=== PATIENT | male | born 1935 | race Caucasian/White ===

== ENCOUNTER → 2016-08-13 | Outpatient (CLI) | payer MEDICARE, OTHER ==
[2016-08-16 10:41] LABS: PROTHROMBIN TIME 23.3 SEC (11.4-15.4)
[2016-08-16 11:00] LABS: ALANINE AMINOTRANSFERASE 41 U/L (21-72); ALBUMIN 3.6 g/dL (3.5-5.0); ALKALINE PHOSPHATASE 163 U/L (38-126); ANION GAP 11 (5-19); ASPARTATE AMINO TRANSFERASE 34 U/L (17-59); BILIRUBIN,DIRECT 0.3 mg/dL (0.0-0.4); BILIRUBIN,TOTAL 0.7 mg/dL (0.2-1.3); BLOOD UREA NITROGEN 15 mg/dL (7-20); CARBON DIOXIDE 29 mmol/L (22-30); CHLORIDE 100 mmol/L (98-107); CHOLESTEROL 98.55 mg/dL (0-200); CREATININE RESULT 1.06 mg/dL (0.52-1.25); Direct HDL 28 mg/dL (>40); GLUCOSE 94 mg/dL (75-110); MAGNESIUM 2.1 mg/dL (1.6-2.3); POTASSIUM 4.1 mmol/L (3.6-5.0); SODIUM 140.4 mmol/L (137-145); TOTAL PROTEIN 6.6 g/dL (6.3-8.2); TRIGLYCERIDES 99 mg/dL (<150)
[2016-08-16 11:11] LABS: DIRECT LDL 41 mg/dL (<100)
== END ==
LOC: OD 13:36
PROVIDERS: ATTEND Internal Medicine Cardiovascular Disease
DX: R06.02 Shortness of breath (principal); Z79.899 Other long term (current) drug therapy; E78.2 Mixed hyperlipidemia; Z79.01 Long term (current) use of anticoagulants
CPT/HCPCS: 36415; 80048; 80061; 80076; 83735; 83880; 84443; 85610

== ENCOUNTER 2016-10-02 12:35 | Emergency (ER) | payer MEDICARE, OTHER ==
--- NOTE | 2016-10-02 13:49 | ER Document Report ---
ED Medical Screen (RME) - General Chief Complaint: Productive Cough Stated Complaint: VOMITING Time Seen by Provider: 10/02/16 13:48 TRAVEL OUTSIDE OF THE [place] IN LAST 30 DAYS: No - HPI Notes: 10/02/16 13:48 Nausea vomiting did develop cough brown sputum to yellow sputum has seen PCP started on antihistamine steroids and azithromycin not feeling any better. - Related Data Allergies/Adverse Reactions: bacitracin [From Polysporin] Allergy (Verified 10/02/16 12:50) cephalexin [Cephalexin] Allergy (Verified 10/02/16 12:50) codeine [Codeine] Allergy (Verified 10/02/16 12:50) colchicine [Colchicine] Allergy (Verified 10/02/16 12:50) neomycin [Neomycin] Allergy (Verified 10/02/16 12:50) polymyxin B sulfate [From Polysporin] Allergy (Verified 10/02/16 12:50) Sulfa (Sulfonamide Antibiotics) Allergy (Verified 10/02/16 12:50) thimerosal [Thimerosal] Allergy (Verified 10/02/16 12:50) BANDAIDS Adverse Reaction (Uncoded 10/02/16 12:50) Past Medical History - Past Medical History Cardiac Medical History: Reports: Hx Atrial Fibrillation, Hx Congestive Heart Failure, Hx Hypertension Denies: Hx Heart Attack Pulmonary Medical History: Denies: Hx Asthma Neurological Medical History: Denies: Hx Cerebrovascular Accident, Hx Seizures Renal/ Medical History: Denies: Hx Peritoneal Dialysis GI Medical History: Denies: Hx Hepatitis, Hx Hiatal Hernia, Hx Ulcer Infectious Medical History: Denies: Hx Hepatitis Past Surgical History: Reports: Hx Cholecystectomy. Denies: Hx Open Heart Surgery, Hx Pacemaker - Immunizations Hx Diphtheria, Pertussis, Tetanus Vaccination: Yes - 2011 Review of Systems - Review of Systems Cardiovascular: Other - Cough Physical Exam - Vital signs Vitals: Temp Pulse Resp BP Pulse Ox 98.6 F 102 H 18 154/71 H 97 10/02/16 12:50 10/02/16 12:50 10/02/16 12:50 10/02/16 12:50 10/02/16 12:50 - Respiratory Respiratory status: No respiratory distress Chest status: Nontender Breath sounds: Rhonchi Course - Re-evaluation Re-evalutation: 10/02/16 13:49 - Vital Signs Vital signs: Temp Pulse Resp BP Pulse Ox 98.6 F 102 H 18 154/71 H 97 10/02/16 12:50 10/02/16 12:50 10/02/16 12:50 10/02/16 12:50 10/02/16 12:50
--- NOTE | 2016-10-02 14:37 | ER Document Report ---
ED Respiratory Problem - General Mode of Arrival: Ambulatory Information source: Patient TRAVEL OUTSIDE OF THE [place] IN LAST 30 DAYS: No - HPI Patient complains to provider of: Cough Duration: Worse/persistent Cough: Nonproductive, Productive Sputum amount: Moderate <MJ MENON - Last Filed: 10/02/16 15:42> <SHAISTA CERNA - Last Filed: 10/04/16 11:31> - General Chief Complaint: Productive Cough Stated Complaint: VOMITING Time Seen by Provider: 10/02/16 13:48 Notes: Patient is an 81-year-old male that presents to the emergency department today with complaints of one-week duration of a cough. Patient states he has felt somewhat short of breath intermittently. Patient was recently prescribed Zithromax and Prednisone which did not relieve his cough. (MJ MENON) - Related Data Allergies/Adverse Reactions: bacitracin [From Polysporin] Allergy (Verified 10/02/16 12:50) cephalexin [Cephalexin] Allergy (Verified 10/02/16 12:50) codeine [Codeine] Allergy (Verified 10/02/16 12:50) colchicine [Colchicine] Allergy (Verified 10/02/16 12:50) neomycin [Neomycin] Allergy (Verified 10/02/16 12:50) polymyxin B sulfate [From Polysporin] Allergy (Verified 10/02/16 12:50) Sulfa (Sulfonamide Antibiotics) Allergy (Verified 10/02/16 12:50) thimerosal [Thimerosal] Allergy (Verified 10/02/16 12:50) BANDAIDS Adverse Reaction (Uncoded 10/02/16 12:50) Past Medical History - Social History Smoking Status: Former Smoker Chew tobacco use (# tins/day): No Frequency of alcohol use: None Drug Abuse: None Family History: None Patient has suicidal ideation: No Patient has homicidal ideation: No - Past Medical History Cardiac Medical History: Reports: Hx Atrial Fibrillation, Hx Congestive Heart Failure, Hx Hypertension Denies: Hx Heart Attack Pulmonary Medical History: Denies: Hx Asthma Neurological Medical History: Denies: Hx Cerebrovascular Accident, Hx Seizures Renal/ Medical History: Denies: Hx Peritoneal Dialysis GI Medical History: Denies: Hx Hepatitis, Hx Hiatal Hernia, Hx Ulcer Infectious Medical History: Denies: Hx Hepatitis Past Surgical History: Reports: Hx Cholecystectomy. Denies: Hx Open Heart Surgery, Hx Pacemaker - Immunizations Hx Diphtheria, Pertussis, Tetanus Vaccination: Yes - 2011 Hx Pneumococcal Vaccination: 04/11/11 <MJ MENON - Last Filed: 10/02/16 15:42> Review of Systems - Review of Systems Constitutional: No symptoms reported EENT: No symptoms reported Cardiovascular: No symptoms reported Respiratory: Cough, Short of breath Gastrointestinal: No symptoms reported Genitourinary: No symptoms reported Male Genitourinary: No symptoms reported Musculoskeletal: No symptoms reported Skin: No symptoms reported Hematologic/Lymphatic: No symptoms reported Neurological/Psychological: No symptoms reported -: Yes All other systems reviewed and negative <MJ MENON - Last Filed: 10/02/16 15:42> Physical Exam - Vital signs Interpretation: Normal - General General appearance: Appears well, Alert - HEENT Head: Normocephalic, Atraumatic Eyes: Normal Pupils: PERRL - Respiratory Respiratory status: No respiratory distress Chest status: Nontender Breath sounds: Normal Chest palpation: Normal - Cardiovascular Rhythm: Regular Heart sounds: Normal auscultation Murmur: No - Abdominal Inspection: Normal Distension: No distension Bowel sounds: Normal Tenderness: Nontender Organomegaly: No organomegaly - Back Back: Normal, Nontender - Extremities General upper extremity: Normal inspection, Nontender, Normal color, Normal ROM , Normal temperature General lower extremity: Normal inspection, Nontender, Normal color, Normal ROM , Normal temperature - Neurological Neuro grossly intact: Yes Cognition: Normal Orientation: AAOx4 [place] Coma Scale Eye Opening: Spontaneous You Coma Scale Verbal: Oriented [place] Coma Scale Motor: Obeys Commands [place] Coma Scale Total: 15 Speech: Normal Motor strength normal: LUE, RUE, LLE, RLE Sensory: Normal - Psychological Associated symptoms: Normal affect, Normal mood - Skin Skin Temperature: Warm Skin Moisture: Dry Skin Color: Normal <MJ MENON - Last Filed: 10/02/16 15:42> Course - Laboratory Result Diagrams: 10/02/16 14:10 10/02/16 14:10 <MJ MENON - Last Filed: 10/02/16 15:42> - Laboratory Result Diagrams: 10/02/16 14:10 10/02/16 14:10 <SHAISTA CERNA - Last Filed: 10/04/16 11:31> - Re-evaluation Re-evalutation: 10/02/16 15:58 Presents emergency department with a cough for one weeks duration he see his primary care physician had a negative chest x-ray continues to cough up brownish yellow sputum. Says he has a history of COPD with stopped smoking 25 years ago and is on no medication now history of congestive heart failure on Lasix sees Dr. Thomas cardiology denies any chest pain pressure diaphoresis lower extremity edema history of recent travel, surgery immobilization DVT or pulmonary emboli. He is in no acute respiratory distress denies shortness of breath or cardiac complaints. He is not hypoxic chest x-ray is negative mildly elevated BNP in the dose of increased Lasix here he is allergic to albuterol and taken Hycodan to the emergency to that as well. He was given Zithromax I told him to stop taking that also was given Mucinex and another allergy medication he says they are not working and I told him he can stop taking that if it is helping him. He will follow primary care physician in 2-3 days and discussed reasons for ED return (SHAISTA CERNA) - Vital Signs Vital signs: Temp Pulse Resp BP Pulse Ox 98.6 F 70 14 123/73 96 10/02/16 12:50 10/02/16 16:15 10/02/16 16:15 10/02/16 16:15 10/02/16 16:15 - Laboratory Laboratory results interpreted by me: 10/02/16 10/02/16 10/02/16 14:10 14:10 14:10 WBC 12.2 H Seg Neuts % (Manual) 90 H Band Neutrophils % 1 L Lymphocytes % (Manual) 5 L Abs Neuts (Manual) 11.1 H BUN 23 H Glucose 247 H Alkaline Phosphatase 145 H NT-Pro-B Natriuret Pep 1710 H Discharge <MJ MENON - Last Filed: 10/02/16 15:42> <SHAISTA CERNA - Last Filed: 10/04/16 11:31> - Discharge Clinical Impression: chf exacerbation mild Acute bronchitis Qualifiers: Bronchitis organism: unspecified organism Qualified Code(s): J20.9 - Acute bronchitis, unspecified Condition: Stable Disposition: HOME, SELF-CARE Additional Instructions: Bronchitis You have acute bronchitis. This disease is an infection or inflammation of the air passageways in your lungs. Symptoms usually include cough, low grade fever, shortness of breath, and wheezing. The cough usually persists for a couple of weeks. Most cases of bronchitis get better without antibiotics. We prescribe antibiotics when we believe bacteria are damaging your airways, or if there's high risk the bronchitis will worsen into pneumonia. Increase your fluid intake. A cool mist humidifier may make your lungs more comfortable. An expectorant (cough medicine that loosens phlegm) can help. If you smoke, STOP!!! Recovery from bronchitis can be somewhat slow, but you should see improvement within a day or two. Repeated episodes of bronchitis may result in lung damage -- for example, chronic bronchitis, recurrent pneumonias, or emphysema. Call the doctor if you develop increasing fever, shortness of breath, chest pain, bloody sputum, or otherwise worsen. If you have not improved at all after several days, contact the physician. Congestive Heart Failure You have been diagnosed as having congestive heart failure (CHF). CHF occurs when the heart is unable to pump blood efficiently, leading to fluid buildup in the veins and lungs. Typical symptoms are swelling of the legs, shortness of breath on minor exertion, and fatigue. CHF is treated with salt restriction, medicine to eliminate excess water and salt from the body, and medication to help the heart contract more efficiently. Eliminate added salt and salty foods in your diet. Decrease your activity until excess fluid has been eliminated. It will also be helpful to raise the head of your bed so you can sleep more easily. Keep a daily record of your weight. This will help your physician monitor your progress. Once extra water has been eliminated, light aerobic exercise daily -- such as walking -- will be helpful (unless your physician has told you to restrict activity for other reasons). Be sure to follow up with the physician as instructed. Contact the doctor at once if you worsen in any way. Referrals: TANIA ESPARZA MD [Primary Care Provider] - Follow up as needed Scribe Attestation: 10/02/16 15:58 I personally performed the services described in the documentation reviewed the documentation recorded by my scribe in my presence and it accurately and completely records my words and actions (SHAISTA CERNA) Scribe Documentation - Scribe Written by Jose:: Jose Jimenez, 10/02/2016 [id number] acting as scribe for :: Skyler <MJ MENON - Last Filed: 10/02/16 15:42>
[2016-10-02 14:54] LABS: HEMATOCRIT 42.4 % (37.9-51.0); HEMOGLOBIN 13.9 g/dL (13.5-17.0); HGB HCT DIFFERENCE -0.7; MEAN CORPUSCULAR HEMOGLOBIN 29.9 pg (27.0-33.4); MEAN CORPUSCULAR HGB CONC 32.7 g/dL (32.0-36.0); MEAN CORPUSCULAR VOLUME 91 fl (80-97); RED BLOOD COUNT 4.65 10^6/uL (4.35-5.55); WHITE BLOOD COUNT 12.2 10^3/uL (4.0-10.5)
[2016-10-02 15:12] LABS: ALANINE AMINOTRANSFERASE 40 U/L (21-72); ALBUMIN 3.7 g/dL (3.5-5.0); ALKALINE PHOSPHATASE 145 U/L (38-126); ANION GAP 13 (5-19); ASPARTATE AMINO TRANSFERASE 34 U/L (17-59); BILIRUBIN,DIRECT 0.4 mg/dL (0.0-0.4); BILIRUBIN,TOTAL 0.7 mg/dL (0.2-1.3); BLOOD UREA NITROGEN 23 mg/dL (7-20); CALCIUM 8.8 mg/dL (8.4-10.2); CARBON DIOXIDE 23 mmol/L (22-30); CHLORIDE 103 mmol/L (98-107); CREATINE KINASE 55 U/L (55-170); CREATININE RESULT 1.04 mg/dL (0.52-1.25); GLUCOSE 247 mg/dL (75-110); LIPASE 136.5 U/L (23-300); MAGNESIUM 2.3 mg/dL (1.6-2.3); POTASSIUM 3.7 mmol/L (3.6-5.0); SODIUM 138.7 mmol/L (137-145); TOTAL PROTEIN 6.8 g/dL (6.3-8.2)
[2016-10-02 15:16] LABS: BAND NEUTROPHILS % (MANUAL) 1 % (3-5); BASOPHILS % (MANUAL) 0 % (0-2); EOSINOPHILS % (MANUAL) 0 % (0-6); LYMPHOCYTES % (MANUAL) 5 % (13-45); RBC MORPHOLOGY COMMENT NORMO-CYTIC/CHROMIC; TOTAL CELLS COUNTED 100
[2016-10-02 15:24] LABS: CREATINE KINASE MB 2.15 ng/mL (<4.55); TROPONIN I 0.016 ng/mL
--- NOTE | 2016-10-02 15:42 | RADIOLOGY REPORT (SQ) ---
EXAM DESCRIPTION: CHEST PA/LAT COMPLETED DATE/TIME: 10/02/2016 3:36 pm REASON FOR STUDY: sob COMPARISON: 11/21/2013 EXAM PARAMETERS: NUMBER OF VIEWS: two views TECHNIQUE: Digital Frontal and Lateral radiographic views of the chest acquired. RADIATION DOSE: NA LIMITATIONS: none FINDINGS: LUNGS AND PLEURA: No opacities, masses or pneumothorax. No pleural effusion. MEDIASTINUM AND HILAR STRUCTURES: No masses or contour abnormalities. HEART AND VASCULAR STRUCTURES: Heart normal size. No evidence for failure. BONES: No acute findings. HARDWARE: None in the chest. OTHER: No other significant finding. IMPRESSION: NO SIGNIFICANT RADIOGRAPHIC FINDING IN THE CHEST. TECHNICAL DOCUMENTATION: JOB ID: [id number]- All Rights Reserved
[2016-10-02] MEDS ORDERED: FUROSEMIDE 80 MG TABLET PO ONE (15:44)
[2016-10-02] MEDS ORDERED: FUROSEMIDE 40 MG TABLET PO ONE (16:15)
[2016-10-02 16:16] VITALS: BP 123/73
--- NOTE | 2016-10-02 17:34 | EKG REPORT ---
SEVERITY:- ABNORMAL ECG - ATRIAL FIBRILLATION LEFT AXIS DEVIATION : Confirmed by: Steve Milian 02-Oct-2016 17:32:44
== END 2016-10-02 16:15 | disposition home or self-care (01) ==
LOC: ER 12:35
DX: J20.9 Acute bronchitis, unspecified (principal); I50.9 Heart failure, unspecified; R05 Cough; R11.10 Vomiting, unspecified; Z87.891 Personal history of nicotine dependence
CPT/HCPCS: 93005; 99284; 36415; 82553; 82550; 83690; 83735; 85025; 80053; 84484; 83880; 71020; 93010; A9270

== ENCOUNTER → 2016-11-08 | Outpatient (CLI) | payer MEDICARE, OTHER ==
--- NOTE | 2016-11-08 14:05 | RADIOLOGY REPORT (SQ) ---
EXAM DESCRIPTION: VENOUS UNILATERAL LOWER COMPLETED DATE/TIME: 11/08/2016 1:54 pm REASON FOR STUDY: RLE PAIN M79.661 PAIN IN RIGHT LOWER LEG COMPARISON: None. TECHNIQUE: Dynamic and static alonso scale and color images acquired of the right leg venous system. S elected spectral images acquired with additional compression and augmentation maneuvers. The contrala teral common femoral vein and saphenofemoral junction were also imaged. Images stored on PACS. LIMITATIONS: None. FINDINGS: COMMON FEMORAL: Normal phasicity, compression and augmentation. No visualized echogenic ma terial on alonso scale. No defects on color images. FEMORAL: Normal compression and augmentation. No visualized echogenic material on alonso scale. No defe cts on color images. POPLITEAL: Normal compression, augmentation. No visualized echogenic material on alonso scale. No defec ts on color images. CALF VESSELS: Normal compression, augmentation. No visualized echogenic material on alonso scale. No de fects on color images. GSV and SSV: Normal compression, augmentation. No visualized echogenic material on alonso scale. No def ects on color images. ANY DEEP VENOUS INSUFFICIENCY: Not evaluated. ANY EVIDENCE OF POPLITEAL CYST: No. OTHER: No other significant finding. CONTRALATERAL COMMON FEMORAL VEIN AND SAPHENOFEMORAL JUNCTION: Normal phasicity, compression and augmentation. No visualized echogenic material on alonso scale. No de fects on color images. IMPRESSION: NO EVIDENCE DVT OR SVT IN THE RIGHT LEG. TECHNICAL DOCUMENTATION: JOB ID: [id number] [employer]- All Rights Reserved
== END ==
LOC: SP 13:00
PROVIDERS: ATTEND Family Medicine
DX: M79.661 Pain in right lower leg (principal)
CPT/HCPCS: 93971

== ENCOUNTER → 2017-03-11 | Outpatient (CLI) | payer MEDICARE, OTHER ==
[2017-03-11 12:27] LABS: HEMATOCRIT 43.4 % (37.9-51.0); HEMOGLOBIN 14.8 g/dL (13.5-17.0); MEAN CORPUSCULAR VOLUME 91 fl (80-97); RED BLOOD COUNT 4.75 10^6/uL (4.35-5.55); RED CELL DISTRIBUTION WIDTH 13.8 % (11.5-14.0); WHITE BLOOD COUNT 5.3 10^3/uL (4.0-10.5)
[2017-03-11 12:32] LABS: PROTHROMBIN TIME 27.5 SEC (11.4-15.4)
[2017-03-11 12:50] LABS: ANION GAP 11 (5-19); BLOOD UREA NITROGEN 16 mg/dL (7-20); CALCIUM 9.1 mg/dL (8.4-10.2); CARBON DIOXIDE 29 mmol/L (22-30); CHLORIDE 103 mmol/L (98-107); CREATININE RESULT 1.09 mg/dL (0.52-1.25); GLUCOSE 100 mg/dL (75-110); MAGNESIUM 2.1 mg/dL (1.6-2.3); POTASSIUM 5.2 mmol/L (3.6-5.0); SODIUM 143.2 mmol/L (137-145)
== END ==
LOC: OD 11:17
PROVIDERS: ATTEND Internal Medicine Nephrology
DX: I13.0 Hypertensive heart and chronic kidney disease with heart failure and stage 1 through stage 4 chronic kidney disease, or unspecified chronic kidney disease (principal); N18.3 Chronic kidney disease, stage 3 (moderate); I50.9 Heart failure, unspecified; I48.2 Chronic atrial fibrillation; Z79.01 Long term (current) use of anticoagulants
CPT/HCPCS: 36415; 80048; 83735; 85027; 85610

== ENCOUNTER → 2017-03-21 | Outpatient (CLI) | payer MEDICARE, OTHER ==
[2017-03-21 10:09] LABS: PROTHROMBIN TIME 32.5 SEC (11.4-15.4)
== END ==
LOC: OD 09:07
PROVIDERS: ATTEND Internal Medicine Cardiovascular Disease
DX: Z79.01 Long term (current) use of anticoagulants (principal); I48.2 Chronic atrial fibrillation
CPT/HCPCS: 36415; 85610

== ENCOUNTER → 2017-04-01 | Outpatient (CLI) | payer MEDICARE, OTHER ==
[2017-04-01 08:30] LABS: PROTHROMBIN TIME 32.7 SEC (11.4-15.4)
== END ==
LOC: OD 07:11
PROVIDERS: ATTEND Internal Medicine Cardiovascular Disease
DX: I48.2 Chronic atrial fibrillation (principal); Z79.01 Long term (current) use of anticoagulants
CPT/HCPCS: 36415; 85610

== ENCOUNTER → 2017-04-13 | Outpatient (CLI) | payer MEDICARE, OTHER ==
[2017-04-13 12:10] LABS: INTERNATIONAL RATION (INR) 2.32; PROTHROMBIN TIME 26.7 SEC (11.4-15.4)
== END ==
LOC: OD 11:16
PROVIDERS: ATTEND Internal Medicine Cardiovascular Disease
DX: I48.2 Chronic atrial fibrillation (principal); Z79.01 Long term (current) use of anticoagulants
CPT/HCPCS: 36415; 85610

== ENCOUNTER → 2017-04-26 | Outpatient (CLI) | payer MEDICARE, OTHER ==
[2017-04-26 16:20] LABS: INTERNATIONAL RATION (INR) 2.09; PROTHROMBIN TIME 24.6 SEC (11.4-15.4)
== END ==
LOC: OD 14:39
PROVIDERS: ATTEND Internal Medicine Cardiovascular Disease
DX: I48.2 Chronic atrial fibrillation (principal); Z79.01 Long term (current) use of anticoagulants
CPT/HCPCS: 36415; 85610

== ENCOUNTER → 2017-05-09 | Outpatient (CLI) | payer MEDICARE, OTHER ==
[2017-05-09 12:06] LABS: INTERNATIONAL RATION (INR) 2.71; PROTHROMBIN TIME 30.1 SEC (11.4-15.4)
== END ==
LOC: OD 10:21
PROVIDERS: ATTEND Internal Medicine Cardiovascular Disease
DX: I48.2 Chronic atrial fibrillation (principal); Z79.01 Long term (current) use of anticoagulants
CPT/HCPCS: 36415; 85610

== ENCOUNTER → 2017-05-23 | Outpatient (CLI) | payer MEDICARE, OTHER ==
[2017-05-23 12:37] LABS: INTERNATIONAL RATION (INR) 2.25; PROTHROMBIN TIME 26.1 SEC (11.4-15.4)
== END ==
LOC: OD 11:23
PROVIDERS: ATTEND Internal Medicine Cardiovascular Disease
DX: I48.2 Chronic atrial fibrillation (principal); Z79.01 Long term (current) use of anticoagulants
CPT/HCPCS: 36415; 85610

== ENCOUNTER → 2017-06-06 | Outpatient (CLI) | payer MEDICARE, OTHER ==
[2017-06-06 10:53] LABS: INTERNATIONAL RATION (INR) 1.93; PROTHROMBIN TIME 23.2 SEC (11.4-15.4)
[2017-06-06 10:55] LABS: ANION GAP 14 (5-19); BLOOD UREA NITROGEN 16 mg/dL (7-20); CALCIUM 8.9 mg/dL (8.4-10.2); CARBON DIOXIDE 29 mmol/L (22-30); CHLORIDE 98 mmol/L (98-107); CHOLESTEROL 98.92 mg/dL (0-200); GLUCOSE 95 mg/dL (75-110); POTASSIUM 4.8 mmol/L (3.6-5.0); SODIUM 141.1 mmol/L (137-145); TRIGLYCERIDES 91 mg/dL (<150)
[2017-06-06 11:07] LABS: DIRECT LDL 48 mg/dL (<100)
[2017-06-06 14:36] LABS: ALANINE AMINOTRANSFERASE 39 U/L (21-72); ALBUMIN 3.9 g/dL (3.5-5.0); ALKALINE PHOSPHATASE 117 U/L (38-126); ASPARTATE AMINO TRANSFERASE 41 U/L (17-59); BILIRUBIN,DIRECT 0.4 mg/dL (0.0-0.4); BILIRUBIN,TOTAL 1.1 mg/dL (0.2-1.3); TOTAL PROTEIN 6.5 g/dL (6.3-8.2)
== END ==
LOC: OD 09:34
PROVIDERS: ATTEND Internal Medicine Cardiovascular Disease
DX: I48.2 Chronic atrial fibrillation (principal); E78.2 Mixed hyperlipidemia; R94.5 Abnormal results of liver function studies; Z79.01 Long term (current) use of anticoagulants
CPT/HCPCS: 36415; 80048; 80061; 80076; 83735; 85610

== ENCOUNTER → 2017-06-20 | Outpatient (CLI) | payer MEDICARE, OTHER ==
[2017-06-20 12:26] LABS: INTERNATIONAL RATION (INR) 2.65; PROTHROMBIN TIME 29.6 SEC (11.4-15.4)
== END ==
LOC: OD 10:40
PROVIDERS: ATTEND Internal Medicine Cardiovascular Disease
DX: I48.2 Chronic atrial fibrillation (principal); Z79.01 Long term (current) use of anticoagulants
CPT/HCPCS: 36415; 85610

== ENCOUNTER → 2017-07-05 | Outpatient (CLI) | payer MEDICARE, OTHER ==
[2017-07-05 11:17] LABS: INTERNATIONAL RATION (INR) 2.63; PROTHROMBIN TIME 29.4 SEC (11.4-15.4)
== END ==
LOC: OD 09:46
PROVIDERS: ATTEND Internal Medicine Cardiovascular Disease
DX: I48.2 Chronic atrial fibrillation (principal)
CPT/HCPCS: 36415; 85610

== ENCOUNTER → 2017-07-19 | Outpatient (CLI) | payer MEDICARE, OTHER ==
[2017-07-19 11:34] LABS: INTERNATIONAL RATION (INR) 2.78; PROTHROMBIN TIME 30.6 SEC (11.4-15.4)
== END ==
LOC: OD 10:54
PROVIDERS: ATTEND Internal Medicine Cardiovascular Disease
DX: I48.2 Chronic atrial fibrillation (principal)
CPT/HCPCS: 36415; 85610

== ENCOUNTER → 2017-08-02 | Outpatient (CLI) | payer MEDICARE, OTHER ==
[2017-08-02 10:38] LABS: INTERNATIONAL RATION (INR) 2.71; PROTHROMBIN TIME 30.1 SEC (11.4-15.4)
== END ==
LOC: OD 09:52
PROVIDERS: ATTEND Internal Medicine Cardiovascular Disease
DX: I48.2 Chronic atrial fibrillation (principal)
CPT/HCPCS: 36415; 85610

== ENCOUNTER → 2017-08-15 | Outpatient (CLI) | payer MEDICARE, OTHER ==
[2017-08-15 11:52] LABS: INTERNATIONAL RATION (INR) 2.25; PROTHROMBIN TIME 25.9 SEC (11.4-15.4)
== END ==
LOC: OD 11:09
PROVIDERS: ATTEND Internal Medicine Cardiovascular Disease
DX: I48.2 Chronic atrial fibrillation (principal)
CPT/HCPCS: 36415; 85610

== ENCOUNTER → 2017-08-29 | Outpatient (CLI) | payer MEDICARE, OTHER ==
[2017-08-29 10:02] LABS: INTERNATIONAL RATION (INR) 2.03; PROTHROMBIN TIME 23.9 SEC (11.4-15.4)
== END ==
LOC: OD 09:01
PROVIDERS: ATTEND Internal Medicine Cardiovascular Disease
DX: I48.2 Chronic atrial fibrillation (principal)
CPT/HCPCS: 36415; 85610

== ENCOUNTER → 2017-09-09 | Outpatient (CLI) | payer MEDICARE, OTHER ==
[2017-09-09 14:27] LABS: HEMATOCRIT 43.7 % (37.9-51.0); HEMOGLOBIN 14.5 g/dL (13.5-17.0); MEAN CORPUSCULAR HEMOGLOBIN 30.2 pg (27.0-33.4); MEAN CORPUSCULAR HGB CONC 33.2 g/dL (32.0-36.0); MEAN CORPUSCULAR VOLUME 91 fl (80-97); PLATELET COUNT 167 10^3/uL (150-450); RED CELL DISTRIBUTION WIDTH 14.4 % (11.5-14.0); WHITE BLOOD COUNT 4.4 10^3/uL (4.0-10.5)
[2017-09-09 14:46] LABS: ANION GAP 14 (5-19); BLOOD UREA NITROGEN 21 mg/dL (7-20); CALCIUM 9.1 mg/dL (8.4-10.2); CARBON DIOXIDE 28 mmol/L (22-30); CHLORIDE 101 mmol/L (98-107); GLUCOSE 174 mg/dL (75-110); SODIUM 143.1 mmol/L (137-145)
== END ==
LOC: OD 13:24
PROVIDERS: ATTEND Internal Medicine Nephrology
DX: I12.9 Hypertensive chronic kidney disease with stage 1 through stage 4 chronic kidney disease, or unspecified chronic kidney disease (principal); N18.3 Chronic kidney disease, stage 3 (moderate); E87.5 Hyperkalemia
CPT/HCPCS: 36415; 80048; 85027

== ENCOUNTER → 2017-09-12 | Outpatient (CLI) | payer MEDICARE, OTHER ==
[2017-09-12 14:45] LABS: INTERNATIONAL RATION (INR) 2.18; PROTHROMBIN TIME 25.3 SEC (11.4-15.4)
== END ==
LOC: OD 13:33
PROVIDERS: ATTEND Internal Medicine Cardiovascular Disease
DX: I48.2 Chronic atrial fibrillation (principal)
CPT/HCPCS: 36415; 85610

== ENCOUNTER → 2017-09-27 | Outpatient (CLI) | payer MEDICARE, OTHER ==
[2017-09-27 12:04] LABS: INTERNATIONAL RATION (INR) 2.45; PROTHROMBIN TIME 27.8 SEC (11.4-15.4)
== END ==
LOC: OD 11:04
PROVIDERS: ATTEND Internal Medicine Cardiovascular Disease
DX: I48.2 Chronic atrial fibrillation (principal)
CPT/HCPCS: 36415; 85610

== ENCOUNTER → 2017-10-11 | Outpatient (CLI) | payer MEDICARE, OTHER ==
[2017-10-11 11:35] LABS: INTERNATIONAL RATION (INR) 3.91; PROTHROMBIN TIME 40.1 SEC (11.4-15.4)
== END ==
LOC: OD 10:27
PROVIDERS: ATTEND Internal Medicine Cardiovascular Disease
DX: I48.2 Chronic atrial fibrillation (principal)
CPT/HCPCS: 36415; 85610

== ENCOUNTER → 2017-10-13 | Outpatient (CLI) | payer MEDICARE, OTHER ==
[2017-10-13 11:11] LABS: INTERNATIONAL RATION (INR) 2.11; PROTHROMBIN TIME 24.6 SEC (11.4-15.4)
== END ==
LOC: OD 10:17
PROVIDERS: ATTEND Internal Medicine Cardiovascular Disease
DX: I48.2 Chronic atrial fibrillation (principal)
CPT/HCPCS: 36415; 85610

== ENCOUNTER → 2017-10-26 | Outpatient (CLI) | payer MEDICARE, OTHER ==
[2017-10-26 11:24] LABS: INTERNATIONAL RATION (INR) 2.47; PROTHROMBIN TIME 27.9 SEC (11.4-15.4)
== END ==
LOC: OD 10:20
PROVIDERS: ATTEND Internal Medicine Cardiovascular Disease
DX: I48.2 Chronic atrial fibrillation (principal)
CPT/HCPCS: 36415; 85610

== ENCOUNTER → 2017-11-09 | Outpatient (CLI) | payer MEDICARE, OTHER ==
[2017-11-09 10:59] LABS: INTERNATIONAL RATION (INR) 3.12; PROTHROMBIN TIME 33.6 SEC (11.4-15.4)
== END ==
LOC: OD 09:54
PROVIDERS: ATTEND Internal Medicine Cardiovascular Disease
DX: I48.2 Chronic atrial fibrillation (principal)
CPT/HCPCS: 36415; 85610

== ENCOUNTER → 2017-11-21 | Outpatient (CLI) | payer MEDICARE, OTHER ==
[2017-11-21 12:07] LABS: INTERNATIONAL RATION (INR) 3.16; PROTHROMBIN TIME 33.9 SEC (11.4-15.4)
== END ==
LOC: OD 10:54
PROVIDERS: ATTEND Internal Medicine Cardiovascular Disease
DX: I48.2 Chronic atrial fibrillation (principal)
CPT/HCPCS: 36415; 85610

== ENCOUNTER → 2017-11-22 | Outpatient (CLI) | payer MEDICARE, OTHER ==
[2017-11-22 10:06] LABS: ANION GAP 10 (5-19); BLOOD UREA NITROGEN 17 mg/dL (7-20); CALCIUM 8.8 mg/dL (8.4-10.2); CARBON DIOXIDE 31 mmol/L (22-30); CHLORIDE 102 mmol/L (98-107); GLUCOSE 102 mg/dL (75-110); POTASSIUM 4.2 mmol/L (3.6-5.0)
== END ==
LOC: OD 09:03
PROVIDERS: ATTEND Internal Medicine Cardiovascular Disease
DX: I48.2 Chronic atrial fibrillation (principal)
CPT/HCPCS: 36415; 80048

== ENCOUNTER → 2018-02-16 | Outpatient (CLI) | payer MEDICARE, OTHER ==
[2018-02-16 11:02] LABS: APPEARANCE,URINE CLEAR; BILIRUBIN,URINE NEGATIVE (NEGATIVE); COLOR,URINE YELLOW; GLUCOSE, URINE NEGATIVE (NEGATIVE); KETONES,URINE NEGATIVE (NEGATIVE); LEUKOCYTE ESTERASE,URINE NEGATIVE (NEGATIVE); NITRITE,URINE NEGATIVE (NEGATIVE); PROTEIN,URINE NEGATIVE (NEGATIVE); URINE SPECIFIC GRAVITY 1.015; UROBILINOGEN,URINE NEGATIVE mg/dL (<2.0)
[2018-02-16 11:08] LABS: HEMATOCRIT 42.8 % (37.9-51.0); HEMOGLOBIN 14.2 g/dL (13.5-17.0); MEAN CORPUSCULAR HEMOGLOBIN 30.1 pg (27.0-33.4); MEAN CORPUSCULAR HGB CONC 33.3 g/dL (32.0-36.0); MEAN CORPUSCULAR VOLUME 90 fl (80-97); PLATELET COUNT 251 10^3/uL (150-450); RED BLOOD COUNT 4.73 10^6/uL (4.35-5.55); RED CELL DISTRIBUTION WIDTH 14.6 % (11.5-14.0); WHITE BLOOD COUNT 5.7 10^3/uL (4.0-10.5)
[2018-02-16 11:29] LABS: ALANINE AMINOTRANSFERASE 30 U/L (21-72); ALKALINE PHOSPHATASE 165 U/L (38-126); ANION GAP 15 (5-19); ASPARTATE AMINO TRANSFERASE 39 U/L (17-59); BILIRUBIN,DIRECT 0.3 mg/dL (0.0-0.4); BILIRUBIN,TOTAL 1.2 mg/dL (0.2-1.3); BLOOD UREA NITROGEN 14 mg/dL (7-20); CALCIUM 9.1 mg/dL (8.4-10.2); CARBON DIOXIDE 28 mmol/L (22-30); CHLORIDE 99 mmol/L (98-107); GLUCOSE 98 mg/dL (75-110); POTASSIUM 4.2 mmol/L (3.6-5.0); SODIUM 141.7 mmol/L (137-145); TOTAL PROTEIN 7.2 g/dL (6.3-8.2)
== END ==
LOC: LAB 10:51
PROVIDERS: ATTEND Internal Medicine Cardiovascular Disease
DX: I48.2 Chronic atrial fibrillation (principal); Z79.01 Long term (current) use of anticoagulants; Z79.899 Other long term (current) drug therapy
CPT/HCPCS: 36415; 80048; 80076; 81001; 82272; 85027; 85730

== ENCOUNTER → 2018-03-09 | Outpatient (CLI) | payer MEDICARE, OTHER ==
[2018-03-09 10:41] LABS: HEMATOCRIT 41.8 % (37.9-51.0); HEMOGLOBIN 14.2 g/dL (13.5-17.0); MEAN CORPUSCULAR VOLUME 91 fl (80-97); PLATELET COUNT 189 10^3/uL (150-450); RED BLOOD COUNT 4.58 10^6/uL (4.35-5.55); RED CELL DISTRIBUTION WIDTH 15.1 % (11.5-14.0); WHITE BLOOD COUNT 5.7 10^3/uL (4.0-10.5)
[2018-03-09 11:09] LABS: ANION GAP 10 (5-19); BLOOD UREA NITROGEN 18 mg/dL (7-20); CARBON DIOXIDE 32 mmol/L (22-30); CHLORIDE 101 mmol/L (98-107); GLUCOSE 104 mg/dL (75-110); POTASSIUM 4.1 mmol/L (3.6-5.0)
== END ==
LOC: OD 09:42
PROVIDERS: ATTEND Internal Medicine Nephrology
DX: I12.9 Hypertensive chronic kidney disease with stage 1 through stage 4 chronic kidney disease, or unspecified chronic kidney disease (principal); N18.3 Chronic kidney disease, stage 3 (moderate); R60.9 Edema, unspecified
CPT/HCPCS: 36415; 80048; 85027

== ENCOUNTER 2018-03-21 12:38 | Emergency (ER) | payer MEDICARE, OTHER ==
[2018-03-21] MEDS ORDERED: ASPIRIN 81 MG TABLET, CHEWABLE PO ONE (12:57)
[2018-03-21 13:26] LABS: ABSOLUTE EOSINOPHILS # (AUTO) 0.2 10^3/uL (0.0-0.6); ABSOLUTE LYMPHOCYTES (AUTO) 0.8 10^3/uL (0.5-4.7); ABSOLUTE MONOCYTES (AUTO) 0.6 10^3/uL (0.1-1.4); ABSOLUTE NEUT (AUTO) 4.3 10^3/uL (1.7-8.2); BASOPHILS % (AUTO) 0.7 % (0-2); EOSINOPHILS % (AUTO) 2.9 % (0-6); HEMATOCRIT 45.1 % (37.9-51.0); HEMOGLOBIN 15.2 g/dL (13.5-17.0); LYMPHOCYTES % (AUTO) 13.9 % (13-45); MEAN CORPUSCULAR HEMOGLOBIN 30.8 pg (27.0-33.4); MEAN CORPUSCULAR HGB CONC 33.7 g/dL (32.0-36.0); MEAN CORPUSCULAR VOLUME 91 fl (80-97); MONOCYTES % (AUTO) 10.2 % (3-13); PLATELET COUNT 192 10^3/uL (150-450); RED BLOOD COUNT 4.94 10^6/uL (4.35-5.55); RED CELL DISTRIBUTION WIDTH 14.8 % (11.5-14.0); SEGMENTED NEUTROPHILS % (AUTO) 72.3 % (42-78); TOTAL CELLS COUNTED % (AUTO) 100 %; WHITE BLOOD COUNT 5.9 10^3/uL (4.0-10.5)
--- NOTE | 2018-03-21 13:57 | RADIOLOGY REPORT (SQ) ---
EXAM DESCRIPTION: CHEST SINGLE VIEW COMPLETED DATE/TIME: 03/21/2018 1:37 pm REASON FOR STUDY: chest pain COMPARISON: 10/02/2016 EXAM PARAMETERS: NUMBER OF VIEWS: One view. TECHNIQUE: Single frontal radiographic view of the chest acquired. RADIATION DOSE: NA LIMITATIONS: None. FINDINGS: LUNGS AND PLEURA: Mild left basilar opacity with obscuration of the cardiac apex. No nima tional opacities, masses or pneumothorax. No pleural effusion. MEDIASTINUM AND HILAR STRUCTURES: No masses. Contour normal. HEART AND VASCULAR STRUCTURES: Normal heart size. Atherosclerotic tortuous aorta. BONES: No acute findings. HARDWARE: Surgical clips overlie right upper quadrant. OTHER: No other significant finding. IMPRESSION: Mild left lingular opacity possibly atelectasis or infection. TECHNICAL DOCUMENTATION: JOB ID: [id number] [employer]- All Rights Reserved Reading location - IP/workstation name: [email or web address]
[2018-03-21 13:59] LABS: CREATINE KINASE MB 1.08 ng/mL (<4.55); TROPONIN I 0.014 ng/mL
--- NOTE | 2018-03-21 14:17 | ER Document Report ---
ED Cardiac - General Chief Complaint: Palpitations Stated Complaint: CHEST PAIN Time Seen by Provider: 03/21/18 12:57 TRAVEL OUTSIDE OF THE [place] IN LAST 30 DAYS: No - HPI Patient complains to provider of: Other - 82-year-old man with a history of atrial fibrillation currently on Eliquis who was not missed a dose as well as on Micardis for rate control who presents for evaluation of an episode which concerned him that he may have potentially had a cardiac event, he had gotten up from sleeping in went to the bathroom and while walking to the kitchen began to have numbness in his right arm and then felt slowed down. He thereafter sat down and had tried to shake off the numbness in the right arm and after approximately 2 minutes had a return of normal sensation. He was concerned that he might of had a heart attack which prompted him to come the emergency room. He denies any recent illnesses, shortness of breath, chest pain, palpitations, abdominal pain diarrhea constipation dysuria rashes previous episodes which were similar list denies any history of cardiac disease heart failure heart attack stent placement. - Related Data Allergies/Adverse Reactions: bacitracin [From Polysporin] Allergy (Verified 03/21/18 12:40) cephalexin [Cephalexin] Allergy (Verified 03/21/18 12:40) codeine [Codeine] Allergy (Verified 03/21/18 12:40) colchicine [Colchicine] Allergy (Verified 03/21/18 12:40) neomycin [Neomycin] Allergy (Verified 03/21/18 12:40) polymyxin B sulfate [From Polysporin] Allergy (Verified 03/21/18 12:40) Sulfa (Sulfonamide Antibiotics) Allergy (Verified 03/21/18 12:40) thimerosal [Thimerosal] Allergy (Verified 03/21/18 12:40) BANDAIDS Adverse Reaction (Uncoded 03/21/18 12:40) Past Medical History - General Information source: Patient - Social History Smoking Status: Former Smoker Family History: None Patient has suicidal ideation: No Patient has homicidal ideation: No - Past Medical History Cardiac Medical History: Reports: Hx Atrial Fibrillation, Hx Congestive Heart Failure, Hx Hypertension Denies: Hx Heart Attack Pulmonary Medical History: Denies: Hx Asthma Neurological Medical History: Denies: Hx Cerebrovascular Accident, Hx Seizures Renal/ Medical History: Denies: Hx Peritoneal Dialysis GI Medical History: Denies: Hx Hepatitis, Hx Hiatal Hernia, Hx Ulcer Infectious Medical History: Denies: Hx Hepatitis Past Surgical History: Reports: Hx Cholecystectomy. Denies: Hx Open Heart Surgery, Hx Pacemaker - Immunizations Hx Diphtheria, Pertussis, Tetanus Vaccination: Yes - 2011 Hx Pneumococcal Vaccination: 04/11/11 Review of Systems - Review of Systems -: Yes All other systems reviewed and negative Physical Exam - Vital signs Vitals: Temp Pulse Resp BP Pulse Ox 98.0 F 71 18 143/65 H 97 03/21/18 12:45 03/21/18 12:45 03/21/18 12:45 03/21/18 12:45 03/21/18 12:45 Interpretation: Normal - General General appearance: Appears well, Alert - HEENT Head: Normocephalic, Atraumatic Eyes: Normal Pupils: PERRL - Respiratory Respiratory status: No respiratory distress Chest status: Nontender Breath sounds: Normal Chest palpation: Normal - Cardiovascular Rhythm: Irregularly irregular Murmur: No - Abdominal Inspection: Normal Distension: No distension Bowel sounds: Normal Tenderness: Nontender Organomegaly: No organomegaly - Back Back: Normal, Nontender - Extremities General upper extremity: Normal inspection, Nontender, Normal color, Normal ROM , Normal temperature General lower extremity: Normal inspection, Nontender, Normal color, Normal ROM , Normal temperature, Normal weight bearing. No: Nikky's sign - Neurological Neuro grossly intact: Yes Cognition: Normal Orientation: AAOx4 You Coma Scale Eye Opening: Spontaneous You Coma Scale Verbal: Oriented You Coma Scale Motor: Obeys Commands You Coma Scale Total: 15 Speech: Normal Motor strength normal: LUE, RUE, LLE, RLE Sensory: Normal - Psychological Associated symptoms: Normal affect, Normal mood - Skin Skin Temperature: Warm Skin Moisture: Dry Skin Color: Normal Course - Re-evaluation Re-evalutation: 03/21/18 17:24 A 82-year-old male presents for numbness in the right arm which resolved spontaneously, he noted that he was concerned that this could represent a heart attack as it did slow him down. We will plan for troponin x2 cardiac monitoring and reassessment. EKG shows atrial fibrillation without any obvious ST segment changes consistent with ischemic disease. 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 He is on Eliquis to thin his blood. He is benign neurologic examination at this time. He does tell his story which is concerning for a possible TIA event. Is never had a stroke in the past, he has not missed any doses of his medication. Patient with 2- troponins, while the emergency department is heart rate did slow into the 50s, I repeated his EKG at this time to assess for any potential rhythm change, is nowhere that he was persistently in atrial fibrillation at this time. Had a narrow complex bradycardia without any symptoms and normal blood pressure, we did discuss treatment options. I think that this patient's symptoms are concerning for potential TIA. Because of the concern I have I did discuss admission and monitoring in the hospital for possible developing CVA as well as myocardial infarction he noted that he would like to go home since he has not obviously had a heart attack. I did discuss with him the importance of follow-up since he had decided to go home. I adjusted his Lipitor dose to account for possible CVA in addition to his Eliquis he will be on 80 mg of Lipitor daily. At the time of discharge she was hemodynamically stable, he was neurologically intact. I do not believe this represents myocardial infarction at this moment but do have concerns that it could be developing into a cardiac event, I do not believe this represents a true CVA and persistent stroke but could represent a TIA. Do not believe this represents a dissection or some other serious cause of arm numbness. - Vital Signs Vital signs: Temp Pulse Resp BP Pulse Ox 98.0 F 71 16 118/70 97 03/21/18 12:45 03/21/18 12:45 03/21/18 15:01 03/21/18 15:01 03/21/18 15:01 - Laboratory Result Diagrams: 03/21/18 12:55 03/21/18 14:06 Laboratory results interpreted by me: 03/21/18 03/21/18 12:55 14:06 RDW 14.8 H Carbon Dioxide 31 H Alkaline Phosphatase 154 H Creatine Kinase 38 L Discharge - Discharge Clinical Impression: Arm numbness Fatigue Qualifiers: Fatigue type: unspecified Qualified Code(s): R53.83 - Other fatigue Condition: Stable Disposition: HOME, SELF-CARE Instructions: Transient Ischemic Attack ([facility]) Additional Instructions: You were seen today in the emergency department after you had right arm numbness. You had an evaluation including a physical exam, blood work, and monitoring in the emergency department. It did show that you have atrial fibrillation, it is very important that you continue to take your normal blood thinning medication. Your heart rate was a little bit low while you are in the emergency department, this is probably because of your blood pressure medications. You should increase your dose of Lipitor as instructed. Make sure you schedule an appointment with your doctor in the next 2-3 days. You were offered admission to the hospital and further monitoring because this could be a mini stroke however you have decided that you would like to go home. Return immediately in case you have any worsening numbness or weakness, chest pain or other symptoms. Prescriptions: Atorvastatin Calcium [Lipitor] 80 mg PO DAILY #45 tablet Referrals: Valentina POTTER MD [ACTIVE STAFF] - Follow up as needed
[2018-03-21 14:41] LABS: ALANINE AMINOTRANSFERASE 28 U/L (21-72); ALBUMIN 3.6 g/dL (3.5-5.0); ALKALINE PHOSPHATASE 154 U/L (38-126); ANION GAP 10 (5-19); ASPARTATE AMINO TRANSFERASE 29 U/L (17-59); BILIRUBIN,DIRECT 0.4 mg/dL (0.0-0.4); BILIRUBIN,TOTAL 1.3 mg/dL (0.2-1.3); BLOOD UREA NITROGEN 16 mg/dL (7-20); CARBON DIOXIDE 31 mmol/L (22-30); CHLORIDE 101 mmol/L (98-107); CREATINE KINASE 38 U/L (55-170); GLUCOSE 105 mg/dL (75-110); POTASSIUM 3.9 mmol/L (3.6-5.0); SODIUM 141.6 mmol/L (137-145); TOTAL PROTEIN 6.8 g/dL (6.3-8.2)
[2018-03-21 17:24] VITALS: BP 110/75
--- NOTE | 2018-03-21 23:35 | EKG REPORT ---
SEVERITY:- ABNORMAL ECG - ATRIAL FIBRILLATION PROBABLE INFERIOR INFARCT, AGE INDETERMINATE BORDERLINE R WAVE PROGRESSION, ANTERIOR LEADS : Confirmed by: Millie Gamboa MD 21-Mar-2018 23:34:19
--- NOTE | 2018-03-22 21:04 | EKG REPORT ---
SEVERITY:- ABNORMAL ECG - ATRIAL FIBRILLATION PROBABLE INFERIOR INFARCT, AGE INDETERMINATE BORDERLINE R WAVE PROGRESSION, ANTERIOR LEADS : Confirmed by: Millie Gamboa MD 22-Mar-2018 21:03:31
== END 2018-03-21 17:05 | disposition home or self-care (01) ==
LOC: ER 12:38
DX: R20.0 Anesthesia of skin (principal); R53.83 Other fatigue; R00.1 Bradycardia, unspecified; I10 Essential (primary) hypertension; I48.91 Unspecified atrial fibrillation; Z79.01 Long term (current) use of anticoagulants; Z79.899 Other long term (current) drug therapy; Z88.1 Allergy status to other antibiotic agents; Z88.5 Allergy status to narcotic agent; Z88.8 Allergy status to other drugs, medicaments and biological substances; Z88.2 Allergy status to sulfonamides; Z88.3 Allergy status to other anti-infective agents; Z87.891 Personal history of nicotine dependence
CPT/HCPCS: 93005; 99285; 36415; 82553; 82550; 85025; 80053; 84484; 71045; 93010; A9270

== ENCOUNTER 2018-03-22 12:57 | Emergency (ER) | payer MEDICARE, OTHER ==
--- NOTE | 2018-03-22 13:34 | RADIOLOGY REPORT (SQ) ---
EXAM DESCRIPTION: CT HEAD WITHOUT COMPLETED DATE/TIME: 03/22/2018 1:11 pm REASON FOR STUDY: stroke-like symptoms COMPARISON: November 2013 TECHNIQUE: Axial images acquired through the brain without intravenous contrast. Images reviewed wi th bone, brain and subdural windows. Additional sagittal and coronal reconstructions were generated. Images stored on PACS. All CT scanners at this facility use dose modulation, iterative reconstruction, and/or weight based d osing when appropriate to reduce radiation dose to as low as reasonably achievable (ALARA). [facility]: Dose Right [facility]: CareDose [facility]: Dose Right [facility]: Teradose 4D [facility]: [employer] RADIATION DOSE: CT Rad equipment meets quality standard of care and radiation dose reduction techniq ues were employed. CTDIvol: 48.6 mGy. DLP: 904 mGy-cm.mGy. LIMITATIONS: None. FINDINGS: VENTRICLES: There is prominence of the ventricular system slightly out of proportion to th e cortical sulci and the possibility of a component of a communicating hydrocephalus cannot be exclud ed. CEREBRUM: No masses. No hemorrhage. No midline shift. Areas of low density in the white matter mos t likely due to chronic micro-vascular ischemic change. No evidence for acute infarction. CEREBELLUM: No masses. No hemorrhage. No alteration of density. No evidence for acute infarction. EXTRAAXIAL SPACES: Age-related involutional change. No fluid collections. No masses. ORBITS AND GLOBE: No intra- or extraconal masses. Normal contour of globe without masses. CALVARIUM: No fracture. PARANASAL SINUSES: No fluid or mucosal thickening. SOFT TISSUES: No mass or hematoma. OTHER: No other significant finding. IMPRESSION: CHRONIC CHANGES OF ATROPHY AND MICROVASCULAR ISCHEMIA. NO ACUTE PROCESS. Other finding s as noted above. EVIDENCE OF ACUTE STROKE: NO. TECHNICAL DOCUMENTATION: JOB ID: [id number] Quality ID # [id number]: Final reports with documentation of one or more dose reduction techniques (e.g., Au tomated exposure control, adjustment of the mA and/or kV according to patient size, use of iterative reconstruction technique) 2010 [employer]- All Rights Reserved Reading location - IP/workstation name: [email or web address]
[2018-03-22 13:45] LABS: ABSOLUTE EOSINOPHILS # (AUTO) 0.1 10^3/uL (0.0-0.6); ABSOLUTE LYMPHOCYTES (AUTO) 0.9 10^3/uL (0.5-4.7); ABSOLUTE MONOCYTES (AUTO) 0.5 10^3/uL (0.1-1.4); ABSOLUTE NEUT (AUTO) 4.6 10^3/uL (1.7-8.2); BASOPHILS % (AUTO) 0.4 % (0-2); EOSINOPHILS % (AUTO) 1.8 % (0-6); HEMATOCRIT 44.4 % (37.9-51.0); HEMOGLOBIN 14.9 g/dL (13.5-17.0); LYMPHOCYTES % (AUTO) 14.5 % (13-45); MEAN CORPUSCULAR HEMOGLOBIN 30.4 pg (27.0-33.4); MEAN CORPUSCULAR HGB CONC 33.4 g/dL (32.0-36.0); MEAN CORPUSCULAR VOLUME 91 fl (80-97); MONOCYTES % (AUTO) 7.8 % (3-13); PLATELET COUNT 197 10^3/uL (150-450); RED BLOOD COUNT 4.89 10^6/uL (4.35-5.55); RED CELL DISTRIBUTION WIDTH 14.8 % (11.5-14.0); SEGMENTED NEUTROPHILS % (AUTO) 75.5 % (42-78); TOTAL CELLS COUNTED % (AUTO) 100 %; WHITE BLOOD COUNT 6.1 10^3/uL (4.0-10.5)
--- NOTE | 2018-03-22 13:47 | RADIOLOGY REPORT (SQ) ---
EXAM DESCRIPTION: CHEST SINGLE VIEW COMPLETED DATE/TIME: 03/22/2018 1:37 pm REASON FOR STUDY: stroke-like symptoms COMPARISON: 03/21/2018 EXAM PARAMETERS: NUMBER OF VIEWS: One view. TECHNIQUE: Single frontal radiographic view of the chest acquired. RADIATION DOSE: NA LIMITATIONS: None. FINDINGS: LUNGS AND PLEURA: The previously described mild left lingular opacity appears less pronoun donna on the current study and may represent some prominence of the epicardial fat pad. Remaining lung drake are clear. No pleural effusions are identified. MEDIASTINUM AND HILAR STRUCTURES: No masses. Contour normal. HEART AND VASCULAR STRUCTURES: The configuration of the heart mediastinal structures is unchanged. BONES: No acute findings. HARDWARE: None in the chest. OTHER: No other significant finding. IMPRESSION: The previously described mild left lingular opacity appears less pronounced on the curre nt study. Remaining lung drake are clear. Other findings as noted above TECHNICAL DOCUMENTATION: JOB ID: [id number] [employer]- All Rights Reserved Reading location - IP/workstation name: [facility]
[2018-03-22 13:49] LABS: INTERNATIONAL RATION (INR) 1.49; PARTIAL THROMBOPLASTIN TIME 36.1 SEC (23.5-35.8)
[2018-03-22 13:51] LABS: PROTHROMBIN TIME 18.7 SEC (11.4-15.4)
[2018-03-22 14:01] LABS: ALANINE AMINOTRANSFERASE 25 U/L (21-72); ALBUMIN 4.2 g/dL (3.5-5.0); ALKALINE PHOSPHATASE 165 U/L (38-126); ANION GAP 13 (5-19); ASPARTATE AMINO TRANSFERASE 31 U/L (17-59); BILIRUBIN,DIRECT 0.3 mg/dL (0.0-0.4); BILIRUBIN,TOTAL 1.3 mg/dL (0.2-1.3); BLOOD UREA NITROGEN 19 mg/dL (7-20); CALCIUM 9.2 mg/dL (8.4-10.2); CARBON DIOXIDE 31 mmol/L (22-30); CHLORIDE 100 mmol/L (98-107); CREATINE KINASE 53 U/L (55-170); GLUCOSE 147 mg/dL (75-110); POTASSIUM 3.9 mmol/L (3.6-5.0); SODIUM 143.5 mmol/L (137-145); TOTAL PROTEIN 7.6 g/dL (6.3-8.2)
[2018-03-22 14:13] LABS: CREATINE KINASE MB 1.25 ng/mL (<4.55); TROPONIN I 0.014 ng/mL
--- NOTE | 2018-03-22 20:07 | ER Document Report ---
ED Neuro Symptoms/Deficit - General Chief Complaint: S/S of Possible Stroke Stated Complaint: NUMBNESS OF LEFT ARM Time Seen by Provider: 03/22/18 13:47 Notes: Patient is here because of numbness in his left arm this morning, lasting 10-15 seconds. He was seen here yesterday for similar symptoms of numbness in his right arm, that episode lasted a couple of minutes, then resolved and did not recur. When seen here, he had a normal CT scan and workup and opted not to stay in the hospital but preferred to go home. This other episode today started about an hour and a half ago. It resolved very quickly after about 10- 15 seconds, although he lifted his arm and felt as if it was not really there. He had some weakness in his legs and trembling but he can walk without too much difficulty. He is not having any difficulty with his speech or with swallowing. Now he has no symptoms at all. Feels his normal self. Patient has chronic atrial fibrillation and is on Eliquis for anticoagulation. PMH: COPD. Has some headache, but has had this for at least 6 months periodically. TRAVEL OUTSIDE OF THE [place] IN LAST 30 DAYS: No - Related Data Allergies/Adverse Reactions: bacitracin [From Polysporin] Allergy (Verified 03/21/18 12:40) cephalexin [Cephalexin] Allergy (Verified 03/21/18 12:40) codeine [Codeine] Allergy (Verified 03/21/18 12:40) colchicine [Colchicine] Allergy (Verified 03/21/18 12:40) neomycin [Neomycin] Allergy (Verified 03/21/18 12:40) polymyxin B sulfate [From Polysporin] Allergy (Verified 03/21/18 12:40) Sulfa (Sulfonamide Antibiotics) Allergy (Verified 03/21/18 12:40) thimerosal [Thimerosal] Allergy (Verified 03/21/18 12:40) BANDAIDS Adverse Reaction (Uncoded 03/21/18 12:40) Past Medical History - Social History Smoking Status: Former Smoker Chew tobacco use (# tins/day): No Frequency of alcohol use: None Drug Abuse: None Family History: None, Reviewed & Not Pertinent Patient has suicidal ideation: No Patient has homicidal ideation: No - Past Medical History Cardiac Medical History: Reports: Hx Atrial Fibrillation, Hx Congestive Heart Failure, Hx Hypertension Pulmonary Medical History: Reports: Hx COPD Past Surgical History: Reports: Hx Cholecystectomy - Immunizations Hx Diphtheria, Pertussis, Tetanus Vaccination: Yes - 2011 Hx Pneumococcal Vaccination: 04/11/11 Review of Systems - Review of Systems Notes: REVIEW OF SYSTEMS: CONSTITUTIONAL : Denies fever. EENT: Denies eye, ear, nose or mouth or throat pain or other symptoms. CARDIOVASCULAR: Denies chest pain. RESPIRATORY: Denies cough, chest congestion, or shortness of breath. GASTROINTESTINAL: Denies abdominal pain or nausea, vomiting, or diarrhea. GENITOURINARY: Denies difficulty or painful urinating, urinary frequency, blood in urine. MUSCULOSKELETAL: Denies back or neck pain. Denies joint pain or swelling. SKIN: Denies rash or skin lesions. NEUROLOGICAL: See HPI. Denies LOC or altered mental status. Denies headache. No facial asymmetry or weakness. ALL OTHER SYSTEMS REVIEWED AND NEGATIVE. Physical Exam - Vital signs Vitals: Temp Pulse Resp BP Pulse Ox 97.8 F 80 19 138/65 H 96 03/22/18 13:15 03/22/18 13:15 03/22/18 13:15 03/22/18 13:15 03/22/18 13:15 Interpretation: Normal Notes: PHYSICAL EXAMINATION: GENERAL: Well-appearing, in no acute distress. HEAD: Atraumatic, normocephalic. EYES: Pupils equal round and reactive to light, extraocular movements intact. ENT: oropharynx clear without exudates. Moist mucous membranes. NECK: Normal range of motion, supple. I hear a bruit on the patient's left lower neck. LUNGS: Breath sounds clear and equal bilaterally. HEART: Regular rate and rhythm without murmurs. ABDOMEN: Soft, nontender. No guarding or rebound. No masses. BACK: No tenderness throughout entire back. EXTREMITIES: Normal range of motion without pain. NEUROLOGICAL: Normal speech. Normal sensory, motor, and reflex exams. Awake, alert, and oriented x3. Cranial nerves normal. PSYCH: Normal mood, normal affect. SKIN: Warm, dry, no rashes. Course - Re-evaluation Re-evalutation: 03/22/18 20:10 I spoke with patient's l d rn here in [place], Dr. Buchanan, and he has summarized results from carotid artery studies done on this patient in November of this year. It showed the right internal carotid to be 50-79% in the left internal carotid at 0-49%. It also said that the patient had antegrade flow through the right vertebral artery and retrograde flow through the left vertebral artery with left subclavian stenosis. I found out that these results were from a study done by [facility] vascular surgeon . I called this patient's primary care provider's office, Dr. Sal Munguia where I was able to get them to fax me a copy of this patient's study from November. I was also able to contact Dr.Neu Keane, associate of Dr. Sandoval. We discussed this patient's disposition and feel that this patient needs to be hospitalized for further evaluation, perhaps transesophageal echo, looking for clot from the patient's atria from his atrial fibrillation. We do not feel it safe for him to go home. [facility] is on diversion, but was able to talk to them and have been advised that it is most likely patient will have a bed available in the morning. I spoke with Dr. Gonzalez, the hospitalist at [place] for the [facility] group and she was willing to accept the patient for transfer. We are going to go ahead and do his MRI of his has any residual actual damage from his 2 episodes. - Vital Signs Vital signs: Temp Pulse Resp BP Pulse Ox 97.5 F 88 9 L 141/67 H 95 03/22/18 13:33 03/22/18 16:30 03/22/18 17:01 03/22/18 17:01 03/22/18 17:01 - Laboratory Result Diagrams: 03/22/18 13:30 03/22/18 13:30 Laboratory results interpreted by me: 03/22/18 03/22/18 03/22/18 13:30 13:30 13:30 RDW 14.8 H PT 18.7 H APTT 36.1 H Carbon Dioxide 31 H Glucose 147 H Alkaline Phosphatase 165 H Creatine Kinase 53 L - EKG Interpretation by Me Rate: Normal Rhythm: A.Fib Discharge - Discharge Clinical Impression: TIA (transient ischemic attack), Atrial fibrillation Condition: Stable Disposition: [facility] Referrals: SAL ESPARZA MD [Primary Care Provider] - Follow up as needed
--- NOTE | 2018-03-22 20:55 | EKG REPORT ---
SEVERITY:- ABNORMAL ECG - ATRIAL FIBRILLATION, V-RATE 62-86 VENTRICULAR PREMATURE COMPLEX PROBABLE INFERIOR INFARCT, OLD CONSIDER ANTERIOR INFARCT : Confirmed by: Millie Gamboa MD 22-Mar-2018 20:54:58
--- NOTE | 2018-03-22 21:07 | RADIOLOGY REPORT (SQ) ---
EXAM DESCRIPTION: MR BRAIN WITHOUT IV CONTRAST COMPLETED DATE/TME: 03/22/2018 19:01 CLINICAL HISTORY: 82 years, Male, TIAs yesterday and today, each arm numb Findings: Chronic appearing patchy T2 hyperintense foci in the periventricular and subcortical white matter of both cerebral hemispheres consistent with chronic small vessel ischemic changes. Ventricles and subarachnoid spaces are moderately dilated consistent with cerebral atrophy. No extra-axial fluid collections. There is no evidence for restricted diffusion on diffusion-weighted images. Midline cerebral structures are preserved. Craniocervical junction is intact. IMPRESSION: Extensive chronic small vessel ischemic changes. No acute infarct.
[2018-03-22] MEDS ORDERED: FUROSEMIDE 40 MG TABLET PO SCH (21:30)
[2018-03-22] MEDS ORDERED: HYDRALAZINE HCL 25 MG TABLET PO SCH (22:00)
[2018-03-22] MEDS ORDERED: LOSARTAN POTASSIUM 50 MG TABLET PO SCH (22:00)
[2018-03-22] MEDS ORDERED: ATORVASTATIN CALCIUM 40 MG TABLET PO SCH (22:00)
[2018-03-22] MEDS ORDERED: APIXABAN 5 MG TABLET PO SCH (22:00)
[2018-03-22] MEDS ORDERED: MONTELUKAST SODIUM 10 MG TABLET PO SCH (22:00)
[2018-03-22 22:23] VITALS: BP 120/65
== END 2018-03-22 22:33 | disposition short-term general hospital (02) ==
LOC: ER 12:57
DX: G45.9 Transient cerebral ischemic attack, unspecified (principal); R20.0 Anesthesia of skin; I48.2 Chronic atrial fibrillation; Z79.01 Long term (current) use of anticoagulants; Z87.891 Personal history of nicotine dependence; I11.0 Hypertensive heart disease with heart failure; I50.9 Heart failure, unspecified; J44.9 Chronic obstructive pulmonary disease, unspecified
CPT/HCPCS: 93005; 99285; 36415; 82553; 82550; 85025; 85610; 85730; 80053; 84484; 70551; 71045; 70450; 93010; A9270 ×4

== ENCOUNTER → 2018-05-17 | Outpatient (CLI) | payer MEDICARE, OTHER ==
[2018-05-17 11:30] LABS: HEMATOCRIT 45.4 % (37.9-51.0); HEMOGLOBIN 15.4 g/dL (13.5-17.0); MEAN CORPUSCULAR HEMOGLOBIN 30.7 pg (27.0-33.4); MEAN CORPUSCULAR HGB CONC 33.9 g/dL (32.0-36.0); MEAN CORPUSCULAR VOLUME 91 fl (80-97); PLATELET COUNT 188 10^3/uL (150-450); RED BLOOD COUNT 5.01 10^6/uL (4.35-5.55); RED CELL DISTRIBUTION WIDTH 15.4 % (11.5-14.0); WHITE BLOOD COUNT 10.8 10^3/uL (4.0-10.5)
[2018-05-17 11:32] LABS: APPEARANCE,URINE CLEAR; BILIRUBIN,URINE NEGATIVE (NEGATIVE); COLOR,URINE YELLOW; GLUCOSE, URINE NEGATIVE (NEGATIVE); KETONES,URINE NEGATIVE (NEGATIVE); LEUKOCYTE ESTERASE,URINE NEGATIVE (NEGATIVE); NITRITE,URINE NEGATIVE (NEGATIVE); PROTEIN,URINE NEGATIVE (NEGATIVE); URINE SPECIFIC GRAVITY 1.023
[2018-05-17 11:47] LABS: ALANINE AMINOTRANSFERASE 29 U/L (21-72); ALKALINE PHOSPHATASE 137 U/L (38-126); ANION GAP 10 (5-19); ASPARTATE AMINO TRANSFERASE 36 U/L (17-59); BILIRUBIN,DIRECT 0.3 mg/dL (0.0-0.4); BILIRUBIN,TOTAL 0.9 mg/dL (0.2-1.3); BLOOD UREA NITROGEN 17 mg/dL (7-20); CALCIUM 8.8 mg/dL (8.4-10.2); CARBON DIOXIDE 28 mmol/L (22-30); CHLORIDE 104 mmol/L (98-107); CHOLESTEROL 110.17 mg/dL (0-200); GLUCOSE 116 mg/dL (75-110); POTASSIUM 4.1 mmol/L (3.6-5.0); SODIUM 141.7 mmol/L (137-145); TOTAL PROTEIN 6.9 g/dL (6.3-8.2); TRIGLYCERIDES 123 mg/dL (<150)
[2018-05-17 11:57] LABS: DIRECT LDL 61 mg/dL (<100)
== END ==
LOC: LAB 11:14
PROVIDERS: ATTEND Internal Medicine Cardiovascular Disease
DX: I50.9 Heart failure, unspecified (principal); E78.2 Mixed hyperlipidemia; I48.0 Paroxysmal atrial fibrillation; Z79.01 Long term (current) use of anticoagulants; Z79.899 Other long term (current) drug therapy
CPT/HCPCS: 36415; 80048; 80061; 80076; 81001; 82272; 83880; 85027; 85730

== ENCOUNTER 2018-05-18 09:54 | Emergency (ER) | payer MEDICARE ==
--- NOTE | 2018-05-18 11:39 | ER Document Report ---
ED Medical Screen (RME) - General Chief Complaint: Neck Pain >24hrs old Stated Complaint: ARM NUMBNESS Time Seen by Provider: 05/18/18 11:34 Primary Care Provider: GRETA CUNNINGHAM MD [Primary Care Provider] - Follow up as needed Mode of Arrival: Ambulatory Information source: Patient Notes: Patient is an 82-year-old male who presents to the emergency department after having an outpatient MRI done of the cervical spine. Patient reports over the last several months he has been having neck pain with bilateral arm tingling and numbness. Patient reports he is seeing a neurologist in [place] who ordered the test. Apparently the ordering physician called him this morning after they receive the results of his MRI and told him to come to the emergency department immediately for placement of a cervical collar. A cervical collar was placed by the pivot nurse immediately on arrival. Patient currently denies any complaints. He states he has been well does not have any neck pain at this time. I have greeted and performed a rapid initial assessment of this patient. A comprehensive ED assessment and evaluation of the patient, analysis of test results and completion of the medical decision making process will be conducted by additional ED providers. Dictation of this chart was performed using voice recognition software; therefore, there may be some unintended grammatical errors. TRAVEL OUTSIDE OF THE [place] IN LAST 30 DAYS: No - Related Data Allergies/Adverse Reactions: bacitracin [From Polysporin] Allergy (Verified 03/21/18 12:40) cephalexin [Cephalexin] Allergy (Verified 03/21/18 12:40) codeine [Codeine] Allergy (Verified 03/21/18 12:40) colchicine [Colchicine] Allergy (Verified 03/21/18 12:40) neomycin [Neomycin] Allergy (Verified 03/21/18 12:40) polymyxin B sulfate [From Polysporin] Allergy (Verified 03/21/18 12:40) Sulfa (Sulfonamide Antibiotics) Allergy (Verified 03/21/18 12:40) thimerosal [Thimerosal] Allergy (Verified 03/21/18 12:40) BANDAIDS Adverse Reaction (Uncoded 03/21/18 12:40) Past Medical History - Past Medical History Cardiac Medical History: Reports: Hx Atrial Fibrillation, Hx Congestive Heart Failure, Hx Hypertension Pulmonary Medical History: Reports: Hx COPD Neurological Medical History: Renal/ Medical History: Denies: Hx Peritoneal Dialysis GI Medical History: Infectious Medical History: Past Surgical History: Reports: Hx Cholecystectomy - Immunizations Hx Diphtheria, Pertussis, Tetanus Vaccination: Yes - 2011 Physical Exam - Vital signs Vitals: Temp Pulse Resp BP Pulse Ox 98.0 F 71 16 147/65 H 97 05/18/18 10:06 05/18/18 10:06 05/18/18 10:06 05/18/18 10:06 05/18/18 10:06 Course - Vital Signs Vital signs: Temp Pulse Resp BP Pulse Ox 98.0 F 71 16 147/65 H 97 05/18/18 10:06 05/18/18 10:06 05/18/18 10:06 05/18/18 10:06 05/18/18 10:06 Doctor's Discharge - Discharge Referrals: GRETA CUNNINGHAM MD [Primary Care Provider] - Follow up as needed
--- NOTE | 2018-05-18 13:14 | ER Document Report ---
ED Neck/Back Problem - General Chief Complaint: Neck Pain >24hrs old Stated Complaint: ARM NUMBNESS Time Seen by Provider: 05/18/18 11:34 Primary Care Provider: GRETA CUNNINGHAM MD [EMERITUS] - Follow up as needed Mode of Arrival: Ambulatory Notes: Patient is an 82-year-old male who presents to the emergency department with an outpatient MRI results requesting placement of a cervical collar. Patient had an outpatient cervical MRI done yesterday that was ordered by his neurologist. He states that his neurologist told him to come to the emergency department to have a cervical collar placed. Patient reports no pain today but reports over the last 3 months patient has been having bilateral numbness and tingling to his arms, denies any direct trauma to his neck. TRAVEL OUTSIDE OF THE [place] IN LAST 30 DAYS: No - Related Data Allergies/Adverse Reactions: bacitracin [From Polysporin] Allergy (Verified 03/21/18 12:40) cephalexin [Cephalexin] Allergy (Verified 03/21/18 12:40) codeine [Codeine] Allergy (Verified 03/21/18 12:40) colchicine [Colchicine] Allergy (Verified 03/21/18 12:40) neomycin [Neomycin] Allergy (Verified 03/21/18 12:40) polymyxin B sulfate [From Polysporin] Allergy (Verified 03/21/18 12:40) Sulfa (Sulfonamide Antibiotics) Allergy (Verified 03/21/18 12:40) thimerosal [Thimerosal] Allergy (Verified 03/21/18 12:40) BANDAIDS Adverse Reaction (Uncoded 03/21/18 12:40) Past Medical History - General Information source: Patient - Social History Smoking Status: Former Smoker Chew tobacco use (# tins/day): No Frequency of alcohol use: None Drug Abuse: None Family History: None, Reviewed & Not Pertinent Patient has suicidal ideation: No Patient has homicidal ideation: No - Past Medical History Cardiac Medical History: Reports: Hx Atrial Fibrillation, Hx Congestive Heart Failure, Hx Hypercholesterolemia, Hx Hypertension Pulmonary Medical History: Reports: Hx COPD Neurological Medical History: Renal/ Medical History: Denies: Hx Peritoneal Dialysis GI Medical History: Infectious Medical History: Past Surgical History: Reports: Hx Cholecystectomy, Hx Genitourinary Surgery - Prostate, Hx Vascular Surgery - Immunizations Hx Diphtheria, Pertussis, Tetanus Vaccination: Yes - 2011 Hx Pneumococcal Vaccination: 04/11/11 Review of Systems - Review of Systems Constitutional: No symptoms reported EENT: No symptoms reported Cardiovascular: No symptoms reported Respiratory: No symptoms reported Gastrointestinal: No symptoms reported Genitourinary: No symptoms reported Male Genitourinary: No symptoms reported Musculoskeletal: No symptoms reported Skin: No symptoms reported Hematologic/Lymphatic: No symptoms reported Neurological/Psychological: No symptoms reported Physical Exam - Vital signs Vitals: Temp Pulse Resp BP Pulse Ox 98.0 F 71 16 147/65 H 97 05/18/18 10:06 05/18/18 10:06 05/18/18 10:06 05/18/18 10:06 05/18/18 10:06 - Notes Notes: PHYSICAL EXAMINATION: GENERAL: Well-appearing, well-nourished and in no acute distress. HEAD: Atraumatic, normocephalic. EYES: Pupils equal round and reactive to light, extraocular movements intact, sclera anicteric, conjunctiva are normal. ENT: Nares patent, oropharynx clear without exudates. Moist mucous membranes. NECK: Normal range of motion, supple without lymphadenopathy LUNGS: Breath sounds clear to auscultation bilaterally and equal. No wheezes rales or rhonchi. HEART: Regular rate and rhythm without murmurs ABDOMEN: Soft, nontender, nondistended abdomen. No guarding, no rebound. No masses appreciated. Musculoskeletal: Normal range of motion, no pitting or edema. No cyanosis. NEUROLOGICAL: Cranial nerves grossly intact. Normal speech, normal gait. Normal sensory, motor exams PSYCH: Normal mood, normal affect. SKIN: Warm, Dry, normal turgor, no rashes or lesions noted. Course - Re-evaluation Re-evalutation: Outpatient MRI of patient's cervical spine done on 05/17/18 at [facility] diagnostic imaging shows C1-C2 subluxation with widened predental space and narrowed spinal canal causing compression of the spinal cord. No definite myomalacia. Spinal canal stenosis is moderately severe measuring approximately 7.9 mm AP diameter. Predental space is 5.6 mm. There is diffuse cervical spondylosis with multiple levels of central canal stenosis and bilateral foraminal stenosis. Called [facility] to speak with a neurologist for direction on this patient. Awaiting callback. Spoke with Bhargav Cortez PA-C on-call for [facility] neurosurgery through [facility]. Discussed patient's MRI results. He recommends placing patient in an [place] collar which has already been done. He recommends patient be discharged home and follow-up in their office outpatient. This was discussed with my attending physician who is in agreement with this plan. 05/18/18 13:12 Called and spoke with patient's neurologist, Dr. Contreras to keep him updated on the plan of care. Patient will be discharged home at this time with strict ED return precautions. Patient continues to be asymptomatic and he and his are in agreement with plans for outpatient follow-up. Discharge nursing staff is calling with the patient and there presents to help establish this outpatient appointment. - Vital Signs Vital signs: Temp Pulse Resp BP Pulse Ox 98.4 F 60 16 132/58 H 95 05/18/18 13:13 05/18/18 13:13 05/18/18 13:13 05/18/18 13:13 05/18/18 13:13 Discharge - Discharge Clinical Impression: Chronic neck pain C1-C2 subluxation Qualifiers: Encounter type: initial encounter Qualified Code(s): S13.120A - Subluxation of C1/C2 cervical vertebrae, initial encounter Condition: Stable Disposition: HOME, SELF-CARE Additional Instructions: I have spoken with both your neurologist as well as a neurosurgery group at [facility]. The neurosurgery group is called [facility] neurosurgery. Their phone number is [phone]. They would like you to call them tomorrow to schedule an appointment for next week. It is very important that you keep the cervical collar in place until seen by them. When you see them please make sure you bring your radiology disc as well as a copy of the radiology report. Return to the emergency department for any new or worsening symptoms. [facility] Neurosurgery [address] [place] [address] Referrals: GRETA CUNNINGHAM MD [EMERITUS] - Follow up as needed
[2018-05-18 13:15] VITALS: BP 132/58
== END 2018-05-18 13:15 | disposition home or self-care (01) ==
LOC: ER 09:54
DX: S13.120A Subluxation of C1/C2 cervical vertebrae, initial encounter (principal); X58.XXXA Exposure to other specified factors, initial encounter; G89.29 Other chronic pain; M54.2 Cervicalgia; R20.0 Anesthesia of skin; I50.9 Heart failure, unspecified; I11.0 Hypertensive heart disease with heart failure; E78.00 Pure hypercholesterolemia, unspecified; J44.9 Chronic obstructive pulmonary disease, unspecified; I48.91 Unspecified atrial fibrillation; Z88.3 Allergy status to other anti-infective agents; Z88.6 Allergy status to analgesic agent; Z88.2 Allergy status to sulfonamides; Z90.49 Acquired absence of other specified parts of digestive tract
CPT/HCPCS: 99283; L0172; L0120

== ENCOUNTER 2018-07-05 04:55 | Emergency (ER) | payer MEDICARE, OTHER ==
[2018-07-05] MEDS ORDERED: MIDAZOLAM 2 MG/2 ML INJ ONE (05:11)
[2018-07-05] MEDS ORDERED: MIDAZOLAM 2 MG/2 ML INJ IV ONE (05:13)
[2018-07-05] MEDS ORDERED: MIDAZOLAM HCL 50 MG/100 ML RTUINJ ONE (05:13)
[2018-07-05] MEDS ORDERED: MIDAZOLAM HCL 50 MG/100 ML RTUINJ IV PRN (05:14)
[2018-07-05] MEDS ORDERED: ROCURONIUM BROMIDE INJ 50 MG/5 ML VIAL IV ONE ×2 (05:14→09:44)
--- NOTE | 2018-07-05 05:17 | ER Document Report ---
ED General <LEONIE CASTLE - Last Filed: 07/05/18 09:35> - General TRAVEL OUTSIDE OF THE [place] IN LAST 30 DAYS: No <KALLI MENDES - Last Filed: 07/05/18 20:13> - General Stated Complaint: TROUBLE BREATHING Time Seen by Provider: 07/05/18 05:13 Primary Care Provider: TANIA ESPARZA MD [Primary Care Provider] - Follow up as needed Notes: Patient is a 83-year-old male presents with complaint of cardiac arrest. She had cervical fusion done at [facility] 1 week ago. says that he was doing okay but having some pain and therefore she gave him his oxycodone and Robaxin. Shortly after this he is slumped in the chair and become unresponsive. She called 911 and then they started CPR. Paramedics arrived and continued CPR and gave him 2 rounds of epinephrine and then a dose of Narcan and they got return of circulation. Patient is not had any further cardiac arrest since then. Patient is on Eliquis. said he did not fall or hit his head. He is remained in a [place] collar since the surgery. Patient was intubated by the paramedics with a Kwesi airway. (KALLI MENDES) - Related Data Allergies/Adverse Reactions: bacitracin [From Polysporin] Allergy (Verified 03/21/18 12:40) cephalexin [Cephalexin] Allergy (Verified 03/21/18 12:40) codeine [Codeine] Allergy (Verified 03/21/18 12:40) colchicine [Colchicine] Allergy (Verified 03/21/18 12:40) neomycin [Neomycin] Allergy (Verified 03/21/18 12:40) polymyxin B sulfate [From Polysporin] Allergy (Verified 03/21/18 12:40) Sulfa (Sulfonamide Antibiotics) Allergy (Verified 03/21/18 12:40) thimerosal [Thimerosal] Allergy (Verified 03/21/18 12:40) BANDAIDS Adverse Reaction (Uncoded 03/21/18 12:40) Past Medical History - Social History Smoking Status: Unknown if Ever Smoked Frequency of alcohol use: None Drug Abuse: None Family History: None, Reviewed & Not Pertinent - Past Medical History Cardiac Medical History: Reports: Hx Atrial Fibrillation, Hx Congestive Heart Failure, Hx Hypercholesterolemia, Hx Hypertension Pulmonary Medical History: Reports: Hx COPD Neurological Medical History: Renal/ Medical History: Denies: Hx Peritoneal Dialysis GI Medical History: Infectious Medical History: Past Surgical History: Reports: Hx Cholecystectomy, Hx Genitourinary Surgery - Prostate, Hx Vascular Surgery - Immunizations Hx Diphtheria, Pertussis, Tetanus Vaccination: Yes - 2011 Hx Pneumococcal Vaccination: 04/11/11 <KALLI MENDES - Last Filed: 07/05/18 20:13> Review of Systems - Review of Systems -: Yes ROS unobtainable due to patient's medical condition - Patient is unresponsive. <KALLI MENDES - Last Filed: 07/05/18 20:13> Physical Exam <KALLI MENDES - Last Filed: 07/05/18 20:13> - Vital signs Vitals: Resp Pulse Ox 15 98 07/05/18 04:58 07/05/18 04:58 - Notes Notes: General Appearance: Responsive. Pinpoint pupils. Patient has taken breaths on his own. Vitals: reviewed, See vital signs table. Head: no swelling or tenderness to the head Eyes: Toes are pinpoint Mouth: No decreasd moisture Throat: kwesi Airway in place Neck: [place] collar on patient. Lungs: No wheezing, No rales, No rhonci, No accessory muscle use, good air exchange bilaterally. Heart: Normal rate, Regular rythm, No murmur, no rub Abdomen: Normal BS, soft, No rigidity, No abdominal tenderness, surgical scar in right upper quadrant. Extremities:good pulses in all extremities, no edema. Skin: warm, dry, appropriate color, no rash Neuro: Patient is unresponsive. Pupils are pinpoint. Patient is taking breaths on his own. No purposeful movement. (KALLI MENDES) Course - Laboratory Result Diagrams: 07/05/18 05:00 07/05/18 05:00 <LEONIE CASTLE - Last Filed: 07/05/18 09:35> - Laboratory Result Diagrams: 07/05/18 05:00 07/05/18 05:00 <KALLI MENDES - Last Filed: 07/05/18 20:13> - Re-evaluation Re-evalutation: 07/05/18 09:05 Discussed case with robot technician Dr. Collins will set the patient in transfer. Bed assignment has just been released. Unfortunately a ground crew not be selwyn ilable until later on this afternoon to take the patient they are currently performing whether check I do feel the patient has been status post cardiac arrest needing ICU care will benefit from quickest method available to transport him to a tertiary care facility. Family has been updated. 07/05/18 09:35 Transport at bedside at this time air crew has arrived. 07/05/18 09:36 Family updated (LEONIE CASTLE) 07/05/18 06:54 I did this with leaving the [place] collar on and using a glide scope so that would not be medically in the neck. I was able to place ET tube without any neck manipulation. Patient currently on the vent. Patient did start having some hypotension therefore I did try several rounds of Narcan which did not seem to affect his blood pressure much. I therefore went for levo fed. Patient is now being weaned down on the levophed anticipate I will be able to stop the Levophed soon. CT scan of the head and neck have been obtained and results are pending. (KALLI MENDES) - Vital Signs Vital signs: Temp Pulse Resp BP Pulse Ox 28 H 134/69 H 95 07/05/18 07:01 07/05/18 07:01 07/05/18 09:05 - Laboratory Laboratory results interpreted by me: 07/05/18 07/05/18 07/05/18 05:00 05:00 05:26 RBC 3.68 L Hgb 11.4 L Hct 33.8 L RDW 14.8 H Sodium 132.5 L Potassium 3.2 L BUN 25 H Glucose 213 H POC Glucose 188 H Calcium 7.9 L Direct Bilirubin 0.5 H AST 86 H Alkaline Phosphatase 152 H Total Protein 5.7 L Albumin 2.8 L - EKG Interpretation by Me Additional EKG results interpreted by me: 07/05/18 05:17 EKG is reviewed and interpreted by me. EKG shows A. fib with a rate of [address] segment elevation or depression. No ischemic T wave inversions. Occasional PVC. QRS duration and QT intervals are within normal range. No old EKG for comparison at this time. (KALLI MENDES) Procedures - Intubation Orotracheal Airway evaluation: Neck immobility Medications: Other - rocuronium, versed Intubation method: Orotracheal Blade type: Suzy Blade size: 4 Equipment used: Glidescope ETT size: 7.5 ETT secured at: Lips ETT secured at (cm): 23 Breath Sounds after Intubation: Equal End tidal CO2 confirmed: Yes Post Intubation Xray: Yes Intubation Complications: No complications <KALLI MENDES - Last Filed: 07/05/18 20:13> Critical Care Note - Critical Care Note Total time excluding time spent on procedures (mins): 45 <KALLI MENDES - Last Filed: 07/05/18 20:13> - Critical Care Note Comments: critical care time for this patient not including time spent on procedures is approximately 45 minutes due to frequent reevaluations, management of ventilator, management of hypotension with pressor therapy, post cardiac arrest care. (KALLI MENDES) Discharge <LEONIE CASTLE - Last Filed: 07/05/18 09:35> <KALLI MENDES - Last Filed: 07/05/18 20:13> - Discharge Clinical Impression: Status post cardiac arrest, Status post cervical spinal fusion, History of atrial fibrillation Condition: Good Disposition: [facility] Referrals: TANIA ESPARZA MD [Primary Care Provider] - Follow up as needed
[2018-07-05] MEDS ORDERED: NALOXONE HCL INJ 2 MG/2 ML DISP.SYRIN ONE (05:29)
[2018-07-05] MEDS ORDERED: NALOXONE HCL INJ 2 MG/2 ML DISP.SYRIN IV ONE ×3 (05:39→05:40)
[2018-07-05 05:47] LABS: ALANINE AMINOTRANSFERASE 60 U/L (21-72); ALBUMIN 2.8 g/dL (3.5-5.0); ALKALINE PHOSPHATASE 152 U/L (38-126); ANION GAP 10 (5-19); ASPARTATE AMINO TRANSFERASE 86 U/L (17-59); BILIRUBIN,DIRECT 0.5 mg/dL (0.0-0.4); BLOOD UREA NITROGEN 25 mg/dL (7-20); CALCIUM 7.9 mg/dL (8.4-10.2); CARBON DIOXIDE 23 mmol/L (22-30); CHLORIDE 100 mmol/L (98-107); GLUCOSE 213 mg/dL (75-110); POTASSIUM 3.2 mmol/L (3.6-5.0); SODIUM 132.5 mmol/L (137-145); TOTAL PROTEIN 5.7 g/dL (6.3-8.2)
[2018-07-05] MEDS ORDERED: NOREPINEPHRINE BITARTRATE INJ/PF 4 MG/4 ML SDV IV ONE (05:58)
[2018-07-05 06:19] LABS: HEMATOCRIT 33.8 % (37.9-51.0); HEMOGLOBIN 11.4 g/dL (13.5-17.0); MEAN CORPUSCULAR HGB CONC 33.7 g/dL (32.0-36.0); MEAN CORPUSCULAR VOLUME 92 fl (80-97); PLATELET COUNT 251 10^3/uL (150-450); RED BLOOD COUNT 3.68 10^6/uL (4.35-5.55); RED CELL DISTRIBUTION WIDTH 14.8 % (11.5-14.0); WHITE BLOOD COUNT 8.9 10^3/uL (4.0-10.5)
[2018-07-05 06:20] LABS: ABSOLUTE LYMPHOCYTES# (MANUAL) 2.4 10^3/uL (0.5-4.7); ABSOLUTE MONOCYTES # (MANUAL) 0.6 10^3/uL (0.1-1.4); ABSOLUTE NEUTROPHILS# (MANUAL) 5.7 10^3/uL (1.7-8.2); BASOPHILS % (MANUAL) 0 % (0-2); EOSINOPHILS % (MANUAL) 2 % (0-6); LYMPHOCYTES % (MANUAL) 25 % (13-45); MONOCYTES % (MANUAL) 7 % (3-13); POLYCHROMASIA SLIGHT; SEGMENTED NEUTROPHILS % (MAN) 64 % (42-78); TOTAL CELLS COUNTED 100
[2018-07-05 06:21] LABS: PLATELET COMMENT ADEQUATE; ROULEAUX SLIGHT
[2018-07-05] MEDS ORDERED: DEXTROSE 5%-WATER 250 ML with NOREPINEPHRINE BITARTRATE 4 MG IV PRN ×2 (06:37)
[2018-07-05] MEDS ORDERED: POTASSI CL 20 MEQ/50 ML RIDER 20 MEQ/50 ML RTUPB IV ONE (06:39)
--- NOTE | 2018-07-05 06:48 | RADIOLOGY REPORT (SQ) ---
EXAM DESCRIPTION: CT HEAD WITHOUT IV CONTRAST COMPLETED DATE/TME: 07/05/2018 05:14 CLINICAL HISTORY: 83 years Male, unresponsive, recent cervical fusion COMPARISON: 03/22/18. MRI, March 22, 2018, report only. TECHNIQUE: No contrast. Coronal and sagittal reformat. This exam was performed according to our departmental dose-optimization program, which includes automated exposure control, adjustment of the mA and/or kV according to patient size and/or use of iterative reconstruction technique. FINDINGS: Chronic prominence of the ventricular system probably due to ex vacuo enlargement. Differential diagnosis includes mild hydrocephalus. No hemorrhage or infarct. No mass, mass effect, or midline shift. Posterior cervical hardware fusion. White matter microangiopathy, parenchymal volume loss, and atherosclerosis. Endotracheal and enteric tubes partially imaged. Brain and extra-axial structures appear otherwise intact. IMPRESSION: No acute findings. Chronic prominence of the ventricular system probably due to ex vacuo enlargement. Differential diagnosis includes mild hydrocephalus.
--- NOTE | 2018-07-05 07:06 | RADIOLOGY REPORT (SQ) ---
EXAM DESCRIPTION: XR CHEST 1 VIEW COMPLETED DATE/TME: 07/05/2018 05:15 CLINICAL HISTORY: Respiratory Distress. 83 years Male, post intubation COMPARISON: One day prior. NUMBER OF VIEWS/TECHNIQUE: 1/AP FINDINGS: Moderate opacity-effusion of the left lower hemithorax. Interval worsening. Moderate mixed interstitial and airspace opacities including central predominance.Adequate appearing endotracheal tube. Adequate appearing enteric tube with tip at the left upper abdominal quadrant. Normal cardiac silhouette size. No pneumothorax. Stable bony thorax. IMPRESSION: Moderate opacity-effusion of the left lower hemithorax. Interval worsening.
[2018-07-05 07:07] VITALS: BP 134/69
--- NOTE | 2018-07-05 07:24 | RADIOLOGY REPORT (SQ) ---
CLINICAL HISTORY: unresponsive, recent cervical fusion COMPARISON: None. TECHNIQUE: CT CERVICAL SPINE WITHOUT IV CONTRAST on 07/05/2018 5:14 AM CDT This exam was performed according to our departmental dose-optimization program, which includes automated exposure control, adjustment of the mA and/or kV according to patient size and/or use of iterative reconstruction technique. FINDINGS: There is no acute fracture. Alignment is anatomic. There is posterior fusion of C1-C3. Laminectomies were performed from C1 to C5. There is mild to moderate narrowing of most of the cervical discs. Vertebral body heights are preserved. There is subcutaneous air throughout the posterior paraspinal soft tissues from the recent operative intervention. IMPRESSION: Expected postoperative changes of recent upper cervical fusion.
--- NOTE | 2018-07-05 21:23 | EKG REPORT ---
SEVERITY:- ABNORMAL ECG - ATRIAL FIBRILLATION LEFT ANTERIOR FASCICULAR BLOCK BORDERLINE REPOL ABNORMALITY, DIFFUSE LEADS : Confirmed by: Millie Gamboa MD 05-Jul-2018 21:22:57
== END 2018-07-05 10:03 | disposition short-term general hospital (02) ==
LOC: ER 04:55
DX: I46.9 Cardiac arrest, cause unspecified (principal); I95.9 Hypotension, unspecified; Z98.1 Arthrodesis status; I48.91 Unspecified atrial fibrillation; Z79.01 Long term (current) use of anticoagulants; I10 Essential (primary) hypertension; J44.9 Chronic obstructive pulmonary disease, unspecified; Z88.1 Allergy status to other antibiotic agents; Z88.5 Allergy status to narcotic agent; Z88.8 Allergy status to other drugs, medicaments and biological substances; Z88.3 Allergy status to other anti-infective agents; Z88.2 Allergy status to sulfonamides
CPT/HCPCS: 93005; 99291; 51702; 36415; 82962; 83735; 85025; 80053; 84484; 71045; 70450; 72125; 94660; 93010; 31500; J2250 ×2; J3490 ×2; J2310; J3480; J7060; 94003

== ENCOUNTER 2018-07-28 12:49 | Inpatient (IN) | payer OTHER, MEDICARE ==
[2018-07-28 13:27] LABS: VENOUS BLOOD BASE EXCESS 0.8 mmol/L; VENOUS BLOOD HCO3 24.4 mmol/L (20-32); VENOUS BLOOD PCO2 35.9 mmHg (35-63); VENOUS BLOOD PH 7.45 (7.30-7.42)
--- NOTE | 2018-07-28 13:31 | RADIOLOGY REPORT (SQ) ---
EXAM DESCRIPTION: CHEST SINGLE VIEW COMPLETED DATE/TIME: 07/28/2018 1:11 pm REASON FOR STUDY: bed 6 sepsis alert COMPARISON: 07/05/2018 EXAM PARAMETERS: NUMBER OF VIEWS: One view. TECHNIQUE: Single frontal radiographic view of the chest acquired. RADIATION DOSE: NA LIMITATIONS: None. FINDINGS: LUNGS AND PLEURA: There is redemonstrated elevation of the left hemidiaphragm with associa ekta left basilar atelectasis or consolidation, of uncertain acuity. MEDIASTINUM AND HILAR STRUCTURES: No masses. Contour normal. HEART AND VASCULAR STRUCTURES: Cardiomegaly. BONES: No acute findings. HARDWARE: None in the chest. OTHER: No other significant finding. IMPRESSION: There is redemonstrated elevation of the left hemidiaphragm with associated left basilar atelectasis or consolidation, of uncertain acuity. Consider CT to further evaluate. Cardiomegaly. TECHNICAL DOCUMENTATION: JOB ID: [id number] [employer]- All Rights Reserved [place] location - IP/workstation name: [email or web address]
[2018-07-28 13:33] LABS: ABSOLUTE BASOPHILS # (AUTO) 0.2 10^3/uL (0.0-0.2); ABSOLUTE EOSINOPHILS # (AUTO) 0.1 10^3/uL (0.0-0.6); ABSOLUTE LYMPHOCYTES (AUTO) 0.9 10^3/uL (0.5-4.7); ABSOLUTE MONOCYTES (AUTO) 1.1 10^3/uL (0.1-1.4); ABSOLUTE NEUT (AUTO) 14.2 10^3/uL (1.7-8.2); BASOPHILS % (AUTO) 0.9 % (0-2); EOSINOPHILS % (AUTO) 0.5 % (0-6); HEMATOCRIT 33.2 % (37.9-51.0); HEMOGLOBIN 10.6 g/dL (13.5-17.0); LYMPHOCYTES % (AUTO) 5.2 % (13-45); MEAN CORPUSCULAR VOLUME 94 fl (80-97); MONOCYTES % (AUTO) 6.8 % (3-13); PLATELET COUNT 406 10^3/uL (150-450); RED BLOOD COUNT 3.53 10^6/uL (4.35-5.55); RED CELL DISTRIBUTION WIDTH 16.5 % (11.5-14.0); SEGMENTED NEUTROPHILS % (AUTO) 86.6 % (42-78); TOTAL CELLS COUNTED % (AUTO) 100 %; WHITE BLOOD COUNT 16.4 10^3/uL (4.0-10.5)
--- NOTE | 2018-07-28 13:36 | ER Document Report ---
ED General - General Chief Complaint: Shortness Of Breath Stated Complaint: SHORTNESS OF BREATH Time Seen by Provider: 07/28/18 13:17 Notes: 83-year-old male with history of cervical fusion and subsequent cardiac arrest who is a resident of [facility] presents to the emergency department brought in by ambulance for concern for aspiration. He was getting suctioned at the facility when he vomited everywhere. Patient arrived on 2 L nasal cannula with SPO2 94%. T-max 100.5. Patient is nonverbal at baseline but does follow commands. History obtained from EMS report and from son at the bedside. Primary doctor is Dr. Alvarado of [facility]. TRAVEL OUTSIDE OF THE [place] IN LAST 30 DAYS: No - Related Data Allergies/Adverse Reactions: bacitracin [From Polysporin] Allergy (Verified 03/21/18 12:40) cephalexin [Cephalexin] Allergy (Verified 03/21/18 12:40) codeine [Codeine] Allergy (Verified 03/21/18 12:40) colchicine [Colchicine] Allergy (Verified 03/21/18 12:40) neomycin [Neomycin] Allergy (Verified 03/21/18 12:40) polymyxin B sulfate [From Polysporin] Allergy (Verified 03/21/18 12:40) Sulfa (Sulfonamide Antibiotics) Allergy (Verified 03/21/18 12:40) thimerosal [Thimerosal] Allergy (Verified 03/21/18 12:40) BANDAIDS Adverse Reaction (Uncoded 03/21/18 12:40) Past Medical History - Social History Smoking Status: Unknown if Ever Smoked Family History: Reviewed & Not Pertinent - Past Medical History Cardiac Medical History: Reports: Hx Atrial Fibrillation, Hx Congestive Heart Failure, Hx Hypercholesterolemia, Hx Hypertension Pulmonary Medical History: Reports: Hx COPD Neurological Medical History: Renal/ Medical History: Denies: Hx Peritoneal Dialysis GI Medical History: Infectious Medical History: Past Surgical History: Reports: Hx Cholecystectomy, Hx Genitourinary Surgery - Prostate, Hx Vascular Surgery - Immunizations Hx Diphtheria, Pertussis, Tetanus Vaccination: Yes - 2011 Hx Pneumococcal Vaccination: 04/11/11 Review of Systems - Review of Systems -: Yes ROS unobtainable due to patient's medical condition Physical Exam - Vital signs Vitals: Resp BP Pulse Ox 36 H 167/98 H 94 07/28/18 13:20 07/28/18 13:20 07/28/18 13:20 - Notes Notes: PHYSICAL EXAMINATION: Reviewed vital signs and charting by RN GENERAL: Alert, will look at you when calling his name. No acute distress. HEAD: Normocephalic, atraumatic. EYES: Pupils equal and round. Extraocular movements intact. ENT: Oral mucosa moist, tongue midline. NECK: Wearing an [place] collar secondary to cervical fusion LUNGS: Rales heard in all drake, no rhonchi. No respiratory distress. HEART: Regular rate and rhythm. No murmur ABDOMEN: soft, non-tender. Non-distended. Bowel sounds present. PEG tube present EXTREMITIES: Moves all 4 extremities spontaneously. No edema, No cyanosis. Normal distal neurovascular exam BACK: No CVAT NEUROLOGIC: Follow commands all 4 extremities PSYCH: Normal affect, normal mood. SKIN: Warm, dry, normal turgor. No rashes or lesions noted. Course - Re-evaluation Re-evalutation: 07/28/18 13:36 Presents from [facility]. Concern for aspiration. Chest x-ray complete radiologist read pending. Lactate 1.6. WBC 16,400. 07/28/18 13:37 07/28/18 13:59 Patient not well-appearing. Repeat lactate 2.1. Broad-spectrum antibiotics initiated. DuoNeb ordered. 07/28/18 14:[address] Alanis, hospitalist, who accepted the patient for full admission to the [facility]. - Vital Signs Vital signs: Temp Pulse Resp BP Pulse Ox 98.3 F 83 22 H 106/59 L 100 07/29/18 12:13 07/29/18 12:13 07/29/18 12:13 07/29/18 12:13 07/29/18 12:13 - Laboratory Result Diagrams: 07/29/18 06:08 07/29/18 06:08 Laboratory results interpreted by me: 07/28/18 07/28/18 07/28/18 13:04 13:05 13:05 WBC 16.4 H RBC 3.53 L Hgb 10.6 L Hct 33.2 L RDW 16.5 H Seg Neutrophils % 86.6 H Lymphocytes % 5.2 L Absolute Neutrophils 14.2 H PT 15.6 H VBG pH Chloride BUN Glucose POC Glucose 146 H AST Alkaline Phosphatase Albumin Urine Blood Urine Ascorbic Acid 07/28/18 07/28/18 07/28/18 13:05 13:05 13:42 WBC RBC Hgb Hct RDW Seg Neutrophils % Lymphocytes % Absolute Neutrophils PT VBG pH 7.45 H Chloride 113 H BUN 38 H Glucose 147 H POC Glucose AST 71 H Alkaline Phosphatase 390 H Albumin 3.0 L Urine Blood LARGE H Urine Ascorbic Acid 40 H Discharge - Discharge Clinical Impression: Sepsis Qualifiers: Sepsis type: sepsis due to unspecified organism Qualified Code(s): A41.9 - Sepsis, unspecified organism Condition: Stable Disposition: ADMITTED INPATIENT Admitting Provider: Annabelle (Hospitalist) Unit Admitted: [facility]
[2018-07-28 13:46] LABS: INTERNATIONAL RATION (INR) 1.18; PROTHROMBIN TIME 15.6 SEC (11.4-15.4)
[2018-07-28 13:50] LABS: ALANINE AMINOTRANSFERASE 72 U/L (21-72); ALKALINE PHOSPHATASE 390 U/L (38-126); ANION GAP 6 (5-19); ASPARTATE AMINO TRANSFERASE 71 U/L (17-59); BILIRUBIN,DIRECT 0.4 mg/dL (0.0-0.4); BILIRUBIN,TOTAL 0.8 mg/dL (0.2-1.3); BLOOD UREA NITROGEN 38 mg/dL (7-20); CALCIUM 8.8 mg/dL (8.4-10.2); CARBON DIOXIDE 24 mmol/L (22-30); CHLORIDE 113 mmol/L (98-107); GLUCOSE 147 mg/dL (75-110); POTASSIUM 4.7 mmol/L (3.6-5.0); SODIUM 142.8 mmol/L (137-145); TOTAL PROTEIN 6.6 g/dL (6.3-8.2)
[2018-07-28] MEDS ORDERED: PIPERACILLIN/TAZOBACTAM 3.375 GM VIAL IV ONE (13:58)
[2018-07-28] MEDS ORDERED: VANCOMYCIN HCL INJ 1000 MG VIAL IV ONE (13:58)
[2018-07-28] MEDS ORDERED: IPRATROPIUM/ALBUTEROL 0.5-2.5 MG/3 ML AMPUL NEB ONE (13:58)
[2018-07-28 14:06] LABS: APPEARANCE,URINE CLOUDY; BILIRUBIN,URINE NEGATIVE (NEGATIVE); COLOR,URINE YELLOW; GLUCOSE, URINE NEGATIVE (NEGATIVE); KETONES,URINE NEGATIVE (NEGATIVE); LEUKOCYTE ESTERASE,URINE NEGATIVE (NEGATIVE); NITRITE,URINE NEGATIVE (NEGATIVE); PROTEIN,URINE NEGATIVE (NEGATIVE); URINE SPECIFIC GRAVITY 1.017; UROBILINOGEN,URINE NEGATIVE mg/dL (<2.0)
[2018-07-28] MEDS ORDERED: ACETAMINOPHEN 325 MG SUPP.RECT PR ONE (14:23)
[2018-07-28] MEDS ORDERED: DEXTROSE 5%-NORMAL SALINE 1,000 ML IV PRN (15:15)
[2018-07-28] MEDS ORDERED: GUAIFENESIN SYRP 200 MG/10 ML UDC PO PRN (15:15)
[2018-07-28] MEDS ORDERED: ACETAMINOPHEN 325 MG TABLET PO PRN (15:15)
[2018-07-28] MEDS ORDERED: METHOCARBAMOL 750 MG TABLET PO PRN (15:22)
[2018-07-28] MEDS ORDERED: VANCOMYCIN HCL 0 MG in DEXTROSE 5%-WATER 250 ML IV NR (15:30)
--- NOTE | 2018-07-28 15:35 | PDOC H&P ---
History of Present Illness Admission Date/PCP: 07/28/18 14:19 TANIA ESPARZA MD History of Present Illness: ANGIE CERRATO is a 83 year old male past medical history of A. primo on apixaban, CHF, dyslipidemia, and COPD who is status post recent cervical fusion surgery at [place] complicated by cardiac arrest and severe anoxic brain injury, intubated for more than a week, transferred to [facility] last Tuesday who was brought to ED from [facility] after vomiting while being suctioned, chest x-ray was done which was suspicious for pneumonia and pt was brought to ED for further evaluation. In ED he was found to be tachycardic with T-max of 105, leukocytosis question was raised for possible aspiration pneumonia versus healthcare associated pneumonia. Source of history is and son who are accompanying him. Patient is nonverbal due to his anoxic brain injury caused by recent cardiac arrest at [place]. At baseline patient communicates by moving his head. Patient is awake follows minimal, does not communicate any symptoms. Does not seem to be in any acute distress. Past Medical History Cardiac Medical History: Reports: Atrial Fibrillation, Congestive Heart Failure, Hyperlipidema, Hypertension Pulmonary Medical History: Reports: Chronic Obstructive Pulmonary Disease (COPD) Neurological Medical History: GI Medical History: Hematology: Denies: Anemia, Sickle Cell Disease Past Surgical History Past Surgical History: Reports: Cholecystectomy, Vascular Surgery Social History Smoking Status: Former Smoker Family History Family History: None, Reviewed & Not Pertinent Parental Family History Reviewed: Yes Children Family History Reviewed: Yes Sibling(s) Family History Reviewed.: Yes Medication/Allergy Home Medications: Atorvastatin Calcium [Lipitor 40 mg Tablet] 40 mg PO QHS 04/02/12 Montelukast Sodium [Singulair 10 mg Tablet] 10 mg PO QHS 04/02/12 Telmisartan [Micardis 40 mg Tablet] 80 mg PO DAILY 04/02/12 Apixaban [Eliquis 5 mg Tablet] 5 mg PO BID 07/28/18 Cetirizine HCl [Zyrtec 10 mg Tablet] 10 mg PO DAILY 07/28/18 Methocarbamol [Robaxin 750 mg Tablet] 750 mg PO Q8HP PRN 07/28/18 Allergies/Adverse Reactions: bacitracin [From Polysporin] Allergy (Verified 03/21/18 12:40) cephalexin [Cephalexin] Allergy (Verified 03/21/18 12:40) codeine [Codeine] Allergy (Verified 03/21/18 12:40) colchicine [Colchicine] Allergy (Verified 03/21/18 12:40) neomycin [Neomycin] Allergy (Verified 03/21/18 12:40) polymyxin B sulfate [From Polysporin] Allergy (Verified 03/21/18 12:40) Sulfa (Sulfonamide Antibiotics) Allergy (Verified 03/21/18 12:40) thimerosal [Thimerosal] Allergy (Verified 03/21/18 12:40) BANDAIDS Adverse Reaction (Uncoded 03/21/18 12:40) Review of Systems ROS unobtainable: Due to mental status Physical Exam Vital Signs: Temp Pulse Resp BP Pulse Ox 41 H 199/99 H 96 07/28/18 14:34 07/28/18 14:34 07/28/18 14:34 General appearance: PRESENT: no acute distress Head exam: PRESENT: atraumatic, normocephalic Cardiovascular exam: PRESENT: irregular rhythm, tachycardia. ABSENT: diastolic murmur, rubs, systolic murmur Pulses: PRESENT: normal dorsalis pedis pul Musculoskeletal exam: PRESENT: normal inspection Neurological exam: PRESENT: awake, other - Not obtainable due to severe anoxic brain injury. Results Laboratory Results: 07/28/18 13:05 07/28/18 13:05 07/28/18 07/28/18 07/28/18 13:05 13:05 13:05 WBC 16.4 H RBC 3.53 L Hgb 10.6 L Hct 33.2 L MCV 94 MCH 30.0 MCHC 32.0 RDW 16.5 H Plt Count 406 Seg Neutrophils % 86.6 H Lymphocytes % 5.2 L Monocytes % 6.8 Eosinophils % 0.5 Basophils % 0.9 Absolute Neutrophils 14.2 H Absolute Lymphocytes 0.9 Absolute Monocytes 1.1 Absolute Eosinophils 0.1 Absolute Basophils 0.2 VBG pH VBG pCO2 VBG HCO3 VBG Base Excess Sodium 142.8 Potassium 4.7 Chloride 113 H Carbon Dioxide 24 Anion Gap 6 BUN 38 H Creatinine 1.05 Est GFR ( Amer) > 60 Est GFR (Non-Af Amer) > 60 Glucose 147 H Lactic Acid 2.1 Calcium 8.8 Total Bilirubin 0.8 AST 71 H ALT 72 Alkaline Phosphatase 390 H Total Protein 6.6 Albumin 3.0 L Urine Color Urine Appearance Urine pH Ur Specific [place] Urine Protein Urine Glucose (UA) Urine Ketones Urine Blood Urine Nitrite Ur Leukocyte Esterase Urine RBC (Auto) 07/28/18 07/28/18 13:05 13:42 WBC RBC Hgb Hct MCV MCH MCHC RDW Plt Count Seg Neutrophils % Lymphocytes % Monocytes % Eosinophils % Basophils % Absolute Neutrophils Absolute Lymphocytes Absolute Monocytes Absolute Eosinophils Absolute Basophils VBG pH 7.45 H VBG pCO2 35.9 VBG HCO3 24.4 VBG Base Excess 0.8 Sodium Potassium Chloride Carbon Dioxide Anion Gap BUN Creatinine Est GFR ( Amer) Est GFR (Non-Af Amer) Glucose Lactic Acid Calcium Total Bilirubin AST ALT Alkaline Phosphatase Total Protein Albumin Urine Color YELLOW Urine Appearance CLOUDY Urine pH 5.0 Ur Specific [place] 1.017 Urine Protein NEGATIVE Urine Glucose (UA) NEGATIVE Urine Ketones NEGATIVE Urine Blood LARGE H Urine Nitrite NEGATIVE Ur Leukocyte Esterase NEGATIVE Urine RBC (Auto) >182 Impressions: Chest X-Ray 07/28/18 12:51 IMPRESSION: There is redemonstrated elevation of the left hemidiaphragm with associated left basilar atelectasis or consolidation, of uncertain acuity. Consider CT to further evaluate. Cardiomegaly. Assessment and Plan - Diagnosis (1) HCAP (healthcare-associated pneumonia) Is this a current diagnosis for this admission?: Yes Plan: Very high risk due to due to recent history of hospitalization, ICU admission, intubation, group home resident. Likely due to gram-negative rods or MRSA. IV Zosyn and vancomycin. Blood culture and sputum culture. (2) SIRS (systemic inflammatory response syndrome) Is this a current diagnosis for this admission?: Yes Plan: Due to #1. Tachycardia, mild hypoxia, tachypnea, leukocytosis and fever. Volume resuscitation guided by volume status and vitals. (3) Chronic a-fib Is this a current diagnosis for this admission?: No Plan: Continue beta-blockers. Patient is very high risk of falls due to severe neurological deficits. Family was counseled about risk and benefits of continuing anticoagulation. They want to withhold anticoagulation at this point. (4) Anoxic brain injury Is this a current diagnosis for this admission?: No Plan: Due to complicated neck surgery. Continue PT/OT. Continue antiplatelets and optimize blood pressure. Has a PEG tube placed. Frequent turning and decubitus ulcer prevention. (5) COPD (chronic obstructive pulmonary disease) Qualifiers: COPD type: unspecified COPD Qualified Code(s): J44.9 - Chronic obstructive pulmonary disease, unspecified Is this a current diagnosis for this admission?: No Plan: Continue nebs, supplemental oxygen, as needed BiPAP and IV steroids. (6) Dyslipidemia Is this a current diagnosis for this admission?: No Plan: Continue statins. Continue cardiac diet. (7) Aspiration pneumonia Is this a current diagnosis for this admission?: No Plan: superimposed on healthcare associated pneumonia. Continue empiric antibiotics. Follow-up sputum and blood cultures. Aspiration precaution.
[2018-07-28] MEDS ORDERED: METOPROLOL TARTRATE PF/INJ 5 MG/5 ML SDV IV PRN (15:51)
[2018-07-28] MEDS ORDERED: HYDRALAZINE HCL INJ/PF 20 MG/1 ML SDV IV PRN (15:52)
[2018-07-28] MEDS ORDERED: MAGNESIUM HYDROXIDE SUSP 30 ML UDCUP PO PRN (15:53)
[2018-07-28] MEDS ORDERED: APIXABAN 5 MG TABLET PO SCH (18:00)
[2018-07-28] MEDS ORDERED: PIPERACILLIN/TAZOBACTAM 3.375 GM VIAL IV PRN (19:26)
--- NOTE | 2018-07-28 19:31 | EKG REPORT ---
SEVERITY:- ABNORMAL ECG - ATRIAL FIBRILLATION, V-RATE 85-136 LEFT ANTERIOR FASCICULAR BLOCK BORDERLINE PROLONGED QT INTERVAL : Confirmed by: Millie Gamboa MD 28-Jul-2018 19:30:48
[2018-07-28] MEDS ORDERED: PIPERACILLIN SODIUM/TAZOBACTAM 4.5 GM in NORMAL SALINE 100 ML IV SCH (21:00)
[2018-07-28] MEDS ORDERED: HEPARIN SOD (PORCINE) 5,000 UNIT/ML 1 ML SYRINGE SUBCUT SCH (22:00)
[2018-07-28] MEDS ORDERED: FAMOTIDINE 20 MG TABLET PO SCH (22:00)
[2018-07-28] MEDS ORDERED: GUAIFENESIN 600 MG TABLET.SA PO SCH (22:00)
[2018-07-28] MEDS ORDERED: ATORVASTATIN CALCIUM 40 MG TABLET PO SCH (22:00)
[2018-07-28] MEDS ORDERED: METOPROLOL TARTRATE 25 MG TABLET PO SCH ×2 (22:00)
[2018-07-28] MEDS: HEPARIN SOD (PORCINE) 5,000 UNIT/ML 1 ML SYRINGE SUBCUT SCH (22:18)
[2018-07-28] MEDS ORDERED: PIPERACILLIN/TAZOBACTAM 4.5 GM VIAL IV ONE (22:34)
[2018-07-29] MEDS ORDERED: PIPERACILLIN/TAZOBACTAM 4.5 GM VIAL IV PRN (00:29)
[2018-07-29] MEDS ORDERED: METHOCARBAMOL 750 MG TABLET PEG PRN (01:00)
[2018-07-29] MEDS ORDERED: GUAIFENESIN SYRP 200 MG/10 ML UDC PEG PRN (01:00)
[2018-07-29] MEDS ORDERED: ACETAMINOPHEN 325 MG TABLET PEG PRN (01:00)
[2018-07-29] MEDS ORDERED: MAGNESIUM HYDROXIDE SUSP 30 ML UDCUP PEG PRN (01:00)
[2018-07-29] MEDS ORDERED: PIPERACILLIN/TAZOBACTAM 4.5 GM VIAL IV ONE (04:05)
[2018-07-29] MEDS: HEPARIN SOD (PORCINE) 5,000 UNIT/ML 1 ML SYRINGE SUBCUT SCH ×3 (05:49→22:22)
[2018-07-29] MEDS: PIPERACILLIN SODIUM/TAZOBACTAM 4.5 GM in NORMAL SALINE 100 ML IV SCH ×4 (05:50→23:31)
[2018-07-29] MEDS ORDERED: PIPERACILLIN SODIUM/TAZOBACTAM 4.5 GM in NORMAL SALINE 100 ML IV SCH (06:00)
[2018-07-29 06:32] LABS: HEMATOCRIT 30.6 % (37.9-51.0); MEAN CORPUSCULAR HEMOGLOBIN 30.6 pg (27.0-33.4); MEAN CORPUSCULAR HGB CONC 32.5 g/dL (32.0-36.0); MEAN CORPUSCULAR VOLUME 94 fl (80-97); PLATELET COUNT 321 10^3/uL (150-450); RED BLOOD COUNT 3.25 10^6/uL (4.35-5.55); RED CELL DISTRIBUTION WIDTH 16.7 % (11.5-14.0); WHITE BLOOD COUNT 14.3 10^3/uL (4.0-10.5)
[2018-07-29 06:57] LABS: ALANINE AMINOTRANSFERASE 64 U/L (21-72); ALBUMIN 2.7 g/dL (3.5-5.0); ALKALINE PHOSPHATASE 317 U/L (38-126); ANION GAP 7 (5-19); ASPARTATE AMINO TRANSFERASE 53 U/L (17-59); BILIRUBIN,DIRECT 0.5 mg/dL (0.0-0.4); BLOOD UREA NITROGEN 33 mg/dL (7-20); CALCIUM 8.2 mg/dL (8.4-10.2); CARBON DIOXIDE 26 mmol/L (22-30); CHLORIDE 113 mmol/L (98-107); GLUCOSE 175 mg/dL (75-110); POTASSIUM 4.5 mmol/L (3.6-5.0); SODIUM 146.1 mmol/L (137-145); TOTAL PROTEIN 6.2 g/dL (6.3-8.2)
[2018-07-29 06:57] LABS: ARTERIAL BLOOD BASE EXCESS 1.8 mmol/L; ARTERIAL BLOOD H2CO3 1.06 mmol/L (1.05-1.35); ARTERIAL BLOOD HCO3 25.3 mmol/L (20-24); ARTERIAL BLOOD O2 SATURATION 97.7 % (94-98); ARTERIAL BLOOD PCO2 35.3 mmHg (35-45); ARTERIAL BLOOD PH 7.47 (7.35-7.45); ARTERIAL BLOOD PO2 95.1 mmHg (80-100); ARTERIAL BLOOD TOTAL CO2 26.4 mmol/L (23-27)
[2018-07-29 06:58] LABS: ARTERIAL BLOOD FIO2 2L
[2018-07-29] MEDS: ASPIRIN 81 MG TABLET, CHEWABLE PEG SCH (09:42)
[2018-07-29] MEDS: METOPROLOL TARTRATE 25 MG TABLET PEG SCH ×2 (09:43→22:22)
[2018-07-29] MEDS: DOCUSATE SODIUM 100 MG/10 ML UDC NG SCH (09:43)
[2018-07-29] MEDS: FAMOTIDINE 20 MG TABLET PEG SCH ×2 (09:43→22:22)
[2018-07-29] MEDS ORDERED: LOSARTAN POTASSIUM 50 MG TABLET PEG SCH (10:00)
[2018-07-29] MEDS ORDERED: DOCUSATE SODIUM 100 MG CAPSULE PO SCH (10:00)
[2018-07-29 13:46] LABS: APPEARANCE,URINE TURBID; BILIRUBIN,URINE NEGATIVE (NEGATIVE); GLUCOSE, URINE NEGATIVE (NEGATIVE); KETONES,URINE NEGATIVE (NEGATIVE); LEUKOCYTE ESTERASE,URINE SMALL (NEGATIVE); NITRITE,URINE NEGATIVE (NEGATIVE); PROTEIN,URINE 30 mg/dL (NEGATIVE); UROBILINOGEN,URINE NEGATIVE mg/dL (<2.0)
[2018-07-29 13:47] LABS: COLOR,URINE BROWN
[2018-07-29] MEDS: VANCOMYCIN HCL 750 MG in DEXTROSE 5%-WATER 250 ML IV SCH (14:55)
--- NOTE | 2018-07-29 15:29 | PDOC PROGRESS REPORT ---
Subjective Progress Note for:: 07/29/18 Subjective:: KING CERRATO is a 83 year old male past medical history of A. fib on apixaban, CHF, dyslipidemia, and COPD who is status post recent cervical fusion surgery at [place] complicated by cardiac arrest and severe anoxic brain injury, intubated for more than a week, transferred to [facility] last Tuesday who was brought to ED from [facility] after vomiting while being suctioned, chest x-ray was done which was suspicious for pneumonia and pt was brought to ED for further evaluation. In ED he was found to be tachycardic with T-max of 105, leukocytosis question was raised for possible aspiration pneumonia versus healthcare associated pneumonia. Source of history is and son who are accompanying him. Patient is nonverbal due to his anoxic brain injury caused by recent cardiac arrest at [place]. At baseline patient communicates by moving his head. Patient is awake follows minimal, does not communicate any symptoms. Does not seem to be in any acute distress. 07/29/2018. No acute events overnight. Patient is more responsive today follows some commands, still no verbal communication due to profound brain injury. He moves his left foot when asked, sticks out his tongue when asked. He is less agitated when touched compared to yesterday, does not seem to be in any acute distress. Vitals have been stable except for tachypnea he has been tachypneic, saturating 100% on 2 L, WBC has dropped to 14.3 from 16.4, no bandemia, ABG within normal limits, CMP within normal limit. Cultures have been negative so far. Repeat UA still shows hematuria with a small leukocyte esterase. Reason For Visit: HCAP,ASPIRATION PNM Physical Exam Vital Signs: Temp Pulse Resp BP Pulse Ox 98.3 F 83 22 H 106/59 L 100 07/29/18 12:13 07/29/18 12:13 07/29/18 12:13 07/29/18 12:13 07/29/18 12:13 Intake & Output 07/28/18 07/29/18 07/30/18 06:59 06:59 06:59 Intake Total 1004 664 Output Total 0 250 Balance 1004 414 Weight 61.7 kg General appearance: PRESENT: mild distress Head exam: PRESENT: atraumatic, normocephalic Respiratory exam: PRESENT: crackles, rhonchi, symmetrical, unlabored Cardiovascular exam: PRESENT: RRR. ABSENT: diastolic murmur, rubs, systolic murmur GI/Abdominal exam: PRESENT: normal bowel sounds, soft. ABSENT: distended, guarding, mass, organolmegaly, rebound, tenderness Neurological exam: PRESENT: alert, aphasic, other - Follows minimal commands. Results Laboratory Results: 07/29/18 06:08 07/29/18 06:08 07/28/18 07/29/18 07/29/18 17:38 06:08 06:08 WBC 14.3 H RBC 3.25 L Hgb 10.0 L Hct 30.6 L MCV 94 MCH 30.6 MCHC 32.5 RDW 16.7 H Plt Count 321 Carbonic Acid HCO3/H2CO3 Ratio ABG pH ABG pCO2 ABG pO2 ABG HCO3 ABG O2 Saturation ABG Base Excess FiO2 Sodium 146.1 H Potassium 4.5 Chloride 113 H Carbon Dioxide 26 Anion Gap 7 BUN 33 H Creatinine 1.12 Est GFR ( Amer) > 60 Est GFR (Non-Af Amer) > 60 Glucose 175 H Lactic Acid 2.0 Calcium 8.2 L Total Bilirubin 1.0 AST 53 ALT 64 Alkaline Phosphatase 317 H Total Protein 6.2 L Albumin 2.7 L Urine Color Urine Appearance Urine pH Ur Specific [place] Urine Protein Urine Glucose (UA) Urine Ketones Urine Blood Urine Nitrite Ur Leukocyte Esterase Urine WBC (Auto) Urine RBC (Auto) 07/29/18 07/29/18 06:45 10:40 WBC RBC Hgb Hct MCV MCH MCHC RDW Plt Count Carbonic Acid 1.06 HCO3/H2CO3 Ratio 23:1 ABG pH 7.47 H ABG pCO2 35.3 ABG pO2 95.1 ABG HCO3 25.3 H ABG O2 Saturation 97.7 ABG Base Excess 1.8 FiO2 2L Sodium Potassium Chloride Carbon Dioxide Anion Gap BUN Creatinine Est GFR ( Amer) Est GFR (Non-Af Amer) Glucose Lactic Acid Calcium Total Bilirubin AST ALT Alkaline Phosphatase Total Protein Albumin Urine Color BROWN Urine Appearance TURBID Urine pH 5.0 Ur Specific [place] 1.020 Urine Protein 30 H Urine Glucose (UA) NEGATIVE Urine Ketones NEGATIVE Urine Blood LARGE H Urine Nitrite NEGATIVE Ur Leukocyte Esterase SMALL H Urine WBC (Auto) 30 Urine RBC (Auto) >182 Impressions: Chest X-Ray 07/28/18 12:51 IMPRESSION: There is redemonstrated elevation of the left hemidiaphragm with associated left basilar atelectasis or consolidation, of uncertain acuity. Consider CT to further evaluate. Cardiomegaly. Assessment and Plan - Diagnosis (1) HCAP (healthcare-associated pneumonia) Is this a current diagnosis for this admission?: Yes Plan: Very high risk due to due to recent history of hospitalization, ICU admission, intubation, [facility] resident. Likely due to gram-negative rods or MRSA. Day 2 IV Zosyn and vancomycin. Blood culture and sputum culture no growth so far. (2) SIRS (systemic inflammatory response syndrome) Is this a current diagnosis for this admission?: Yes Plan: Improved. Afebrile, leukocytosis improving, still tachypneic, hypoxemia has improved. Lactic acid within normal limits. Volume resuscitation guided by volume status and vitals. (3) Chronic a-fib Is this a current diagnosis for this admission?: No Plan: Rate controlled. Continue beta-blockers. Patient is very high risk of falls due to severe neurological deficits. Family was counseled about risk and benefits of continuing anticoagulation. They want to withhold anticoagulation at this point. (4) Anoxic brain injury Is this a current diagnosis for this admission?: No Plan: Due to complicated neck surgery. Profound neurological deficits. Continue PT/OT. Continue antiplatelets and optimize blood pressure. Has a PEG tube placed. Frequent turning and decubitus ulcer prevention. (5) COPD (chronic obstructive pulmonary disease) Qualifiers: COPD type: unspecified COPD Qualified Code(s): J44.9 - Chronic obstructive pulmonary disease, unspecified Is this a current diagnosis for this admission?: No Plan: Continue nebs, supplemental oxygen, as needed BiPAP and IV steroids. (6) Dyslipidemia Is this a current diagnosis for this admission?: No Plan: Continue statins. Continue cardiac diet. (7) Aspiration pneumonia Is this a current diagnosis for this admission?: No Plan: superimposed on healthcare associated pneumonia. Continue empiric antibiotics. Follow-up sputum and blood cultures. Aspiration precaution. (8) PEG (percutaneous endoscopic gastrostomy) status Is this a current diagnosis for this admission?: Yes Plan: Patient replaced due to profound neurologic deficit(dysphagia) by recent anoxic brain injury. Continue ostomy care. Continue tube feeds. Adon is consulted. Recommendations Noted.
[2018-07-29] MEDS ORDERED: ACETYLCYSTEINE 20% SOLN 800 MG/4 ML VIAL.NEB NEB SCH (20:00)
[2018-07-29] MEDS: ATORVASTATIN CALCIUM 40 MG TABLET PEG SCH (22:22)
[2018-07-30 06:03] LABS: ABSOLUTE BASOPHILS # (AUTO) 0.1 10^3/uL (0.0-0.2); ABSOLUTE EOSINOPHILS # (AUTO) 0.5 10^3/uL (0.0-0.6); ABSOLUTE LYMPHOCYTES (AUTO) 0.9 10^3/uL (0.5-4.7); ABSOLUTE NEUT (AUTO) 7.2 10^3/uL (1.7-8.2); BASOPHILS % (AUTO) 0.8 % (0-2); EOSINOPHILS % (AUTO) 5.1 % (0-6); HEMATOCRIT 30.6 % (37.9-51.0); HEMOGLOBIN 9.9 g/dL (13.5-17.0); LYMPHOCYTES % (AUTO) 9.2 % (13-45); MEAN CORPUSCULAR HEMOGLOBIN 30.9 pg (27.0-33.4); MEAN CORPUSCULAR HGB CONC 32.4 g/dL (32.0-36.0); MEAN CORPUSCULAR VOLUME 95 fl (80-97); MONOCYTES % (AUTO) 10.2 % (3-13); PLATELET COUNT 309 10^3/uL (150-450); RED BLOOD COUNT 3.21 10^6/uL (4.35-5.55); SEGMENTED NEUTROPHILS % (AUTO) 74.7 % (42-78); TOTAL CELLS COUNTED % (AUTO) 100 %; WHITE BLOOD COUNT 9.7 10^3/uL (4.0-10.5)
[2018-07-30] MEDS: HEPARIN SOD (PORCINE) 5,000 UNIT/ML 1 ML SYRINGE SUBCUT SCH ×3 (06:23→22:22)
[2018-07-30] MEDS: PIPERACILLIN SODIUM/TAZOBACTAM 4.5 GM in NORMAL SALINE 100 ML IV SCH ×4 (06:24→23:52)
[2018-07-30 06:28] LABS: ALANINE AMINOTRANSFERASE 46 U/L (21-72); ALBUMIN 2.4 g/dL (3.5-5.0); ALKALINE PHOSPHATASE 292 U/L (38-126); ASPARTATE AMINO TRANSFERASE 44 U/L (17-59); BILIRUBIN,DIRECT 0.4 mg/dL (0.0-0.4); BILIRUBIN,TOTAL 0.8 mg/dL (0.2-1.3); BLOOD UREA NITROGEN 33 mg/dL (7-20); CALCIUM 8.3 mg/dL (8.4-10.2); GLUCOSE 114 mg/dL (75-110); TOTAL PROTEIN 5.8 g/dL (6.3-8.2)
[2018-07-30 06:33] LABS: CARBON DIOXIDE 28 mmol/L (22-30); CHLORIDE 117 mmol/L (98-107); SODIUM 147.1 mmol/L (137-145)
[2018-07-30 06:43] LABS: ANION GAP 2 (5-19)
[2018-07-30] MEDS ORDERED: ACETYLCYSTEINE 20% SOLN 800 MG/4 ML VIAL.NEB NEB SCH (08:00)
[2018-07-30] MEDS: LOSARTAN POTASSIUM 50 MG TABLET PEG SCH (10:20)
[2018-07-30] MEDS: METOPROLOL TARTRATE 25 MG TABLET PEG SCH ×2 (10:20→22:23)
[2018-07-30] MEDS: ASPIRIN 81 MG TABLET, CHEWABLE PEG SCH (10:20)
[2018-07-30] MEDS: FAMOTIDINE 20 MG TABLET PEG SCH ×2 (10:20→22:23)
[2018-07-30] MEDS: DOCUSATE SODIUM 100 MG/10 ML UDC NG SCH (10:21)
--- NOTE | 2018-07-30 11:24 | PDOC PROGRESS REPORT ---
Subjective Progress Note for:: 07/30/18 Subjective:: KING CERRATO is a 83 year old male past medical history of A. primo on apixaban, CHF, dyslipidemia, and COPD who is status post recent cervical fusion surgery at [place] complicated by cardiac arrest and severe anoxic brain injury, intubated for more than a week, transferred to [facility] last Tuesday who was brought to ED from [facility] after vomiting while being suctioned, chest x-ray was done which was suspicious for pneumonia and pt was brought to ED for further evaluation. In ED he was found to be tachycardic with T-max of 105, leukocytosis question was raised for possible aspiration pneumonia versus healthcare associated pneumonia. Source of history is and son who are accompanying him. Patient is nonverbal due to his anoxic brain injury caused by recent cardiac arrest at [place]. At baseline patient communicates by moving his head. Patient is awake follows minimal, does not communicate any symptoms. Does not seem to be in any acute distress. 07/29/2018. No acute events overnight. Patient is more responsive today follows some commands, still no verbal communication due to profound brain injury. He moves his left foot when asked, sticks out his tongue when asked. He is less agitated when touched compared to yesterday, does not seem to be in any acute distress. Vitals have been stable except for tachypnea he has been tachypneic, saturating 100% on 2 L, WBC has dropped to 14.3 from 16.4, no bandemia, ABG within normal limits, CMP within normal limit. Cultures have been negative so far. Repeat UA still shows hematuria with a small leukocyte esterase. 07/30/2018. No acute events overnight. Vitals are stable. Cultures no growth so far, WBC within normal limits. History within normal limits. Patient does not seem to be in any acute distress, unfortunately due to profound neurological deficits caused by anoxic brain injury patient cannot communicate, follows some commands by lifting moving left lower and upper extremity when asked. Less agitated when touched. Tries to communicate but unfortunately unable due to profound neurological deficit. Physical examination patient still has rhonchi on the right chest, left chest clear, congestion appears to have improved. Reason For Visit: HCAP,ASPIRATION PNM Physical Exam Vital Signs: Temp Pulse Resp BP Pulse Ox 97.2 F 98 19 130/73 H 100 07/30/18 08:08 04/21/19 08:08 07/30/18 08:08 07/30/18 08:08 07/30/18 08:08 Intake & Output 07/29/18 07/30/18 07/31/18 06:59 06:59 06:59 Intake Total 1004 2734 100 Output Total 0 925 Balance 1004 1809 100 Weight 61.7 kg 66.9 kg General appearance: PRESENT: mild distress Head exam: PRESENT: atraumatic, normocephalic Respiratory exam: PRESENT: clear to auscultation prema, rhonchi. ABSENT: rales, wheezes Cardiovascular exam: PRESENT: RRR. ABSENT: diastolic murmur, rubs, systolic murmur GI/Abdominal exam: PRESENT: guarding, normal bowel sounds, soft, tenderness. ABSENT: distended, mass, organolmegaly, rebound Neurological exam: PRESENT: awake Results Laboratory Results: 07/30/18 05:46 07/30/18 05:46 07/29/18 07/30/18 07/30/18 10:40 05:46 05:46 WBC 9.7 RBC 3.21 L Hgb 9.9 L Hct 30.6 L MCV 95 MCH 30.9 MCHC 32.4 RDW 17.0 H Plt Count 309 Seg Neutrophils % 74.7 Lymphocytes % 9.2 L Monocytes % 10.2 Eosinophils % 5.1 Basophils % 0.8 Absolute Neutrophils 7.2 Absolute Lymphocytes 0.9 Absolute Monocytes 1.0 Absolute Eosinophils 0.5 Absolute Basophils 0.1 Sodium 147.1 H Potassium 4.0 Chloride 117 H Carbon Dioxide 28 Anion Gap 2 L BUN 33 H Creatinine 1.11 Est GFR ( Amer) > 60 Est GFR (Non-Af Amer) > 60 Glucose 114 H Calcium 8.3 L Magnesium 2.7 H Total Bilirubin 0.8 AST 44 ALT 46 Alkaline Phosphatase 292 H Total Protein 5.8 L Albumin 2.4 L Urine Color BROWN Urine Appearance TURBID Urine pH 5.0 Ur Specific [place] 1.020 Urine Protein 30 H Urine Glucose (UA) NEGATIVE Urine Ketones NEGATIVE Urine Blood LARGE H Urine Nitrite NEGATIVE Ur Leukocyte Esterase SMALL H Urine WBC (Auto) 30 Urine RBC (Auto) >182 07/28/18 17:12 Sputum Gram Stain - Final 07/28/18 17:12 Sputum Sputum Culture - Final Impressions: Chest X-Ray 07/28/18 12:51 IMPRESSION: There is redemonstrated elevation of the left hemidiaphragm with associated left basilar atelectasis or consolidation, of uncertain acuity. Consider CT to further evaluate. Cardiomegaly. Assessment and Plan - Diagnosis (1) HCAP (healthcare-associated pneumonia) Is this a current diagnosis for this admission?: Yes Plan: Very high risk due to due to recent history of hospitalization, ICU admission, intubation, [facility] resident. Likely due to gram-negative rods or MRSA. Day 3 IV Zosyn and vancomycin. Blood culture and sputum culture no growth so far. (2) SIRS (systemic inflammatory response syndrome) Is this a current diagnosis for this admission?: Yes Plan: Improved. Afebrile, WBC wnl, Vitals wnl. Lactic acid within normal limits. Volume resuscitation guided by volume status and vitals. (3) Chronic a-fib Is this a current diagnosis for this admission?: No Plan: Rate controlled. Continue beta-blockers. Patient is very high risk of falls due to severe neurological deficits. Family was counseled about risk and benefits of continuing anticoagulation. They want to withhold anticoagulation at this point. (4) Anoxic brain injury Is this a current diagnosis for this admission?: No Plan: Due to complicated neck surgery. Profound neurological deficits. Continue PT/OT. Continue antiplatelets and optimize blood pressure. Has a PEG tube placed. Frequent turning and decubitus ulcer prevention. (5) COPD (chronic obstructive pulmonary disease) Qualifiers: COPD type: unspecified COPD Qualified Code(s): J44.9 - Chronic obstructive pulmonary disease, unspecified Is this a current diagnosis for this admission?: No Plan: Continue nebs, supplemental oxygen, as needed BiPAP and IV steroids. (6) Dyslipidemia Is this a current diagnosis for this admission?: No Plan: Continue statins. Continue cardiac diet. (7) Aspiration pneumonia Is this a current diagnosis for this admission?: No Plan: superimposed on healthcare associated pneumonia. Continue empiric antibiotics. Follow-up sputum and blood cultures. Aspiration precaution. (8) PEG (percutaneous endoscopic gastrostomy) status Is this a current diagnosis for this admission?: Yes Plan: Patient replaced due to profound neurologic deficit(dysphagia) by recent anoxic brain injury. Continue ostomy care. Continue tube feeds. Physical Therapy Manager is consulted. Recommendations Noted.
[2018-07-30] MEDS ORDERED: ACETYLCYSTEINE 20% SOLN 800 MG/4 ML VIAL.NEB NEB ONE (13:30)
[2018-07-30] MEDS: VANCOMYCIN HCL 750 MG in DEXTROSE 5%-WATER 250 ML IV SCH (13:38)
[2018-07-30] MEDS: IPRATROPIUM/ALBUTEROL 0.5-2.5 MG/3 ML AMPUL NEB PRN ×2 (14:07→20:58)
[2018-07-30] MEDS ORDERED: BACLOFEN 10 MG TABLET PEG ONE ×2 (20:00→22:30)
[2018-07-30] MEDS: ACETYLCYSTEINE 20% SOLN 800 MG/4 ML VIAL.NEB NEB SCH (20:58)
[2018-07-30] MEDS: ATORVASTATIN CALCIUM 40 MG TABLET PEG SCH (22:23)
[2018-07-31] MEDS: HEPARIN SOD (PORCINE) 5,000 UNIT/ML 1 ML SYRINGE SUBCUT SCH ×3 (05:44→21:31)
[2018-07-31] MEDS: PIPERACILLIN SODIUM/TAZOBACTAM 4.5 GM in NORMAL SALINE 100 ML IV SCH ×4 (05:44→23:50)
[2018-07-31 07:33] LABS: ABSOLUTE EOSINOPHILS # (AUTO) 0.4 10^3/uL (0.0-0.6); ABSOLUTE LYMPHOCYTES (AUTO) 0.6 10^3/uL (0.5-4.7); ABSOLUTE MONOCYTES (AUTO) 0.5 10^3/uL (0.1-1.4); ABSOLUTE NEUT (AUTO) 4.6 10^3/uL (1.7-8.2); BASOPHILS % (AUTO) 0.4 % (0-2); HEMATOCRIT 29.8 % (37.9-51.0); HEMOGLOBIN 9.6 g/dL (13.5-17.0); LYMPHOCYTES % (AUTO) 9.6 % (13-45); MEAN CORPUSCULAR HEMOGLOBIN 30.5 pg (27.0-33.4); MEAN CORPUSCULAR HGB CONC 32.1 g/dL (32.0-36.0); MEAN CORPUSCULAR VOLUME 95 fl (80-97); MONOCYTES % (AUTO) 8.3 % (3-13); PLATELET COUNT 306 10^3/uL (150-450); RED BLOOD COUNT 3.13 10^6/uL (4.35-5.55); RED CELL DISTRIBUTION WIDTH 17.3 % (11.5-14.0); SEGMENTED NEUTROPHILS % (AUTO) 75.7 % (42-78); TOTAL CELLS COUNTED % (AUTO) 100 %
[2018-07-31 07:53] LABS: ALANINE AMINOTRANSFERASE 52 U/L (21-72); ALBUMIN 2.4 g/dL (3.5-5.0); ALKALINE PHOSPHATASE 291 U/L (38-126); ASPARTATE AMINO TRANSFERASE 51 U/L (17-59); BILIRUBIN,DIRECT 0.3 mg/dL (0.0-0.4); BILIRUBIN,TOTAL 0.5 mg/dL (0.2-1.3); BLOOD UREA NITROGEN 29 mg/dL (7-20); CALCIUM 8.4 mg/dL (8.4-10.2); GLUCOSE 188 mg/dL (75-110); POTASSIUM 3.8 mmol/L (3.6-5.0); TOTAL PROTEIN 5.5 g/dL (6.3-8.2)
[2018-07-31 08:00] LABS: CARBON DIOXIDE 28 mmol/L (22-30); CHLORIDE 118 mmol/L (98-107); SODIUM 149.7 mmol/L (137-145)
[2018-07-31 08:09] LABS: ANION GAP 4 (5-19)
[2018-07-31] MEDS: ACETYLCYSTEINE 20% SOLN 800 MG/4 ML VIAL.NEB NEB SCH ×2 (08:52→21:14)
[2018-07-31] MEDS ORDERED: MORPHINE SULFATE 10 MG/ML INJ IV PRN (09:11)
[2018-07-31] MEDS: BACLOFEN 10 MG TABLET PEG SCH ×2 (09:42→14:28)
[2018-07-31] MEDS: VANCOMYCIN HCL 500 MG in DEXTROSE 5%-WATER 100 ML IV SCH ×2 (09:42→21:34)
[2018-07-31] MEDS: ASPIRIN 81 MG TABLET, CHEWABLE PEG SCH (09:42)
[2018-07-31] MEDS: METOPROLOL TARTRATE 25 MG TABLET PEG SCH ×2 (09:43→21:32)
[2018-07-31] MEDS: DOCUSATE SODIUM 100 MG/10 ML UDC NG SCH (09:43)
[2018-07-31] MEDS: FAMOTIDINE 20 MG TABLET PEG SCH ×2 (09:44→21:32)
[2018-07-31] MEDS: LOSARTAN POTASSIUM 50 MG TABLET PEG SCH (09:45)
--- NOTE | 2018-07-31 16:51 | PDOC PROGRESS REPORT ---
Subjective Progress Note for:: 07/31/18 Subjective:: KING CERRATO is a 83 year old male past medical history of A. primo on apixaban, CHF, dyslipidemia, and COPD who is status post recent cervical fusion surgery at [place] complicated by cardiac arrest and severe anoxic brain injury, intubated for more than a week, transferred to [facility] last Tuesday who was brought to ED from [facility] after vomiting while being suctioned, chest x-ray was done which was suspicious for pneumonia and pt was brought to ED for further evaluation. In ED he was found to be tachycardic with T-max of 105, leukocytosis question was raised for possible aspiration pneumonia versus healthcare associated pneumonia. Source of history is and son who are accompanying him. Patient is nonverbal due to his anoxic brain injury caused by recent cardiac arrest at [place]. At baseline patient communicates by moving his head. Patient is awake follows minimal, does not communicate any symptoms. Does not seem to be in any acute distress. 07/29/2018. No acute events overnight. Patient is more responsive today follows some commands, still no verbal communication due to profound brain injury. He moves his left foot when asked, sticks out his tongue when asked. He is less agitated when touched compared to yesterday, does not seem to be in any acute distress. Vitals have been stable except for tachypnea he has been tachypneic, saturating 100% on 2 L, WBC has dropped to 14.3 from 16.4, no bandemia, ABG within normal limits, CMP within normal limit. Cultures have been negative so far. Repeat UA still shows hematuria with a small leukocyte esterase. 07/30/2018. No acute events overnight. Vitals are stable. Cultures no growth so far, WBC within normal limits. History within normal limits. Patient does not seem to be in any acute distress, unfortunately due to profound neurological deficits caused by anoxic brain injury patient cannot communicate, follows some commands by lifting moving left lower and upper extremity when asked. Less agitated when touched. Tries to communicate but unfortunately unable due to profound neurological deficit. Physical examination patient still has rhonchi on the right chest, left chest clear, congestion appears to have improved. 07/31/2018. No acute events overnight. Patient's remained unchanged neurologically. Respiratory symptoms improving. He has been afebrile, no leukocytosis, blood cultures has been negative. Unfortunately patient has profo und neurological deficits, he does not communicate, only moves his left leg when asked. Family has been updated about medical improvement over the patient, palliative care has been consulted. Patient may be transferred back to rehab once placement is available. Reason For Visit: HCAP,ASPIRATION PNM Physical Exam Vital Signs: Temp Pulse Resp BP Pulse Ox 97.3 F 79 16 113/69 100 07/31/18 12:36 07/31/18 14:00 07/31/18 12:36 07/31/18 12:36 07/31/18 12:36 Intake & Output 07/30/18 07/31/18 08/01/18 06:59 06:59 06:59 Intake Total 2734 3050 820 Output Total 925 725 150 Balance 1809 2325 670 Weight 66.9 kg 66.6 kg General appearance: PRESENT: no acute distress, well-developed, well-nourished Head exam: PRESENT: atraumatic, normocephalic Respiratory exam: PRESENT: clear to auscultation prema. ABSENT: rales, rhonchi, wheezes Cardiovascular exam: PRESENT: RRR. ABSENT: diastolic murmur, rubs, systolic murmur GI/Abdominal exam: PRESENT: normal bowel sounds, soft. ABSENT: distended, mass, organolmegaly, rebound, tenderness Neurological exam: PRESENT: other - GCS of 4. Results Laboratory Results: 07/31/18 06:43 07/31/18 06:43 07/31/18 07/31/18 06:43 06:43 WBC 6.0 RBC 3.13 L Hgb 9.6 L Hct 29.8 L MCV 95 MCH 30.5 MCHC 32.1 RDW 17.3 H Plt Count 306 Seg Neutrophils % 75.7 Lymphocytes % 9.6 L Monocytes % 8.3 Eosinophils % 6.0 Basophils % 0.4 Absolute Neutrophils 4.6 Absolute Lymphocytes 0.6 Absolute Monocytes 0.5 Absolute Eosinophils 0.4 Absolute Basophils 0.0 Sodium 149.7 H Potassium 3.8 Chloride 118 H Carbon Dioxide 28 Anion Gap 4 L BUN 29 H Creatinine 0.93 Est GFR ( Amer) > 60 Est GFR (Non-Af Amer) > 60 Glucose 188 H Calcium 8.4 Magnesium 2.5 H Total Bilirubin 0.5 AST 51 ALT 52 Alkaline Phosphatase 291 H Total Protein 5.5 L Albumin 2.4 L 07/30/18 06:00 Sputum Gram Stain - Final 07/30/18 06:00 Sputum Sputum Culture - Final 07/29/18 10:40 Zepeda Catheter Urine Culture - Final NO GROWTH 2 DAYS 07/28/18 13:42 Catheterized Urine Urine Culture - Final NO GROWTH 2 DAYS Impressions: Chest X-Ray 07/28/18 12:51 IMPRESSION: There is redemonstrated elevation of the left hemidiaphragm with associated left basilar atelectasis or consolidation, of uncertain acuity. Consider CT to further evaluate. Cardiomegaly. Assessment and Plan - Diagnosis (1) HCAP (healthcare-associated pneumonia) Is this a current diagnosis for this admission?: Yes Plan: Very high risk due to due to recent history of hospitalization, ICU admission, intubation, senior living resident. Likely due to gram-negative rods or MRSA. Day 4 IV Zosyn and vancomycin. Blood culture and sputum culture no growth so far. (2) SIRS (systemic inflammatory response syndrome) Is this a current diagnosis for this admission?: Yes Plan: Improved. Afebrile, WBC wnl, Vitals wnl. Lactic acid within normal limits. Volume resuscitation guided by volume status and vitals. (3) Chronic a-fib Is this a current diagnosis for this admission?: No Plan: Rate controlled. Continue beta-blockers. Patient is very high risk of falls due to severe neurological deficits. Family was counseled about risk and benefits of continuing anticoagulation. They want to withhold anticoagulation at this point. (4) Anoxic brain injury Is this a current diagnosis for this admission?: No Plan: Due to complicated neck surgery. Profound neurological deficits. Continue PT/OT. Continue antiplatelets and optimize blood pressure. Has a PEG tube placed. Frequent turning and decubitus ulcer prevention. (5) COPD (chronic obstructive pulmonary disease) Qualifiers: COPD type: unspecified COPD Qualified Code(s): J44.9 - Chronic obstructive pulmonary disease, unspecified Is this a current diagnosis for this admission?: No Plan: Continue nebs, supplemental oxygen, as needed BiPAP and IV steroids. (6) Dyslipidemia Is this a current diagnosis for this admission?: No Plan: Continue statins. Continue cardiac diet. (7) Aspiration pneumonia Is this a current diagnosis for this admission?: No Plan: superimposed on healthcare associated pneumonia. Continue empiric antibiotics. Follow-up sputum and blood cultures. Aspiration precaution. (8) PEG (percutaneous endoscopic gastrostomy) status Is this a current diagnosis for this admission?: Yes Plan: Patient replaced due to profound neurologic deficit(dysphagia) by recent anoxic brain injury. Continue ostomy care. Continue tube feeds. Desk Director is consulted. Recommendations Noted.
[2018-07-31] MEDS: IPRATROPIUM/ALBUTEROL 0.5-2.5 MG/3 ML AMPUL NEB PRN (21:14)
[2018-07-31] MEDS: ATORVASTATIN CALCIUM 40 MG TABLET PEG SCH (21:32)
[2018-08-01] MEDS: HEPARIN SOD (PORCINE) 5,000 UNIT/ML 1 ML SYRINGE SUBCUT SCH ×3 (05:36→22:05)
[2018-08-01] MEDS: PIPERACILLIN SODIUM/TAZOBACTAM 4.5 GM in NORMAL SALINE 100 ML IV SCH ×4 (05:36→23:30)
[2018-08-01 05:47] LABS: ABSOLUTE EOSINOPHILS # (AUTO) 0.4 10^3/uL (0.0-0.6); ABSOLUTE LYMPHOCYTES (AUTO) 0.7 10^3/uL (0.5-4.7); ABSOLUTE MONOCYTES (AUTO) 0.5 10^3/uL (0.1-1.4); ABSOLUTE NEUT (AUTO) 4.5 10^3/uL (1.7-8.2); BASOPHILS % (AUTO) 0.4 % (0-2); EOSINOPHILS % (AUTO) 6.1 % (0-6); HEMATOCRIT 29.8 % (37.9-51.0); HEMOGLOBIN 9.9 g/dL (13.5-17.0); LYMPHOCYTES % (AUTO) 11.4 % (13-45); MEAN CORPUSCULAR HGB CONC 33.2 g/dL (32.0-36.0); MEAN CORPUSCULAR VOLUME 94 fl (80-97); MONOCYTES % (AUTO) 8.3 % (3-13); PLATELET COUNT 338 10^3/uL (150-450); RED BLOOD COUNT 3.18 10^6/uL (4.35-5.55); RED CELL DISTRIBUTION WIDTH 16.9 % (11.5-14.0); SEGMENTED NEUTROPHILS % (AUTO) 73.8 % (42-78); TOTAL CELLS COUNTED % (AUTO) 100 %
[2018-08-01 06:25] LABS: ALANINE AMINOTRANSFERASE 74 U/L (21-72); ALBUMIN 2.6 g/dL (3.5-5.0); ALKALINE PHOSPHATASE 298 U/L (38-126); ANION GAP 5 (5-19); ASPARTATE AMINO TRANSFERASE 68 U/L (17-59); BILIRUBIN,DIRECT 0.3 mg/dL (0.0-0.4); BILIRUBIN,TOTAL 0.4 mg/dL (0.2-1.3); BLOOD UREA NITROGEN 26 mg/dL (7-20); CALCIUM 8.6 mg/dL (8.4-10.2); CARBON DIOXIDE 30 mmol/L (22-30); CHLORIDE 118 mmol/L (98-107); GLUCOSE 148 mg/dL (75-110); POTASSIUM 4.3 mmol/L (3.6-5.0); TOTAL PROTEIN 5.9 g/dL (6.3-8.2)
[2018-08-01] MEDS: IPRATROPIUM/ALBUTEROL 0.5-2.5 MG/3 ML AMPUL NEB PRN ×2 (07:47→20:40)
[2018-08-01] MEDS: ACETYLCYSTEINE 20% SOLN 800 MG/4 ML VIAL.NEB NEB SCH ×2 (07:47→20:40)
[2018-08-01] MEDS: VANCOMYCIN HCL 500 MG in DEXTROSE 5%-WATER 100 ML IV SCH ×2 (10:04→22:04)
[2018-08-01] MEDS: LOSARTAN POTASSIUM 50 MG TABLET PEG SCH (10:05)
[2018-08-01] MEDS: METOPROLOL TARTRATE 25 MG TABLET PEG SCH ×2 (10:05→22:05)
[2018-08-01] MEDS: FAMOTIDINE 20 MG TABLET PEG SCH ×2 (10:05→22:05)
[2018-08-01] MEDS: ASPIRIN 81 MG TABLET, CHEWABLE PEG SCH (10:05)
[2018-08-01] MEDS: DOCUSATE SODIUM 100 MG/10 ML UDC NG SCH (10:05)
[2018-08-01] MEDS ORDERED: HALOPERIDOL LACTATE INJ 5 MG/1 ML VIAL IV ONE (11:00)
--- NOTE | 2018-08-01 19:04 | PDOC PROGRESS REPORT ---
Subjective Progress Note for:: 08/01/18 Subjective:: KING CERRATO is a 83 year old male past medical history of A. primo on apixaban, CHF, dyslipidemia, and COPD who is status post recent cervical fusion surgery at [place] complicated by cardiac arrest and severe anoxic brain injury, intubated for more than a week, transferred to [facility] last Tuesday who was brought to ED from [facility] after vomiting while being suctioned, chest x-ray was done which was suspicious for pneumonia and pt was brought to ED for further evaluation. In ED he was found to be tachycardic with T-max of 105, leukocytosis question was raised for possible aspiration pneumonia versus healthcare associated pneumonia. Source of history is and son who are accompanying him. Patient is nonverbal due to his anoxic brain injury caused by recent cardiac arrest at [place]. At baseline patient communicates by moving his head. Patient is awake follows minimal, does not communicate any symptoms. Does not seem to be in any acute distress. 07/29/2018. No acute events overnight. Patient is more responsive today follows some commands, still no verbal communication due to profound brain injury. He moves his left foot when asked, sticks out his tongue when asked. He is less agitated when touched compared to yesterday, does not seem to be in any acute distress. Vitals have been stable except for tachypnea he has been tachypneic, saturating 100% on 2 L, WBC has dropped to 14.3 from 16.4, no bandemia, ABG within normal limits, CMP within normal limit. Cultures have been negative so far. Repeat UA still shows hematuria with a small leukocyte esterase. 07/30/2018. No acute events overnight. Vitals are stable. Cultures no growth so far, WBC within normal limits. History within normal limits. Patient does not seem to be in any acute distress, unfortunately due to profound neurological deficits caused by anoxic brain injury patient cannot communicate, follows some commands by lifting moving left lower and upper extremity when asked. Less agitated when touched. Tries to communicate but unfortunately unable due to profound neurological deficit. Physical examination patient still has rhonchi on the right chest, left chest clear, congestion appears to have improved. 07/31/2018. No acute events overnight. Patient's remained unchanged neurologically. Respiratory symptoms improving. He has been afebrile, no leukocytosis, blood cultures has been negative. Unfortunately patient has profo und neurological deficits, he does not communicate, only moves his left leg when asked. Family has been updated about medical improvement over the patient, palliative care has been consulted. Patient may be transferred back to rehab once placement is available. 08/01/2018. No acute events overnight. Patient's more alert following some commands. As per family he is back to baseline. Patient pending for placement. Reason For Visit: HCAP,ASPIRATION PNM Physical Exam Vital Signs: Temp Pulse Resp BP Pulse Ox 97.7 F 93 20 137/99 H 100 08/01/18 16:30 08/01/18 16:30 08/01/18 16:30 08/01/18 16:30 08/01/18 16:30 Intake & Output 07/31/18 08/01/18 08/02/18 06:59 06:59 06:59 Intake Total 3050 3160 430 Output Total 725 1500 650 Balance 2325 1660 -220 Weight 66.6 kg 67.9 kg General appearance: PRESENT: no acute distress, well-developed, well-nourished Head exam: PRESENT: atraumatic, normocephalic Respiratory exam: PRESENT: rhonchi. ABSENT: rales, wheezes Cardiovascular exam: PRESENT: RRR. ABSENT: diastolic murmur, rubs, systolic murmur Extremities exam: PRESENT: full ROM. ABSENT: calf tenderness, clubbing, pedal edema Neurological exam: PRESENT: alert - GCS 6. Results Laboratory Results: 08/01/18 05:36 08/01/18 05:36 08/01/18 08/01/18 05:36 05:36 WBC 6.0 RBC 3.18 L Hgb 9.9 L Hct 29.8 L MCV 94 MCH 31.0 MCHC 33.2 RDW 16.9 H Plt Count 338 Seg Neutrophils % 73.8 Lymphocytes % 11.4 L Monocytes % 8.3 Eosinophils % 6.1 H Basophils % 0.4 Absolute Neutrophils 4.5 Absolute Lymphocytes 0.7 Absolute Monocytes 0.5 Absolute Eosinophils 0.4 Absolute Basophils 0.0 Sodium 153.0 H Potassium 4.3 Chloride 118 H Carbon Dioxide 30 Anion Gap 5 BUN 26 H Creatinine 0.95 Est GFR ( Amer) > 60 Est GFR (Non-Af Amer) > 60 Glucose 148 H Calcium 8.6 Magnesium 2.4 H Total Bilirubin 0.4 AST 68 H ALT 74 H Alkaline Phosphatase 298 H Total Protein 5.9 L Albumin 2.6 L Impressions: Chest X-Ray 07/28/18 12:51 IMPRESSION: There is redemonstrated elevation of the left hemidiaphragm with associated left basilar atelectasis or consolidation, of uncertain acuity. Consider CT to further evaluate. Cardiomegaly. Assessment and Plan - Diagnosis (1) HCAP (healthcare-associated pneumonia) Is this a current diagnosis for this admission?: Yes Plan: Very high risk due to due to recent history of hospitalization, ICU admission, intubation, alf resident. Likely due to gram-negative rods or MRSA. Day 5 IV Zosyn and vancomycin. Blood culture and sputum culture no growth so far. (2) SIRS (systemic inflammatory response syndrome) Is this a current diagnosis for this admission?: Yes Plan: Improved. Afebrile, WBC wnl, Vitals wnl. Lactic acid within normal limits. Volume resuscitation guided by volume status and vitals. (3) Chronic a-fib Is this a current diagnosis for this admission?: No Plan: Rate controlled. Continue beta-blockers. Patient is very high risk of falls due to severe neurological deficits. Family was counseled about risk and benefits of continuing anticoagulation. They want to withhold anticoagulation at this point. (4) Anoxic brain injury Is this a current diagnosis for this admission?: No Plan: Due to complicated neck surgery. Profound neurological deficits. Continue PT/OT. Continue antiplatelets and optimize blood pressure. Has a PEG tube placed. Frequent turning and decubitus ulcer prevention. Pending rehab placement. (5) COPD (chronic obstructive pulmonary disease) Qualifiers: COPD type: unspecified COPD Qualified Code(s): J44.9 - Chronic obstructive pulmonary disease, unspecified Is this a current diagnosis for this admission?: No Plan: Continue nebs, supplemental oxygen, as needed BiPAP and IV steroids. (6) Dyslipidemia Is this a current diagnosis for this admission?: No Plan: Continue statins. Continue cardiac diet. (7) Aspiration pneumonia Is this a current diagnosis for this admission?: No Plan: superimposed on healthcare associated pneumonia. Continue empiric antibiotics. Follow-up sputum and blood cultures. Aspiration precaution. (8) PEG (percutaneous endoscopic gastrostomy) status Is this a current diagnosis for this admission?: Yes Plan: Patient replaced due to profound neurologic deficit(dysphagia) by recent anoxic brain injury. Continue ostomy care. Continue tube feeds. Pharmacy Technician Trainee is consulted. Recommendations Noted. (9) Hypernatremia Is this a current diagnosis for this admission?: Yes Plan: Increase free water boluses to 150 every 4 hours. CMP tomorrow.
[2018-08-01] MEDS: ATORVASTATIN CALCIUM 40 MG TABLET PEG SCH (22:05)
[2018-08-02] MEDS: HEPARIN SOD (PORCINE) 5,000 UNIT/ML 1 ML SYRINGE SUBCUT SCH ×3 (05:25→22:37)
[2018-08-02] MEDS: PIPERACILLIN SODIUM/TAZOBACTAM 4.5 GM in NORMAL SALINE 100 ML IV SCH ×3 (05:25→17:48)
[2018-08-02 05:29] LABS: HEMATOCRIT 29.5 % (37.9-51.0); HEMOGLOBIN 9.6 g/dL (13.5-17.0); MEAN CORPUSCULAR HEMOGLOBIN 30.6 pg (27.0-33.4); MEAN CORPUSCULAR HGB CONC 32.6 g/dL (32.0-36.0); MEAN CORPUSCULAR VOLUME 94 fl (80-97); PLATELET COUNT 369 10^3/uL (150-450); RED BLOOD COUNT 3.15 10^6/uL (4.35-5.55); RED CELL DISTRIBUTION WIDTH 16.7 % (11.5-14.0); WHITE BLOOD COUNT 9.7 10^3/uL (4.0-10.5)
[2018-08-02 05:57] LABS: ALANINE AMINOTRANSFERASE 73 U/L (21-72); ALBUMIN 2.5 g/dL (3.5-5.0); ALKALINE PHOSPHATASE 310 U/L (38-126); ASPARTATE AMINO TRANSFERASE 80 U/L (17-59); BILIRUBIN,DIRECT 0.4 mg/dL (0.0-0.4); BILIRUBIN,TOTAL 0.6 mg/dL (0.2-1.3); BLOOD UREA NITROGEN 23 mg/dL (7-20); CALCIUM 8.4 mg/dL (8.4-10.2); GLUCOSE 109 mg/dL (75-110); POTASSIUM 4.7 mmol/L (3.6-5.0); TOTAL PROTEIN 5.9 g/dL (6.3-8.2)
[2018-08-02 06:03] LABS: CARBON DIOXIDE 27 mmol/L (22-30); CHLORIDE 119 mmol/L (98-107); SODIUM 148.2 mmol/L (137-145)
[2018-08-02 06:06] LABS: ABSOLUTE MONOCYTES # (MANUAL) 0.3 10^3/uL (0.1-1.4); ABSOLUTE NEUTROPHILS# (MANUAL) 8.1 10^3/uL (1.7-8.2); BASOPHILS % (MANUAL) 0 % (0-2); EOSINOPHILS % (MANUAL) 3 % (0-6); LYMPHOCYTES % (MANUAL) 10 % (13-45); MONOCYTES % (MANUAL) 3 % (3-13); SEGMENTED NEUTROPHILS % (MAN) 84 % (42-78); TOTAL CELLS COUNTED 100
[2018-08-02 06:07] LABS: ANISOCYTOSIS 1+; PLATELET COMMENT ADEQUATE; POLYCHROMASIA 1+
[2018-08-02 06:11] LABS: ANION GAP 2 (5-19)
[2018-08-02] MEDS: ACETYLCYSTEINE 20% SOLN 800 MG/4 ML VIAL.NEB NEB SCH ×2 (08:51→20:30)
[2018-08-02] MEDS: IPRATROPIUM/ALBUTEROL 0.5-2.5 MG/3 ML AMPUL NEB PRN ×2 (08:52→20:30)
--- NOTE | 2018-08-02 09:20 | RADIOLOGY REPORT (SQ) ---
EXAM DESCRIPTION: CHEST SINGLE VIEW COMPLETED DATE/TIME: 08/02/2018 9:12 am REASON FOR STUDY: r/o aspiration COMPARISON: 07/28/2018 NUMBER OF VIEWS: One view. TECHNIQUE: Single frontal radiographic image of the chest acquired. LIMITATIONS: None. FINDINGS: LUNGS AND PLEURA: Aeration is improved in the left base. Minimal atelectasis remains. Faby ng drake are otherwise clear. MEDIASTINUM AND HILAR STRUCTURES: Stable in appearance. HEART AND VASCULAR STRUCTURES: Unchanged. BONES: No acute findings. OTHER: No other significant finding. IMPRESSION: Improved aeration in the left base. Minimal residual atelectasis. TECHNICAL DOCUMENTATION: JOB ID: [id number] [employer]- All Rights Reserved Reading location - IP/workstation name: [email or web address]
--- NOTE | 2018-08-02 09:21 | RADIOLOGY REPORT (SQ) ---
EXAM DESCRIPTION: KUB/ABDOMEN (SINGLE VIEW) COMPLETED DATE/TIME: 08/02/2018 9:12 am REASON FOR STUDY: r/o aspiration COMPARISON: None. NUMBER OF VIEWS: One view. TECHNIQUE: Supine radiographic image of the abdomen acquired. LIMITATIONS: None. FINDINGS: BOWEL GAS PATTERN: Normal bowel gas pattern. No dilated loops. CALCIFICATIONS: No suspicious calcifications. SOFT TISSUES: No gross mass or suggestion of organomegaly. HARDWARE: Gastric tube is in place. There are surgical clips in the right upper quadrant. BONES: No acute fracture. No worrisome bone lesions. OTHER: No other significant finding. IMPRESSION: NO RADIOGRAPHIC EVIDENCE FOR ACUTE ABDOMINAL DISEASE. TECHNICAL DOCUMENTATION: JOB ID: [id number] [employer]- All Rights Reserved Reading location - IP/workstation name: [email or web address]
[2018-08-02] MEDS: METOPROLOL TARTRATE 25 MG TABLET PEG SCH ×2 (09:37→22:40)
[2018-08-02] MEDS: ASPIRIN 81 MG TABLET, CHEWABLE PEG SCH (09:37)
[2018-08-02] MEDS: DOCUSATE SODIUM 100 MG/10 ML UDC NG SCH (09:37)
[2018-08-02] MEDS: VANCOMYCIN HCL 500 MG in DEXTROSE 5%-WATER 100 ML IV SCH ×2 (09:37→21:49)
[2018-08-02] MEDS: LOSARTAN POTASSIUM 50 MG TABLET PEG SCH (09:37)
[2018-08-02] MEDS: FAMOTIDINE 20 MG TABLET PEG SCH ×2 (09:37→22:41)
[2018-08-02] MEDS: DEXTROSE 5%-WATER 1000 ML 1,000 ML IV PRN ×3 (09:39→23:59)
[2018-08-02 12:25] LABS: VANCOMYCIN,TROUGH 10.3 ug/mL (5.0-20.0)
--- NOTE | 2018-08-02 16:59 | PDOC PROGRESS REPORT ---
Subjective Progress Note for:: 08/02/18 Subjective:: KING CERRATO is a 83 year old male past medical history of A. rpimo on apixaban, CHF, dyslipidemia, and COPD who is status post recent cervical fusion surgery at [place] complicated by cardiac arrest and severe anoxic brain injury, intubated for more than a week, transferred to [facility] last Tuesday who was brought to ED from [facility] after vomiting while being suctioned, chest x-ray was done which was suspicious for pneumonia and pt was brought to ED for further evaluation. In ED he was found to be tachycardic with T-max of 105, leukocytosis question was raised for possible aspiration pneumonia versus healthcare associated pneumonia. Source of history is and son who are accompanying him. Patient is nonverbal due to his anoxic brain injury caused by recent cardiac arrest at [place]. At baseline patient communicates by moving his head. Patient is awake follows minimal, does not communicate any symptoms. Does not seem to be in any acute distress. 07/29/2018. No acute events overnight. Patient is more responsive today follows some commands, still no verbal communication due to profound brain injury. He moves his left foot when asked, sticks out his tongue when asked. He is less agitated when touched compared to yesterday, does not seem to be in any acute distress. Vitals have been stable except for tachypnea he has been tachypneic, saturating 100% on 2 L, WBC has dropped to 14.3 from 16.4, no bandemia, ABG within normal limits, CMP within normal limit. Cultures have been negative so far. Repeat UA still shows hematuria with a small leukocyte esterase. 07/30/2018. No acute events overnight. Vitals are stable. Cultures no growth so far, WBC within normal limits. History within normal limits. Patient does not seem to be in any acute distress, unfortunately due to profound neurological deficits caused by anoxic brain injury patient cannot communicate, follows some commands by lifting moving left lower and upper extremity when asked. Less agitated when touched. Tries to communicate but unfortunately unable due to profound neurological deficit. Physical examination patient still has rhonchi on the right chest, left chest clear, congestion appears to have improved. 07/31/2018. No acute events overnight. Patient's remained unchanged neurologically. Respiratory symptoms improving. He has been afebrile, no leukocytosis, blood cultures has been negative. Unfortunately patient has profo und neurological deficits, he does not communicate, only moves his left leg when asked. Family has been updated about medical improvement over the patient, palliative care has been consulted. Patient may be transferred back to rehab once placement is available. 08/01/2018. No acute events overnight. Patient's more alert following some commands. As per family he is back to baseline. Patient pending for placement. 08/02/2018. No acute events overnight, in the morning it was noted that patient PEG tube was leaking and was pulled out a little bit, even the patient left hand is a soft restraint per family's request because they do not want him sedated. A KUB and chest x-ray was done which did not show any leakage of feeds, PEG tube seems to be in place. Surgery was consulted for readjusting of the PEG tube. Otherwise patient is alert, following some commands. Patient's pneumonia seems to have been resolved. Waiting for placement. Reason For Visit: HCAP,ASPIRATION PNM Physical Exam Vital Signs: Temp Pulse Resp BP Pulse Ox 97.9 F 97 24 H 127/87 H 100 08/02/18 11:28 08/02/18 14:00 08/02/18 08:51 08/02/18 11:28 08/02/18 11:28 Intake & Output 08/01/18 08/02/18 08/03/18 06:59 06:59 06:59 Intake Total 3160 3230 100 Output Total 1500 1250 Balance 1660 1980 100 Weight 67.9 kg General appearance: PRESENT: no acute distress, well-developed, well-nourished Head exam: PRESENT: atraumatic, normocephalic Respiratory exam: PRESENT: clear to auscultation prema. ABSENT: rales, rhonchi, wheezes Cardiovascular exam: PRESENT: RRR. ABSENT: diastolic murmur, rubs, systolic murmur Pulses: PRESENT: normal dorsalis pedis pul GI/Abdominal exam: PRESENT: normal bowel sounds, soft, other - Erythema around the PEG tube placement. No active leakage of my encounter.. ABSENT: distended, guarding, mass, organolmegaly, rebound, tenderness Neurological exam: PRESENT: alert, awake, CN II-XII grossly intact - Patient more interactive, tracks. Follows commands by moving his left upper and lower extremity digits. GCS of 8. Results Laboratory Results: 08/02/18 04:47 08/02/18 04:47 08/02/18 08/02/18 04:47 04:47 WBC 9.7 RBC 3.15 L Hgb 9.6 L Hct 29.5 L MCV 94 MCH 30.6 MCHC 32.6 RDW 16.7 H Plt Count 369 Seg Neutrophils % Not Reportable Lymphocytes % Not Reportable Monocytes % Not Reportable Eosinophils % Not Reportable Basophils % Not Reportable Absolute Neutrophils Not Reportable Absolute Lymphocytes Not Reportable Absolute Monocytes Not Reportable Absolute Eosinophils Not Reportable Absolute Basophils Not Reportable Sodium 148.2 H Potassium 4.7 Chloride 119 H Carbon Dioxide 27 Anion Gap 2 L BUN 23 H Creatinine 0.95 Est GFR ( Amer) > 60 Est GFR (Non-Af Amer) > 60 Glucose 109 Calcium 8.4 Total Bilirubin 0.6 AST 80 H ALT 73 H Alkaline Phosphatase 310 H Total Protein 5.9 L Albumin 2.5 L 07/28/18 13:05 Blood Blood Culture - Final NO GROWTH IN 5 DAYS Impressions: Chest X-Ray 08/02/18 00:00 IMPRESSION: Improved aeration in the left base. Minimal residual atelectasis. KUB X-Ray 08/02/18 00:00 IMPRESSION: NO RADIOGRAPHIC EVIDENCE FOR ACUTE ABDOMINAL DISEASE. Assessment and Plan - Diagnosis (1) HCAP (healthcare-associated pneumonia) Is this a current diagnosis for this admission?: Yes Plan: Very high risk due to due to recent history of hospitalization, ICU admission, intubation, half-way resident. Likely due to gram-negative rods or MRSA. Day 6 IV Zosyn and vancomycin. Blood culture and sputum culture no growth so far. (2) SIRS (systemic inflammatory response syndrome) Is this a current diagnosis for this admission?: Yes Plan: Improved. Afebrile, WBC wnl, Vitals wnl. Lactic acid within normal limits. Volume resuscitation guided by volume status and vitals. (3) Chronic a-fib Is this a current diagnosis for this admission?: No Plan: Rate controlled. Continue beta-blockers. Patient is very high risk of falls due to severe neurological deficits. Family was counseled about risk and benefits of continuing anticoagulation. They want to withhold anticoagulation at this point. (4) Anoxic brain injury Is this a current diagnosis for this admission?: No Plan: Due to complicated neck surgery. Profound neurological deficits. Continue PT/OT. Continue antiplatelets and optimize blood pressure. Has a PEG tube placed. Frequent turning and decubitus ulcer prevention. Pending rehab placement. (5) COPD (chronic obstructive pulmonary disease) Qualifiers: COPD type: unspecified COPD Qualified Code(s): J44.9 - Chronic obstructive pulmonary disease, unspecified Is this a current diagnosis for this admission?: No Plan: Continue nebs, supplemental oxygen, as needed BiPAP and IV steroids. (6) Dyslipidemia Is this a current diagnosis for this admission?: No Plan: Continue statins. Continue cardiac diet. (7) Aspiration pneumonia Is this a current diagnosis for this admission?: No Plan: superimposed on healthcare associated pneumonia. Continue empiric antibiotics. Follow-up sputum and blood cultures. Aspiration precaution. (8) PEG (percutaneous endoscopic gastrostomy) status Is this a current diagnosis for this admission?: Yes Plan: Patient replaced due to profound neurologic deficit(dysphagia) by recent anoxic brain injury. Continue ostomy care. Continue tube feeds. Radiology Practitioner Assistant is consulted. Recommendations Noted. (9) Hypernatremia Is this a current diagnosis for this admission?: Yes Plan: Improving. Increase free water boluses to 150 every 4 hours. CMP tomorrow.
--- NOTE | 2018-08-02 22:00 | PDOC CONSULTATION ---
Consultation Consult Date: 08/02/18 Consult reason:: malpositioned gastrostomy tube History of Present Illness Admission Date/PCP: 07/28/18 14:19 TANIA ESPARZA MD History of Present Illness: ANGIE CERRATO is a 83 year old male who is noncommunicative being cared for with a gastrostomy tube family noted that tube seemed to be pull back and feeding leaking from around tube surgery consulted to assess and repair tube. Past Medical History Cardiac Medical History: Reports: Atrial Fibrillation, Congestive Heart Failure, Hyperlipidema, Hypertension Pulmonary Medical History: Reports: Chronic Obstructive Pulmonary Disease (COPD) Neurological Medical History: GI Medical History: Psychiatric Medical History: Denies: Depression Hematology: Denies: Anemia, Sickle Cell Disease Past Surgical History Past Surgical History: Reports: Cholecystectomy, Vascular Surgery Social History Smoking Status: Unknown if Ever Smoked Frequency of Alcohol Use: None Hx Recreational Drug Use: No Drugs: None Hx Prescription Drug Abuse: No - Advance Directive Resuscitation Status: Do Not Intubate Family History Family History: Reviewed & Not Pertinent Parental Family History Reviewed: Yes Children Family History Reviewed: NA Sibling(s) Family History Reviewed.: NA Medication/Allergy Home Medications: Atorvastatin Calcium [Lipitor 40 mg Tablet] 40 mg GT QHS 04/02/12 Montelukast Sodium [Singulair 10 mg Tablet] 10 mg GT QHS 04/02/12 Amantadine HCl [Symmetrel 10 mg/ml Syrup] 100 mg GT Q12 07/28/18 Aspirin [Aspirin 81 mg Chewable Tablet] 81 mg GT DAILY 07/28/18 Fluconazole [Diflucan] 200 mg GT DAILY 07/28/18 Lansoprazole [Prevacid 30 Mg Odt Tablet] 30 mg GT [id number] 07/28/18 Allergies/Adverse Reactions: bacitracin [From Polysporin] Allergy (Verified 03/21/18 12:40) cephalexin [Cephalexin] Allergy (Verified 03/21/18 12:40) codeine [Codeine] Allergy (Verified 03/21/18 12:40) colchicine [Colchicine] Allergy (Verified 03/21/18 12:40) neomycin [Neomycin] Allergy (Verified 03/21/18 12:40) polymyxin B sulfate [From Polysporin] Allergy (Verified 03/21/18 12:40) Sulfa (Sulfonamide Antibiotics) Allergy (Verified 03/21/18 12:40) thimerosal [Thimerosal] Allergy (Verified 03/21/18 12:40) BANDAIDS Adverse Reaction (Uncoded 03/21/18 12:40) Review of Systems ROS unobtainable: Other - cannot obtain review of systems. pt is non communic ative due to anoxic brain injury. Physical Exam Vital Signs: Temp Pulse Resp BP Pulse Ox 97.8 F 95 20 137/64 H 99 08/02/18 19:50 08/02/18 19:50 08/02/18 19:50 08/02/18 19:50 08/02/18 19:50 Intake & Output 08/01/18 08/02/18 08/03/18 06:59 06:59 06:59 Intake Total 3160 3230 852 Output Total 1500 1250 500 Balance 1660 1980 352 Weight 67.9 kg General appearance: PRESENT: other - 83 y/o bedridden pt, able to follow simple commands, however is essentially non verbal Head exam: PRESENT: atraumatic Eye exam: PRESENT: EOMI Mouth exam: PRESENT: dry mucosa Neck exam: PRESENT: full ROM Respiratory exam: PRESENT: clear to auscultation prema Cardiovascular exam: PRESENT: RRR Pulses: PRESENT: normal radial pulses, normal femoral pulses GI/Abdominal exam: PRESENT: other - abd soft, a peg tube is in place with marking on tube at 1cm palpable tube buttress under skin. Rectal exam: PRESENT: deferred Extremities exam: PRESENT: full ROM Musculoskeletal exam: PRESENT: full ROM Neurological exam: PRESENT: altered, aphasic Skin exam: PRESENT: dry Results Laboratory Results: 08/02/18 04:47 08/02/18 04:47 08/02/18 08/02/18 04:47 04:47 WBC 9.7 RBC 3.15 L Hgb 9.6 L Hct 29.5 L MCV 94 MCH 30.6 MCHC 32.6 RDW 16.7 H Plt Count 369 Seg Neutrophils % Not Reportable Lymphocytes % Not Reportable Monocytes % Not Reportable Eosinophils % Not Reportable Basophils % Not Reportable Absolute Neutrophils Not Reportable Absolute Lymphocytes Not Reportable Absolute Monocytes Not Reportable Absolute Eosinophils Not Reportable Absolute Basophils Not Reportable Sodium 148.2 H Potassium 4.7 Chloride 119 H Carbon Dioxide 27 Anion Gap 2 L BUN 23 H Creatinine 0.95 Est GFR ( Amer) > 60 Est GFR (Non-Af Amer) > 60 Glucose 109 Calcium 8.4 Total Bilirubin 0.6 AST 80 H ALT 73 H Alkaline Phosphatase 310 H Total Protein 5.9 L Albumin 2.5 L 07/28/18 17:38 Blood Blood Culture - Final NO GROWTH IN 5 DAYS 07/28/18 13:05 Blood Blood Culture - Final NO GROWTH IN 5 DAYS Impressions: Chest X-Ray 08/02/18 00:00 IMPRESSION: Improved aeration in the left base. Minimal residual atelectasis. KUB X-Ray 08/02/18 00:00 IMPRESSION: NO RADIOGRAPHIC EVIDENCE FOR ACUTE ABDOMINAL DISEASE. Assessment & Plan - Plan Summary Plan Summary: malpositioned gastrostomy tube will replace with new g-tube.
--- NOTE | 2018-08-02 22:06 | Operative Report ---
Nonrecallable Operative Report DATE OF SURGERY: 08/02/18 PREOPERATIVE DIAGNOSIS: Malpositioned gastrostomy tube POSTOPERATIVE DIAGNOSIS: Malpositioned gastrostomy tube OPERATION: Placement of gastrostomy tube SURGEON: MICHAEL CHIU ANESTHESIA: Local ESTIMATED BLOOD LOSS: 0 INTRAOPERATIVE FINDINGS: Abuse gastrostomy tube had been pulled back with the buttress just underneath the skin PROCEDURE: Procedure His abdomen was prepped the Chloraseptic prep sponge Previous gastrostomy tube was pulled from subcutaneous position and removed Skin was anesthetized with 1% with epinephrine A 24 Uzbek Zepeda catheter was used as a tube and was easily passed into the tract wound was blown up and it was pulled back Position was checked with an irrigation of normal saline with withdrawal of bilious tinged fluid The tube was then fixed in place with 2-0 nylon suture. She tolerated the procedure well.
[2018-08-02] MEDS: ATORVASTATIN CALCIUM 40 MG TABLET PEG SCH (22:40)
[2018-08-03] MEDS: PIPERACILLIN SODIUM/TAZOBACTAM 4.5 GM in NORMAL SALINE 100 ML IV SCH ×4 (00:06→17:04)
[2018-08-03] MEDS: HEPARIN SOD (PORCINE) 5,000 UNIT/ML 1 ML SYRINGE SUBCUT SCH ×3 (06:15→22:37)
[2018-08-03 06:53] LABS: ABSOLUTE EOSINOPHILS # (AUTO) 0.4 10^3/uL (0.0-0.6); ABSOLUTE LYMPHOCYTES (AUTO) 0.8 10^3/uL (0.5-4.7); ABSOLUTE MONOCYTES (AUTO) 0.6 10^3/uL (0.1-1.4); ABSOLUTE NEUT (AUTO) 6.8 10^3/uL (1.7-8.2); BASOPHILS % (AUTO) 0.4 % (0-2); EOSINOPHILS % (AUTO) 4.6 % (0-6); HEMATOCRIT 29.4 % (37.9-51.0); HEMOGLOBIN 9.5 g/dL (13.5-17.0); LYMPHOCYTES % (AUTO) 8.9 % (13-45); MEAN CORPUSCULAR HEMOGLOBIN 30.3 pg (27.0-33.4); MEAN CORPUSCULAR HGB CONC 32.3 g/dL (32.0-36.0); MEAN CORPUSCULAR VOLUME 94 fl (80-97); MONOCYTES % (AUTO) 7.4 % (3-13); PLATELET COUNT 310 10^3/uL (150-450); RED BLOOD COUNT 3.14 10^6/uL (4.35-5.55); RED CELL DISTRIBUTION WIDTH 16.6 % (11.5-14.0); SEGMENTED NEUTROPHILS % (AUTO) 78.7 % (42-78); TOTAL CELLS COUNTED % (AUTO) 100 %; WHITE BLOOD COUNT 8.6 10^3/uL (4.0-10.5)
[2018-08-03 07:14] LABS: ALANINE AMINOTRANSFERASE 83 U/L (21-72); ALBUMIN 2.4 g/dL (3.5-5.0); ALKALINE PHOSPHATASE 328 U/L (38-126); ASPARTATE AMINO TRANSFERASE 75 U/L (17-59); BILIRUBIN,DIRECT 0.3 mg/dL (0.0-0.4); BILIRUBIN,TOTAL 0.5 mg/dL (0.2-1.3); BLOOD UREA NITROGEN 19 mg/dL (7-20); CALCIUM 8.4 mg/dL (8.4-10.2); CARBON DIOXIDE 27 mmol/L (22-30); CHLORIDE 110 mmol/L (98-107); GLUCOSE 172 mg/dL (75-110); POTASSIUM 4.3 mmol/L (3.6-5.0); SODIUM 141.3 mmol/L (137-145); TOTAL PROTEIN 5.8 g/dL (6.3-8.2)
[2018-08-03 07:47] LABS: ANION GAP 4 (5-19)
[2018-08-03] MEDS: IPRATROPIUM/ALBUTEROL 0.5-2.5 MG/3 ML AMPUL NEB PRN ×2 (08:09→20:14)
[2018-08-03] MEDS: ACETYLCYSTEINE 20% SOLN 800 MG/4 ML VIAL.NEB NEB SCH ×2 (08:09→20:14)
[2018-08-03] MEDS: FAMOTIDINE 20 MG TABLET PEG SCH ×2 (09:52→22:40)
[2018-08-03] MEDS: METOPROLOL TARTRATE 25 MG TABLET PEG SCH ×2 (09:52→22:39)
[2018-08-03] MEDS: DOCUSATE SODIUM 100 MG/10 ML UDC NG SCH (09:52)
[2018-08-03] MEDS: ASPIRIN 81 MG TABLET, CHEWABLE PEG SCH (09:53)
[2018-08-03] MEDS: LOSARTAN POTASSIUM 50 MG TABLET PEG SCH (09:53)
[2018-08-03] MEDS: VANCOMYCIN HCL 500 MG in DEXTROSE 5%-WATER 100 ML IV SCH (09:54)
--- NOTE | 2018-08-03 18:43 | PDOC PROGRESS REPORT ---
Subjective Progress Note for:: 08/03/18 Subjective:: KING CERRATO is a 83 year old male past medical history of A. primo on apixaban, CHF, dyslipidemia, and COPD who is status post recent cervical fusion surgery at [facility] complicated by cardiac arrest and severe anoxic brain injury, intubated for more than a week, transferred to [facility] last Tuesday who was brought to ED from [facility] after vomiting while being suctioned, chest x-ray was done which was suspicious for pneumonia and pt was brought to ED for further evaluation. In ED he was found to be tachycardic with T-max of 105, leukocytosis question was raised for possible aspiration pneumonia versus healthcare associated pneumonia. Source of history is and son who are accompanying him. Patient is nonverbal due to his anoxic brain injury caused by recent cardiac arrest at [facility]. At baseline patient communicates by moving his head. Patient is awake follows minimal, does not communicate any symptoms. Does not seem to be in any acute distress. 07/29/2018. No acute events overnight. Patient is more responsive today follows some commands, still no verbal communication due to profound brain injury. He moves his left foot when asked, sticks out his tongue when asked. He is less agitated when touched compared to yesterday, does not seem to be in any acute distress. Vitals have been stable except for tachypnea he has been tachypneic, saturating 100% on 2 L, WBC has dropped to 14.3 from 16.4, no bandemia, ABG within normal limits, CMP within normal limit. Cultures have been negative so far. Repeat UA still shows hematuria with a small leukocyte esterase. 07/30/2018. No acute events overnight. Vitals are stable. Cultures no growth so far, WBC within normal limits. History within normal limits. Patient does not seem to be in any acute distress, unfortunately due to profound neurological deficits caused by anoxic brain injury patient cannot communicate, follows some commands by lifting moving left lower and upper extremity when asked. Less agitated when touched. Tries to communicate but unfortunately unable due to profound neurological deficit. Physical examination patient still has rhonchi on the right chest, left chest clear, congestion appears to have improved. 07/31/2018. No acute events overnight. Patient's remained unchanged neurologically. Respiratory symptoms improving. He has been afebrile, no leukocytosis, blood cultures has been negative. Unfortunately patient has profo und neurological deficits, he does not communicate, only moves his left leg when asked. Family has been updated about medical improvement over the patient, palliative care has been consulted. Patient may be transferred back to rehab once placement is available. 08/01/2018. No acute events overnight. Patient's more alert following some commands. As per family he is back to baseline. Patient pending for placement. 08/02/2018. No acute events overnight, in the morning it was noted that patient PEG tube was leaking and was pulled out a little bit, even the patient left hand is a soft restraint per family's request because they do not want him sedated. A KUB and chest x-ray was done which did not show any leakage of feeds, PEG tube seems to be in place. Surgery was consulted for readjusting of the PEG tube. Otherwise patient is alert, following some commands. Patient's pneumonia seems to have been resolved. Waiting for placement. 08/03/2018. No acute events overnight. Patient's more alert following some commands. As per family he is back to baseline. Patient pending for placement. Reason For Visit: HCAP,ASPIRATION PNM Physical Exam Vital Signs: Temp Pulse Resp BP Pulse Ox 97.3 F 85 20 137/76 H 97 08/03/18 15:57 08/03/18 15:57 08/03/18 15:57 08/03/18 15:57 08/03/18 17:22 Intake & Output 08/02/18 08/03/18 08/04/18 06:59 06:59 06:59 Intake Total 3230 2987 1908 Output Total 1250 1100 375 Balance 1980 1887 1533 Weight 69.3 kg General appearance: PRESENT: no acute distress, well-developed, well-nourished Head exam: PRESENT: atraumatic, normocephalic Respiratory exam: PRESENT: clear to auscultation prema. ABSENT: rales, rhonchi, wheezes Cardiovascular exam: PRESENT: RRR. ABSENT: diastolic murmur, rubs, systolic murmur GI/Abdominal exam: PRESENT: normal bowel sounds, soft. ABSENT: distended, guarding, mass, organolmegaly, rebound, tenderness Neurological exam: PRESENT: awake Results Laboratory Results: 08/03/18 06:37 08/03/18 06:37 08/03/18 08/03/18 06:37 06:37 WBC 8.6 RBC 3.14 L Hgb 9.5 L Hct 29.4 L MCV 94 MCH 30.3 MCHC 32.3 RDW 16.6 H Plt Count 310 Seg Neutrophils % 78.7 H Lymphocytes % 8.9 L Monocytes % 7.4 Eosinophils % 4.6 Basophils % 0.4 Absolute Neutrophils 6.8 Absolute Lymphocytes 0.8 Absolute Monocytes 0.6 Absolute Eosinophils 0.4 Absolute Basophils 0.0 Sodium 141.3 Potassium 4.3 Chloride 110 H Carbon Dioxide 27 Anion Gap 4 L BUN 19 Creatinine 1.03 Est GFR ( Amer) > 60 Est GFR (Non-Af Amer) > 60 Glucose 172 H Calcium 8.4 Magnesium 2.1 Total Bilirubin 0.5 AST 75 H ALT 83 H Alkaline Phosphatase 328 H Total Protein 5.8 L Albumin 2.4 L 07/28/18 17:38 Blood Blood Culture - Final NO GROWTH IN 5 DAYS Impressions: Chest X-Ray 08/02/18 00:00 IMPRESSION: Improved aeration in the left base. Minimal residual atelectasis. KUB X-Ray 08/02/18 00:00 IMPRESSION: NO RADIOGRAPHIC EVIDENCE FOR ACUTE ABDOMINAL DISEASE. Assessment and Plan - Diagnosis (1) HCAP (healthcare-associated pneumonia) Is this a current diagnosis for this admission?: Yes Plan: Very high risk due to due to recent history of hospitalization, ICU admission, intubation, senior care resident. Likely due to gram-negative rods or MRSA. Day 7/ IV Zosyn and vancomycin. Blood culture and sputum culture negative. (2) SIRS (systemic inflammatory response syndrome) Is this a current diagnosis for this admission?: Yes Plan: Improved. Afebrile, WBC wnl, Vitals wnl. Lactic acid within normal limits. Volume resuscitation guided by volume status and vitals. (3) Chronic a-fib Is this a current diagnosis for this admission?: No Plan: Rate controlled. Continue beta-blockers. Patient is very high risk of falls du e to severe neurological deficits. Family was counseled about risk and benefits of continuing anticoagulation. They want to withhold anticoagulation at this point. (4) Anoxic brain injury Is this a current diagnosis for this admission?: No Plan: Due to complicated neck surgery. Profound neurological deficits. Continue PT/OT. Continue antiplatelets and optimize blood pressure. Has a PEG tube placed. Frequent turning and decubitus ulcer prevention. Pending rehab placement. (5) COPD (chronic obstructive pulmonary disease) Qualifiers: COPD type: unspecified COPD Qualified Code(s): J44.9 - Chronic obstructive pulmonary disease, unspecified Is this a current diagnosis for this admission?: No Plan: Continue nebs, supplemental oxygen, as needed BiPAP and IV steroids. (6) Dyslipidemia Is this a current diagnosis for this admission?: No Plan: Continue statins. Continue cardiac diet. (7) Aspiration pneumonia Is this a current diagnosis for this admission?: No Plan: superimposed on healthcare associated pneumonia. Continue empiric antibiotics. Follow-up sputum and blood cultures. Aspiration precaution. (8) PEG (percutaneous endoscopic gastrostomy) status Is this a current diagnosis for this admission?: Yes Plan: Patient replaced due to profound neurologic deficit(dysphagia) by recent anoxic brain injury. Continue ostomy care. Continue tube feeds. Inside Sales Account Manager is consulted. Recommendations Noted. (9) Hypernatremia Is this a current diagnosis for this admission?: Yes Plan: Resovled. Contiune free water boluses to 150 every 4 hours. CMP tomorrow.
[2018-08-03] MEDS: ATORVASTATIN CALCIUM 40 MG TABLET PEG SCH (22:39)
[2018-08-04] MEDS: HEPARIN SOD (PORCINE) 5,000 UNIT/ML 1 ML SYRINGE SUBCUT SCH ×2 (07:00→14:30)
[2018-08-04 07:46] LABS: HEMATOCRIT 30.7 % (37.9-51.0); HEMOGLOBIN 9.9 g/dL (13.5-17.0); MEAN CORPUSCULAR HEMOGLOBIN 30.3 pg (27.0-33.4); MEAN CORPUSCULAR HGB CONC 32.3 g/dL (32.0-36.0); MEAN CORPUSCULAR VOLUME 94 fl (80-97); PLATELET COUNT 340 10^3/uL (150-450); RED BLOOD COUNT 3.27 10^6/uL (4.35-5.55); RED CELL DISTRIBUTION WIDTH 16.6 % (11.5-14.0); WHITE BLOOD COUNT 8.6 10^3/uL (4.0-10.5)
[2018-08-04 07:50] LABS: ALANINE AMINOTRANSFERASE 69 U/L (21-72); ALBUMIN 2.6 g/dL (3.5-5.0); ALKALINE PHOSPHATASE 343 U/L (38-126); ANION GAP 7 (5-19); ASPARTATE AMINO TRANSFERASE 61 U/L (17-59); BILIRUBIN,DIRECT 0.3 mg/dL (0.0-0.4); BILIRUBIN,TOTAL 0.4 mg/dL (0.2-1.3); BLOOD UREA NITROGEN 21 mg/dL (7-20); CALCIUM 8.4 mg/dL (8.4-10.2); CARBON DIOXIDE 28 mmol/L (22-30); CHLORIDE 107 mmol/L (98-107); GLUCOSE 131 mg/dL (75-110); POTASSIUM 4.5 mmol/L (3.6-5.0); SODIUM 142.4 mmol/L (137-145); TOTAL PROTEIN 6.2 g/dL (6.3-8.2)
[2018-08-04] MEDS: IPRATROPIUM/ALBUTEROL 0.5-2.5 MG/3 ML AMPUL NEB PRN ×2 (08:11→20:31)
[2018-08-04] MEDS: ACETYLCYSTEINE 20% SOLN 800 MG/4 ML VIAL.NEB NEB SCH ×2 (08:12→20:31)
[2018-08-04 08:18] LABS: ABSOLUTE LYMPHOCYTES# (MANUAL) 0.9 10^3/uL (0.5-4.7); ABSOLUTE MONOCYTES # (MANUAL) 0.4 10^3/uL (0.1-1.4); ABSOLUTE NEUTROPHILS# (MANUAL) 6.8 10^3/uL (1.7-8.2); BASOPHILS % (MANUAL) 0 % (0-2); EOSINOPHILS % (MANUAL) 5 % (0-6); LYMPHOCYTES % (MANUAL) 11 % (13-45); MONOCYTES % (MANUAL) 5 % (3-13); SEGMENTED NEUTROPHILS % (MAN) 79 % (42-78); TOTAL CELLS COUNTED 100
[2018-08-04 08:19] LABS: PLATELET COMMENT ADEQUATE
[2018-08-04 08:20] LABS: ANISOCYTOSIS 1+; OVALOCYTES SLIGHT; POLYCHROMASIA SLIGHT; STOMATOCYTES SLIGHT
[2018-08-04] MEDS: DOCUSATE SODIUM 100 MG/10 ML UDC NG SCH (11:03)
[2018-08-04] MEDS: LOSARTAN POTASSIUM 50 MG TABLET PEG SCH (11:12)
[2018-08-04] MEDS: METOPROLOL TARTRATE 25 MG TABLET PEG SCH (11:13)
[2018-08-04] MEDS: FAMOTIDINE 20 MG TABLET PEG SCH (11:14)
[2018-08-04] MEDS: ASPIRIN 81 MG TABLET, CHEWABLE PEG SCH (11:14)
--- NOTE | 2018-08-04 12:21 | PDOC PROGRESS REPORT ---
Subjective Progress Note for:: 08/04/18 Subjective:: KING CERRATO is a 83 year old male past medical history of A. primo on apixaban, CHF, dyslipidemia, and COPD who is status post recent cervical fusion surgery at [place] complicated by cardiac arrest and severe anoxic brain injury, intubated for more than a week, transferred to [facility] last Tuesday who was brought to ED from [facility] after vomiting while being suctioned, chest x-ray was done which was suspicious for pneumonia and pt was brought to ED for further evaluation. In ED he was found to be tachycardic with T-max of 105, leukocytosis question was raised for possible aspiration pneumonia versus healthcare associated pneumonia. Source of history is and son who are accompanying him. Patient is nonverbal due to his anoxic brain injury caused by recent cardiac arrest at [place]. At baseline patient communicates by moving his head. Patient is awake follows minimal, does not communicate any symptoms. Does not seem to be in any acute distress. 07/29/2018. No acute events overnight. Patient is more responsive today follows some commands, still no verbal communication due to profound brain injury. He moves his left foot when asked, sticks out his tongue when asked. He is less agitated when touched compared to yesterday, does not seem to be in any acute distress. Vitals have been stable except for tachypnea he has been tachypneic, saturating 100% on 2 L, WBC has dropped to 14.3 from 16.4, no bandemia, ABG within normal limits, CMP within normal limit. Cultures have been negative so far. Repeat UA still shows hematuria with a small leukocyte esterase. 07/30/2018. No acute events overnight. Vitals are stable. Cultures no growth so far, WBC within normal limits. History within normal limits. Patient does not seem to be in any acute distress, unfortunately due to profound neurological deficits caused by anoxic brain injury patient cannot communicate, follows some commands by lifting moving left lower and upper extremity when asked. Less agitated when touched. Tries to communicate but unfortunately unable due to profound neurological deficit. Physical examination patient still has rhonchi on the right chest, left chest clear, congestion appears to have improved. 07/31/2018. No acute events overnight. Patient's remained unchanged neurologically. Respiratory symptoms improving. He has been afebrile, no leukocytosis, blood cultures has been negative. Unfortunately patient has profo und neurological deficits, he does not communicate, only moves his left leg when asked. Family has been updated about medical improvement over the patient, palliative care has been consulted. Patient may be transferred back to rehab once placement is available. 08/01/2018. No acute events overnight. Patient's more alert following some commands. As per family he is back to baseline. Patient pending for placement. 08/02/2018. No acute events overnight, in the morning it was noted that patient PEG tube was leaking and was pulled out a little bit, even the patient left hand is a soft restraint per family's request because they do not want him sedated. A KUB and chest x-ray was done which did not show any leakage of feeds, PEG tube seems to be in place. Surgery was consulted for readjusting of the PEG tube. Otherwise patient is alert, following some commands. Patient's pneumonia seems to have been resolved. Waiting for placement. 08/03/2018. No acute events overnight. Patient's more alert following some commands. As per family he is back to baseline. Patient pending for placement. 08/04/2018. No acute events overnight. Alert and today following some commands. Does not seem to be in any acute distress. Patient pending placement. Reason For Visit: HCAP,ASPIRATION PNM Physical Exam Vital Signs: Temp Pulse Resp BP Pulse Ox 97.8 F 88 20 119/67 100 08/04/18 04:35 08/04/18 08:13 08/04/18 08:13 08/04/18 04:35 08/04/18 08:13 Intake & Output 08/03/18 08/04/18 08/05/18 06:59 06:59 06:59 Intake Total 2987 3048 Output Total 1100 1025 Balance 1882022 Weight 69.3 kg 70.5 kg General appearance: PRESENT: no acute distress, well-developed, well-nourished Head exam: PRESENT: atraumatic, normocephalic Cardiovascular exam: PRESENT: RRR. ABSENT: diastolic murmur, rubs, systolic murmur GI/Abdominal exam: PRESENT: normal bowel sounds, soft. ABSENT: distended, guarding, mass, organolmegaly, rebound, tenderness Extremities exam: PRESENT: full ROM. ABSENT: calf tenderness, clubbing, pedal edema Neurological exam: PRESENT: alert, awake Results Laboratory Results: 08/04/18 06:05 08/04/18 06:05 08/04/18 08/04/18 06:05 06:05 WBC 8.6 RBC 3.27 L Hgb 9.9 L Hct 30.7 L MCV 94 MCH 30.3 MCHC 32.3 RDW 16.6 H Plt Count 340 Seg Neutrophils % Not Reportable Lymphocytes % Not Reportable Monocytes % Not Reportable Eosinophils % Not Reportable Basophils % Not Reportable Absolute Neutrophils Not Reportable Absolute Lymphocytes Not Reportable Absolute Monocytes Not Reportable Absolute Eosinophils Not Reportable Absolute Basophils Not Reportable Sodium 142.4 Potassium 4.5 Chloride 107 Carbon Dioxide 28 Anion Gap 7 BUN 21 H Creatinine 1.06 Est GFR ( Amer) > 60 Est GFR (Non-Af Amer) > 60 Glucose 131 H Calcium 8.4 Magnesium 2.2 Total Bilirubin 0.4 AST 61 H ALT 69 Alkaline Phosphatase 343 H Total Protein 6.2 L Albumin 2.6 L Impressions: Chest X-Ray 08/02/18 00:00 IMPRESSION: Improved aeration in the left base. Minimal residual atelectasis. KUB X-Ray 08/02/18 00:00 IMPRESSION: NO RADIOGRAPHIC EVIDENCE FOR ACUTE ABDOMINAL DISEASE. Assessment and Plan - Diagnosis (1) Anoxic brain injury Is this a current diagnosis for this admission?: No Plan: Due to complicated neck surgery. Profound neurological deficits. Continue PT/OT Continue antiplatelets and optimize blood pressure. Has a PEG tube placed. Frequent turning and decubitus ulcer prevention. Pending rehab placement. (2) Aspiration pneumonia Is this a current diagnosis for this admission?: No Plan: Vitals within normal cultures negative, WBC within normal limits. Received 7/7 days of IV antibiotics for HCAP. Superimposed on healthcare associated pneumonia. Continue empiric antibiotics. Follow-up sputum and blood cultures. Aspiration precaution. (3) SIRS (systemic inflammatory response syndrome) Is this a current diagnosis for this admission?: Yes Plan: Resolved. Normotensive, afebrile, WBC wnl. Lactic acid within normal limits. Volume resuscitation guided by volume status and vitals. (4) HCAP (healthcare-associated pneumonia) Is this a current diagnosis for this admission?: Yes Plan: Very high risk due to due to recent history of hospitalization, ICU admission, intubation, care home resident. Likely due to gram-negative rods or MRSA. Day 10/15 IV Zosyn and vancomycin. Blood culture and sputum culture negative. (5) Chronic a-fib Is this a current diagnosis for this admission?: No Plan: Rate controlled. Continue beta-blockers. Patient is very high risk of falls due to severe neurological deficits. Family was counseled about risk and benefits of continuing anticoagulation. They want to withhold anticoagulation at this point. (6) COPD (chronic obstructive pulmonary disease) Qualifiers: COPD type: unspecified COPD Qualified Code(s): J44.9 - Chronic obstructive pulmonary disease, unspecified Is this a current diagnosis for this admission?: No Plan: Not acutely exacerbated. Continue nebs, supplemental oxygen, as needed BiPAP. 08/04/2018 DC IV steroids. (7) Dyslipidemia Is this a current diagnosis for this admission?: No Plan: Continue statins. Continue cardiac diet. (8) PEG (percutaneous endoscopic gastrostomy) status Is this a current diagnosis for this admission?: Yes Plan: Patient replaced due to profound neurologic deficit(dysphagia) by recent anoxic brain injury. Continue ostomy care. Continue tube feeds. Chief Analytics Officer is consulted. Recommendations Noted. (9) Hypernatremia Is this a current diagnosis for this admission?: Yes Plan: Resovled. Contiune free water boluses to 150 every 4 hours. CMP tomorrow.
[2018-08-05] MEDS: HEPARIN SOD (PORCINE) 5,000 UNIT/ML 1 ML SYRINGE SUBCUT SCH ×4 (00:03→22:02)
[2018-08-05] MEDS: FAMOTIDINE 20 MG TABLET PEG SCH ×3 (00:09→22:03)
[2018-08-05] MEDS: METOPROLOL TARTRATE 25 MG TABLET PEG SCH ×3 (00:09→22:03)
[2018-08-05] MEDS: ATORVASTATIN CALCIUM 40 MG TABLET PEG SCH ×2 (00:09→22:03)
[2018-08-05] MEDS: ACETYLCYSTEINE 20% SOLN 800 MG/4 ML VIAL.NEB NEB SCH ×2 (08:10→20:53)
[2018-08-05] MEDS: IPRATROPIUM/ALBUTEROL 0.5-2.5 MG/3 ML AMPUL NEB PRN ×2 (08:10→20:53)
[2018-08-05] MEDS: ASPIRIN 81 MG TABLET, CHEWABLE PEG SCH (10:56)
[2018-08-05] MEDS: LOSARTAN POTASSIUM 50 MG TABLET PEG SCH (10:57)
[2018-08-05] MEDS: DOCUSATE SODIUM 100 MG/10 ML UDC NG SCH ×2 (10:57→12:02)
--- NOTE | 2018-08-05 16:44 | PDOC PROGRESS REPORT ---
Subjective Progress Note for:: 08/05/18 Subjective:: KING CERRATO is a 83 year old male past medical history of A. primo on apixaban, CHF, dyslipidemia, and COPD who is status post recent cervical fusion surgery at [place] complicated by cardiac arrest and severe anoxic brain injury, intubated for more than a week, transferred to [facility] last Tuesday who was brought to ED from [facility] after vomiting while being suctioned, chest x-ray was done which was suspicious for pneumonia and pt was brought to ED for further evaluation. In ED he was found to be tachycardic with T-max of 105, leukocytosis question was raised for possible aspiration pneumonia versus healthcare associated pneumonia. Source of history is and son who are accompanying him. Patient is nonverbal due to his anoxic brain injury caused by recent cardiac arrest at [place]. At baseline patient communicates by moving his head. Patient is awake follows minimal, does not communicate any symptoms. Does not seem to be in any acute distress. 07/29/2018. No acute events overnight. Patient is more responsive today follows some commands, still no verbal communication due to profound brain injury. He moves his left foot when asked, sticks out his tongue when asked. He is less agitated when touched compared to yesterday, does not seem to be in any acute distress. Vitals have been stable except for tachypnea he has been tachypneic, saturating 100% on 2 L, WBC has dropped to 14.3 from 16.4, no bandemia, ABG within normal limits, CMP within normal limit. Cultures have been negative so far. Repeat UA still shows hematuria with a small leukocyte esterase. 07/30/2018. No acute events overnight. Vitals are stable. Cultures no growth so far, WBC within normal limits. History within normal limits. Patient does not seem to be in any acute distress, unfortunately due to profound neurological deficits caused by anoxic brain injury patient cannot communicate, follows some commands by lifting moving left lower and upper extremity when asked. Less agitated when touched. Tries to communicate but unfortunately unable due to profound neurological deficit. Physical examination patient still has rhonchi on the right chest, left chest clear, congestion appears to have improved. 07/31/2018. No acute events overnight. Patient's remained unchanged neurologically. Respiratory symptoms improving. He has been afebrile, no leukocytosis, blood cultures has been negative. Unfortunately patient has profo und neurological deficits, he does not communicate, only moves his left leg when asked. Family has been updated about medical improvement over the patient, palliative care has been consulted. Patient may be transferred back to rehab once placement is available. 08/01/2018. No acute events overnight. Patient's more alert following some commands. As per family he is back to baseline. Patient pending for placement. 08/02/2018. No acute events overnight, in the morning it was noted that patient PEG tube was leaking and was pulled out a little bit, even the patient left hand is a soft restraint per family's request because they do not want him sedated. A KUB and chest x-ray was done which did not show any leakage of feeds, PEG tube seems to be in place. Surgery was consulted for readjusting of the PEG tube. Otherwise patient is alert, following some commands. Patient's pneumonia seems to have been resolved. Waiting for placement. 08/03/2018. No acute events overnight. Patient's more alert following some commands. As per family he is back to baseline. Patient pending for placement. 08/04/2018. No acute events overnight. More alert and following some commands. Does not seem to be in any acute distress. Patient pending placement. 08/04/2018. No acute events overnight. Awake and alert, does not seem to be in any acute distress. Patient pending placement. Reason For Visit: HCAP,ASPIRATION PNM Physical Exam Vital Signs: Temp Pulse Resp BP Pulse Ox 97.4 F 78 18 146/87 H 100 08/05/18 11:12 08/05/18 11:12 08/05/18 11:12 08/05/18 11:12 08/05/18 11:12 Intake & Output 08/04/18 08/05/18 08/06/18 06:59 06:59 06:59 Intake Total 3048 1320 Output Total 1025 1150 Balance 2022 170 Weight 70.5 kg 68.9 kg General appearance: PRESENT: no acute distress, well-developed, well-nourished Head exam: PRESENT: atraumatic, normocephalic Respiratory exam: PRESENT: clear to auscultation prema. ABSENT: rales, rhonchi, wheezes Cardiovascular exam: PRESENT: RRR. ABSENT: diastolic murmur, rubs, systolic murmur GI/Abdominal exam: PRESENT: normal bowel sounds, soft. ABSENT: distended, guarding, mass, organolmegaly, rebound, tenderness Results Laboratory Results: 08/04/18 06:05 08/04/18 06:05 Impressions: Chest X-Ray 08/02/18 00:00 IMPRESSION: Improved aeration in the left base. Minimal residual atelectasis. KUB X-Ray 08/02/18 00:00 IMPRESSION: NO RADIOGRAPHIC EVIDENCE FOR ACUTE ABDOMINAL DISEASE. Assessment and Plan - Diagnosis (1) Anoxic brain injury Is this a current diagnosis for this admission?: No Plan: Due to complicated neck surgery. Profound neurological deficits. Continue PT/OT Continue antiplatelets and optimize blood pressure. Has a PEG tube placed. Frequent turning and decubitus ulcer prevention. Pending rehab placement. (2) Aspiration pneumonia Is this a current diagnosis for this admission?: No Plan: Vitals within normal cultures negative, WBC within normal limits. Received 7/7 days of IV antibiotics for HCAP. Superimposed on healthcare associated pneumonia. Continue empiric antibiotics. Follow-up sputum and blood cultures. Aspiration precaution. (3) SIRS (systemic inflammatory response syndrome) Is this a current diagnosis for this admission?: Yes Plan: Resolved. Normotensive, afebrile, WBC wnl. Lactic acid within normal limits. Volume resuscitation guided by volume status and vitals. (4) HCAP (healthcare-associated pneumonia) Is this a current diagnosis for this admission?: Yes Plan: Very high risk due to due to recent history of hospitalization, ICU admission, intubation, prison resident. Likely due to gram-negative rods or MRSA. Day 7/7 IV Zosyn and vancomycin. Blood culture and sputum culture negative. (5) Chronic a-fib Is this a current diagnosis for this admission?: No Plan: Rate controlled. Continue beta-blockers. Patient is very high risk of falls due to severe neurological deficits. Family was counseled about risk and benefits of continuing anticoagulation. They want to withhold anticoagulation at this point. (6) COPD (chronic obstructive pulmonary disease) Qualifiers: COPD type: unspecified COPD Qualified Code(s): J44.9 - Chronic obstructive pulmonary disease, unspecified Is this a current diagnosis for this admission?: No Plan: Not acutely exacerbated. Continue nebs, supplemental oxygen, as needed BiPAP. 08/04/2018 DC IV steroids. (7) Dyslipidemia Is this a current diagnosis for this admission?: No Plan: Continue statins. Continue cardiac diet. (8) PEG (percutaneous endoscopic gastrostomy) status Is this a current diagnosis for this admission?: Yes Plan: Patient replaced due to profound neurologic deficit(dysphagia) by recent anoxic brain injury. Continue ostomy care. Continue tube feeds. Computer Tape Librarian is consulted. Recommendations Noted. (9) Hypernatremia Is this a current diagnosis for this admission?: Yes Plan: Resovled. Contiune free water boluses to 150 every 4 hours. CMP tomorrow.
[2018-08-06] MEDS: HEPARIN SOD (PORCINE) 5,000 UNIT/ML 1 ML SYRINGE SUBCUT SCH ×3 (06:05→21:12)
[2018-08-06] MEDS: ACETYLCYSTEINE 20% SOLN 800 MG/4 ML VIAL.NEB NEB SCH ×2 (08:59→21:23)
[2018-08-06] MEDS: IPRATROPIUM/ALBUTEROL 0.5-2.5 MG/3 ML AMPUL NEB PRN ×2 (09:00→21:24)
[2018-08-06 10:42] LABS: ABSOLUTE EOSINOPHILS # (AUTO) 0.3 10^3/uL (0.0-0.6); ABSOLUTE MONOCYTES (AUTO) 0.8 10^3/uL (0.1-1.4); ABSOLUTE NEUT (AUTO) 6.7 10^3/uL (1.7-8.2); ALANINE AMINOTRANSFERASE 65 U/L (21-72); ALBUMIN 2.8 g/dL (3.5-5.0); ALKALINE PHOSPHATASE 349 U/L (38-126); ANION GAP 5 (5-19); ASPARTATE AMINO TRANSFERASE 54 U/L (17-59); BASOPHILS % (AUTO) 0.2 % (0-2); BILIRUBIN,DIRECT 0.3 mg/dL (0.0-0.4); BILIRUBIN,TOTAL 0.5 mg/dL (0.2-1.3); BLOOD UREA NITROGEN 20 mg/dL (7-20); CALCIUM 8.7 mg/dL (8.4-10.2); CARBON DIOXIDE 30 mmol/L (22-30); CHLORIDE 106 mmol/L (98-107); EOSINOPHILS % (AUTO) 3.2 % (0-6); GLUCOSE 168 mg/dL (75-110); HEMATOCRIT 34.6 % (37.9-51.0); HEMOGLOBIN 11.3 g/dL (13.5-17.0); LYMPHOCYTES % (AUTO) 11.8 % (13-45); MEAN CORPUSCULAR HEMOGLOBIN 30.4 pg (27.0-33.4); MEAN CORPUSCULAR HGB CONC 32.6 g/dL (32.0-36.0); MEAN CORPUSCULAR VOLUME 93 fl (80-97); MONOCYTES % (AUTO) 8.7 % (3-13); PLATELET COUNT 343 10^3/uL (150-450); POTASSIUM 4.3 mmol/L (3.6-5.0); RED CELL DISTRIBUTION WIDTH 17.2 % (11.5-14.0); SEGMENTED NEUTROPHILS % (AUTO) 76.1 % (42-78); SODIUM 140.7 mmol/L (137-145); TOTAL CELLS COUNTED % (AUTO) 100 %; TOTAL PROTEIN 6.4 g/dL (6.3-8.2); WHITE BLOOD COUNT 8.8 10^3/uL (4.0-10.5)
[2018-08-06] MEDS: DOCUSATE SODIUM 100 MG/10 ML UDC NG SCH (10:56)
[2018-08-06] MEDS: METOPROLOL TARTRATE 25 MG TABLET PEG SCH (10:56)
[2018-08-06] MEDS: ASPIRIN 81 MG TABLET, CHEWABLE PEG SCH (10:56)
[2018-08-06] MEDS: LOSARTAN POTASSIUM 50 MG TABLET PEG SCH (10:56)
[2018-08-06] MEDS: FAMOTIDINE 20 MG TABLET PEG SCH ×2 (10:56→21:12)
--- NOTE | 2018-08-06 12:09 | PDOC PROGRESS REPORT ---
Subjective Progress Note for:: 08/06/18 Subjective:: KING CERRATO is a 83 year old male past medical history of A. primo on apixaban, CHF, dyslipidemia, and COPD who is status post recent cervical fusion surgery at [place] complicated by cardiac arrest and severe anoxic brain injury, intubated for more than a week, transferred to [facility] last Tuesday who was brought to ED from [facility] after vomiting while being suctioned, chest x-ray was done which was suspicious for pneumonia and pt was brought to ED for further evaluation. In ED he was found to be tachycardic with T-max of 105, leukocytosis question was raised for possible aspiration pneumonia versus healthcare associated pneumonia. Source of history is and son who are accompanying him. Patient is nonverbal due to his anoxic brain injury caused by recent cardiac arrest at [place]. At baseline patient communicates by moving his head. Patient is awake follows minimal, does not communicate any symptoms. Does not seem to be in any acute distress. 07/29/2018. No acute events overnight. Patient is more responsive today follows some commands, still no verbal communication due to profound brain injury. He moves his left foot when asked, sticks out his tongue when asked. He is less agitated when touched compared to yesterday, does not seem to be in any acute distress. Vitals have been stable except for tachypnea he has been tachypneic, saturating 100% on 2 L, WBC has dropped to 14.3 from 16.4, no bandemia, ABG within normal limits, CMP within normal limit. Cultures have been negative so far. Repeat UA still shows hematuria with a small leukocyte esterase. 07/30/2018. No acute events overnight. Vitals are stable. Cultures no growth so far, WBC within normal limits. History within normal limits. Patient does not seem to be in any acute distress, unfortunately due to profound neurological deficits caused by anoxic brain injury patient cannot communicate, follows some commands by lifting moving left lower and upper extremity when asked. Less agitated when touched. Tries to communicate but unfortunately unable due to profound neurological deficit. Physical examination patient still has rhonchi on the right chest, left chest clear, congestion appears to have improved. 07/31/2018. No acute events overnight. Patient's remained unchanged neurologically. Respiratory symptoms improving. He has been afebrile, no leukocytosis, blood cultures has been negative. Unfortunately patient has profo und neurological deficits, he does not communicate, only moves his left leg when asked. Family has been updated about medical improvement over the patient, palliative care has been consulted. Patient may be transferred back to rehab once placement is available. 08/01/2018. No acute events overnight. Patient's more alert following some commands. As per family he is back to baseline. Patient pending for placement. 08/02/2018. No acute events overnight, in the morning it was noted that patient PEG tube was leaking and was pulled out a little bit, even the patient left hand is a soft restraint per family's request because they do not want him sedated. A KUB and chest x-ray was done which did not show any leakage of feeds, PEG tube seems to be in place. Surgery was consulted for readjusting of the PEG tube. Otherwise patient is alert, following some commands. Patient's pneumonia seems to have been resolved. Waiting for placement. 08/03/2018. No acute events overnight. Patient's more alert following some commands. As per family he is back to baseline. Patient pending for placement. 08/06/2018. No acute events overnight. Alert and today following some commands. Does not seem to be in any acute distress. Patient pending placement. Reason For Visit: HCAP,ASPIRATION PNM Physical Exam Vital Signs: Temp Pulse Resp BP Pulse Ox 97.9 F 83 18 153/83 H 98 08/06/18 08:06 08/06/18 09:00 08/06/18 09:00 08/06/18 08:06 08/06/18 09:00 Intake & Output 08/05/18 08/06/18 08/07/18 06:59 06:59 06:59 Intake Total 1320 1900 Output Total 1150 2024 Balance 170 -125 Weight 68.9 kg 67.6 kg General appearance: PRESENT: no acute distress, well-developed, well-nourished Head exam: PRESENT: atraumatic, normocephalic Respiratory exam: PRESENT: clear to auscultation prema. ABSENT: rales, rhonchi, wheezes Pulses: PRESENT: normal dorsalis pedis pul Extremities exam: PRESENT: full ROM. ABSENT: calf tenderness, clubbing, pedal edema Neurological exam: PRESENT: awake Results Laboratory Results: 08/06/18 10:13 08/06/18 10:13 08/06/18 08/06/18 10:13 10:13 WBC 8.8 RBC 3.70 L Hgb 11.3 L Hct 34.6 L MCV 93 MCH 30.4 MCHC 32.6 RDW 17.2 H Plt Count 343 Seg Neutrophils % 76.1 Lymphocytes % 11.8 L Monocytes % 8.7 Eosinophils % 3.2 Basophils % 0.2 Absolute Neutrophils 6.7 Absolute Lymphocytes 1.0 Absolute Monocytes 0.8 Absolute Eosinophils 0.3 Absolute Basophils 0.0 Sodium 140.7 Potassium 4.3 Chloride 106 Carbon Dioxide 30 Anion Gap 5 BUN 20 Creatinine 0.88 Est GFR ( Amer) > 60 Est GFR (Non-Af Amer) > 60 Glucose 168 H Calcium 8.7 Total Bilirubin 0.5 AST 54 ALT 65 Alkaline Phosphatase 349 H Total Protein 6.4 Albumin 2.8 L Impressions: Chest X-Ray 08/02/18 00:00 IMPRESSION: Improved aeration in the left base. Minimal residual atelectasis. KUB X-Ray 08/02/18 00:00 IMPRESSION: NO RADIOGRAPHIC EVIDENCE FOR ACUTE ABDOMINAL DISEASE. Assessment and Plan - Diagnosis (1) Anoxic brain injury Is this a current diagnosis for this admission?: No Plan: Due to complicated neck surgery. Profound neurological deficits. Continue PT/OT Continue antiplatelets and optimize blood pressure. Has a PEG tube placed. Frequent turning and decubitus ulcer prevention. Pending rehab placement. (2) Aspiration pneumonia Is this a current diagnosis for this admission?: No Plan: Vitals within normal cultures negative, WBC within normal limits. Received 7/7 days of IV antibiotics for HCAP. Superimposed on healthcare associated pneumonia. Continue empiric antibiotics. Follow-up sputum and blood cultures. Aspiration precaution. (3) SIRS (systemic inflammatory response syndrome) Is this a current diagnosis for this admission?: Yes Plan: Resolved. Normotensive, afebrile, WBC wnl. Lactic acid within normal limits. Volume resuscitation guided by volume status and vitals. (4) HCAP (healthcare-associated pneumonia) Is this a current diagnosis for this admission?: Yes Plan: Very high risk due to due to recent history of hospitalization, ICU admission, intubation, snf resident. Likely due to gram-negative rods or MRSA. Day 7/7 IV Zosyn and vancomycin. Blood culture and sputum culture negative. (5) Chronic a-fib Is this a current diagnosis for this admission?: No Plan: Rate controlled. Continue beta-blockers. Patient is very high risk of falls due to severe neurological deficits. Family was counseled about risk and benefits of continuing anticoagulation. They want to withhold anticoagulation at this point. (6) COPD (chronic obstructive pulmonary disease) Qualifiers: COPD type: unspecified COPD Qualified Code(s): J44.9 - Chronic obstructive pulmonary disease, unspecified Is this a current diagnosis for this admission?: No Plan: Not acutely exacerbated. Continue nebs, supplemental oxygen, as needed BiPAP. 08/04/2018 DC IV steroids. (7) Dyslipidemia Is this a current diagnosis for this admission?: No Plan: Continue statins. Continue cardiac diet. (8) PEG (percutaneous endoscopic gastrostomy) status Is this a current diagnosis for this admission?: Yes Plan: Patient replaced due to profound neurologic deficit(dysphagia) by recent anoxic brain injury. Continue ostomy care. Continue tube feeds. Youth Care Worker is consulted. Recommendations Noted. (9) Hypernatremia Is this a current diagnosis for this admission?: Yes Plan: Resovled. Contiune free water boluses to 150 every 4 hours. CMP tomorrow.
[2018-08-06] MEDS ORDERED: METOPROLOL TARTRATE 50 MG TABLET ONE (20:48)
[2018-08-06] MEDS: ATORVASTATIN CALCIUM 40 MG TABLET PEG SCH (21:12)
[2018-08-06] MEDS: METOPROLOL TARTRATE 50 MG TABLET PEG SCH (21:12)
[2018-08-06] MEDS ORDERED: METOPROLOL TARTRATE 25 MG TABLET PEG SCH (22:00)
[2018-08-07] MEDS: HEPARIN SOD (PORCINE) 5,000 UNIT/ML 1 ML SYRINGE SUBCUT SCH ×3 (05:21→22:09)
[2018-08-07] MEDS: ACETYLCYSTEINE 20% SOLN 800 MG/4 ML VIAL.NEB NEB SCH ×2 (08:48→20:41)
[2018-08-07] MEDS: IPRATROPIUM/ALBUTEROL 0.5-2.5 MG/3 ML AMPUL NEB PRN ×2 (08:48→20:42)
[2018-08-07] MEDS: DOCUSATE SODIUM 100 MG/10 ML UDC NG SCH (09:46)
[2018-08-07] MEDS: FAMOTIDINE 20 MG TABLET PEG SCH ×2 (09:53→22:09)
[2018-08-07] MEDS: ASPIRIN 81 MG TABLET, CHEWABLE PEG SCH (09:53)
[2018-08-07] MEDS: LOSARTAN POTASSIUM 50 MG TABLET PEG SCH (09:53)
[2018-08-07] MEDS: METOPROLOL TARTRATE 50 MG TABLET PEG SCH ×2 (09:53→22:09)
--- NOTE | 2018-08-07 14:31 | PDOC PROGRESS REPORT ---
Subjective Progress Note for:: 08/07/18 Subjective:: KING CERRATO is a 83 year old male past medical history of A. primo on apixaban, CHF, dyslipidemia, and COPD who is status post recent cervical fusion surgery at [place] complicated by cardiac arrest and severe anoxic brain injury, intubated for more than a week, transferred to [facility] last Tuesday who was brought to ED from [facility] after vomiting while being suctioned, chest x-ray was done which was suspicious for pneumonia and pt was brought to ED for further evaluation. In ED he was found to be tachycardic with T-max of 105, leukocytosis question was raised for possible aspiration pneumonia versus healthcare associated pneumonia. Source of history is and son who are accompanying him. Patient is nonverbal due to his anoxic brain injury caused by recent cardiac arrest at [place]. At baseline patient communicates by moving his head. Patient is awake follows minimal, does not communicate any symptoms. Does not seem to be in any acute distress. 07/29/2018. No acute events overnight. Patient is more responsive today follows some commands, still no verbal communication due to profound brain injury. He moves his left foot when asked, sticks out his tongue when asked. He is less agitated when touched compared to yesterday, does not seem to be in any acute distress. Vitals have been stable except for tachypnea he has been tachypneic, saturating 100% on 2 L, WBC has dropped to 14.3 from 16.4, no bandemia, ABG within normal limits, CMP within normal limit. Cultures have been negative so far. Repeat UA still shows hematuria with a small leukocyte esterase. 07/30/2018. No acute events overnight. Vitals are stable. Cultures no growth so far, WBC within normal limits. History within normal limits. Patient does not seem to be in any acute distress, unfortunately due to profound neurological deficits caused by anoxic brain injury patient cannot communicate, follows some commands by lifting moving left lower and upper extremity when asked. Less agitated when touched. Tries to communicate but unfortunately unable due to profound neurological deficit. Physical examination patient still has rhonchi on the right chest, left chest clear, congestion appears to have improved. 07/31/2018. No acute events overnight. Patient's remained unchanged neurologically. Respiratory symptoms improving. He has been afebrile, no leukocytosis, blood cultures has been negative. Unfortunately patient has profo und neurological deficits, he does not communicate, only moves his left leg when asked. Family has been updated about medical improvement over the patient, palliative care has been consulted. Patient may be transferred back to rehab once placement is available. 08/01/2018. No acute events overnight. Patient's more alert following some commands. As per family he is back to baseline. Patient pending for placement. 08/02/2018. No acute events overnight, in the morning it was noted that patient PEG tube was leaking and was pulled out a little bit, even the patient left hand is a soft restraint per family's request because they do not want him sedated. A KUB and chest x-ray was done which did not show any leakage of feeds, PEG tube seems to be in place. Surgery was consulted for readjusting of the PEG tube. Otherwise patient is alert, following some commands. Patient's pneumonia seems to have been resolved. Waiting for placement. 08/03/2018. No acute events overnight. Patient's more alert following some commands. As per family he is back to baseline. Patient pending for placement. 08/06/2018. No acute events overnight. Alert and today following some commands. Does not seem to be in any acute distress. Patient pending placement. 08/07/2018. No acute events overnight. Does not seem to be in any acute distress. Patient pending placement. Reason For Visit: HCAP,ASPIRATION PNM Physical Exam Vital Signs: Temp Pulse Resp BP Pulse Ox 97.8 F 91 21 H 135/74 H 99 08/07/18 11:09 08/07/18 11:09 08/07/18 11:09 08/07/18 11:09 08/07/18 11:09 Intake & Output 08/06/18 08/07/18 08/08/18 06:59 06:59 06:59 Intake Total 1900 1900 380 Output Total 2024 900 150 Balance -125 1000 230 Weight 67.6 kg 68.7 kg General appearance: PRESENT: no acute distress, well-developed, well-nourished Head exam: PRESENT: atraumatic, normocephalic Neck exam: ABSENT: carotid bruit, JVD, lymphadenopathy, thyromegaly Respiratory exam: PRESENT: clear to auscultation prema. ABSENT: rales, rhonchi, wheezes Cardiovascular exam: PRESENT: irregular rhythm. ABSENT: diastolic murmur, rubs, systolic murmur GI/Abdominal exam: PRESENT: normal bowel sounds, soft. ABSENT: distended, guarding, mass, organolmegaly, rebound, tenderness Neurological exam: PRESENT: awake Skin exam: PRESENT: other - Diffuse macular rash over anterior trunk. Results Laboratory Results: 08/06/18 10:13 08/06/18 10:13 Impressions: Chest X-Ray 08/02/18 00:00 IMPRESSION: Improved aeration in the left base. Minimal residual atelectasis. KUB X-Ray 08/02/18 00:00 IMPRESSION: NO RADIOGRAPHIC EVIDENCE FOR ACUTE ABDOMINAL DISEASE. Assessment and Plan - Diagnosis (1) Anoxic brain injury Is this a current diagnosis for this admission?: No Plan: Due to complicated neck surgery. Profound neurological deficits. Continue PT/OT Continue antiplatelets and optimize blood pressure. Has a PEG tube placed. Frequent turning and decubitus ulcer prevention. Pending rehab placement. (2) Aspiration pneumonia Is this a current diagnosis for this admission?: No Plan: Vitals within normal cultures negative, WBC within normal limits. Received 7/7 days of IV antibiotics for HCAP. Superimposed on healthcare associated pneumonia. Continue empiric antibiotics. Follow-up sputum and blood cultures. Aspiration precaution. (3) SIRS (systemic inflammatory response syndrome) Is this a current diagnosis for this admission?: Yes Plan: Resolved. Normotensive, afebrile, WBC wnl. Lactic acid within normal limits. Volume resuscitation guided by volume status and vitals. (4) HCAP (healthcare-associated pneumonia) Is this a current diagnosis for this admission?: Yes Plan: Very high risk due to due to recent history of hospitalization, ICU admission, intubation, [facility] resident. Likely due to gram-negative rods or MRSA. Day 7/7 IV Zosyn and vancomycin. Blood culture and sputum culture negative. (5) Chronic a-fib Is this a current diagnosis for this admission?: No Plan: Rate controlled. Continue beta-blockers. Patient is very high risk of falls due to severe neurological deficits. Family was counseled about risk and benefits of continuing anticoagulation. They want to withhold anticoagulation at this point. (6) COPD (chronic obstructive pulmonary disease) Qualifiers: COPD type: unspecified COPD Qualified Code(s): J44.9 - Chronic obstructive pulmonary disease, unspecified Is this a current diagnosis for this admission?: No Plan: Not acutely exacerbated. Continue nebs, supplemental oxygen, as needed BiPAP. 08/04/2018 DC IV steroids. (7) Dyslipidemia Is this a current diagnosis for this admission?: No Plan: Continue statins. Continue cardiac diet. (8) PEG (percutaneous endoscopic gastrostomy) status Is this a current diagnosis for this admission?: Yes Plan: Patient replaced due to profound neurologic deficit(dysphagia) by recent anoxic brain injury. Continue ostomy care. Continue tube feeds. Sharepoint Architect is consulted. Recommendations Noted. (9) Hypernatremia Is this a current diagnosis for this admission?: Yes Plan: Resovled. Contiune free water boluses to 150 every 4 hours. CMP tomorrow. (10) Rash Is this a current diagnosis for this admission?: Yes Plan: Diffuse macular rash over the anterior trunk. Upon reviewing his medication he has not received anything that he is allergic to. Family has mentioned that he is allergic to anything scented. Primary nurse and DECORATIVE ENGRAVER APPRENTICE have been advised not to use anything scented on his skin. Follow-up. Repeat CBC CMP within normal limits.
[2018-08-07] MEDS: ATORVASTATIN CALCIUM 40 MG TABLET PEG SCH (22:09)
[2018-08-08] MEDS ORDERED: ZINC OXIDE 20% OINTMENT 28.35 GM TP PRN (01:00)
[2018-08-08] MEDS: IPRATROPIUM/ALBUTEROL 0.5-2.5 MG/3 ML AMPUL NEB PRN ×3 (03:45→21:00)
[2018-08-08] MEDS ORDERED: MORPHINE SULFATE 10 MG/ML INJ IV PRN (04:32)
[2018-08-08] MEDS: HEPARIN SOD (PORCINE) 5,000 UNIT/ML 1 ML SYRINGE SUBCUT SCH ×3 (05:14→22:30)
[2018-08-08] MEDS: ACETYLCYSTEINE 20% SOLN 800 MG/4 ML VIAL.NEB NEB SCH ×2 (08:02→21:00)
[2018-08-08] MEDS: ASPIRIN 81 MG TABLET, CHEWABLE PEG SCH (12:14)
[2018-08-08] MEDS: DOCUSATE SODIUM 100 MG/10 ML UDC NG SCH (12:28)
[2018-08-08] MEDS: LOSARTAN POTASSIUM 50 MG TABLET PEG SCH (12:28)
[2018-08-08] MEDS: METOPROLOL TARTRATE 50 MG TABLET PEG SCH ×2 (12:29→21:46)
[2018-08-08] MEDS: FAMOTIDINE 20 MG TABLET PEG SCH ×2 (12:29→21:46)
--- NOTE | 2018-08-08 16:13 | RADIOLOGY REPORT (SQ) ---
EXAM DESCRIPTION: CT HEAD WITH COMPLETED DATE/TIME: 08/08/2018 3:18 pm REASON FOR STUDY: encephalopathy COMPARISON: 07/05/2018 TECHNIQUE: Axial images acquired through the brain with intravenous contrast. Images reviewed with b one, brain and subdural windows. Additional sagittal and coronal reconstructions were generated. No ges stored on PACS. All CT scanners at this facility use dose modulation, iterative reconstruction, and/or weight based d osing when appropriate to reduce radiation dose to as low as reasonably achievable (ALARA). [facility]: Dose Right [facility]: CareDose [facility]: Dose Right [facility]: Teradose 4D [facility]: Hit the Mark CONTRAST TYPE AND DOSE: contrast/concentration: Isovue 350.00 mg/ml; Total Contrast Delivered: 50.0 ml; Total Saline Delivered: 55.0 ml RENAL FUNCTION: BUN 20 creatinine 0.88 RADIATION DOSE: CT Rad equipment meets quality standard of care and radiation dose reduction techniq ues were employed. CTDIvol: 48.5 mGy. DLP: 903 mGy-cm.. LIMITATIONS: None. FINDINGS: VENTRICLES: Prominent, likely ex vacuo enlargement secondary to atrophy. CEREBRUM: Cortical atrophy. No masses. No hemorrhage. No midline shift. No acute infarction. Areas of decreased attenuation in the periventricular white matter. No enhancing lesions. CEREBELLUM: No masses. No hemorrhage. No alteration of density. No evidence for acute infarction. No enhancing lesions. EXTRA-AXIAL SPACES: No fluid collections. No enhancing lesions. ORBITS AND GLOBE: No intra- or extraconal masses. Normal contour of globe without masses. CALVARIUM: No fracture. PARANASAL SINUSES: No fluid or mucosal thickening. SOFT TISSUES: No mass or hematoma. OTHER: No other significant finding. IMPRESSION: Involutional changes of aging. Chronic microvascular ischemia. No acute findings. EVIDENCE OF ACUTE STROKE: NO. TECHNICAL DOCUMENTATION: JOB ID: [id number] Quality ID # [id number]: Final reports with documentation of one or more dose reduction techniques (e.g., Au tomated exposure control, adjustment of the mA and/or kV according to patient size, use of iterative reconstruction technique) 2010 [employer]- All Rights Reserved Reading location - IP/workstation name: [email or web address]
--- NOTE | 2018-08-08 19:00 | PDOC PROGRESS REPORT ---
Subjective Progress Note for:: 08/08/18 Subjective:: No adverse events overnight. Apparently this morning he started breathing faster and became less responsive. He had a fairly high residual for his tube feeds and so those were discontinued. When they suction him this morning they got a lot of thick creamy secretions that look like tube feed. We repeated a head CT on him because of his mental status changes and it did not show any new findings. Reason For Visit: HCAP,ASPIRATION PNM Physical Exam Vital Signs: Temp Pulse Resp BP Pulse Ox 98.4 F 103 H 36 H 128/67 H 92 08/08/18 11:10 08/08/18 14:00 08/08/18 11:10 08/08/18 11:10 08/08/18 11:10 Intake & Output 08/07/18 08/08/18 08/09/18 06:59 06:59 06:59 Intake Total 1900 2300 150 Output Total 900 675 375 Balance 1000 1625 -225 Weight 68.7 kg 69.9 kg General appearance: PRESENT: no acute distress, well-developed, well-nourished Head exam: PRESENT: atraumatic, normocephalic Neck exam: Neck brace is on Respiratory exam: PRESENT: Coarse rhonchi heard in all lung drake, poor cough effort. ABSENT: rales, wheezes Cardiovascular exam: PRESENT: irregular rhythm. ABSENT: diastolic murmur, rubs, systolic murmur GI/Abdominal exam: PRESENT: normal bowel sounds, soft. ABSENT: distended, guarding, mass, organolmegaly, rebound, tenderness Neurological exam: PRESENT: Opens eyes to verbal command with some moderately noxious stimuli, eyes localize but he does not talk, not following commands, upper extremities are flaccid, has some involuntary movement of his lower extremities Results Laboratory Results: 08/06/18 10:13 08/06/18 10:13 Impressions: Chest X-Ray 08/02/18 00:00 IMPRESSION: Improved aeration in the left base. Minimal residual atelectasis. KUB X-Ray 08/02/18 00:00 IMPRESSION: NO RADIOGRAPHIC EVIDENCE FOR ACUTE ABDOMINAL DISEASE. Head CT 08/08/18 00:00 IMPRESSION: Involutional changes of aging. Chronic microvascular ischemia. No acute findings. EVIDENCE OF ACUTE STROKE: NO. Assessment and Plan - Diagnosis (1) Anoxic brain injury Is this a current diagnosis for this admission?: No Plan: Had some deterioration of his condition today, possibly because he likely reaspirated some of his tube feeds, CT was negative for acute stroke or hemorrhage, will follow his mental status closely. (2) Aspiration pneumonia Qualifiers: Aspiration pneumonia type: due to regurgitated food Laterality: bilateral Lung location: lower lobe of lung Qualified Code(s): J69.0 - Pneumonitis due to inhalation of food and vomit Is this a current diagnosis for this admission?: Yes Plan: We had to put his tube feeds on hold. We will monitor him for signs of sepsis to see if he needs further antibiotic therapy (3) Chronic a-fib Is this a current diagnosis for this admission?: Yes Plan: Rate controlled - Time Time Spent with patient: 25-34 minutes
[2018-08-08] MEDS: ATORVASTATIN CALCIUM 40 MG TABLET PEG SCH (21:46)
[2018-08-09] MEDS: HEPARIN SOD (PORCINE) 5,000 UNIT/ML 1 ML SYRINGE SUBCUT SCH ×2 (06:11→21:59)
[2018-08-09] MEDS: IPRATROPIUM/ALBUTEROL 0.5-2.5 MG/3 ML AMPUL NEB PRN ×2 (09:25→21:31)
[2018-08-09] MEDS: ACETYLCYSTEINE 20% SOLN 800 MG/4 ML VIAL.NEB NEB SCH ×2 (09:25→21:32)
[2018-08-09] MEDS: ASPIRIN 81 MG TABLET, CHEWABLE PEG SCH (11:41)
[2018-08-09] MEDS: LOSARTAN POTASSIUM 50 MG TABLET PEG SCH (11:41)
[2018-08-09] MEDS: FAMOTIDINE 20 MG TABLET PEG SCH ×2 (11:41→21:59)
[2018-08-09] MEDS: METOPROLOL TARTRATE 50 MG TABLET PEG SCH ×2 (11:41→21:58)
[2018-08-09] MEDS: DOCUSATE SODIUM 100 MG/10 ML UDC NG SCH (11:43)
--- NOTE | 2018-08-09 17:00 | PDOC PROGRESS REPORT ---
Subjective Progress Note for:: 08/09/18 Subjective:: No adverse events overnight. Vital signs remained stable. He is more awake today but is not following commands. He apparently has some involuntary movements of his arms. Reason For Visit: HCAP,ASPIRATION PNM Physical Exam Vital Signs: Temp Pulse Resp BP Pulse Ox 97.9 F 97 24 H 126/80 H 99 08/09/18 12:09 08/09/18 14:00 08/09/18 12:09 08/09/18 12:09 08/09/18 12:09 Intake & Output 08/08/18 08/09/18 08/10/18 06:59 06:59 06:59 Intake Total 2300 450 150 Output Total 675 625 250 Balance 1625 -175 -100 Weight 69.9 kg 68.1 kg General appearance: PRESENT: no acute distress, well-developed, well-nourished Head exam: PRESENT: atraumatic, normocephalic Neck exam: Neck brace is on Respiratory exam: PRESENT: Coarse rhonchi heard in all lung drake, poor cough effort. ABSENT: rales, wheezes Cardiovascular exam: PRESENT: irregular rhythm. ABSENT: diastolic murmur, rubs, systolic murmur GI/Abdominal exam: PRESENT: normal bowel sounds, soft. ABSENT: distended, guarding, mass, organolmegaly, rebound, tenderness Neurological exam: PRESENT: Opens eyes to verbal command, eyes localize but he does not talk, not following commands, upper extremities are flaccid, has some involuntary movement of his lower extremities Results Laboratory Results: 08/06/18 10:13 08/06/18 10:13 Impressions: Chest X-Ray 08/02/18 00:00 IMPRESSION: Improved aeration in the left base. Minimal residual atelectasis. KUB X-Ray 08/02/18 00:00 IMPRESSION: NO RADIOGRAPHIC EVIDENCE FOR ACUTE ABDOMINAL DISEASE. Head CT 08/08/18 00:00 IMPRESSION: Involutional changes of aging. Chronic microvascular ischemia. No acute findings. EVIDENCE OF ACUTE STROKE: NO. Assessment and Plan - Diagnosis (1) Anoxic brain injury Is this a current diagnosis for this admission?: No Plan: Had some deterioration of his condition, possibly because he likely reaspirated some of his tube feeds, CT was negative for acute stroke or hemorrhage. Did have some mild improvement today but is still not following commands. Will restart tube feeds but instead of him getting bolus feeds we will start him on a continuous tube feeding schedule and will titrate up as he can tolerate. (2) Aspiration pneumonia Qualifiers: Aspiration pneumonia type: due to regurgitated food Laterality: bilateral Lung location: lower lobe of lung Qualified Code(s): J69.0 - Pneumonitis due to inhalation of food and vomit Is this a current diagnosis for this admission?: Yes Plan: We had to put his tube feeds on hold we will restart them today as noted above. We will monitor him for signs of sepsis to see if he needs further antibiotic therapy, but so far he is not showing any signs of pneumonia. (3) Chronic a-fib Is this a current diagnosis for this admission?: Yes Plan: Rate controlled - Time Time Spent with patient: 15-24 minutes
[2018-08-09] MEDS: ATORVASTATIN CALCIUM 40 MG TABLET PEG SCH (21:58)
[2018-08-10] MEDS: HEPARIN SOD (PORCINE) 5,000 UNIT/ML 1 ML SYRINGE SUBCUT SCH ×4 (05:18→21:35)
[2018-08-10] MEDS: ACETYLCYSTEINE 20% SOLN 800 MG/4 ML VIAL.NEB NEB SCH ×2 (08:39→20:58)
[2018-08-10] MEDS: IPRATROPIUM/ALBUTEROL 0.5-2.5 MG/3 ML AMPUL NEB PRN ×2 (08:39→20:59)
[2018-08-10] MEDS: LOSARTAN POTASSIUM 50 MG TABLET PEG SCH (12:19)
[2018-08-10] MEDS: DOCUSATE SODIUM 100 MG/10 ML UDC NG SCH (12:19)
[2018-08-10] MEDS: ASPIRIN 81 MG TABLET, CHEWABLE PEG SCH (12:20)
[2018-08-10] MEDS: METOPROLOL TARTRATE 50 MG TABLET PEG SCH ×2 (12:20→21:26)
[2018-08-10] MEDS: FAMOTIDINE 20 MG TABLET PEG SCH ×2 (12:20→21:26)
--- NOTE | 2018-08-10 17:15 | PDOC PROGRESS REPORT ---
Subjective Progress Note for:: 08/10/18 Subjective:: No adverse events overnight. Was started to tube feeds back yesterday and are advancing his rate slowly, he has tolerated thus far. He opens his eyes to verbal command but does not track or localize. He had what looks like some involuntary movement of his left arm today. Reason For Visit: HCAP,ASPIRATION PNM Physical Exam Vital Signs: Temp Pulse Resp BP Pulse Ox 97.5 F 87 30 H 139/75 H 98 08/10/18 15:32 08/10/18 15:32 08/10/18 15:32 08/10/18 15:32 08/10/18 15:32 Intake & Output 08/09/18 08/10/18 08/11/18 06:59 06:59 06:59 Intake Total 450 630 490 Output Total 625 1425 200 Balance -175 -795 290 Weight 68.1 kg 67.9 kg General appearance: PRESENT: no acute distress, well-developed, well-nourished Head exam: PRESENT: atraumatic, normocephalic Neck exam: Neck brace is on Respiratory exam: PRESENT: Coarse rhonchi heard in all lung drake, poor cough effort. ABSENT: rales, wheezes Cardiovascular exam: PRESENT: irregular rhythm. ABSENT: diastolic murmur, rubs, systolic murmur GI/Abdominal exam: PRESENT: normal bowel sounds, soft. ABSENT: distended, guarding, mass, organolmegaly, rebound, tenderness Neurological exam: PRESENT: Opens eyes to verbal command, eyes localize but he does not talk, not following commands, upper extremities are flaccid with some occasional involuntary movement, has some involuntary movement of his lower extremities Results Laboratory Results: 08/06/18 10:13 08/06/18 10:13 Impressions: Chest X-Ray 08/02/18 00:00 IMPRESSION: Improved aeration in the left base. Minimal residual atelectasis. KUB X-Ray 08/02/18 00:00 IMPRESSION: NO RADIOGRAPHIC EVIDENCE FOR ACUTE ABDOMINAL DISEASE. Head CT 08/08/18 00:00 IMPRESSION: Involutional changes of aging. Chronic microvascular ischemia. No acute findings. EVIDENCE OF ACUTE STROKE: NO. Assessment and Plan - Diagnosis (1) Anoxic brain injury Is this a current diagnosis for this admission?: No Plan: Had some deterioration of his condition previously, possibly because he likely reaspirated some of his tube feeds, CT was negative for acute stroke or hemorrhage. Did have some mild improvement but is still not following commands. Restarted tube feeds but instead of him getting bolus feeds we started him on a continuous tube feeding schedule and will titrate up as he can tolerate. Sincerely doubt that he will have any significant neurological recovery. (2) Aspiration pneumonia Qualifiers: Aspiration pneumonia type: due to regurgitated food Laterality: bilateral Lung location: lower lobe of lung Qualified Code(s): J69.0 - Pneumonitis due to inhalation of food and vomit Is this a current diagnosis for this admission?: Yes Plan: We had to put his tube feeds on hold we will restart them today as noted above. We will monitor him for signs of sepsis to see if he needs further antibiotic therapy, but so far he is not showing any signs of pneumonia. (3) Chronic a-fib Is this a current diagnosis for this admission?: Yes Plan: Rate controlled - Time Time Spent with patient: 15-24 minutes
[2018-08-10] MEDS: ATORVASTATIN CALCIUM 40 MG TABLET PEG SCH (21:26)
[2018-08-11 00:48] LABS: HEMATOCRIT 32.9 % (37.9-51.0); HEMOGLOBIN 10.7 g/dL (13.5-17.0); MEAN CORPUSCULAR HEMOGLOBIN 29.7 pg (27.0-33.4); MEAN CORPUSCULAR HGB CONC 32.5 g/dL (32.0-36.0); MEAN CORPUSCULAR VOLUME 91 fl (80-97); PLATELET COUNT 287 10^3/uL (150-450); RED BLOOD COUNT 3.61 10^6/uL (4.35-5.55); RED CELL DISTRIBUTION WIDTH 16.2 % (11.5-14.0); WHITE BLOOD COUNT 8.6 10^3/uL (4.0-10.5)
[2018-08-11] MEDS: HEPARIN SOD (PORCINE) 5,000 UNIT/ML 1 ML SYRINGE SUBCUT SCH ×3 (05:11→21:49)
[2018-08-11] MEDS: METOPROLOL TARTRATE 50 MG TABLET PEG SCH ×2 (09:29→21:49)
[2018-08-11] MEDS: LOSARTAN POTASSIUM 50 MG TABLET PEG SCH (09:29)
[2018-08-11] MEDS: DOCUSATE SODIUM 100 MG/10 ML UDC NG SCH (09:29)
[2018-08-11] MEDS: FAMOTIDINE 20 MG TABLET PEG SCH ×2 (09:29→21:49)
[2018-08-11] MEDS: ASPIRIN 81 MG TABLET, CHEWABLE PEG SCH (09:29)
[2018-08-11] MEDS: ACETYLCYSTEINE 20% SOLN 800 MG/4 ML VIAL.NEB NEB SCH ×2 (09:49→20:26)
[2018-08-11] MEDS: IPRATROPIUM/ALBUTEROL 0.5-2.5 MG/3 ML AMPUL NEB PRN ×2 (09:50→20:26)
--- NOTE | 2018-08-11 16:50 | PDOC PROGRESS REPORT ---
Subjective Progress Note for:: 08/11/18 Subjective:: No adverse events overnight. Stable. No real change in his condition. Not following commands. Opening his eyes but not tracking or localizing. No fevers. Reason For Visit: HCAP,ASPIRATION PNM Physical Exam Vital Signs: Temp Pulse Resp BP Pulse Ox 97.3 F 90 25 H 92/56 L 93 08/11/18 11:31 08/11/18 14:00 08/11/18 11:31 08/11/18 11:31 08/11/18 11:31 Intake & Output 08/10/18 08/11/18 08/12/18 06:59 06:59 06:59 Intake Total 630 1969 0 Output Total 1425 750 200 Balance -795 1219 -200 Weight 67.9 kg 68.9 kg General appearance: PRESENT: no acute distress, well-developed, well-nourished Head exam: PRESENT: atraumatic, normocephalic Neck exam: Neck brace is on Respiratory exam: PRESENT: Coarse rhonchi heard in all lung drake, poor cough effort. ABSENT: rales, wheezes Cardiovascular exam: PRESENT: irregular rhythm. ABSENT: diastolic murmur, rubs, systolic murmur GI/Abdominal exam: PRESENT: normal bowel sounds, soft. ABSENT: distended, guarding, mass, organolmegaly, rebound, tenderness Neurological exam: PRESENT: Opens eyes to verbal command, eyes localize but he does not talk, not following commands, upper extremities are flaccid with some occasional involuntary movement, has some involuntary movement of his lower extremities Results Laboratory Results: 08/11/18 00:30 08/06/18 10:13 08/11/18 00:30 WBC 8.6 RBC 3.61 L Hgb 10.7 L Hct 32.9 L MCV 91 MCH 29.7 MCHC 32.5 RDW 16.2 H Plt Count 287 Impressions: Chest X-Ray 08/02/18 00:00 IMPRESSION: Improved aeration in the left base. Minimal residual atelectasis. KUB X-Ray 08/02/18 00:00 IMPRESSION: NO RADIOGRAPHIC EVIDENCE FOR ACUTE ABDOMINAL DISEASE. Head CT 08/08/18 00:00 IMPRESSION: Involutional changes of aging. Chronic microvascular ischemia. No acute findings. EVIDENCE OF ACUTE STROKE: NO. Assessment and Plan - Diagnosis (1) Anoxic brain injury Is this a current diagnosis for this admission?: No Plan: Had some deterioration of his condition previously, possibly because he likely reaspirated some of his tube feeds, CT was negative for acute stroke or hemorrhage. Did have some mild improvement but is still not following commands. Restarted tube feeds but instead of him getting bolus feeds we started him on a continuous tube feeding schedule and will titrate up as he can tolerate. Sincerely doubt that he will have any significant neurological recovery. (2) Aspiration pneumonia Qualifiers: Aspiration pneumonia type: due to regurgitated food Laterality: bilateral Lung location: lower lobe of lung Qualified Code(s): J69.0 - Pneumonitis due t o inhalation of food and vomit Is this a current diagnosis for this admission?: Yes Plan: We had to put his tube feeds on hold, we have restarted them at a continuous rate will slowly titrate upward to a goal of 45 mL's an hour. We will monitor him for signs of sepsis to see if he needs further antibiotic therapy, but so far he is not showing any signs of pneumonia. (3) Chronic a-fib Is this a current diagnosis for this admission?: Yes Plan: Rate controlled - Time Time Spent with patient: 15-24 minutes
[2018-08-11] MEDS: ATORVASTATIN CALCIUM 40 MG TABLET PEG SCH (21:49)
[2018-08-12] MEDS: HEPARIN SOD (PORCINE) 5,000 UNIT/ML 1 ML SYRINGE SUBCUT SCH ×3 (05:12→21:44)
[2018-08-12] MEDS: ACETYLCYSTEINE 20% SOLN 800 MG/4 ML VIAL.NEB NEB SCH ×2 (08:30→20:10)
[2018-08-12] MEDS: IPRATROPIUM/ALBUTEROL 0.5-2.5 MG/3 ML AMPUL NEB PRN ×2 (08:30→20:10)
[2018-08-12] MEDS: LOSARTAN POTASSIUM 50 MG TABLET PEG SCH (10:31)
[2018-08-12] MEDS: ASPIRIN 81 MG TABLET, CHEWABLE PEG SCH (10:31)
[2018-08-12] MEDS: FAMOTIDINE 20 MG TABLET PEG SCH ×2 (10:31→21:45)
[2018-08-12] MEDS: METOPROLOL TARTRATE 50 MG TABLET PEG SCH ×2 (10:31→21:45)
[2018-08-12] MEDS: DOCUSATE SODIUM 100 MG/10 ML UDC NG SCH (10:31)
--- NOTE | 2018-08-12 18:26 | PDOC PROGRESS REPORT ---
Subjective Progress Note for:: 08/12/18 Subjective:: No adverse events overnight. Stable. No real change in his condition. Not following commands. Opening his eyes but not tracking or localizing. No fevers. Tube feed rate has been titrated up to 35 mL's an hour and is tolerating it thus far. Reason For Visit: HCAP,ASPIRATION PNM Physical Exam Vital Signs: Temp Pulse Resp BP Pulse Ox 97.2 F 86 24 H 85/56 L 96 08/12/18 11:29 08/12/18 14:00 08/12/18 11:29 08/12/18 11:29 08/12/18 11:29 Intake & Output 08/11/18 08/12/18 08/13/18 06:59 06:59 06:59 Intake Total 1969 1155 876 Output Total 260 700 325 Balance 1219 455 551 Weight 68.9 kg 67.1 kg General appearance: PRESENT: no acute distress, well-developed, well-nourished Head exam: PRESENT: atraumatic, normocephalic Neck exam: Neck brace is on Respiratory exam: PRESENT: Coarse rhonchi heard in all lung drake, poor cough effort. ABSENT: rales, wheezes Cardiovascular exam: PRESENT: irregular rhythm. ABSENT: diastolic murmur, rubs, systolic murmur GI/Abdominal exam: PRESENT: normal bowel sounds, soft. ABSENT: distended, guarding, mass, organolmegaly, rebound, tenderness Neurological exam: PRESENT: Opens eyes to verbal command, eyes localize but he does not talk, not following commands, upper extremities are flaccid with some occasional involuntary movement, has some involuntary movement of his lower extremities Results Laboratory Results: 08/11/18 00:30 08/06/18 10:13 Impressions: Chest X-Ray 08/02/18 00:00 IMPRESSION: Improved aeration in the left base. Minimal residual atelectasis. KUB X-Ray 08/02/18 00:00 IMPRESSION: NO RADIOGRAPHIC EVIDENCE FOR ACUTE ABDOMINAL DISEASE. Head CT 08/08/18 00:00 IMPRESSION: Involutional changes of aging. Chronic microvascular ischemia. No acute findings. EVIDENCE OF ACUTE STROKE: NO. Assessment and Plan - Diagnosis (1) Anoxic brain injury Is this a current diagnosis for this admission?: No Plan: Had some deterioration of his condition previously, possibly because he likely reaspirated some of his tube feeds, CT was negative for acute stroke or hemorrh age. Did have some mild improvement but is still not following commands. Restarted tube feeds but instead of him getting bolus feeds we started him on a continuous tube feeding schedule and will titrate up as he can tolerate. Sincerely doubt that he will have any significant neurological recovery. (2) Aspiration pneumonia Qualifiers: Aspiration pneumonia type: due to regurgitated food Laterality: bilateral Lung location: lower lobe of lung Qualified Code(s): J69.0 - Pneumonitis due to inhalation of food and vomit Is this a current diagnosis for this admission?: Yes Plan: We had to put his tube feeds on hold, we have restarted them at a continuous rate will slowly titrate upward to a goal of 45 mL's an hour. We will monitor him for signs of sepsis to see if he needs further antibiotic therapy, but so far he is not showing any signs of pneumonia. (3) Chronic a-fib Is this a current diagnosis for this admission?: Yes Plan: Rate controlled - Time Time Spent with patient: 15-24 minutes
[2018-08-12] MEDS: ATORVASTATIN CALCIUM 40 MG TABLET PEG SCH (21:45)
[2018-08-13 04:03] LABS: HEMATOCRIT 33.1 % (37.9-51.0); HEMOGLOBIN 10.5 g/dL (13.5-17.0); MEAN CORPUSCULAR HGB CONC 31.7 g/dL (32.0-36.0); MEAN CORPUSCULAR VOLUME 92 fl (80-97); PLATELET COUNT 294 10^3/uL (150-450); RED BLOOD COUNT 3.61 10^6/uL (4.35-5.55); RED CELL DISTRIBUTION WIDTH 17.2 % (11.5-14.0); WHITE BLOOD COUNT 11.1 10^3/uL (4.0-10.5)
[2018-08-13 04:09] LABS: INTERNATIONAL RATION (INR) 1.14; PROTHROMBIN TIME 15.2 SEC (11.4-15.4)
[2018-08-13 04:32] LABS: ABSOLUTE LYMPHOCYTES# (MANUAL) 0.8 10^3/uL (0.5-4.7); ABSOLUTE MONOCYTES # (MANUAL) 0.8 10^3/uL (0.1-1.4); ABSOLUTE NEUTROPHILS# (MANUAL) 9.2 10^3/uL (1.7-8.2); ANISOCYTOSIS 1+; BAND NEUTROPHILS % (MANUAL) 4 % (3-5); BASOPHILS % (MANUAL) 0 % (0-2); EOSINOPHILS % (MANUAL) 3 % (0-6); HYPOCHROMASIA SLIGHT; LYMPHOCYTES % (MANUAL) 7 % (13-45); MONOCYTES % (MANUAL) 7 % (3-13); POIKILOCYTOSIS SLIGHT; POLYCHROMASIA SLIGHT; SEGMENTED NEUTROPHILS % (MAN) 79 % (42-78); TOTAL CELLS COUNTED 100; TOXIC GRANULATION SLIGHT; TOXIC VACUOLATION PRESENT
[2018-08-13 04:33] LABS: PLATELET COMMENT ADEQUATE
[2018-08-13 04:34] LABS: ALANINE AMINOTRANSFERASE 33 U/L (21-72); ALBUMIN 2.5 g/dL (3.5-5.0); ALKALINE PHOSPHATASE 239 U/L (38-126); ANION GAP 8 (5-19); ASPARTATE AMINO TRANSFERASE 34 U/L (17-59); BILIRUBIN,DIRECT 0.4 mg/dL (0.0-0.4); BILIRUBIN,TOTAL 0.6 mg/dL (0.2-1.3); BLOOD UREA NITROGEN 39 mg/dL (7-20); CALCIUM 8.3 mg/dL (8.4-10.2); CARBON DIOXIDE 28 mmol/L (22-30); CHLORIDE 103 mmol/L (98-107); GLUCOSE 155 mg/dL (75-110); POTASSIUM 4.1 mmol/L (3.6-5.0); SODIUM 138.8 mmol/L (137-145); TOTAL PROTEIN 5.8 g/dL (6.3-8.2)
[2018-08-13] MEDS: HEPARIN SOD (PORCINE) 5,000 UNIT/ML 1 ML SYRINGE SUBCUT SCH ×3 (05:30→22:07)
[2018-08-13] MEDS: IPRATROPIUM/ALBUTEROL 0.5-2.5 MG/3 ML AMPUL NEB PRN ×2 (08:48→20:36)
[2018-08-13] MEDS: ACETYLCYSTEINE 20% SOLN 800 MG/4 ML VIAL.NEB NEB SCH ×2 (08:48→20:36)
[2018-08-13] MEDS: ASPIRIN 81 MG TABLET, CHEWABLE PEG SCH (09:47)
[2018-08-13] MEDS: FAMOTIDINE 20 MG TABLET PEG SCH ×2 (09:47→22:19)
[2018-08-13] MEDS: DOCUSATE SODIUM 100 MG/10 ML UDC NG SCH (09:47)
[2018-08-13] MEDS: LOSARTAN POTASSIUM 50 MG TABLET PEG SCH (09:47)
[2018-08-13] MEDS: METOPROLOL TARTRATE 50 MG TABLET PEG SCH ×2 (09:47→22:07)
--- NOTE | 2018-08-13 16:20 | PDOC PROGRESS REPORT ---
Subjective Progress Note for:: 08/13/18 Subjective:: No adverse events overnight. Stable. Seem to be a little bit more awake today. Not following commands on any kind of consistent basis. Opening his eyes but not tracking or localizing and what I can definitely say to be intentional. No fevers. Tube feed rate has been titrated up to 45 mL's an hour and is tolerating it thus far. Reason For Visit: HCAP,ASPIRATION PNM Physical Exam Vital Signs: Temp Pulse Resp BP Pulse Ox 97.4 F 79 22 H 98/52 L 94 08/13/18 11:20 08/13/18 14:00 08/13/18 11:20 08/13/18 11:20 08/13/18 11:20 Intake & Output 08/12/18 08/13/18 08/14/18 06:59 06:59 06:59 Intake Total 1155 4821 0 Output Total 700 725 Balance 455 4096 0 Weight 67.1 kg 67.3 kg General appearance: PRESENT: no acute distress, well-developed, well-nourished Head exam: PRESENT: atraumatic, normocephalic Neck exam: Neck brace is on Respiratory exam: PRESENT: Scattered rhonchi, poor cough effort. ABSENT: rales, wheezes Cardiovascular exam: PRESENT: irregular rhythm. ABSENT: diastolic murmur, rubs, systolic murmur GI/Abdominal exam: PRESENT: normal bowel sounds, soft. ABSENT: distended, guarding, mass, organolmegaly, rebound, tenderness Neurological exam: PRESENT: Opens eyes to verbal command, eyes localize but he does not talk, not following commands, upper extremities are flaccid with some occasional involuntary movement, has some involuntary movement of his lower extremities Results Laboratory Results: 08/13/18 03:25 08/13/18 03:25 08/13/18 08/13/18 08/13/18 03:25 03:25 03:25 WBC 11.1 H RBC 3.61 L Hgb 10.5 L Hct 33.1 L MCV 92 MCH 29.0 MCHC 31.7 L RDW 17.2 H Plt Count 294 Seg Neutrophils % Not Reportable Lymphocytes % Not Reportable Monocytes % Not Reportable Eosinophils % Not Reportable Basophils % Not Reportable Absolute Neutrophils Not Reportable Absolute Lymphocytes Not Reportable Absolute Monocytes Not Reportable Absolute Eosinophils Not Reportable Absolute Basophils Not Reportable Sodium 138.8 Potassium 4.1 Chloride 103 Carbon Dioxide 28 Anion Gap 8 BUN 39 H Creatinine 1.07 Est GFR ( Amer) > 60 Est GFR (Non-Af Amer) > 60 Glucose 155 H Lactic Acid 1.6 Calcium 8.3 L Total Bilirubin 0.6 AST 34 ALT 33 Alkaline Phosphatase 239 H Total Protein 5.8 L Albumin 2.5 L Impressions: Chest X-Ray 08/02/18 00:00 IMPRESSION: Improved aeration in the left base. Minimal residual atelectasis. KUB X-Ray 08/02/18 00:00 IMPRESSION: NO RADIOGRAPHIC EVIDENCE FOR ACUTE ABDOMINAL DISEASE. Head CT 08/08/18 00:00 IMPRESSION: Involutional changes of aging. Chronic microvascular ischemia. No acute findings. EVIDENCE OF ACUTE STROKE: NO. Assessment and Plan - Diagnosis (1) Anoxic brain injury Is this a current diagnosis for this admission?: No Plan: Had some deterioration of his condition previously, possibly because he likely reaspirated some of his tube feeds, CT was negative for acute stroke or hemorrhage. Did have some mild improvement but is still not following commands. Restarted tube feeds but instead of him getting bolus feeds we started him on a continuous tube feeding schedule and will titrate up as he can tolerate. Sincerely doubt that he will have any significant neurological recovery. (2) Aspiration pneumonia Qualifiers: Aspiration pneumonia type: due to regurgitated food Laterality: bilateral Lung location: lower lobe of lung Qualified Code(s): J69.0 - Pneumonitis due to inhalation of food and vomit Is this a current diagnosis for this admission?: Yes Plan: We had to put his tube feeds on hold, we have restarted them at a continuous rate will slowly titrate upward to a goal of 45 mL's an hour. We will monitor him for signs of sepsis to see if he needs further antibiotic therapy, but so far he is not showing any signs of pneumonia. (3) Chronic a-fib Is this a current diagnosis for this admission?: Yes Plan: Rate controlled
[2018-08-13] MEDS: ATORVASTATIN CALCIUM 40 MG TABLET PEG SCH (22:07)
[2018-08-14] MEDS: HEPARIN SOD (PORCINE) 5,000 UNIT/ML 1 ML SYRINGE SUBCUT SCH ×3 (05:25→21:54)
[2018-08-14] MEDS: IPRATROPIUM/ALBUTEROL 0.5-2.5 MG/3 ML AMPUL NEB PRN ×2 (08:20→21:16)
[2018-08-14] MEDS: ACETYLCYSTEINE 20% SOLN 800 MG/4 ML VIAL.NEB NEB SCH ×2 (08:20→21:15)
[2018-08-14] MEDS: LOSARTAN POTASSIUM 50 MG TABLET PEG SCH (10:57)
[2018-08-14] MEDS: METOPROLOL TARTRATE 50 MG TABLET PEG SCH ×2 (10:57→22:01)
[2018-08-14] MEDS: ASPIRIN 81 MG TABLET, CHEWABLE PEG SCH (10:57)
[2018-08-14] MEDS: FAMOTIDINE 20 MG TABLET PEG SCH ×2 (10:57→21:54)
[2018-08-14] MEDS: DOCUSATE SODIUM 100 MG/10 ML UDC NG SCH (10:57)
--- NOTE | 2018-08-14 17:36 | PDOC PROGRESS REPORT ---
Subjective Progress Note for:: 08/14/18 Subjective:: No adverse events overnight. Stable. Awake, but not following commands on any kind of consistent basis. Opening his eyes but not tracking or localizing and what I can definitely say to be intentional. No fevers. Tube feed rate has been titrated up to 45 mL's an hour and is tolerating it thus far. He seems to have reflux some of the tube feeds today, but when they checked residuals they have not found more than 60 mL's. Usually there is about 30 mL's of residual when they check. Reason For Visit: HCAP,ASPIRATION PNM Physical Exam Vital Signs: Temp Pulse Resp BP Pulse Ox 97.2 F 85 22 H 93/58 L 94 08/14/18 16:21 08/14/18 16:21 08/14/18 16:21 08/14/18 16:21 08/14/18 16:28 Intake & Output 08/13/18 08/14/18 08/15/18 06:59 06:59 06:59 Intake Total 4821 1828 Output Total 725 1175 100 Balance 4096 653 -100 Weight 67.3 kg 68.1 kg General appearance: PRESENT: no acute distress, well-developed, well-nourished Head exam: PRESENT: atraumatic, normocephalic Neck exam: Neck brace is on Respiratory exam: PRESENT: Scattered rhonchi, poor cough effort. ABSENT: rales, wheezes Cardiovascular exam: PRESENT: irregular rhythm. ABSENT: diastolic murmur, rubs, systolic murmur GI/Abdominal exam: PRESENT: normal bowel sounds, soft. ABSENT: distended, guarding, mass, organolmegaly, rebound, tenderness Neurological exam: PRESENT: Opens eyes to verbal command, eyes localize but he does not talk, not following commands, upper extremities are flaccid with some occasional involuntary movement, has some involuntary movement of his lower extremities Results Laboratory Results: 08/13/18 03:25 08/13/18 03:25 Impressions: Chest X-Ray 08/02/18 00:00 IMPRESSION: Improved aeration in the left base. Minimal residual atelectasis. KUB X-Ray 08/02/18 00:00 IMPRESSION: NO RADIOGRAPHIC EVIDENCE FOR ACUTE ABDOMINAL DISEASE. Head CT 08/08/18 00:00 IMPRESSION: Involutional changes of aging. Chronic microvascular ischemia. No acute findings. EVIDENCE OF ACUTE STROKE: NO. Assessment and Plan - Diagnosis (1) Anoxic brain injury Is this a current diagnosis for this admission?: No Plan: Had some deterioration of his condition previously, possibly because he likely reaspirated some of his tube feeds, CT was negative for acute stroke or hemorrhage. Did have some mild improvement but is still not following commands. Restarted tube feeds but instead of him getting bolus feeds we started him on a continuous tube feeding schedule and will titrate up as he can tolerate. Sincerely doubt that he will have any significant neurological recovery. He had had a spinal fusion surgery on June 28, and was supposed to have follow-up on August 10. I spoke to his surgeon in [place], Dr. Gary Davenport, and he recommended getting some cervical films to evaluate the alignment, and if the alignment look good we could go ahead and take off the cervical collar. (2) Aspiration pneumonia Qualifiers: Aspiration pneumonia type: due to regurgitated food Laterality: bilateral Lung location: lower lobe of lung Qualified Code(s): J69.0 - Pneumonitis due to inhalation of food and vomit Is this a current diagnosis for this admission?: Yes Plan: We had to put his tube feeds on hold, we have restarted them at a continuous rate and he is up to a goal of 45 mL's an hour, he does not show signs of aspiration at this time but he has shown signs of refluxing his tube feeds without showing visible signs of aspiration. We will monitor him for signs of sepsis to see if he needs further antibiotic therapy, but so far he is not showing any signs of pneumonia. (3) Chronic a-fib Is this a current diagnosis for this admission?: Yes Plan: Rate controlled - Time Time Spent with patient: 15-24 minutes
--- NOTE | 2018-08-14 18:23 | RADIOLOGY REPORT (SQ) ---
EXAM DESCRIPTION: CERV SP 3 VIEW OR LESS COMPLETED DATE/TIME: 08/14/2018 6:12 pm REASON FOR STUDY: recent spine fusion surgery, evaluate alignment COMPARISON: None. NUMBER OF VIEWS: Three views. TECHNIQUE: AP, lateral and odontoid radiographic images acquired of the cervical spine. LIMITATIONS: None. FINDINGS: MINERALIZATION: Osteopenia. ALIGNMENT: Minimal degenerative anterolisthesis of C3 on C4 and C4 on C5. VERTEBRAE: Vertebral bodies of normal height. DISCS: Multilevel degenerative disc disease. HARDWARE: Surgical hardware C2 JEREMIAH, C3, C4. Posterior decompression C5 and C6. SOFT TISSUES: No masses or calcifications. Lung apices clear. OTHER: No other significant finding. IMPRESSION: Surgical changes. Minimal degenerative anterolisthesis of C3 on C4 and C4 on C5. TECHNICAL DOCUMENTATION: JOB ID: [id number]- All Rights Reserved Reading location - IP/workstation name: [email or web address]
[2018-08-14] MEDS: ATORVASTATIN CALCIUM 40 MG TABLET PEG SCH (21:55)
[2018-08-14] MEDS: AMINO AC/PROTEIN HYDR/WHEY PRO 11 GM/45 ML PKT GT SCH (21:56)
[2018-08-15] MEDS: HEPARIN SOD (PORCINE) 5,000 UNIT/ML 1 ML SYRINGE SUBCUT SCH ×3 (05:13→21:54)
[2018-08-15] MEDS: AMINO AC/PROTEIN HYDR/WHEY PRO 11 GM/45 ML PKT GT SCH ×3 (05:13→21:55)
[2018-08-15] MEDS: ACETYLCYSTEINE 20% SOLN 800 MG/4 ML VIAL.NEB NEB SCH ×2 (07:59→20:26)
[2018-08-15] MEDS: IPRATROPIUM/ALBUTEROL 0.5-2.5 MG/3 ML AMPUL NEB PRN ×2 (07:59→20:26)
[2018-08-15] MEDS: FAMOTIDINE 20 MG TABLET PEG SCH ×2 (11:52→21:54)
[2018-08-15] MEDS: ASPIRIN 81 MG TABLET, CHEWABLE PEG SCH (11:52)
[2018-08-15] MEDS: DOCUSATE SODIUM 100 MG/10 ML UDC NG SCH (11:52)
[2018-08-15] MEDS: METOPROLOL TARTRATE 50 MG TABLET PEG SCH ×2 (11:52→21:54)
[2018-08-15] MEDS: LOSARTAN POTASSIUM 50 MG TABLET PEG SCH (11:52)
--- NOTE | 2018-08-15 13:51 | PDOC PROGRESS REPORT ---
Subjective Progress Note for:: 08/15/18 Subjective:: This is a 83 year old male past medical history of A. fib on apixaban, CHF, dyslipidemia, and COPD who is status post recent cervical fusion surgery at [facility] complicated by cardiac arrest and severe anoxic brain injury, intubated for more than a week, subsequently discharged to to [facility] and was brought in to ED from [facility] after vomiting while being suctioned, chest x-ray was done which was suspicious for pneumonia and pt was brought to ED for further evaluation. In ED he was found to be tachycardic, febrile and had leukocytosis. He was admitted for possible aspiration pneumonia vs healthcare associated pneumonia. Patient is nonverbal due to his anoxic brain injury caused by recent cardiac arrest at [facility]. Patient was stared on IV antibiotics. He did improve with treatment. No acute event overnight. He is tolerating tube feedings well. He is still here awaiting for placement process/approval through through the ID system. Reason For Visit: HCAP,ASPIRATION PNM Physical Exam Vital Signs: Temp Pulse Resp BP Pulse Ox 97.5 F 92 30 H 132/70 H 95 08/15/18 12:07 08/15/18 12:07 08/15/18 12:07 08/15/18 12:07 08/15/18 12:07 Intake & Output 08/14/18 08/15/18 08/16/18 06:59 06:59 06:59 Intake Total 1828 2399 Output Total 1175 525 300 Balance 653 1874 -300 Weight 150 lb 2.157 oz 148 lb 9.465 oz General appearance: PRESENT: no acute distress, well-developed, well-nourished Head exam: PRESENT: atraumatic, normocephalic Eye exam: PRESENT: conjunctiva pink, EOMI, PERRLA. ABSENT: scleral icterus Ear exam: PRESENT: normal external ear exam Mouth exam: PRESENT: moist, tongue midline Neck exam: ABSENT: carotid bruit, JVD, lymphadenopathy, thyromegaly Respiratory exam: PRESENT: clear to auscultation prema. ABSENT: rales, rhonchi, wheezes Cardiovascular exam: PRESENT: RRR. ABSENT: diastolic murmur, rubs, systolic murmur Pulses: PRESENT: normal dorsalis pedis pul GI/Abdominal exam: PRESENT: normal bowel sounds, soft. ABSENT: distended, g uarding, mass, organolmegaly, rebound, tenderness Rectal exam: PRESENT: deferred Neurological exam: PRESENT: awake, aphasic, other - non verbal from anoxic brain injury Results Laboratory Results: 08/13/18 03:25 08/13/18 03:25 08/12/18 21:40 Abdomen - Post Surgical Site Gram Stain - Final 08/12/18 21:40 Abdomen - Post Surgical Site Wound Culture - Final Citrobacter Koseri Impressions: Chest X-Ray 08/02/18 00:00 IMPRESSION: Improved aeration in the left base. Minimal residual atelectasis. KUB X-Ray 08/02/18 00:00 IMPRESSION: NO RADIOGRAPHIC EVIDENCE FOR ACUTE ABDOMINAL DISEASE. Head CT 08/08/18 00:00 IMPRESSION: Involutional changes of aging. Chronic microvascular ischemia. No acute findings. EVIDENCE OF ACUTE STROKE: NO. Cervical Spine X-Ray 08/14/18 00:00 IMPRESSION: Surgical changes. Minimal degenerative anterolisthesis of C3 on C4 and C4 on C5. Assessment and Plan - Diagnosis (1) Aspiration pneumonia Qualifiers: Aspiration pneumonia type: due to regurgitated food Laterality: bilateral Lung location: lower lobe of lung Qualified Code(s): J69.0 - Pneumonitis due t o inhalation of food and vomit Is this a current diagnosis for this admission?: Yes Plan: Completed 7 days of vancomycin and Zosyn. (2) HCAP (healthcare-associated pneumonia) Is this a current diagnosis for this admission?: Yes Plan: As per number 1. (3) Anoxic brain injury Is this a current diagnosis for this admission?: No (4) COPD (chronic obstructive pulmonary disease) Qualifiers: COPD type: unspecified COPD Qualified Code(s): J44.9 - Chronic obstructive pulmonary disease, unspecified Is this a current diagnosis for this admission?: No Plan: Not in exacerbation. Breathing treatments as needed. (5) Chronic a-fib Is this a current diagnosis for this admission?: Yes Plan: Rate controlled. Anticoagulation previously discussed by preceding hospitalist with family who opted not to proceed with anticoagulation due to patient's high fall risks. - Time Time Spent with patient: 15-24 minutes
[2018-08-15 19:35] LABS: ABSOLUTE EOSINOPHILS # (AUTO) 0.6 10^3/uL (0.0-0.6); ABSOLUTE LYMPHOCYTES (AUTO) 1.3 10^3/uL (0.5-4.7); ABSOLUTE MONOCYTES (AUTO) 0.7 10^3/uL (0.1-1.4); ABSOLUTE NEUT (AUTO) 5.2 10^3/uL (1.7-8.2); BASOPHILS % (AUTO) 0.4 % (0-2); EOSINOPHILS % (AUTO) 7.7 % (0-6); HEMOGLOBIN 9.9 g/dL (13.5-17.0); LYMPHOCYTES % (AUTO) 16.1 % (13-45); MEAN CORPUSCULAR HEMOGLOBIN 29.2 pg (27.0-33.4); MEAN CORPUSCULAR VOLUME 91 fl (80-97); MONOCYTES % (AUTO) 8.7 % (3-13); PLATELET COUNT 335 10^3/uL (150-450); RED BLOOD COUNT 3.39 10^6/uL (4.35-5.55); RED CELL DISTRIBUTION WIDTH 16.7 % (11.5-14.0); SEGMENTED NEUTROPHILS % (AUTO) 67.1 % (42-78); TOTAL CELLS COUNTED % (AUTO) 100 %; WHITE BLOOD COUNT 7.8 10^3/uL (4.0-10.5)
[2018-08-15 19:52] LABS: ANION GAP 5 (5-19); BLOOD UREA NITROGEN 41 mg/dL (7-20); CARBON DIOXIDE 29 mmol/L (22-30); CHLORIDE 104 mmol/L (98-107); GLUCOSE 147 mg/dL (75-110); POTASSIUM 4.2 mmol/L (3.6-5.0); SODIUM 138.2 mmol/L (137-145)
[2018-08-15] MEDS: ATORVASTATIN CALCIUM 40 MG TABLET PEG SCH (21:53)
[2018-08-16] MEDS: HEPARIN SOD (PORCINE) 5,000 UNIT/ML 1 ML SYRINGE SUBCUT SCH ×3 (05:27→22:02)
[2018-08-16] MEDS: AMINO AC/PROTEIN HYDR/WHEY PRO 11 GM/45 ML PKT GT SCH ×3 (05:27→21:58)
[2018-08-16] MEDS: IPRATROPIUM/ALBUTEROL 0.5-2.5 MG/3 ML AMPUL NEB PRN ×2 (08:15→20:24)
[2018-08-16] MEDS: ACETYLCYSTEINE 20% SOLN 800 MG/4 ML VIAL.NEB NEB SCH ×2 (08:16→20:24)
[2018-08-16] MEDS: FAMOTIDINE 20 MG TABLET PEG SCH ×2 (10:56→22:02)
[2018-08-16] MEDS: DOCUSATE SODIUM 100 MG/10 ML UDC NG SCH (10:56)
[2018-08-16] MEDS: ASPIRIN 81 MG TABLET, CHEWABLE PEG SCH (10:56)
[2018-08-16] MEDS: METOPROLOL TARTRATE 50 MG TABLET PEG SCH ×2 (10:56→22:02)
[2018-08-16] MEDS: LOSARTAN POTASSIUM 50 MG TABLET PEG SCH (10:56)
--- NOTE | 2018-08-16 16:19 | PDOC PROGRESS REPORT ---
Subjective Progress Note for:: 08/16/18 Subjective:: This is a 83 year old male past medical history of A. fib on apixaban, CHF, dyslipidemia, and COPD who is status post recent cervical fusion surgery at [place] complicated by cardiac arrest and severe anoxic brain injury, intubated for more than a week, subsequently discharged to to [facility] and was brought in to ED from [facility] after vomiting while being suctioned, chest x-ray was done which was suspicious for pneumonia and pt was brought to ED for further evaluation. In ED he was found to be tachycardic, febrile and had leukocytosis. He was admitted for possible aspiration pneumonia vs healthcare associated pneumonia. Patient is nonverbal due to his anoxic brain injury caused by recent cardiac arrest at [place]. Patient was stared on IV antibiotics. He did improve with treatment. 08/16: No acute event overnight. He is tolerating tube feedings well. Discussed with family who has decided to make him hospice. He is still here awaiting for placement process/approval through through the [place] system. Reason For Visit: HCAP,ASPIRATION PNM Physical Exam Vital Signs: Temp Pulse Resp BP Pulse Ox 98.1 F 82 26 H 105/62 96 08/16/18 03:15 08/16/18 08:15 08/16/18 08:15 08/16/18 08:04 08/16/18 08:15 Intake & Output 08/15/18 08/16/18 08/17/18 06:59 06:59 06:59 Intake Total 2399 2180 Output Total 525 375 Balance 1874 1805 Weight 148 lb 9.465 oz 151 lb 0.266 oz General appearance: PRESENT: well-developed, well-nourished Head exam: PRESENT: atraumatic, normocephalic Eye exam: PRESENT: conjunctiva pink, EOMI, PERRLA. ABSENT: scleral icterus Ear exam: PRESENT: normal external ear exam Mouth exam: PRESENT: moist, tongue midline Neck exam: ABSENT: carotid bruit, JVD, lymphadenopathy, thyromegaly Respiratory exam: PRESENT: clear to auscultation prema. ABSENT: rales, rhonchi, wheezes Cardiovascular exam: PRESENT: RRR. ABSENT: diastolic murmur, rubs, systolic murmur Pulses: PRESENT: normal dorsalis pedis pul GI/Abdominal exam: PRESENT: normal bowel sounds, soft. ABSENT: distended, guarding, mass, organolmegaly, rebound, tenderness Rectal exam: PRESENT: deferred Neurological exam: PRESENT: awake, other - aphasic Results Laboratory Results: 08/15/18 19:10 08/15/18 19:10 08/15/18 08/15/18 19:10 19:10 WBC 7.8 RBC 3.39 L Hgb 9.9 L Hct 31.0 L MCV 91 MCH 29.2 MCHC 32.0 RDW 16.7 H Plt Count 335 Seg Neutrophils % 67.1 Lymphocytes % 16.1 Monocytes % 8.7 Eosinophils % 7.7 H Basophils % 0.4 Absolute Neutrophils 5.2 Absolute Lymphocytes 1.3 Absolute Monocytes 0.7 Absolute Eosinophils 0.6 Absolute Basophils 0.0 Sodium 138.2 Potassium 4.2 Chloride 104 Carbon Dioxide 29 Anion Gap 5 BUN 41 H Creatinine 0.91 Est GFR ( Amer) > 60 Est GFR (Non-Af Amer) > 60 Glucose 147 H Calcium 8.0 L Impressions: Chest X-Ray 08/02/18 00:00 IMPRESSION: Improved aeration in the left base. Minimal residual atelectasis. KUB X-Ray 08/02/18 00:00 IMPRESSION: NO RADIOGRAPHIC EVIDENCE FOR ACUTE ABDOMINAL DISEASE. Head CT 08/08/18 00:00 IMPRESSION: Involutional changes of aging. Chronic microvascular ischemia. No acute findings. EVIDENCE OF ACUTE STROKE: NO. Cervical Spine X-Ray 08/14/18 00:00 IMPRESSION: Surgical changes. Minimal degenerative anterolisthesis of C3 on C4 and C4 on C5. Assessment and Plan - Diagnosis (1) Aspiration pneumonia Qualifiers: Aspiration pneumonia type: due to regurgitated food Laterality: bilateral Lung location: lower lobe of lung Qualified Code(s): J69.0 - Pneumonitis due to inhalation of food and vomit Is this a current diagnosis for this admission?: Yes Plan: Completed 7 days of vancomycin and Zosyn. (2) HCAP (healthcare-associated pneumonia) Is this a current diagnosis for this admission?: Yes Plan: As per number 1. (3) Anoxic brain injury Is this a current diagnosis for this admission?: No Plan: At his new baseline after sustaining anoxic brain injury during his recent cardiac carrest. (4) COPD (chronic obstructive pulmonary disease) Qualifiers: COPD type: unspecified COPD Qualified Code(s): J44.9 - Chronic obstructive pulmonary disease, unspecified Is this a current diagnosis for this admission?: No Plan: Not in exacerbation. Breathing treatments as needed. (5) Chronic a-fib Is this a current diagnosis for this admission?: Yes Plan: Rate controlled. Anticoagulation previously discussed by preceding hospitalist with family who opted not to proceed with anticoagulation due to patient's high fall risks. - Time Time Spent with patient: 15-24 minutes
[2018-08-16] MEDS: ATORVASTATIN CALCIUM 40 MG TABLET PEG SCH (22:02)
[2018-08-17] MEDS: AMINO AC/PROTEIN HYDR/WHEY PRO 11 GM/45 ML PKT GT SCH ×3 (05:19→21:40)
[2018-08-17] MEDS: HEPARIN SOD (PORCINE) 5,000 UNIT/ML 1 ML SYRINGE SUBCUT SCH ×3 (05:19→21:39)
[2018-08-17] MEDS: IPRATROPIUM/ALBUTEROL 0.5-2.5 MG/3 ML AMPUL NEB PRN ×2 (08:04→20:58)
[2018-08-17] MEDS: ACETYLCYSTEINE 20% SOLN 800 MG/4 ML VIAL.NEB NEB SCH ×2 (08:04→20:58)
[2018-08-17] MEDS: DOCUSATE SODIUM 100 MG/10 ML UDC NG SCH (10:31)
[2018-08-17] MEDS: FAMOTIDINE 20 MG TABLET PEG SCH ×2 (10:31→21:39)
[2018-08-17] MEDS: LOSARTAN POTASSIUM 50 MG TABLET PEG SCH (10:32)
[2018-08-17] MEDS: METOPROLOL TARTRATE 50 MG TABLET PEG SCH ×2 (10:32→21:39)
[2018-08-17] MEDS: ASPIRIN 81 MG TABLET, CHEWABLE PEG SCH (10:32)
--- NOTE | 2018-08-17 15:43 | PDOC PROGRESS REPORT ---
Subjective Progress Note for:: 08/17/18 Subjective:: This is a 83 year old male past medical history of A. fib on apixaban, CHF, dyslipidemia, and COPD who is status post recent cervical fusion surgery at [place] complicated by cardiac arrest and severe anoxic brain injury, intubated for more than a week, subsequently discharged to to [facility] and was brought in to ED from [facility] after vomiting while being suctioned, chest x-ray was done which was suspicious for pneumonia and pt was brought to ED for further evaluation. In ED he was found to be tachycardic, febrile and had leukocytosis. He was admitted for possible aspiration pneumonia vs healthcare associated pneumonia. Patient is nonverbal due to his anoxic brain injury caused by recent cardiac arrest at [place]. Patient was stared on IV antibiotics. He did improve with treatment. 08/16: He is tolerating tube feedings well. Discussed with family who has decided to make him hospice. 08/17: No acute event overnight. He is tolerating tube feedings well. Awaiting for placement process/approval through through the [place] system. Reason For Visit: HCAP,ASPIRATION PNM Physical Exam Vital Signs: Temp Pulse Resp BP Pulse Ox 97.3 F 74 18 110/59 L 100 08/17/18 07:59 08/17/18 12:32 08/17/18 12:32 08/17/18 12:32 08/17/18 12:32 Intake & Output 08/16/18 08/17/18 08/18/18 06:59 06:59 06:59 Intake Total 2180 2017 0 Output Total 375 Balance 1805 2017 0 Weight 151 lb 0.266 oz 149 lb 14.629 oz General appearance: PRESENT: no acute distress, well-developed Head exam: PRESENT: atraumatic, normocephalic Eye exam: PRESENT: conjunctiva pink, EOMI, PERRLA. ABSENT: scleral icterus Ear exam: PRESENT: normal external ear exam Mouth exam: PRESENT: moist, tongue midline Neck exam: ABSENT: carotid bruit, JVD, lymphadenopathy, thyromegaly Respiratory exam: PRESENT: clear to auscultation prema. ABSENT: rales, rhonchi, wheezes Cardiovascular exam: PRESENT: RRR. ABSENT: diastolic murmur, rubs, systolic murmur Pulses: PRESENT: normal dorsalis pedis pul GI/Abdominal exam: PRESENT: normal bowel sounds, soft. ABSENT: distended, guarding, mass, organolmegaly, rebound, tenderness Rectal exam: PRESENT: deferred Neurological exam: PRESENT: awake, other - non-verbal Results Laboratory Results: 08/15/18 19:10 08/15/18 19:10 Impressions: Chest X-Ray 08/02/18 00:00 IMPRESSION: Improved aeration in the left base. Minimal residual atelectasis. KUB X-Ray 08/02/18 00:00 IMPRESSION: NO RADIOGRAPHIC EVIDENCE FOR ACUTE ABDOMINAL DISEASE. Head CT 08/08/18 00:00 IMPRESSION: Involutional changes of aging. Chronic microvascular ischemia. No acute findings. EVIDENCE OF ACUTE STROKE: NO. Cervical Spine X-Ray 08/14/18 00:00 IMPRESSION: Surgical changes. Minimal degenerative anterolisthesis of C3 on C4 and C4 on C5. Assessment and Plan - Diagnosis (1) Aspiration pneumonia Qualifiers: Aspiration pneumonia type: due to regurgitated food Laterality: bilateral Lung location: lower lobe of lung Qualified Code(s): J69.0 - Pneumonitis due to inhalation of food and vomit Is this a current diagnosis for this admission?: Yes Plan: Completed 7 days of vancomycin and Zosyn. (2) HCAP (healthcare-associated pneumonia) Is this a current diagnosis for this admission?: Yes Plan: As per number 1. (3) Anoxic brain injury Is this a current diagnosis for this admission?: No Plan: At his new baseline after sustaining anoxic brain injury during his recent cardiac carrest. (4) COPD (chronic obstructive pulmonary disease) Qualifiers: COPD type: unspecified COPD Qualified Code(s): J44.9 - Chronic obstructive pulmonary disease, unspecified Is this a current diagnosis for this admission?: No Plan: Not in exacerbation. Breathing treatments as needed. (5) Chronic a-fib Is this a current diagnosis for this admission?: Yes Plan: Rate controlled. Anticoagulation previously discussed by preceding hospitalist with family who opted not to proceed with anticoagulation due to patient's high fall risks. - Time Time Spent with patient: 15-24 minutes
[2018-08-17] MEDS: ATORVASTATIN CALCIUM 40 MG TABLET PEG SCH (21:39)
[2018-08-18] MEDS: AMINO AC/PROTEIN HYDR/WHEY PRO 11 GM/45 ML PKT GT SCH ×3 (05:21→22:49)
[2018-08-18] MEDS: HEPARIN SOD (PORCINE) 5,000 UNIT/ML 1 ML SYRINGE SUBCUT SCH ×3 (05:26→22:48)
[2018-08-18] MEDS: ACETYLCYSTEINE 20% SOLN 800 MG/4 ML VIAL.NEB NEB SCH ×2 (07:53→20:36)
[2018-08-18] MEDS: IPRATROPIUM/ALBUTEROL 0.5-2.5 MG/3 ML AMPUL NEB PRN ×2 (07:54→20:36)
[2018-08-18] MEDS: FAMOTIDINE 20 MG TABLET PEG SCH ×2 (10:15→22:49)
[2018-08-18] MEDS: DOCUSATE SODIUM 100 MG/10 ML UDC NG SCH (10:15)
[2018-08-18] MEDS: METOPROLOL TARTRATE 50 MG TABLET PEG SCH ×2 (10:15→22:49)
[2018-08-18] MEDS: LOSARTAN POTASSIUM 50 MG TABLET PEG SCH (10:15)
[2018-08-18] MEDS: ASPIRIN 81 MG TABLET, CHEWABLE PEG SCH (10:15)
--- NOTE | 2018-08-18 16:40 | PDOC PROGRESS REPORT ---
Subjective Progress Note for:: 08/18/18 Subjective:: This is a 83 year old male past medical history of A. fib on apixaban, CHF, dyslipidemia, and COPD who is status post recent cervical fusion surgery at [place] complicated by cardiac arrest and severe anoxic brain injury, intubated for more than a week, subsequently discharged to to [facility] and was brought in to ED from [facility] after vomiting while being suctioned, chest x-ray was done which was suspicious for pneumonia and pt was brought to ED for further evaluation. In ED he was found to be tachycardic, febrile and had leukocytosis. He was admitted for possible aspiration pneumonia vs healthcare associated pneumonia. Patient is nonverbal due to his anoxic brain injury caused by recent cardiac arrest at [place]. Patient was stared on IV antibiotics. He did improve with treatment. 08/16: He is tolerating tube feedings well. Discussed with family who has decided to make him hospice. 08/18: No acute event overnight. He is tolerating tube feedings well. Awaiting for placement process and family's choice of placement as approved by [place]. Reason For Visit: HCAP,ASPIRATION PNM Physical Exam Vital Signs: Temp Pulse Resp BP Pulse Ox 98.6 F 85 22 H 108/56 L 98 08/18/18 12:28 08/18/18 14:00 08/18/18 12:28 08/18/18 12:28 08/18/18 12:28 Intake & Output 08/17/18 08/18/18 08/19/18 06:59 06:59 06:59 Intake Total 2017 2075 Balance 2017 2075 Weight 149 lb 14.629 oz 148 lb 9.465 oz General appearance: PRESENT: no acute distress Head exam: PRESENT: atraumatic, normocephalic Eye exam: PRESENT: conjunctiva pink, EOMI, PERRLA. ABSENT: scleral icterus Ear exam: PRESENT: normal external ear exam Mouth exam: PRESENT: moist, tongue midline Neck exam: ABSENT: carotid bruit, JVD, lymphadenopathy, thyromegaly Respiratory exam: PRESENT: clear to auscultation prema. ABSENT: rales, rhonchi, wheezes Cardiovascular exam: PRESENT: RRR. ABSENT: diastolic murmur, rubs, systolic murmur Pulses: PRESENT: normal dorsalis pedis pul GI/Abdominal exam: PRESENT: normal bowel sounds, soft. ABSENT: distended, guarding, mass, organolmegaly, rebound, tenderness Rectal exam: PRESENT: deferred Neurological exam: PRESENT: awake, other - non verbal Results Laboratory Results: 08/15/18 19:10 08/15/18 19:10 Impressions: Chest X-Ray 08/02/18 00:00 IMPRESSION: Improved aeration in the left base. Minimal residual atelectasis. KUB X-Ray 08/02/18 00:00 IMPRESSION: NO RADIOGRAPHIC EVIDENCE FOR ACUTE ABDOMINAL DISEASE. Head CT 08/08/18 00:00 IMPRESSION: Involutional changes of aging. Chronic microvascular ischemia. No acute findings. EVIDENCE OF ACUTE STROKE: NO. Cervical Spine X-Ray 08/14/18 00:00 IMPRESSION: Surgical changes. Minimal degenerative anterolisthesis of C3 on C4 and C4 on C5. Assessment and Plan - Diagnosis (1) Aspiration pneumonia Qualifiers: Aspiration pneumonia type: due to regurgitated food Laterality: bilateral Lung location: lower lobe of lung Qualified Code(s): J69.0 - Pneumonitis due to inhalation of food and vomit Is this a current diagnosis for this admission?: Yes Plan: Completed 7 days of vancomycin and Zosyn. (2) HCAP (healthcare-associated pneumonia) Is this a current diagnosis for this admission?: Yes Plan: As per number 1. (3) Anoxic brain injury Is this a current diagnosis for this admission?: No Plan: At his new baseline after sustaining anoxic brain injury during his recent cardiac carrest. (4) COPD (chronic obstructive pulmonary disease) Qualifiers: COPD type: unspecified COPD Qualified Code(s): J44.9 - Chronic obstructive pulmonary disease, unspecified Is this a current diagnosis for this admission?: No Plan: Not in exacerbation. Breathing treatments as needed. (5) Chronic a-fib Is this a current diagnosis for this admission?: Yes Plan: Rate controlled. Anticoagulation previously discussed by preceding hospitalist with family who opted not to proceed with anticoagulation due to patient's high fall risks. - Time Time Spent with patient: 15-24 minutes
[2018-08-18] MEDS: ATORVASTATIN CALCIUM 40 MG TABLET PEG SCH (22:49)
[2018-08-19] MEDS: AMINO AC/PROTEIN HYDR/WHEY PRO 11 GM/45 ML PKT GT SCH ×3 (06:03→21:50)
[2018-08-19] MEDS: HEPARIN SOD (PORCINE) 5,000 UNIT/ML 1 ML SYRINGE SUBCUT SCH ×3 (06:03→21:50)
[2018-08-19] MEDS: FAMOTIDINE 20 MG TABLET PEG SCH ×2 (09:44→21:50)
[2018-08-19] MEDS: ASPIRIN 81 MG TABLET, CHEWABLE PEG SCH (09:45)
[2018-08-19] MEDS: DOCUSATE SODIUM 100 MG/10 ML UDC NG SCH (09:45)
[2018-08-19] MEDS: METOPROLOL TARTRATE 50 MG TABLET PEG SCH ×2 (09:45→21:50)
[2018-08-19] MEDS: LOSARTAN POTASSIUM 50 MG TABLET PEG SCH (09:45)
[2018-08-19] MEDS: IPRATROPIUM/ALBUTEROL 0.5-2.5 MG/3 ML AMPUL NEB PRN (10:03)
[2018-08-19] MEDS: ACETYLCYSTEINE 20% SOLN 800 MG/4 ML VIAL.NEB NEB SCH ×2 (10:03→20:33)
[2018-08-19 10:46] LABS: HEMOGLOBIN 10.4 g/dL (13.5-17.0); MEAN CORPUSCULAR HEMOGLOBIN 29.3 pg (27.0-33.4); MEAN CORPUSCULAR HGB CONC 32.5 g/dL (32.0-36.0); MEAN CORPUSCULAR VOLUME 90 fl (80-97); PLATELET COUNT 313 10^3/uL (150-450); RED BLOOD COUNT 3.56 10^6/uL (4.35-5.55); RED CELL DISTRIBUTION WIDTH 16.6 % (11.5-14.0); WHITE BLOOD COUNT 10.1 10^3/uL (4.0-10.5)
[2018-08-19 11:00] LABS: ANION GAP 8 (5-19); BLOOD UREA NITROGEN 30 mg/dL (7-20); CALCIUM 8.5 mg/dL (8.4-10.2); CARBON DIOXIDE 28 mmol/L (22-30); CHLORIDE 99 mmol/L (98-107); GLUCOSE 164 mg/dL (75-110); POTASSIUM 4.4 mmol/L (3.6-5.0); SODIUM 134.9 mmol/L (137-145)
[2018-08-19 11:21] LABS: ABSOLUTE LYMPHOCYTES# (MANUAL) 0.7 10^3/uL (0.5-4.7); ABSOLUTE MONOCYTES # (MANUAL) 0.4 10^3/uL (0.1-1.4); ABSOLUTE NEUTROPHILS# (MANUAL) 8.7 10^3/uL (1.7-8.2); ANISOCYTOSIS 1+; BASOPHILS % (MANUAL) 0 % (0-2); EOSINOPHILS % (MANUAL) 3 % (0-6); LYMPHOCYTES % (MANUAL) 7 % (13-45); MONOCYTES % (MANUAL) 4 % (3-13); PLATELET COMMENT ADEQUATE; SEGMENTED NEUTROPHILS % (MAN) 86 % (42-78); TOTAL CELLS COUNTED 100
--- NOTE | 2018-08-19 14:14 | PDOC PROGRESS REPORT ---
Subjective Progress Note for:: 08/19/18 Subjective:: This is a 83 year old male past medical history of A. fib on apixaban, CHF, dyslipidemia, and COPD who is status post recent cervical fusion surgery at [place] complicated by cardiac arrest and severe anoxic brain injury, intubated for more than a week, subsequently discharged to to [facility] and was brought in to ED from [facility] after vomiting while being suctioned, chest x-ray was done which was suspicious for pneumonia and pt was brought to ED for further evaluation. In ED he was found to be tachycardic, febrile and had leukocytosis. He was admitted for possible aspiration pneumonia vs healthcare associated pneumonia. Patient is nonverbal due to his anoxic brain injury caused by recent cardiac arrest at [place]. Patient was stared on IV antibiotics. He did improve with treatment. 08/16: He is tolerating tube feedings well. Discussed with family who has decided to make him hospice. 08/19: No acute event overnight. He remains nonverbal. He is tolerating tube feedings well. Still awaiting for placement process and family's choice of placement as approved by [place]. Reason For Visit: HCAP,ASPIRATION PNM Physical Exam Vital Signs: Temp Pulse Resp BP Pulse Ox 97.4 F 82 28 H 116/68 97 08/19/18 12:01 08/19/18 12:01 08/19/18 12:01 08/19/18 12:01 08/19/18 12:01 Intake & Output 08/18/18 08/19/18 08/20/18 06:59 06:59 06:59 Intake Total 2076 1648 Balance 2076 1648 Weight 148 lb 9.465 oz 151 lb 7.321 oz Results Laboratory Results: 08/19/18 10:17 08/19/18 10:17 08/19/18 08/19/18 10:17 10:17 WBC 10.1 RBC 3.56 L Hgb 10.4 L Hct 32.0 L MCV 90 MCH 29.3 MCHC 32.5 RDW 16.6 H Plt Count 313 Seg Neutrophils % Not Reportable Lymphocytes % Not Reportable Monocytes % Not Reportable Eosinophils % Not Reportable Basophils % Not Reportable Absolute Neutrophils Not Reportable Absolute Lymphocytes Not Reportable Absolute Monocytes Not Reportable Absolute Eosinophils Not Reportable Absolute Basophils Not Reportable Sodium 134.9 L Potassium 4.4 Chloride 99 Carbon Dioxide 28 Anion Gap 8 BUN 30 H Creatinine 0.64 Est GFR ( Amer) > 60 Est GFR (Non-Af Amer) > 60 Glucose 164 H Calcium 8.5 Impressions: Chest X-Ray 08/02/18 00:00 IMPRESSION: Improved aeration in the left base. Minimal residual atelectasis. KUB X-Ray 08/02/18 00:00 IMPRESSION: NO RADIOGRAPHIC EVIDENCE FOR ACUTE ABDOMINAL DISEASE. Head CT 08/08/18 00:00 IMPRESSION: Involutional changes of aging. Chronic microvascular ischemia. No acute findings. EVIDENCE OF ACUTE STROKE: NO. Cervical Spine X-Ray 08/14/18 00:00 IMPRESSION: Surgical changes. Minimal degenerative anterolisthesis of C3 on C4 and C4 on C5. Assessment and Plan - Diagnosis (1) Aspiration pneumonia Qualifiers: Aspiration pneumonia type: due to regurgitated food Laterality: bilateral Lung location: lower lobe of lung Qualified Code(s): J69.0 - Pneumonitis due to inhalation of food and vomit Is this a current diagnosis for this admission?: Yes Plan: Completed 7 days of vancomycin and Zosyn. (2) HCAP (healthcare-associated pneumonia) Is this a current diagnosis for this admission?: Yes Plan: As per number 1. (3) Anoxic brain injury Is this a current diagnosis for this admission?: No Plan: At his new baseline after sustaining anoxic brain injury during his recent cardiac carrest. (4) COPD (chronic obstructive pulmonary disease) Qualifiers: COPD type: unspecified COPD Qualified Code(s): J44.9 - Chronic obstructive pulmonary disease, unspecified Is this a current diagnosis for this admission?: No Plan: Not in exacerbation. Breathing treatments as needed. (5) Chronic a-fib Is this a current diagnosis for this admission?: Yes Plan: Rate controlled. Anticoagulation previously discussed by preceding hospitalist with family who opted not to proceed with anticoagulation due to patient's high fall risks. - Time Time Spent with patient: 15-24 minutes
[2018-08-19] MEDS: ATORVASTATIN CALCIUM 40 MG TABLET PEG SCH (21:50)
[2018-08-20] MEDS: HEPARIN SOD (PORCINE) 5,000 UNIT/ML 1 ML SYRINGE SUBCUT SCH ×3 (05:23→22:00)
[2018-08-20] MEDS: AMINO AC/PROTEIN HYDR/WHEY PRO 11 GM/45 ML PKT GT SCH ×3 (05:24→22:00)
[2018-08-20] MEDS: ACETYLCYSTEINE 20% SOLN 800 MG/4 ML VIAL.NEB NEB SCH (08:20)
[2018-08-20] MEDS: LOSARTAN POTASSIUM 50 MG TABLET PEG SCH (10:28)
[2018-08-20] MEDS: ASPIRIN 81 MG TABLET, CHEWABLE PEG SCH (10:29)
[2018-08-20] MEDS: FAMOTIDINE 20 MG TABLET PEG SCH ×2 (10:29→22:00)
[2018-08-20] MEDS: METOPROLOL TARTRATE 50 MG TABLET PEG SCH ×2 (10:29→22:01)
[2018-08-20] MEDS: DOCUSATE SODIUM 100 MG/10 ML UDC NG SCH (10:29)
[2018-08-20] MEDS: IPRATROPIUM/ALBUTEROL 0.5-2.5 MG/3 ML AMPUL NEB PRN (10:54)
--- NOTE | 2018-08-20 12:30 | PDOC PROGRESS REPORT ---
Subjective Progress Note for:: 08/20/18 Subjective:: This is a 83 year old male past medical history of A. fib on apixaban, CHF, dyslipidemia, and COPD who is status post recent cervical fusion surgery at [place] complicated by cardiac arrest and severe anoxic brain injury, intubated for more than a week, subsequently discharged to to [facility] and was brought in to ED from [facility] after vomiting while being suctioned, chest x-ray was done which was suspicious for pneumonia and pt was brought to ED for further evaluation. In ED he was found to be tachycardic, febrile and had leukocytosis. He was admitted for possible aspiration pneumonia vs healthcare associated pneumonia. Patient is nonverbal due to his anoxic brain injury caused by recent cardiac arrest at [place]. Patient was stared on IV antibiotics. He did improve with treatment. 08/16: He is tolerating tube feedings well. Discussed with family who has decided to make him hospice. 08/20: No acute event overnight. He remains nonverbal. He is tolerating tube feedings well. Still awaiting for placement process and family's choice of placement as approved by [place]. Reason For Visit: HCAP,ASPIRATION PNM Physical Exam Vital Signs: Temp Pulse Resp BP Pulse Ox 98.0 F 72 28 H 119/68 100 08/20/18 11:13 08/20/18 11:13 08/20/18 11:13 08/20/18 11:13 08/20/18 11:13 Intake & Output 08/19/18 08/20/18 08/21/18 06:59 06:59 06:59 Intake Total 1648 2000 Balance 1648 2000 Weight 151 lb 7.321 oz 145 lb 1.027 oz General appearance: PRESENT: no acute distress, well-developed, well-nourished Head exam: PRESENT: atraumatic, normocephalic Eye exam: PRESENT: conjunctiva pink, EOMI, PERRLA. ABSENT: scleral icterus Ear exam: PRESENT: normal external ear exam Mouth exam: PRESENT: moist, tongue midline Neck exam: ABSENT: carotid bruit, JVD, lymphadenopathy, thyromegaly Respiratory exam: PRESENT: rhonchi. ABSENT: rales, wheezes Cardiovascular exam: PRESENT: RRR. ABSENT: diastolic murmur, rubs, systolic mu rmur Pulses: PRESENT: normal dorsalis pedis pul GI/Abdominal exam: PRESENT: normal bowel sounds, soft. ABSENT: distended, guarding, mass, organolmegaly, rebound, tenderness Rectal exam: PRESENT: deferred Neurological exam: PRESENT: other - non verbal Results Laboratory Results: 08/19/18 10:17 08/19/18 10:17 Impressions: Chest X-Ray 08/02/18 00:00 IMPRESSION: Improved aeration in the left base. Minimal residual atelectasis. KUB X-Ray 08/02/18 00:00 IMPRESSION: NO RADIOGRAPHIC EVIDENCE FOR ACUTE ABDOMINAL DISEASE. Head CT 08/08/18 00:00 IMPRESSION: Involutional changes of aging. Chronic microvascular ischemia. No acute findings. EVIDENCE OF ACUTE STROKE: NO. Cervical Spine X-Ray 08/14/18 00:00 IMPRESSION: Surgical changes. Minimal degenerative anterolisthesis of C3 on C4 and C4 on C5. Assessment and Plan - Diagnosis (1) Aspiration pneumonia Qualifiers: Aspiration pneumonia type: due to regurgitated food Laterality: bilateral Lung location: lower lobe of lung Qualified Code(s): J69.0 - Pneumonitis due to inhalation of food and vomit Is this a current diagnosis for this admission?: Yes Plan: Completed 7 days of vancomycin and Zosyn. (2) HCAP (healthcare-associated pneumonia) Is this a current diagnosis for this admission?: Yes Plan: As per number 1. (3) Anoxic brain injury Is this a current diagnosis for this admission?: No Plan: At his new baseline after sustaining anoxic brain injury during his recent cardiac carrest. (4) COPD (chronic obstructive pulmonary disease) Qualifiers: COPD type: unspecified COPD Qualified Code(s): J44.9 - Chronic obstructive pulmonary disease, unspecified Is this a current diagnosis for this admission?: No Plan: Not in exacerbation. Breathing treatments as needed. (5) Chronic a-fib Is this a current diagnosis for this admission?: Yes Plan: Rate controlled. Anticoagulation previously discussed by preceding hospitalist with family who opted not to proceed with anticoagulation due to patient's high fall risks. - Time Time Spent with patient: 15-24 minutes
--- NOTE | 2018-08-20 13:41 | RADIOLOGY REPORT (SQ) ---
EXAM DESCRIPTION: CHEST SINGLE VIEW COMPLETED DATE/TIME: 08/20/2018 1:18 pm REASON FOR STUDY: reassess infiltrates COMPARISON: 08/02/2018 NUMBER OF VIEWS: One view. TECHNIQUE: Single frontal radiographic view of the chest acquired. LIMITATIONS: None. FINDINGS: LUNGS AND PLEURA: Patchy bilateral infiltrates are once again suggested. Most notable in the left base. Mild elevation left hemidiaphragm. MEDIASTINUM AND HILAR STRUCTURES: Stable. HEART AND VASCULAR STRUCTURES: Stable. BONES: Osteopenic. HARDWARE: None in the chest. OTHER: No other significant finding. IMPRESSION: Slight worsening left basilar opacity. TECHNICAL DOCUMENTATION: JOB ID: [id number] [employer]- All Rights Reserved Reading location - IP/workstation name: [email or web address]
[2018-08-20] MEDS: ATORVASTATIN CALCIUM 40 MG TABLET PEG SCH (22:00)
[2018-08-21] MEDS: HEPARIN SOD (PORCINE) 5,000 UNIT/ML 1 ML SYRINGE SUBCUT SCH ×3 (06:29→22:10)
[2018-08-21] MEDS: AMINO AC/PROTEIN HYDR/WHEY PRO 11 GM/45 ML PKT GT SCH ×3 (06:30→22:09)
[2018-08-21] MEDS: DOCUSATE SODIUM 100 MG/10 ML UDC NG SCH (10:09)
[2018-08-21] MEDS: METOPROLOL TARTRATE 50 MG TABLET PEG SCH ×2 (10:14→22:10)
[2018-08-21] MEDS: ASPIRIN 81 MG TABLET, CHEWABLE PEG SCH (10:14)
[2018-08-21] MEDS: LOSARTAN POTASSIUM 50 MG TABLET PEG SCH (10:14)
[2018-08-21] MEDS: FAMOTIDINE 20 MG TABLET PEG SCH ×2 (10:14→22:09)
[2018-08-21] MEDS: LEVOFLOXACIN 750 MG/D5W RTU 750 MG/150 ML RTUPB IV SCH (10:14)
--- NOTE | 2018-08-21 14:00 | PDOC PROGRESS REPORT ---
Subjective Progress Note for:: 08/21/18 Subjective:: This is a 83 year old male past medical history of A. fib on apixaban, CHF, dyslipidemia, and COPD who is status post recent cervical fusion surgery at [place] complicated by cardiac arrest and severe anoxic brain injury, intubated for more than a week, subsequently discharged to to [facility] and was brought in to ED from [facility] after vomiting while being suctioned, chest x-ray was done which was suspicious for pneumonia and pt was brought to ED for further evaluation. In ED he was found to be tachycardic, febrile and had leukocytosis. He was admitted for possible aspiration pneumonia vs healthcare associated pneumonia. Patient is nonverbal due to his anoxic brain injury caused by recent cardiac arrest at [place]. Patient was stared on IV antibiotics. He did improve with treatment. 08/16: He is tolerating tube feedings well. Discussed with family who has decided to make him hospice. 08/21: He remains nonverbal. He is tolerating tube feedings well. Still awaiting for placement process and family's choice of placement as approved by [place]. Patient is now having watery stools. Will send for C difficile testing. Reason For Visit: HCAP,ASPIRATION PNM Physical Exam Vital Signs: Temp Pulse Resp BP Pulse Ox 97.4 F 84 16 131/70 H 99 08/21/18 08:13 08/21/18 08:13 08/21/18 08:13 08/21/18 08:13 08/21/18 08:13 Intake & Output 08/20/18 08/21/18 08/22/18 06:59 06:59 06:59 Intake Total 2000 2138 Balance 2000 2138 Weight 145 lb 1.027 oz 143 lb 1.28 oz General appearance: PRESENT: no acute distress, thin Eye exam: PRESENT: conjunctiva pink, EOMI, PERRLA. ABSENT: scleral icterus Ear exam: PRESENT: normal external ear exam Mouth exam: PRESENT: moist, tongue midline Neck exam: ABSENT: carotid bruit, JVD, lymphadenopathy, thyromegaly Respiratory exam: PRESENT: rhonchi. ABSENT: rales, wheezes Cardiovascular exam: PRESENT: RRR. ABSENT: diastolic murmur, rubs, systolic murmur Pulses: PRESENT: normal dorsalis pedis pul GI/Abdominal exam: PRESENT: normal bowel sounds, soft. ABSENT: distended, guarding, mass, organolmegaly, rebound, tenderness Rectal exam: PRESENT: deferred Neurological exam: PRESENT: other - nonverbal Results Laboratory Results: 08/19/18 10:17 08/19/18 10:17 Impressions: KUB X-Ray 08/02/18 00:00 IMPRESSION: NO RADIOGRAPHIC EVIDENCE FOR ACUTE ABDOMINAL DISEASE. Head CT 08/08/18 00:00 IMPRESSION: Involutional changes of aging. Chronic microvascular ischemia. No acute findings. EVIDENCE OF ACUTE STROKE: NO. Cervical Spine X-Ray 08/14/18 00:00 IMPRESSION: Surgical changes. Minimal degenerative anterolisthesis of C3 on C4 and C4 on C5. Chest X-Ray 08/20/18 12:28 IMPRESSION: Slight worsening left basilar opacity. Assessment and Plan - Diagnosis (1) Aspiration pneumonia Qualifiers: Aspiration pneumonia type: due to regurgitated food Laterality: bilateral Lung location: lower lobe of lung Qualified Code(s): J69.0 - Pneumonitis due to inhalation of food and vomit Is this a current diagnosis for this admission?: Yes Plan: Completed 7 days of vancomycin and Zosyn. (2) Acute diarrhea Is this a current diagnosis for this admission?: Yes Plan: Will check for C. diff infection. (3) HCAP (healthcare-associated pneumonia) Is this a current diagnosis for this admission?: Yes Plan: As per number 1. (4) Anoxic brain injury Is this a current diagnosis for this admission?: No Plan: At his new baseline after sustaining anoxic brain injury during his recent cardiac arrest. (5) COPD (chronic obstructive pulmonary disease) Qualifiers: COPD type: unspecified COPD Qualified Code(s): J44.9 - Chronic obstructive pulmonary disease, unspecified Is this a current diagnosis for this admission?: No Plan: Not in exacerbation. Breathing treatments as needed. (6) Chronic a-fib Is this a current diagnosis for this admission?: Yes Plan: Rate controlled. Anticoagulation previously discussed by preceding hospitalist with family who opted not to proceed with anticoagulation due to patient's high fall risks.
[2018-08-21] MEDS: ATORVASTATIN CALCIUM 40 MG TABLET PEG SCH (22:09)
[2018-08-22] MEDS: HEPARIN SOD (PORCINE) 5,000 UNIT/ML 1 ML SYRINGE SUBCUT SCH ×3 (05:25→22:35)
[2018-08-22] MEDS: AMINO AC/PROTEIN HYDR/WHEY PRO 11 GM/45 ML PKT GT SCH ×3 (05:25→22:37)
[2018-08-22] MEDS: LOSARTAN POTASSIUM 50 MG TABLET PEG SCH (09:02)
[2018-08-22] MEDS: ASPIRIN 81 MG TABLET, CHEWABLE PEG SCH (09:02)
[2018-08-22] MEDS: FAMOTIDINE 20 MG TABLET PEG SCH ×2 (09:03→22:37)
[2018-08-22] MEDS: METOPROLOL TARTRATE 50 MG TABLET PEG SCH ×2 (09:03→22:37)
[2018-08-22] MEDS: LEVOFLOXACIN 750 MG/D5W RTU 750 MG/150 ML RTUPB IV SCH (09:03)
--- NOTE | 2018-08-22 14:21 | PDOC PROGRESS REPORT ---
Subjective Progress Note for:: 08/22/18 Subjective:: 83 year old male past medical history of A. fib on apixaban, CHF, dyslipidemia, and COPD who is status post recent cervical fusion surgery at [place] complicated by cardiac arrest and severe anoxic brain injury, intubated for more than a week, subsequently discharged to to [facility] and was brought in to ED from [facility] after vomiting while being suctioned, chest x-ray was done which was suspicious for pneumonia and pt was brought to ED for further evaluation. In ED he was found to be tachycardic, febrile and had leukocytosis. He was admitted for possible aspiration pneumonia vs healthcare associated pneumonia. Patient is nonverbal due to his anoxic brain injury caused by recent cardiac arrest at [place]. Patient was stared on IV antibiotics. He did improve with treatment. 08/16: He is tolerating tube feedings well. Discussed with family who has decided to make him hospice. 08/21: He remains nonverbal. He is tolerating tube feedings well. Still awaiting for placement process and family's choice of placement as approved by [place]. Mark almaraz is now having watery stools. Will send for C difficile testing. 08/22/2018-patient was bedbound with a neck collar. Receiving the tube feedings. Family member at bedside they state found place for him to go. Waiting for Dr. Davenport's input about removing the neck collar. This catheter was placed because patient is incontinent and groin area is with excoriations. Reason For Visit: HCAP,ASPIRATION PNM Physical Exam Vital Signs: Temp Pulse Resp BP Pulse Ox 97.5 F 88 20 113/66 94 08/22/18 11:20 08/22/18 11:20 08/22/18 11:20 08/22/18 11:20 08/22/18 11:20 Intake & Output 08/21/18 08/22/18 08/23/18 06:59 06:59 06:59 Intake Total 2139 2392 Balance 2139 2392 Weight 64.9 kg 66.9 kg General appearance: PRESENT: no acute distress Head exam: PRESENT: atraumatic Eye exam: PRESENT: PERRLA Mouth exam: PRESENT: moist, tongue midline, other - Collar in place Neck exam: PRESENT: other - Neck collar in place. ABSENT: carotid bruit, JVD, lymphadenopathy, thyromegaly Respiratory exam: PRESENT: clear to auscultation prema. ABSENT: rales, rhonchi, wheezes Cardiovascular exam: PRESENT: tachycardia GI/Abdominal exam: PRESENT: normal bowel sounds, soft. ABSENT: distended, guarding, mass, organolmegaly, rebound, tenderness Rectal exam: PRESENT: deferred Gentrourinary exam: PRESENT: indwelling catheter Psychiatric exam: PRESENT: other - Nonverbal Results Laboratory Results: 08/19/18 10:17 08/19/18 10:17 Impressions: KUB X-Ray 08/02/18 00:00 IMPRESSION: NO RADIOGRAPHIC EVIDENCE FOR ACUTE ABDOMINAL DISEASE. Head CT 08/08/18 00:00 IMPRESSION: Involutional changes of aging. Chronic microvascular ischemia. No acute findings. EVIDENCE OF ACUTE STROKE: NO. Cervical Spine X-Ray 08/14/18 00:00 IMPRESSION: Surgical changes. Minimal degenerative anterolisthesis of C3 on C4 and C4 on C5. Chest X-Ray 08/20/18 12:28 IMPRESSION: Slight worsening left basilar opacity. Assessment and Plan - Diagnosis (1) Aspiration pneumonia Qualifiers: Aspiration pneumonia type: due to regurgitated food Laterality: bilateral Lung location: lower lobe of lung Qualified Code(s): J69.0 - Pneumonitis due to inhalation of food and vomit Is this a current diagnosis for this admission?: Yes Plan: Completed 7 days of vancomycin and Zosyn. 08/22/2018-patient admitted with aspiration pneumonia. Completed 7 days course of antibiotic therapy. Patient is afebrile. T-max is 97.9 today. (2) Acute diarrhea Is this a current diagnosis for this admission?: Yes Plan: Will check for C. diff infection. 08/22/2018-patient continued to have watery diarrhea. C. difficile came back negative. To start on Lomotil. (3) HCAP (healthcare-associated pneumonia) Is this a current diagnosis for this admission?: Yes Plan: As per number 1. 08/22/[id number]-qahr-old male admitted with healthcare associated pneumonia. Completed 7 days course of vancomycin and Zosyn. Most likely combination of gra m-positive and gram-negative organisms responsible. (4) Anoxic brain injury Is this a current diagnosis for this admission?: No (5) COPD (chronic obstructive pulmonary disease) Qualifiers: COPD type: unspecified COPD Qualified Code(s): J44.9 - Chronic obstructive pulmonary disease, unspecified Is this a current diagnosis for this admission?: No (6) Chronic a-fib Is this a current diagnosis for this admission?: Yes - Time Time Spent with patient: 15-24 minutes Medications reviewed and adjusted accordingly: Yes Anticipated discharge: Hospice
[2018-08-22] MEDS: ATORVASTATIN CALCIUM 40 MG TABLET PEG SCH (22:37)
[2018-08-23] MEDS: HEPARIN SOD (PORCINE) 5,000 UNIT/ML 1 ML SYRINGE SUBCUT SCH ×3 (06:02→22:17)
[2018-08-23] MEDS: AMINO AC/PROTEIN HYDR/WHEY PRO 11 GM/45 ML PKT GT SCH ×3 (06:06→22:15)
[2018-08-23 08:52] LABS: HEMATOCRIT 31.9 % (37.9-51.0); HEMOGLOBIN 10.5 g/dL (13.5-17.0); MEAN CORPUSCULAR HEMOGLOBIN 29.6 pg (27.0-33.4); MEAN CORPUSCULAR HGB CONC 32.9 g/dL (32.0-36.0); MEAN CORPUSCULAR VOLUME 90 fl (80-97); PLATELET COUNT 326 10^3/uL (150-450); RED BLOOD COUNT 3.54 10^6/uL (4.35-5.55); RED CELL DISTRIBUTION WIDTH 17.4 % (11.5-14.0); WHITE BLOOD COUNT 9.6 10^3/uL (4.0-10.5)
[2018-08-23 08:56] LABS: ALANINE AMINOTRANSFERASE 76 U/L (21-72); ALBUMIN 2.8 g/dL (3.5-5.0); ALKALINE PHOSPHATASE 219 U/L (38-126); ANION GAP 10 (5-19); ASPARTATE AMINO TRANSFERASE 62 U/L (17-59); BILIRUBIN,DIRECT 0.3 mg/dL (0.0-0.4); BILIRUBIN,TOTAL 0.5 mg/dL (0.2-1.3); BLOOD UREA NITROGEN 33 mg/dL (7-20); CALCIUM 8.7 mg/dL (8.4-10.2); CARBON DIOXIDE 28 mmol/L (22-30); CHLORIDE 99 mmol/L (98-107); GLUCOSE 165 mg/dL (75-110); POTASSIUM 4.4 mmol/L (3.6-5.0); SODIUM 136.7 mmol/L (137-145); TOTAL PROTEIN 6.4 g/dL (6.3-8.2)
[2018-08-23 09:05] LABS: ABSOLUTE LYMPHOCYTES# (MANUAL) 0.7 10^3/uL (0.5-4.7); ABSOLUTE MONOCYTES # (MANUAL) 0.7 10^3/uL (0.1-1.4); ABSOLUTE NEUTROPHILS# (MANUAL) 8.1 10^3/uL (1.7-8.2); BAND NEUTROPHILS % (MANUAL) 1 % (3-5); BASOPHILS % (MANUAL) 0 % (0-2); EOSINOPHILS % (MANUAL) 2 % (0-6); LYMPHOCYTES % (MANUAL) 6 % (13-45); MONOCYTES % (MANUAL) 7 % (3-13); SEGMENTED NEUTROPHILS % (MAN) 83 % (42-78); TOTAL CELLS COUNTED 100
[2018-08-23 09:14] LABS: ANISOCYTOSIS 1+; POIKILOCYTOSIS SLIGHT; POLYCHROMASIA 1+; SCHISTOCYTES SLIGHT; TOXIC GRANULATION SLIGHT; TOXIC VACUOLATION PRESENT
[2018-08-23 09:15] LABS: PLATELET COMMENT ADEQUATE
[2018-08-23] MEDS: ASPIRIN 81 MG TABLET, CHEWABLE PEG SCH (10:08)
[2018-08-23] MEDS: METOPROLOL TARTRATE 50 MG TABLET PEG SCH ×2 (10:08→22:17)
[2018-08-23] MEDS: FAMOTIDINE 20 MG TABLET PEG SCH ×2 (10:08→22:16)
[2018-08-23] MEDS: LEVOFLOXACIN 750 MG/D5W RTU 750 MG/150 ML RTUPB IV SCH (10:09)
[2018-08-23] MEDS: LOSARTAN POTASSIUM 50 MG TABLET PEG SCH (10:09)
[2018-08-23] MEDS: AMANTADINE 10 MG/ML SYRUP 60 ML GT SCH ×2 (10:19→22:18)
--- NOTE | 2018-08-23 10:19 | PDOC PROGRESS REPORT ---
Subjective Progress Note for:: 08/23/18 Subjective:: 83 year old male past medical history of A. fib on apixaban, CHF, dyslipidemia, and COPD who is status post recent cervical fusion surgery at [place] complicated by cardiac arrest and severe anoxic brain injury, intubated for more than a week, subsequently discharged to to [facility] and was brought in to ED from [facility] after vomiting while being suctioned, chest x-ray was done which was suspicious for pneumonia and pt was brought to ED for further evaluation. In ED he was found to be tachycardic, febrile and had leukocytosis. He was admitted for possible aspiration pneumonia vs healthcare associated pneumonia. Patient is nonverbal due to his anoxic brain injury caused by recent cardiac arrest at [place]. Patient was stared on IV antibiotics. He did improve with treatment. 08/16: He is tolerating tube feedings well. Discussed with family who has decided to make him hospice. 08/21: He remains nonverbal. He is tolerating tube feedings well. Still awaiting for placement process and family's choice of placement as approved by [place]. Mark almaraz is now having watery stools. Will send for C difficile testing. 08/22/2018-patient was bedbound with a neck collar. Receiving the tube feedings. Family member at bedside they state found place for him to go. Waiting for Dr. Davenport's input about removing the neck collar. This catheter was placed because patient is incontinent and groin area is with excoriations. 2018-patient is comfortably in the sleeping in bed. On verbal commands woke up but not communicative. Neck collar still in place. We are waiting for Dr. Davenport to review the x-rays before removing the black color. 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. No acute events in the last 24 hours and patient is afebrile. Reason For Visit: HCAP,ASPIRATION PNM Physical Exam Vital Signs: Temp Pulse Resp BP Pulse Ox 97.5 F 77 16 113/54 L 96 08/23/18 07:58 08/23/18 07:58 08/23/18 07:58 08/23/18 07:58 08/23/18 07:58 Intake & Output 08/22/18 08/23/18 08/24/18 06:59 06:59 06:59 Intake Total 2392 2125 Output Total 1425 Balance 2392 700 Weight 66.9 kg 67 kg General appearance: PRESENT: no acute distress Head exam: PRESENT: atraumatic Eye exam: PRESENT: PERRLA Mouth exam: PRESENT: other - Neck collar in place. Teeth exam: PRESENT: poor dentation Neck exam: PRESENT: other - Neck collar in place Respiratory exam: PRESENT: decreased breath sounds Cardiovascular exam: PRESENT: RRR. ABSENT: diastolic murmur, rubs, systolic murmur GI/Abdominal exam: PRESENT: normal bowel sounds, soft. ABSENT: distended, guarding, mass, organolmegaly, rebound, tenderness Rectal exam: PRESENT: deferred Neurological exam: PRESENT: alert, awake, oriented to person, oriented to place, oriented to time, oriented to situation, CN II-XII grossly intact. ABSENT: motor sensory deficit Psychiatric exam: PRESENT: appropriate affect, normal mood. ABSENT: homicidal ideation, suicidal ideation Results Laboratory Results: 08/23/18 08:03 08/23/18 08:03 08/23/18 08/23/18 08:03 08:03 WBC 9.6 RBC 3.54 L Hgb 10.5 L Hct 31.9 L MCV 90 MCH 29.6 MCHC 32.9 RDW 17.4 H Plt Count 326 Seg Neutrophils % Not Reportable Lymphocytes % Not Reportable Monocytes % Not Reportable Eosinophils % Not Reportable Basophils % Not Reportable Absolute Neutrophils Not Reportable Absolute Lymphocytes Not Reportable Absolute Monocytes Not Reportable Absolute Eosinophils Not Reportable Absolute Basophils Not Reportable Sodium 136.7 L Potassium 4.4 Chloride 99 Carbon Dioxide 28 Anion Gap 10 BUN 33 H Creatinine 0.57 Est GFR ( Amer) > 60 Est GFR (Non-Af Amer) > 60 Glucose 165 H Calcium 8.7 Magnesium 1.8 Total Bilirubin 0.5 AST 62 H ALT 76 H Alkaline Phosphatase 219 H Total Protein 6.4 Albumin 2.8 L Impressions: KUB X-Ray 08/02/18 00:00 IMPRESSION: NO RADIOGRAPHIC EVIDENCE FOR ACUTE ABDOMINAL DISEASE. Head CT 08/08/18 00:00 IMPRESSION: Involutional changes of aging. Chronic microvascular ischemia. No acute findings. EVIDENCE OF ACUTE STROKE: NO. Cervical Spine X-Ray 08/14/18 00:00 IMPRESSION: Surgical changes. Minimal degenerative anterolisthesis of C3 on C4 and C4 on C5. Chest X-Ray 08/20/18 12:28 IMPRESSION: Slight worsening left basilar opacity. Assessment and Plan - Diagnosis (1) Aspiration pneumonia Qualifiers: Aspiration pneumonia type: due to regurgitated food Laterality: bilateral Lung location: lower lobe of lung Qualified Code(s): J69.0 - Pneumonitis due to inhalation of food and vomit Is this a current diagnosis for this admission?: Yes Plan: Completed 7 days of vancomycin and Zosyn. 08/22/2018-patient admitted with aspiration pneumonia. Completed 7 days course of antibiotic therapy. Patient is afebrile. T-max is 97.9 today. 08/23/2018-patient was admitted with aspiration pneumonia treated with a 7 days course of vancomycin and Zosyn. Afebrile. blood Cultures and sputum cultures are negative. (2) Acute diarrhea Is this a current diagnosis for this admission?: Yes Plan: Will check for C. diff infection. 08/22/2018-patient continued to have watery diarrhea. C. difficile came back negative. To start on Lomotil. 08/23/2018-acute diarrhea is resolved and C. difficile was negative. (3) HCAP (healthcare-associated pneumonia) Is this a current diagnosis for this admission?: Yes Plan: As per number 1. 08/22/[id number]-rfxn-old male admitted with healthcare associated pneumonia. Completed 7 days course of vancomycin and Zosyn. Most likely combination of gr am-positive and gram-negative organisms responsible. 08/23/2018-patient admitted with healthcare associated aspiration pneumonia blood cultures sputum cultures are negative presently off the antibiotics and is afebrile. (4) Anoxic brain injury Is this a current diagnosis for this admission?: No Plan: At his new baseline after sustaining anoxic brain injury during his recent cardiac arrest. (5) COPD (chronic obstructive pulmonary disease) Qualifiers: COPD type: unspecified COPD Qualified Code(s): J44.9 - Chronic obstructive pulmonary disease, unspecified Is this a current diagnosis for this admission?: No (6) Chronic a-fib Is this a current diagnosis for this admission?: Yes Plan: Rate controlled. Anticoagulation previously discussed by preceding hospitalist with family who opted not to proceed with anticoagulation due to patient's high fall risks. (7) Wound swab culture positive Is this a current diagnosis for this admission?: Yes Plan: 08/23/2018-culture from the abdominal wall positive for Citrobacter sensitivity to levofloxacin to start on levo floxacillin 500 mg p.o. daily for 1 week. - Time Time Spent with patient: 25-34 minutes Medications reviewed and adjusted accordingly: Yes Anticipated discharge: SNF
[2018-08-23] MEDS: MONTELUKAST SODIUM 10 MG TABLET GT SCH (22:15)
[2018-08-23] MEDS: ATORVASTATIN CALCIUM 40 MG TABLET PEG SCH (22:16)
[2018-08-24] MEDS: HEPARIN SOD (PORCINE) 5,000 UNIT/ML 1 ML SYRINGE SUBCUT SCH ×3 (06:07→21:57)
[2018-08-24] MEDS: AMINO AC/PROTEIN HYDR/WHEY PRO 11 GM/45 ML PKT GT SCH ×3 (06:09→22:02)
--- NOTE | 2018-08-24 10:10 | PDOC PROGRESS REPORT ---
Subjective Progress Note for:: 08/24/18 Subjective:: 83 year old male past medical history of A. fib on apixaban, CHF, dyslipidemia, and COPD who is status post recent cervical fusion surgery at [place] complicated by cardiac arrest and severe anoxic brain injury, intubated for more than a week, subsequently discharged to to [facility] and was brought in to ED from [facility] after vomiting while being suctioned, chest x-ray was done which was suspicious for pneumonia and pt was brought to ED for further evaluation. In ED he was found to be tachycardic, febrile and had leukocytosis. He was admitted for possible aspiration pneumonia vs healthcare associated pneumonia. Patient is nonverbal due to his anoxic brain injury caused by recent cardiac arrest at [place]. Patient was stared on IV antibiotics. He did improve with treatment. 08/16: He is tolerating tube feedings well. Discussed with family who has decided to make him hospice. 08/21: He remains nonverbal. He is tolerating tube feedings well. Still awaiting for placement process and family's choice of placement as approved by [place]. Mark almaraz is now having watery stools. Will send for C difficile testing. 08/22/2018-patient was bedbound with a neck collar. Receiving the tube feedings. Family member at bedside they state found place for him to go. Waiting for Dr. Davenport's input about removing the neck collar. This catheter was placed because patient is incontinent and groin area is with excoriations. 08/23/2018-patient is comfortably in the sleeping in bed. On verbal commands woke up but not communicative. Neck collar still in place. We are waiting for Dr. Davenport to review the x-rays before removing the black color. 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 No acute events in the last 24 hours and patient is afebrile. 08/24/2018-no acute events in the last 24 hours. Afebrile. Patient is comfortably in the bed with the neck collar. On calling wake up and not communicating. Waiting for bed from [place]. Reason For Visit: HCAP,ASPIRATION PNM Physical Exam Vital Signs: Temp Pulse Resp BP Pulse Ox 98.1 F 77 26 H 153/72 H 96 08/24/18 04:20 08/24/18 07:00 08/24/18 04:20 08/24/18 04:20 08/24/18 04:20 Intake & Output 08/23/18 08/24/18 08/25/18 06:59 06:59 06:59 Intake Total 2124 5140 Output Total 1423 6805 Balance 700 852 Weight 67 kg 66.6 kg General appearance: PRESENT: no acute distress Head exam: PRESENT: atraumatic Eye exam: PRESENT: PERRLA Mouth exam: PRESENT: moist, tongue midline Teeth exam: PRESENT: dental tenderness Neck exam: PRESENT: other - Patient has a neck collar. ABSENT: carotid bruit, J VD, lymphadenopathy, thyromegaly Respiratory exam: PRESENT: decreased breath sounds Cardiovascular exam: PRESENT: tachycardia Vascular exam: PRESENT: normal capillary refill GI/Abdominal exam: PRESENT: normal bowel sounds, soft. ABSENT: distended, guarding, mass, organolmegaly, rebound, tenderness Rectal exam: PRESENT: deferred Neurological exam: PRESENT: alert, awake, CN II-XII grossly intact Psychiatric exam: PRESENT: appropriate affect, normal mood. ABSENT: homicidal ideation, suicidal ideation Results Laboratory Results: 08/23/18 08:03 08/23/18 08:03 Impressions: KUB X-Ray 08/02/18 00:00 IMPRESSION: NO RADIOGRAPHIC EVIDENCE FOR ACUTE ABDOMINAL DISEASE. Head CT 08/08/18 00:00 IMPRESSION: Involutional changes of aging. Chronic microvascular ischemia. No acute findings. EVIDENCE OF ACUTE STROKE: NO. Cervical Spine X-Ray 08/14/18 00:00 IMPRESSION: Surgical changes. Minimal degenerative anterolisthesis of C3 on C4 and C4 on C5. Chest X-Ray 08/20/18 12:28 IMPRESSION: Slight worsening left basilar opacity. Assessment and Plan - Diagnosis (1) Aspiration pneumonia Qualifiers: Aspiration pneumonia type: due to regurgitated food Laterality: bilateral Lung location: lower lobe of lung Qualified Code(s): J69.0 - Pneumonitis due to inhalation of food and vomit Is this a current diagnosis for this admission?: Yes Plan: Completed 7 days of vancomycin and Zosyn. 08/22/2018-patient admitted with aspiration pneumonia. Completed 7 days course of antibiotic therapy. Patient is afebrile. T-max is 97.9 today. 08/23/2018-patient was admitted with aspiration pneumonia treated with a 7 days course of vancomycin and Zosyn. Afebrile. blood Cultures and sputum cultures are negative. 08/24/2018-aspiration pneumonia is resolved. Patient is not presently on antibiotics. T-max is 98.1. (2) Acute diarrhea Is this a current diagnosis for this admission?: Yes Plan: Will check for C. diff infection. 08/22/2018-patient continued to have watery diarrhea. C. difficile came back negative. To start on Lomotil. 08/23/2018-acute diarrhea is resolved and C. difficile was negative. 08/24/2018-patient does not have any loose stools anymore C. difficile was negative during the hospital stay. (3) HCAP (healthcare-associated pneumonia) Is this a current diagnosis for this admission?: Yes Plan: As per number 1. 08/22/[id number]-wzan-old male admitted with healthcare associated pneumonia. Completed 7 days course of vancomycin and Zosyn. Most likely combination of gram-positive and gram-negative organisms responsible. 08/23/2018-patient admitted with healthcare associated aspiration pneumonia blood cultures sputum cultures are negative presently off the antibiotics and is afebrile. 08/24/2018-patient admitted for healthcare associated pneumonia. Treated with IV vancomycin and Zosyn. Blood cultures sputum cultures came back negative. Patient is afebrile. Presently off the antibiotics. (4) Anoxic brain injury Is this a current diagnosis for this admission?: No (5) COPD (chronic obstructive pulmonary disease) Qualifiers: COPD type: unspecified COPD Qualified Code(s): J44.9 - Chronic obstructive pulmonary disease, unspecified Is this a current diagnosis for this admission?: No Plan: Not in exacerbation. Breathing treatments as needed. 08/24/2018-patient has history of COPD on nebulizer treatment on as-needed basis. (6) Chronic a-fib Is this a current diagnosis for this admission?: Yes Plan: Rate controlled. Anticoagulation previously discussed by preceding hospitalist with family who opted not to proceed with anticoagulation due to patient's high fall risks. 08/24/2018-patient's heart rate is 104 today. Patient is not on anticoagulation as per the family request. (7) Wound swab culture positive Is this a current diagnosis for this admission?: Yes Plan: 08/23/2018-culture from the abdominal wall positive for Citrobacter sensitivity to levofloxacin to start on levo floxacillin 500 mg p.o. daily for 1 week. 08/24/2018-the cultures from the abdominal wall positive for Citrobacter presently on levofloxacillin 500 mg p.o. daily and afebrile. - Time Time Spent with patient: 25-34 minutes Medications reviewed and adjusted accordingly: Yes Anticipated discharge: SNF
[2018-08-24] MEDS: ASPIRIN 81 MG TABLET, CHEWABLE PEG SCH (11:21)
[2018-08-24] MEDS: LOSARTAN POTASSIUM 50 MG TABLET PEG SCH (11:21)
[2018-08-24] MEDS: METOPROLOL TARTRATE 50 MG TABLET PEG SCH ×2 (11:21→22:00)
[2018-08-24] MEDS: FAMOTIDINE 20 MG TABLET PEG SCH ×2 (11:21→21:57)
[2018-08-24] MEDS: AMANTADINE 10 MG/ML SYRUP 60 ML GT SCH ×2 (11:21→22:02)
[2018-08-24] MEDS: LEVOFLOXACIN 750 MG/D5W RTU 750 MG/150 ML RTUPB IV SCH (11:22)
[2018-08-24] MEDS: ATORVASTATIN CALCIUM 40 MG TABLET PEG SCH (22:00)
[2018-08-24] MEDS: MONTELUKAST SODIUM 10 MG TABLET GT SCH (22:00)
[2018-08-25] MEDS: HEPARIN SOD (PORCINE) 5,000 UNIT/ML 1 ML SYRINGE SUBCUT SCH ×3 (05:56→23:25)
[2018-08-25] MEDS: AMINO AC/PROTEIN HYDR/WHEY PRO 11 GM/45 ML PKT GT SCH ×3 (05:57→23:23)
[2018-08-25] MEDS: LEVOFLOXACIN 750 MG/D5W RTU 750 MG/150 ML RTUPB IV SCH (09:41)
[2018-08-25] MEDS: AMANTADINE 10 MG/ML SYRUP 60 ML GT SCH ×2 (09:41→23:25)
[2018-08-25] MEDS: ASPIRIN 81 MG TABLET, CHEWABLE PEG SCH (09:42)
[2018-08-25] MEDS: FAMOTIDINE 20 MG TABLET PEG SCH ×2 (09:42→23:23)
[2018-08-25] MEDS: METOPROLOL TARTRATE 50 MG TABLET PEG SCH ×2 (09:42→23:25)
[2018-08-25] MEDS: LOSARTAN POTASSIUM 50 MG TABLET PEG SCH (09:42)
--- NOTE | 2018-08-25 14:31 | PDOC PROGRESS REPORT ---
Subjective Progress Note for:: 08/25/18 Subjective:: 83 year old male past medical history of A. fib on apixaban, CHF, dyslipidemia, and COPD who is status post recent cervical fusion surgery at [place] complicated by cardiac arrest and severe anoxic brain injury, intubated for more than a week, subsequently discharged to to [facility] and was brought in to ED from [facility] after vomiting while being suctioned, chest x-ray was done which was suspicious for pneumonia and pt was brought to ED for further evaluation. In ED he was found to be tachycardic, febrile and had leukocytosis. He was admitted for possible aspiration pneumonia vs healthcare associated pneumonia. Patient is nonverbal due to his anoxic brain injury caused by recent cardiac arrest at [place]. Patient was stared on IV antibiotics. He did improve with treatment. 08/16: He is tolerating tube feedings well. Discussed with family who has decided to make him hospice. 08/21: He remains nonverbal. He is tolerating tube feedings well. Still awaiting for placement process and family's choice of placement as approved by [place]. Mark almaraz is now having watery stools. Will send for C difficile testing. 08/22/2018-patient was bedbound with a neck collar. Receiving the tube feedings. Family member at bedside they state found place for him to go. Waiting for Dr. Davenport's input about removing the neck collar. This catheter was placed because patient is incontinent and groin area is with excoriations. 08/23/2018-patient is comfortably in the sleeping in bed. On verbal commands woke up but not communicative. Neck collar still in place. We are waiting for Dr. Davenport to review the x-rays before removing the black color. rock worker working for bed in [facility]. No acute events in the last 24 hours and patient is afebrile. 08/24/2018-no acute events in the last 24 hours. Afebrile. Patient is comfortably in the bed with the neck collar. On calling wake up and not communicating. Waiting for bed from [place]. 08/25/2018-no acute events in the last 24 hours. Patient is afebrile. Not communicative. Reason For Visit: HCAP,ASPIRATION PNM Physical Exam Vital Signs: Temp Pulse Resp BP Pulse Ox 97.5 F 65 24 H 95/51 L 95 08/25/18 11:35 08/25/18 11:35 08/25/18 11:35 08/25/18 11:35 08/25/18 11:35 Intake & Output 08/24/18 08/25/18 08/26/18 06:59 06:59 06:59 Intake Total 2727 2130 480 Output Total 1875 1350 300 Balance 852 780 180 Weight 66.6 kg 67.2 kg General appearance: PRESENT: no acute distress Head exam: PRESENT: atraumatic, normocephalic Eye exam: PRESENT: PERRLA Neck exam: PRESENT: other - Patient still have a neck collar. Respiratory exam: PRESENT: decreased breath sounds Cardiovascular exam: PRESENT: RRR. ABSENT: diastolic murmur, rubs, systolic murmur GI/Abdominal exam: PRESENT: normal bowel sounds, soft. ABSENT: distended, guarding, mass, organolmegaly, rebound, tenderness Rectal exam: PRESENT: deferred Extremities exam: PRESENT: full ROM. ABSENT: calf tenderness, clubbing, pedal edema Neurological exam: PRESENT: alert, awake, oriented to person, oriented to place, oriented to time, oriented to situation, CN II-XII grossly intact. ABSENT: motor sensory deficit Psychiatric exam: PRESENT: appropriate affect, normal mood. ABSENT: homicidal ideation, suicidal ideation Results Laboratory Results: 08/23/18 08:03 08/23/18 08:03 Impressions: KUB X-Ray 08/02/18 00:00 IMPRESSION: NO RADIOGRAPHIC EVIDENCE FOR ACUTE ABDOMINAL DISEASE. Head CT 08/08/18 00:00 IMPRESSION: Involutional changes of aging. Chronic microvascular ischemia. No acute findings. EVIDENCE OF ACUTE STROKE: NO. Cervical Spine X-Ray 08/14/18 00:00 IMPRESSION: Surgical changes. Minimal degenerative anterolisthesis of C3 on C4 and C4 on C5. Chest X-Ray 08/20/18 12:28 IMPRESSION: Slight worsening left basilar opacity. Assessment and Plan - Diagnosis (1) Aspiration pneumonia Qualifiers: Aspiration pneumonia type: due to regurgitated food Laterality: bilateral Lung location: lower lobe of lung Qualified Code(s): J69.0 - Pneumonitis due to inhalation of food and vomit Is this a current diagnosis for this admission?: Yes Plan: Completed 7 days of vancomycin and Zosyn. 08/22/2018-patient admitted with aspiration pneumonia. Completed 7 days course of antibiotic therapy. Patient is afebrile. T-max is 97.9 today. 08/23/2018-patient was admitted with aspiration pneumonia treated with a 7 days course of vancomycin and Zosyn. Afebrile. blood Cultures and sputum cultures are negative. 08/24/2018-aspiration pneumonia is resolved. Patient is not presently on antibiotics. T-max is 98.1. 08/25/2018-patient is afebrile temperature is 97.5. Treated for aspiration pneumonia which was resolved. (2) Acute diarrhea Is this a current diagnosis for this admission?: Yes (3) HCAP (healthcare-associated pneumonia) Is this a current diagnosis for this admission?: Yes Plan: As per number 1. 08/[id number]-old male admitted with healthcare associated pneumonia. Completed 7 days course of vancomycin and Zosyn. Most likely combination of gram-positive and gram-negative organisms responsible. 08/23/2018-patient admitted with healthcare associated aspiration pneumonia blood cultures sputum cultures are negative presently off the antibiotics and is afebrile. 08/24/2018-patient admitted for healthcare associated pneumonia. Treated with IV vancomycin and Zosyn. Blood cultures sputum cultures came back negative. Patient is afebrile. Presently off the antibiotics. (4) Anoxic brain injury Is this a current diagnosis for this admission?: No Plan: At his new baseline after sustaining anoxic brain injury during his recent cardiac arrest. (5) COPD (chronic obstructive pulmonary disease) Qualifiers: COPD type: unspecified COPD Qualified Code(s): J44.9 - Chronic obstructive pulmonary disease, unspecified Is this a current diagnosis for this admission?: No Plan: Not in exacerbation. Breathing treatments as needed. 08/24/2018-patient has history of COPD on nebulizer treatment on as-needed basis. 08/25/2018-patient has history of COPD pulse ox is 96% on room air. Not in distress. Chest examination bilateral entry was decreased no wheezing no crepitations. Patient is waiting for the placement. (6) Chronic a-fib Is this a current diagnosis for this admission?: Yes (7) Wound swab culture positive Is this a current diagnosis for this admission?: Yes Plan: 08/23/2018-culture from the abdominal wall positive for Citrobacter sensitivity to levofloxacin to start on levo floxacillin 500 mg p.o. daily for 1 week. 08/24/2018-the cultures from the abdominal wall positive for Citrobacter presently on levofloxacillin 500 mg p.o. daily and afebrile. 08/25/2018-patient is on presently levofloxacin 500 mg p.o. daily. - Time Time Spent with patient: 15-24 minutes Medications reviewed and adjusted accordingly: Yes Anticipated discharge: SNF
[2018-08-25] MEDS: MONTELUKAST SODIUM 10 MG TABLET GT SCH (23:22)
[2018-08-25] MEDS: ATORVASTATIN CALCIUM 40 MG TABLET PEG SCH (23:25)
[2018-08-26] MEDS: AMINO AC/PROTEIN HYDR/WHEY PRO 11 GM/45 ML PKT GT SCH ×3 (05:35→21:25)
[2018-08-26] MEDS: HEPARIN SOD (PORCINE) 5,000 UNIT/ML 1 ML SYRINGE SUBCUT SCH ×3 (05:35→21:25)
[2018-08-26 08:57] LABS: ALANINE AMINOTRANSFERASE 91 U/L (21-72); ALBUMIN 2.7 g/dL (3.5-5.0); ALKALINE PHOSPHATASE 204 U/L (38-126); ANION GAP 8 (5-19); ASPARTATE AMINO TRANSFERASE 63 U/L (17-59); BILIRUBIN,DIRECT 0.2 mg/dL (0.0-0.4); BILIRUBIN,TOTAL 0.5 mg/dL (0.2-1.3); BLOOD UREA NITROGEN 36 mg/dL (7-20); CALCIUM 8.6 mg/dL (8.4-10.2); CARBON DIOXIDE 27 mmol/L (22-30); CHLORIDE 101 mmol/L (98-107); GLUCOSE 141 mg/dL (75-110); POTASSIUM 4.4 mmol/L (3.6-5.0); SODIUM 135.9 mmol/L (137-145); TOTAL PROTEIN 6.2 g/dL (6.3-8.2)
[2018-08-26 08:59] LABS: HEMATOCRIT 32.6 % (37.9-51.0); HEMOGLOBIN 10.6 g/dL (13.5-17.0); MEAN CORPUSCULAR HEMOGLOBIN 29.5 pg (27.0-33.4); MEAN CORPUSCULAR HGB CONC 32.6 g/dL (32.0-36.0); MEAN CORPUSCULAR VOLUME 90 fl (80-97); PLATELET COUNT 326 10^3/uL (150-450); RED BLOOD COUNT 3.61 10^6/uL (4.35-5.55); RED CELL DISTRIBUTION WIDTH 17.5 % (11.5-14.0)
--- NOTE | 2018-08-26 09:57 | PDOC PROGRESS REPORT ---
Subjective Progress Note for:: 08/26/18 Subjective:: 83 year old male past medical history of A. fib on apixaban, CHF, dyslipidemia, and COPD who is status post recent cervical fusion surgery at [place] complicated by cardiac arrest and severe anoxic brain injury, intubated for more than a week, subsequently discharged to to [facility] and was brought in to ED from [facility] after vomiting while being suctioned, chest x-ray was done which was suspicious for pneumonia and pt was brought to ED for further evaluation. In ED he was found to be tachycardic, febrile and had leukocytosis. He was admitted for possible aspiration pneumonia vs healthcare associated pneumonia. Patient is nonverbal due to his anoxic brain injury caused by recent cardiac arrest at [place]. Patient was stared on IV antibiotics. He did improve with treatment. 08/16: He is tolerating tube feedings well. Discussed with family who has decided to make him hospice. 08/21: He remains nonverbal. He is tolerating tube feedings well. Still awaiting for placement process and family's choice of placement as approved by [place]. Mark almaraz is now having watery stools. Will send for C difficile testing. 08/22/2018-patient was bedbound with a neck collar. Receiving the tube feedings. Family member at bedside they state found place for him to go. Waiting for Dr. Davenport's input about removing the neck collar. This catheter was placed because patient is incontinent and groin area is with excoriations. 08/23/2018-patient is comfortably in the sleeping in bed. On verbal commands woke up but not communicative. Neck collar still in place. We are waiting for Dr. Davenport to review the x-rays before removing the black color. community center worker working for bed in [facility]. No acute events in the last 24 hours and patient is afebrile. 08/24/2018-no acute events in the last 24 hours. Afebrile. Patient is comfortably in the bed with the neck collar. On calling wake up and not communicating. Waiting for bed from [place]. 08/25/2018-no acute events in the last 24 hours. Patient is afebrile. Not communicative. 08/26/2018-no acute events in the last 24 hours. Afebrile. Patient is comfortably in the bed with the neck collar. Waiting for placement. Reason For Visit: HCAP,ASPIRATION PNM Physical Exam Vital Signs: Temp Pulse Resp BP Pulse Ox 98.4 F 77 14 115/66 95 08/26/18 07:23 08/26/18 07:23 08/26/18 07:23 08/26/18 07:23 08/26/18 07:23 Intake & Output 08/25/18 08/26/18 08/27/18 06:59 06:59 06:59 Intake Total 2130 2130 Output Total 1350 1200 Balance 780 930 Weight 67.2 kg 67.8 kg General appearance: PRESENT: no acute distress, thin Head exam: PRESENT: atraumatic Eye exam: PRESENT: PERRLA Neck exam: PRESENT: other - Neck collar present. ABSENT: carotid bruit, JVD, lymphadenopathy, thyromegaly Respiratory exam: PRESENT: clear to auscultation prema. ABSENT: rales, rhonchi, wheezes Cardiovascular exam: PRESENT: RRR. ABSENT: diastolic murmur, rubs, systolic murmur Rectal exam: PRESENT: deferred Extremities exam: PRESENT: full ROM. ABSENT: calf tenderness, clubbing, pedal edema Neurological exam: PRESENT: alert, awake, oriented to person, oriented to place, oriented to time, oriented to situation, CN II-XII grossly intact. ABSENT: motor sensory deficit Psychiatric exam: PRESENT: appropriate affect, normal mood. ABSENT: homicidal ideation, suicidal ideation Results Laboratory Results: 08/26/18 08:27 08/26/18 08:27 Sodium 135.9 L Potassium 4.4 Chloride 101 Carbon Dioxide 27 Anion Gap 8 BUN 36 H Creatinine 0.79 Est GFR ( Amer) > 60 Est GFR (Non-Af Amer) > 60 Glucose 141 H Calcium 8.6 Magnesium 2.0 Total Bilirubin 0.5 AST 63 H ALT 91 H Alkaline Phosphatase 204 H Total Protein 6.2 L Albumin 2.7 L Impressions: KUB X-Ray 08/02/18 00:00 IMPRESSION: NO RADIOGRAPHIC EVIDENCE FOR ACUTE ABDOMINAL DISEASE. Head CT 08/08/18 00:00 IMPRESSION: Involutional changes of aging. Chronic microvascular ischemia. No acute findings. EVIDENCE OF ACUTE STROKE: NO. Cervical Spine X-Ray 08/14/18 00:00 IMPRESSION: Surgical changes. Minimal degenerative anterolisthesis of C3 on C4 and C4 on C5. Chest X-Ray 08/20/18 12:28 IMPRESSION: Slight worsening left basilar opacity. Assessment and Plan - Diagnosis (1) Aspiration pneumonia Qualifiers: Aspiration pneumonia type: due to regurgitated food Laterality: bilateral Lung location: lower lobe of lung Qualified Code(s): J69.0 - Pneumonitis due to inhalation of food and vomit Is this a current diagnosis for this admission?: Yes Plan: Completed 7 days of vancomycin and Zosyn. 08/22/2018-patient admitted with aspiration pneumonia. Completed 7 days course of antibiotic therapy. Patient is afebrile. T-max is 97.9 today. 08/23/2018-patient was admitted with aspiration pneumonia treated with a 7 days course of vancomycin and Zosyn. Afebrile. blood Cultures and sputum cultures are negative. 08/24/2018-aspiration pneumonia is resolved. Patient is not presently on antibiotics. T-max is 98.1. 08/25/2018-patient is afebrile temperature is 97.5. Treated for aspiration pneumonia which was resolved. 06/26/2018-patient is afebrile T-max is 97.4. His aspiration pneumonia is resolved. Cultures are negative. Aspiration pneumonia most likely hospital- acquired. Most likely combination of gram-positive and gram-negative organisms responsible. (2) Acute diarrhea Is this a current diagnosis for this admission?: Yes Plan: Will check for C. diff infection. 08/22/2018-patient continued to have watery diarrhea. C. difficile came back negative. To start on Lomotil. 08/23/2018-acute diarrhea is resolved and C. difficile was negative. 08/24/2018-patient does not have any loose stools anymore C. difficile was negative during the hospital stay. 08/26/2018-acute diarrhea is resolved. (3) HCAP (healthcare-associated pneumonia) Is this a current diagnosis for this admission?: Yes (4) Anoxic brain injury Is this a current diagnosis for this admission?: No (5) COPD (chronic obstructive pulmonary disease) Qualifiers: COPD type: unspecified COPD Qualified Code(s): J44.9 - Chronic obstructive pulmonary disease, unspecified Is this a current diagnosis for this admission?: No (6) Chronic a-fib Is this a current diagnosis for this admission?: Yes (7) Wound swab culture positive Is this a current diagnosis for this admission?: Yes Plan: 08/23/2018-culture from the abdominal wall positive for Citrobacter sensitivity to levofloxacin to start on levo floxacillin 500 mg p.o. daily for 1 week. 08/24/2018-the cultures from the abdominal wall positive for Citrobacter presently on levofloxacillin 500 mg p.o. daily and afebrile. 08/25/2018-patient is on presently levofloxacin 500 mg p.o. daily. - Time Time Spent with patient: 15-24 minutes Medications reviewed and adjusted accordingly: Yes Anticipated discharge: SNF
[2018-08-26 10:26] LABS: ABSOLUTE LYMPHOCYTES# (MANUAL) 1.7 10^3/uL (0.5-4.7); ABSOLUTE MONOCYTES # (MANUAL) 0.7 10^3/uL (0.1-1.4); ABSOLUTE NEUTROPHILS# (MANUAL) 8.7 10^3/uL (1.7-8.2); ANISOCYTOSIS 1+; BAND NEUTROPHILS % (MANUAL) 1 % (3-5); BASOPHILS % (MANUAL) 0 % (0-2); BURR CELLS SLIGHT; EOSINOPHILS % (MANUAL) 0 % (0-6); LYMPHOCYTES % (MANUAL) 15 % (13-45); METAMYELOCYTES % (MANUAL) 1 % (0); MONOCYTES % (MANUAL) 6 % (3-13); OVALOCYTES 1+; PLATELET COMMENT ADEQUATE; POIKILOCYTOSIS 1+; SEGMENTED NEUTROPHILS % (MAN) 77 % (42-78); TOTAL CELLS COUNTED 100
[2018-08-26 10:27] LABS: PLATELET CLUMPS PRESENT
[2018-08-26] MEDS: LOSARTAN POTASSIUM 50 MG TABLET PEG SCH (10:36)
[2018-08-26] MEDS: FAMOTIDINE 20 MG TABLET PEG SCH ×2 (10:36→21:25)
[2018-08-26] MEDS: ASPIRIN 81 MG TABLET, CHEWABLE PEG SCH (10:36)
[2018-08-26] MEDS: METOPROLOL TARTRATE 50 MG TABLET PEG SCH ×2 (10:36→21:25)
[2018-08-26] MEDS: LEVOFLOXACIN 750 MG/D5W RTU 750 MG/150 ML RTUPB IV SCH (10:36)
[2018-08-26] MEDS: AMANTADINE 10 MG/ML SYRUP 60 ML GT SCH ×2 (10:36→21:25)
[2018-08-26] MEDS: ATORVASTATIN CALCIUM 40 MG TABLET PEG SCH (21:25)
[2018-08-26] MEDS: MONTELUKAST SODIUM 10 MG TABLET GT SCH (21:25)
[2018-08-27] MEDS: AMINO AC/PROTEIN HYDR/WHEY PRO 11 GM/45 ML PKT GT SCH ×3 (05:08→21:38)
[2018-08-27] MEDS: HEPARIN SOD (PORCINE) 5,000 UNIT/ML 1 ML SYRINGE SUBCUT SCH ×3 (05:08→21:40)
[2018-08-27] MEDS: METOPROLOL TARTRATE 50 MG TABLET PEG SCH ×2 (10:27→21:39)
[2018-08-27] MEDS: ASPIRIN 81 MG TABLET, CHEWABLE PEG SCH (10:27)
[2018-08-27] MEDS: FAMOTIDINE 20 MG TABLET PEG SCH ×2 (10:27→21:39)
[2018-08-27] MEDS: LOSARTAN POTASSIUM 50 MG TABLET PEG SCH (10:27)
[2018-08-27] MEDS: LEVOFLOXACIN 750 MG/D5W RTU 750 MG/150 ML RTUPB IV SCH (10:27)
[2018-08-27] MEDS: AMANTADINE 10 MG/ML SYRUP 60 ML GT SCH ×2 (10:28→21:38)
--- NOTE | 2018-08-27 11:43 | PDOC PROGRESS REPORT ---
Subjective Progress Note for:: 08/27/18 Subjective:: 83 year old male past medical history of A. fib on apixaban, CHF, dyslipidemia, and COPD who is status post recent cervical fusion surgery at [place] complicated by cardiac arrest and severe anoxic brain injury, intubated for more than a week, subsequently discharged to to [facility] and was brought in to ED from [facility] after vomiting while being suctioned, chest x-ray was done which was suspicious for pneumonia and pt was brought to ED for further evaluation. In ED he was found to be tachycardic, febrile and had leukocytosis. He was admitted for possible aspiration pneumonia vs healthcare associated pneumonia. Patient is nonverbal due to his anoxic brain injury caused by recent cardiac arrest at [place]. Patient was stared on IV antibiotics. He did improve with treatment. 08/16: He is tolerating tube feedings well. Discussed with family who has decided to make him hospice. 08/21: He remains nonverbal. He is tolerating tube feedings well. Still awaiting for placement process and family's choice of placement as approved by [place]. Mark almaraz is now having watery stools. Will send for C difficile testing. 08/22/2018-patient was bedbound with a neck collar. Receiving the tube feedings. Family member at bedside they state found place for him to go. Waiting for Dr. Davenport's input about removing the neck collar. This catheter was placed because patient is incontinent and groin area is with excoriations. 08/23/2018-patient is comfortably in the sleeping in bed. On verbal commands woke up but not communicative. Neck collar still in place. We are waiting for Dr. Davenport to review the x-rays before removing the black color. family service caseworker working for bed in [facility]. No acute events in the last 24 hours and patient is afebrile. 08/24/2018-no acute events in the last 24 hours. Afebrile. Patient is comfortably in the bed with the neck collar. On calling wake up and not communicating. Waiting for bed from [place]. 08/25/2018-no acute events in the last 24 hours. Patient is afebrile. Not communicative. 08/26/2018-no acute events in the last 24 hours. Afebrile. Patient is comfortably in the bed with the neck collar. Waiting for placement. 2018. Patient looks in mild respiratory distress. Tachypneic. Pulse ox is 7%. Plan to do the deep suctioning of the trach. Respiratory therapist was not ified. Plan to do the chest x-ray today. Patient CODE STATUS is DNR. He is waiting for the placement. In mild distress in the bed not communicative. mental Status at his baseline. Reason For Visit: HCAP,ASPIRATION PNM Physical Exam Vital Signs: Temp Pulse Resp BP Pulse Ox 98.3 F 84 20 118/58 L 97 08/27/18 07:19 08/27/18 07:19 08/27/18 07:19 08/27/18 07:19 08/27/18 07:19 Intake & Output 08/26/18 08/27/18 08/28/18 06:59 06:59 06:59 Intake Total 2130 2350 100 Output Total 1200 1080 Balance 930 1270 100 Weight 67.8 kg 68.2 kg General appearance: PRESENT: mild distress Head exam: PRESENT: atraumatic Eye exam: PRESENT: PERRLA Mouth exam: PRESENT: neck supple Teeth exam: PRESENT: poor dentation Neck exam: PRESENT: other - Neck collar in place. Respiratory exam: PRESENT: decreased breath sounds, tachypnea, wheezes Cardiovascular exam: PRESENT: tachycardia GI/Abdominal exam: PRESENT: normal bowel sounds, soft. ABSENT: distended, guarding, mass, organolmegaly, rebound, tenderness Rectal exam: PRESENT: deferred Extremities exam: PRESENT: full ROM. ABSENT: calf tenderness, clubbing, pedal edema Neurological exam: PRESENT: alert, awake Psychiatric exam: PRESENT: appropriate affect, normal mood. ABSENT: homicidal ideation, suicidal ideation Results Laboratory Results: 08/26/18 08:27 08/26/18 08:27 Impressions: KUB X-Ray 08/02/18 00:00 IMPRESSION: NO RADIOGRAPHIC EVIDENCE FOR ACUTE ABDOMINAL DISEASE. Head CT 08/08/18 00:00 IMPRESSION: Involutional changes of aging. Chronic microvascular ischemia. No acute findings. EVIDENCE OF ACUTE STROKE: NO. Cervical Spine X-Ray 08/14/18 00:00 IMPRESSION: Surgical changes. Minimal degenerative anterolisthesis of C3 on C4 and C4 on C5. Chest X-Ray 08/20/18 12:28 IMPRESSION: Slight worsening left basilar opacity. Assessment and Plan - Diagnosis (1) Aspiration pneumonia Qualifiers: Aspiration pneumonia type: due to regurgitated food Laterality: bilateral Lung location: lower lobe of lung Qualified Code(s): J69.0 - Pneumonitis due to inhalation of food and vomit Is this a current diagnosis for this admission?: Yes Plan: Completed 7 days of vancomycin and Zosyn. 08/22/2018-patient admitted with aspiration pneumonia. Completed 7 days course of antibiotic therapy. Patient is afebrile. T-max is 97.9 today. 08/23/2018-patient was admitted with aspiration pneumonia treated with a 7 days course of vancomycin and Zosyn. Afebrile. blood Cultures and sputum cultures are negative. 08/24/2018-aspiration pneumonia is resolved. Patient is not presently on antibiotics. T-max is 98.1. 08/25/2018-patient is afebrile temperature is 97.5. Treated for aspiration pneumonia which was resolved. 08/26/2018-patient is afebrile T-max is 97.4. His aspiration pneumonia is resolved. Cultures are negative. Aspiration pneumonia most likely hospital- acquired. Most likely combination of gram-positive and gram-negative organisms responsible. 08/27/2018-patient's temperature is 98.3. Cultures are negative. Because of the respiratory distress plan to do the repeat chest x-ray today. (2) Acute diarrhea Is this a current diagnosis for this admission?: Yes (3) HCAP (healthcare-associated pneumonia) Is this a current diagnosis for this admission?: Yes (4) Anoxic brain injury Is this a current diagnosis for this admission?: No (5) COPD (chronic obstructive pulmonary disease) Qualifiers: COPD type: unspecified COPD Qualified Code(s): J44.9 - Chronic obstructive pulmonary disease, unspecified Is this a current diagnosis for this admission?: No Plan: Not in exacerbation. Breathing treatments as needed. 08/24/2018-patient has history of COPD on nebulizer treatment on as-needed basis. 08/25/2018-patient has history of COPD pulse ox is 96% on room air. Not in distress. Chest examination bilateral entry was decreased no wheezing no c repitations. Patient is waiting for the placement. 08/27/2018-patient has history of COPD pulse ox is 97% on room air. In mild to moderate respiratory distress. Plan to do the deep suctioning thinking about a mucous plug. Follow-up chest x-ray was requested. (6) Chronic a-fib Is this a current diagnosis for this admission?: Yes (7) Wound swab culture positive Is this a current diagnosis for this admission?: Yes Plan: 08/23/2018-culture from the abdominal wall positive for Citrobacter sensitivity to levofloxacin to start on levo floxacillin 500 mg p.o. daily for 1 week. 08/24/2018-the cultures from the abdominal wall positive for Citrobacter presently on levofloxacillin 500 mg p.o. daily and afebrile. 08/25/2018-patient is on presently levofloxacin 500 mg p.o. daily. 08/27/2018-patient has a feeding tube abdominal cultures came back positive for Citrobacter presently he is on levo floxacillin. - Time Time Spent with patient: 15-24 minutes Medications reviewed and adjusted accordingly: Yes Anticipated discharge: Home
--- NOTE | 2018-08-27 12:14 | RADIOLOGY REPORT (SQ) ---
EXAM DESCRIPTION: CHEST SINGLE VIEW COMPLETED DATE/TIME: 08/27/2018 12:07 pm REASON FOR STUDY: resp distress COMPARISON: 08/20/2018. EXAM PARAMETERS: NUMBER OF VIEWS: One view. TECHNIQUE: Single frontal radiographic view of the chest acquired. RADIATION DOSE: NA LIMITATIONS: None. FINDINGS: LUNGS AND PLEURA: Improved aeration in the left lung base. Minimal linear densities. No lobar infiltrate, masses or pneumothorax. No pleural effusion. MEDIASTINUM AND HILAR STRUCTURES: No masses. Contour normal. HEART AND VASCULAR STRUCTURES: Heart normal in size. Normal vasculature. BONES: No acute findings. HARDWARE: None in the chest. OTHER: No other significant finding. IMPRESSION: IMPROVED AERATION IN THE LEFT LUNG BASE. NO ACUTE RADIOGRAPHIC FINDING IN THE CHEST. TECHNICAL DOCUMENTATION: JOB ID: [id number] 1893 [employer]- All Rights Reserved Reading location - IP/workstation name: [email or web address]
[2018-08-27] MEDS ORDERED: LEVALBUTEROL HCL NEB 0.63 MG/3 ML AMPUL NEB PRN (20:03)
--- NOTE | 2018-08-27 20:54 | RADIOLOGY REPORT (SQ) ---
EXAM DESCRIPTION: XR CHEST 1 VIEW COMPLETED DATE/TME: 08/27/2018 00:00 CLINICAL HISTORY: acute tachypnea COMPARISON: August 27, 2018 FINDINGS: Cardiac silhouette is within normal limits. EKG leads project over the chest. Aorta is tortuous there is atherosclerosis. Linear opacities at the left lower lung may represent scar versus subsegmental atelectasis. There is no focal parenchymal or pleural disease. There is no acute osseous process visualized. IMPRESSION: Linear opacities at the left lower lung may represent scar versus subsegmental atelectasis.
[2018-08-27 20:55] LABS: HEMATOCRIT 35.3 % (37.9-51.0); HEMOGLOBIN 11.6 g/dL (13.5-17.0); MEAN CORPUSCULAR HEMOGLOBIN 29.5 pg (27.0-33.4); MEAN CORPUSCULAR HGB CONC 32.9 g/dL (32.0-36.0); MEAN CORPUSCULAR VOLUME 90 fl (80-97); PLATELET COUNT 350 10^3/uL (150-450); RED BLOOD COUNT 3.95 10^6/uL (4.35-5.55); RED CELL DISTRIBUTION WIDTH 17.7 % (11.5-14.0); WHITE BLOOD COUNT 12.8 10^3/uL (4.0-10.5)
[2018-08-27] MEDS ORDERED: ACETYLCYSTEINE 20% SOLN 800 MG/4 ML VIAL.NEB NEB ONE ×2 (21:00→21:40)
[2018-08-27] MEDS ORDERED: ACETYLCYSTEINE 10% NEB 400 MG/4 ML VIAL ONE (21:02)
[2018-08-27 21:12] LABS: ABSOLUTE LYMPHOCYTES# (MANUAL) 1.9 10^3/uL (0.5-4.7); ABSOLUTE MONOCYTES # (MANUAL) 0.5 10^3/uL (0.1-1.4); ABSOLUTE NEUTROPHILS# (MANUAL) 10.2 10^3/uL (1.7-8.2); BASOPHILS % (MANUAL) 0 % (0-2); EOSINOPHILS % (MANUAL) 1 % (0-6); LYMPHOCYTES % (MANUAL) 15 % (13-45); MONOCYTES % (MANUAL) 4 % (3-13); SEGMENTED NEUTROPHILS % (MAN) 80 % (42-78); TOTAL CELLS COUNTED 100
[2018-08-27 21:13] LABS: PLATELET COMMENT ADEQUATE
[2018-08-27 21:14] LABS: HYPOCHROMASIA SLIGHT; POLYCHROMASIA SLIGHT
[2018-08-27 21:15] LABS: STOMATOCYTES SLIGHT
[2018-08-27 21:16] LABS: ANISOCYTOSIS 1+
[2018-08-27] MEDS: POTASSI CL 20 MEQ/D5-1/2NS 1L 1,000 ML IV PRN (21:37)
[2018-08-27] MEDS: MONTELUKAST SODIUM 10 MG TABLET GT SCH (21:39)
[2018-08-27] MEDS ORDERED: ATORVASTATIN CALCIUM 40 MG TABLET PEG SCH (22:00)
[2018-08-28 05:23] LABS: HEMATOCRIT 32.5 % (37.9-51.0); HEMOGLOBIN 10.6 g/dL (13.5-17.0); MEAN CORPUSCULAR HEMOGLOBIN 29.4 pg (27.0-33.4); MEAN CORPUSCULAR HGB CONC 32.5 g/dL (32.0-36.0); MEAN CORPUSCULAR VOLUME 91 fl (80-97); PLATELET COUNT 292 10^3/uL (150-450); RED BLOOD COUNT 3.59 10^6/uL (4.35-5.55); RED CELL DISTRIBUTION WIDTH 17.5 % (11.5-14.0); WHITE BLOOD COUNT 13.2 10^3/uL (4.0-10.5)
[2018-08-28] MEDS: POTASSI CL 20 MEQ/D5-1/2NS 1L 1,000 ML IV PRN (05:43)
[2018-08-28] MEDS: AMINO AC/PROTEIN HYDR/WHEY PRO 11 GM/45 ML PKT GT SCH ×2 (05:48→13:15)
[2018-08-28] MEDS: HEPARIN SOD (PORCINE) 5,000 UNIT/ML 1 ML SYRINGE SUBCUT SCH ×2 (05:51→13:15)
[2018-08-28 05:52] LABS: ABSOLUTE LYMPHOCYTES# (MANUAL) 1.8 10^3/uL (0.5-4.7); ABSOLUTE MONOCYTES # (MANUAL) 0.8 10^3/uL (0.1-1.4); ABSOLUTE NEUTROPHILS# (MANUAL) 10.6 10^3/uL (1.7-8.2); BAND NEUTROPHILS % (MANUAL) 1 % (3-5); BASOPHILS % (MANUAL) 0 % (0-2); EOSINOPHILS % (MANUAL) 0 % (0-6); LYMPHOCYTES % (MANUAL) 14 % (13-45); METAMYELOCYTES % (MANUAL) 1 % (0); MONOCYTES % (MANUAL) 6 % (3-13); PLATELET COMMENT ADEQUATE; SEGMENTED NEUTROPHILS % (MAN) 78 % (42-78); TOTAL CELLS COUNTED 100
[2018-08-28 05:53] LABS: ANION GAP 9 (5-19); ANISOCYTOSIS 1+; BLOOD UREA NITROGEN 29 mg/dL (7-20); CALCIUM 8.5 mg/dL (8.4-10.2); CARBON DIOXIDE 23 mmol/L (22-30); CHLORIDE 100 mmol/L (98-107); GLUCOSE 223 mg/dL (75-110); HYPOCHROMASIA SLIGHT; POLYCHROMASIA 1+; POTASSIUM 4.8 mmol/L (3.6-5.0)
[2018-08-28] MEDS ORDERED: ACETYLCYSTEINE 20% SOLN 800 MG/4 ML VIAL.NEB NEB SCH (08:00)
[2018-08-28] MEDS: METOPROLOL TARTRATE 50 MG TABLET PEG SCH (09:24)
[2018-08-28] MEDS: FAMOTIDINE 20 MG TABLET PEG SCH (09:24)
[2018-08-28] MEDS: LOSARTAN POTASSIUM 50 MG TABLET PEG SCH (09:24)
[2018-08-28] MEDS: AMANTADINE 10 MG/ML SYRUP 60 ML GT SCH (09:25)
--- NOTE | 2018-08-28 10:02 | PDOC PROGRESS REPORT ---
Subjective Progress Note for:: 08/28/18 Subjective:: 83 year old male past medical history of A. fib on apixaban, CHF, dyslipidemia, and COPD who is status post recent cervical fusion surgery at [place] complicated by cardiac arrest and severe anoxic brain injury, intubated for more than a week, subsequently discharged to to [facility] and was brought in to ED from [facility] after vomiting while being suctioned, chest x-ray was done which was suspicious for pneumonia and pt was brought to ED for further evaluation. In ED he was found to be tachycardic, febrile and had leukocytosis. He was admitted for possible aspiration pneumonia vs healthcare associated pneumonia. Patient is nonverbal due to his anoxic brain injury caused by recent cardiac arrest at [place]. Patient was stared on IV antibiotics. He did improve with treatment. 08/16: He is tolerating tube feedings well. Discussed with family who has decided to make him hospice. 08/21: He remains nonverbal. He is tolerating tube feedings well. Still awaiting for placement process and family's choice of placement as approved by [place]. Mark almaraz is now having watery stools. Will send for C difficile testing. 08/22/2018-patient was bedbound with a neck collar. Receiving the tube feedings. Family member at bedside they state found place for him to go. Waiting for Dr. Davenport's input about removing the neck collar. This catheter was placed because patient is incontinent and groin area is with excoriations. 08/23/2018-patient is comfortably in the sleeping in bed. On verbal commands woke up but not communicative. Neck collar still in place. We are waiting for Dr. Davenport to review the x-rays before removing the black color. 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 No acute events in the last 24 hours and patient is afebrile. 08/24/2018-no acute events in the last 24 hours. Afebrile. Patient is comfortably in the bed with the neck collar. On calling wake up and not communicating. Waiting for bed from [place]. 08/25/2018-no acute events in the last 24 hours. Patient is afebrile. Not communicative. 08/26/2018-no acute events in the last 24 hours. Afebrile. Patient is comfortably in the bed with the neck collar. Waiting for placement. 08/27/2018. Patient looks in mild respiratory distress. Tachypneic. Pulse ox is 7%. Plan to do the deep suctioning of the trach. Respiratory therapist was notified. Plan to do the chest x-ray today. Patient CODE STATUS is DNR. He is waiting for the placement. In mild distress in the bed not communicative. mental Status at his baseline. 08/28/2018-patient tachypneic this morning. Last night he went into respiratory distress and feeding tube was changed to boluses thinking possibility of aspiration pneumonia. Plan is to do the CT chest without contrast today. Patient CODE STATUS is DNR/DNI. Neck collar was removed today. Patient is presently on levo floxacillin 40 mg p.o. WBC count went up to 13,000. Potassium is 4.8. To discontinue potassium supplementation. Patient in mild distress but unable to communicate. Reason For Visit: HCAP,ASPIRATION PNM Physical Exam Vital Signs: Temp Pulse Resp BP Pulse Ox 97.5 F 81 32 H 119/100 H 91 L 08/28/18 08:00 08/28/18 08:00 08/28/18 08:00 08/28/18 08:00 08/28/18 03:30 Intake & Output 08/27/18 08/28/18 08/29/18 06:59 06:59 06:59 Intake Total 2350 2650 Output Total 1080 1475 Balance 1270 1175 Weight 68.2 kg 67.4 kg General appearance: PRESENT: mild distress, thin Head exam: PRESENT: atraumatic Eye exam: PRESENT: PERRLA Ear exam: PRESENT: normal external ear exam Mouth exam: PRESENT: moist, tongue midline Neck exam: ABSENT: carotid bruit, JVD, lymphadenopathy, thyromegaly Respiratory exam: PRESENT: decreased breath sounds, tachypnea, wheezes Cardiovascular exam: PRESENT: tachycardia GI/Abdominal exam: PRESENT: normal bowel sounds, soft, other - Feeding tube in place.. ABSENT: distended, guarding, mass, organolmegaly, rebound, tenderness Rectal exam: PRESENT: deferred Gentrourinary exam: PRESENT: indwelling catheter Extremities exam: PRESENT: full ROM. ABSENT: calf tenderness, clubbing, pedal edema Neurological exam: PRESENT: alert, awake Psychiatric exam: PRESENT: anxious Results Laboratory Results: 08/28/18 04:58 08/28/18 04:58 08/27/18 08/28/18 08/28/18 20:35 04:58 04:58 WBC 12.8 H 13.2 H RBC 3.95 L 3.59 L Hgb 11.6 L 10.6 L Hct 35.3 L 32.5 L MCV 90 91 MCH 29.5 29.4 MCHC 32.9 32.5 RDW 17.7 H 17.5 H Plt Count 350 292 Seg Neutrophils % Not Reportable Not Reportable Lymphocytes % Not Reportable Not Reportable Monocytes % Not Reportable Not Reportable Eosinophils % Not Reportable Not Reportable Basophils % Not Reportable Not Reportable Absolute Neutrophils Not Reportable Not Reportable Absolute Lymphocytes Not Reportable Not Reportable Absolute Monocytes Not Reportable Not Reportable Absolute Eosinophils Not Reportable Not Reportable Absolute Basophils Not Reportable Not Reportable Sodium 132.0 L Potassium 4.8 Chloride 100 Carbon Dioxide 23 Anion Gap 9 BUN 29 H Creatinine 0.58 Est GFR ( Amer) > 60 Est GFR (Non-Af Amer) > 60 Glucose 223 H Calcium 8.5 Impressions: KUB X-Ray 08/02/18 00:00 IMPRESSION: NO RADIOGRAPHIC EVIDENCE FOR ACUTE ABDOMINAL DISEASE. Head CT 08/08/18 00:00 IMPRESSION: Involutional changes of aging. Chronic microvascular ischemia. No acute findings. EVIDENCE OF ACUTE STROKE: NO. Cervical Spine X-Ray 08/14/18 00:00 IMPRESSION: Surgical changes. Minimal degenerative anterolisthesis of C3 on C4 and C4 on C5. Chest X-Ray 08/27/18 00:00 IMPRESSION: Linear opacities at the left lower lung may represent scar versus subsegmental atelectasis. Assessment and Plan - Diagnosis (1) Respiratory distress Is this a current diagnosis for this admission?: Yes Plan: 08/28/2018-patient is in respiratory distress since yesterday. With the deep suctioning of mucous plug was removed yesterday. After the pulse ox are improved his breathing much better. Again last night he has another episode of respiratory distress feeding tube were changed to boluses and the concern is about aspiration pneumonia. BiPAP was requested but patient is presently on nasal cannula 4 L pulse ox is 91%. Plan is to remove the neck collar and arrange for the CT chest without contrast for further information about possible aspiration pneumonia. WBC count went up to 13,000. Chest x-ray does not show history of any pneumonia. On examination chest bilateral entry was decreased mild wheezes present bilateral bases. (2) Aspiration pneumonia Qualifiers: Aspiration pneumonia type: due to regurgitated food Laterality: bilateral Lung location: lower lobe of lung Qualified Code(s): J69.0 - Pneumonitis due to inhalation of food and vomit Is this a current diagnosis for this admission?: Yes Plan: Completed 7 days of vancomycin and Zosyn. 08/22/2018-patient admitted with aspiration pneumonia. Completed 7 days course of antibiotic therapy. Patient is afebrile. T-max is 97.9 today. 08/23/2018-patient was admitted with aspiration pneumonia treated with a 7 days course of vancomycin and Zosyn. Afebrile. blood Cultures and sputum cultures are negative. 08/24/2018-aspiration pneumonia is resolved. Patient is not presently on antibiotics. T-max is 98.1. 08/25/2018-patient is afebrile temperature is 97.5. Treated for aspiration pneumonia which was resolved. 08/26/2018-patient is afebrile T-max is 97.4. His aspiration pneumonia is resolved. Cultures are negative. Aspiration pneumonia most likely [facility] u[facility]. Most likely combination of gram-positive and gram-negative organisms responsible. 08/27/2018-patient's temperature is 98.3. Cultures are negative. Because of the respiratory distress plan to do the repeat chest x-ray today. 08/28/2018-T-max is 97.7 patient is in respiratory distress since yesterday. There is a highly likelihood that he may aspirated again. CT chest without contrast was requested. Plan to start him on IV Zosyn and vancomycin. Needed patient may be placed on BiPAP. Currently on a feeding tube receiving boluses. (3) Acute diarrhea Is this a current diagnosis for this admission?: Yes Plan: Will check for C. diff infection. 08/22/2018-patient continued to have watery diarrhea. C. difficile came back negative. To start on Lomotil. 08/23/2018-acute diarrhea is resolved and C. difficile was negative. 08/24/2018-patient does not have any loose stools anymore C. difficile was negative during the hospital stay. 08/26/2018-acute diarrhea is resolved. (4) HCAP (healthcare-associated pneumonia) Is this a current diagnosis for this admission?: Yes Plan: As per number 1. 08/22/[id number]-old male admitted with healthcare associated pneumonia. Completed 7 days course of vancomycin and Zosyn. Most likely combination of gra m-positive and gram-negative organisms responsible. 08/23/2018-patient admitted with healthcare associated aspiration pneumonia blood cultures sputum cultures are negative presently off the antibiotics and is afebrile. 08/24/2018-patient admitted for healthcare associated pneumonia. Treated with IV vancomycin and Zosyn. Blood cultures sputum cultures came back negative. Patient is afebrile. Presently off the antibiotics. (5) Anoxic brain injury Is this a current diagnosis for this admission?: No (6) COPD (chronic obstructive pulmonary disease) Qualifiers: COPD type: unspecified COPD Qualified Code(s): J44.9 - Chronic obstructive pulmonary disease, unspecified Is this a current diagnosis for this admission?: No (7) Chronic a-fib Is this a current diagnosis for this admission?: Yes (8) Wound swab culture positive Is this a current diagnosis for this admission?: Yes - Time Time Spent with patient: 15-24 minutes Medications reviewed and adjusted accordingly: Yes Anticipated discharge: Hospice
[2018-08-28] MEDS ORDERED: PIPERACILLIN/TAZOBACTAM 3.375 GM VIAL IV SCH (10:15)
[2018-08-28] MEDS ORDERED: VANCOMYCIN HCL 0 MG in DEXTROSE 5%-WATER 250 ML IV NR (10:30)
--- NOTE | 2018-08-28 11:10 | RADIOLOGY REPORT (SQ) ---
EXAM DESCRIPTION: CT CHEST WITHOUT COMPLETED DATE/TIME: 08/28/2018 10:54 am REASON FOR STUDY: resp distress COMPARISON: 10/24/2008 TECHNIQUE: CT scan performed of the chest without intravenous contrast. Images reviewed with lung, soft tissue and bone windows. Reconstructed coronal and sagittal MPR images reviewed. All images st ored on PACS. All CT scanners at this facility use dose modulation, iterative reconstruction, and/or weight based d osing when appropriate to reduce radiation dose to as low as reasonably achievable (ALARA). [facility]: Dose Right [facility]: CareDose [facility]: Dose Right [facility]: Teradose 4D [facility]: [employer] RADIATION DOSE: CT Rad equipment meets quality standard of care and radiation dose reduction techniq ues were employed. CTDIvol: 9.2 mGy. DLP: 340 mGy-cm. mGy. LIMITATIONS: No technical limitations. FINDINGS: LUNGS AND PLEURA: There is moderate opacification the right lower lobe posteriorly. There is a minimal right pleural effusion. There is masslike opacification in lingula inferiorly and ante riorly. This measures 3 cm in largest diameter on image 87 series 4. Centrilobular emphysematous ch anges are present. HILAR AND MEDIASTINAL STRUCTURES: Multiple generally small mediastinal nodes. The largest is precari nal and measures 10 mm in short axis. HEART AND VASCULAR STRUCTURES: No aneurysm. No pericardial effusion. UPPER ABDOMEN: No significant findings. Limited exam. THYROID AND OTHER SOFT TISSUES: No masses. No adenopathy. BONES: There appears to be a fracture of the sternum with no displacement. HARDWARE: None in the chest. OTHER: No other significant findings. IMPRESSION: Pulmonary emphysema. Right lower lobe airspace disease, pneumonia versus atelectasis. Masslike opacity in the lingula measuring 3 cm in largest diameter. Concerning for neoplasm. Consid er PET-CT. Fracture of the sternum. TECHNICAL DOCUMENTATION: JOB ID: [id number] Quality ID # [id number]: Final reports with documentation of one or more dose reduction techniques (e.g., Au tomated exposure control, adjustment of the mA and/or kV according to patient size, use of iterative reconstruction technique) 2010 [employer]- All Rights Reserved Reading location - IP/workstation name: [email or web address]
[2018-08-28] MEDS ORDERED: VANCOMYCIN HCL 750 MG in DEXTROSE 5%-WATER 250 ML IV SCH (12:00)
[2018-08-28] MEDS ORDERED: PIPERACILLIN SODIUM/TAZOBACTAM 3.375 GM in NORMAL SALINE 100 ML IV SCH (12:00)
--- NOTE | 2018-08-28 14:16 | PDOC TRANSFER SUMMARY ---
General - Admit/Disc Date/PCP Admission Date/Primary Care Provider: 07/28/18 14:19 TANIA ESPARZA MD Discharge Date: 08/28/18 - Discharge Diagnosis (1) Respiratory distress Is this a current diagnosis for this admission?: Yes Summary: 08/28/2018-patient is in respiratory distress since yesterday. With the deep suctioning of mucous plug was removed yesterday. After the pulse ox are improved his breathing much better. Again last night he has another episode of respiratory distress feeding tube were changed to boluses and the concern is about aspiration pneumonia. BiPAP was requested but patient is presently on nasal cannula 4 L pulse ox is 91%. Plan is to remove the neck collar and arrange for the CT chest without contrast for further information about possible aspiration pneumonia. WBC count went up to 13,000. Chest x-ray does not show history of any pneumonia. On examination chest bilateral entry was decreased mild wheezes present bilateral bases. 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 (2) Aspiration pneumonia Is this a current diagnosis for this admission?: Yes Summary: Completed 7 days of vancomycin and Zosyn. 08/22/2018-patient admitted with aspiration pneumonia. Completed 7 days course of antibiotic therapy. Patient is afebrile. T-max is 97.9 today. 08/23/2018-patient was admitted with aspiration pneumonia treated with a 7 days course of vancomycin and Zosyn. Afebrile. blood Cultures and sputum cultures are negative. 08/24/2018-aspiration pneumonia is resolved. Patient is not presently on antibiotics. T-max is 98.1. 08/25/2018-patient is afebrile temperature is 97.5. Treated for aspiration pneumonia which was resolved. 08/26/2018-patient is afebrile T-max is 97.4. His aspiration pneumonia is resolved. Cultures are negative. Aspiration pneumonia most likely hospital- acquired. Most likely combination of gram-positive and gram-negative organisms responsible. 08/27/2018-patient's temperature is 98.3. Cultures are negative. Because of the respiratory distress plan to do the repeat chest x-ray today. 08/28/2018-T-max is 97.7 patient is in respiratory distress since yesterday. There is a highly likelihood that he may aspirated again. CT chest without contrast was requested. Plan to start him on IV Zosyn and vancomycin. Needed patient may be placed on BiPAP. Currently on a feeding tube receiving boluses. 08/28/2018-patient is going to [facility] with comfort care measures as per the family request. (3) Acute diarrhea Is this a current diagnosis for this admission?: Yes Summary: Will check for C. diff infection. 08/22/2018-patient continued to have watery diarrhea. C. difficile came back negative. To start on Lomotil. 08/23/2018-acute diarrhea is resolved and C. difficile was negative. 08/24/2018-patient does not have any loose stools anymore C. difficile was negative during the hospital stay. 08/26/2018-acute diarrhea is resolved. (4) HCAP (healthcare-associated pneumonia) Is this a current diagnosis for this admission?: Yes Summary: As per number 1. 08/22/[id number]-jemr-old male admitted with healthcare associated pneumonia. Completed 7 days course of vancomycin and Zosyn. Most likely combination of gram-positive and gram-negative organisms responsible. 08/23/2018-patient admitted with healthcare associated aspiration pneumonia blood cultures sputum cultures are negative presently off the antibiotics and is afebrile. 08/24/2018-patient admitted for healthcare associated pneumonia. Treated with IV vancomycin and Zosyn. Blood cultures sputum cultures came back negative. Patient is afebrile. Presently off the antibiotics. (5) Anoxic brain injury Is this a current diagnosis for this admission?: No (6) COPD (chronic obstructive pulmonary disease) Is this a current diagnosis for this admission?: No (7) Chronic a-fib Is this a current diagnosis for this admission?: Yes (8) Wound swab culture positive Is this a current diagnosis for this admission?: Yes (9) Comfort measures only status Is this a current diagnosis for this admission?: Yes Summary: 08/28/2018-patient is going to [facility] with comfort care measures only. - Additional Information Resuscitation Status: Do Not Intubate Discharge Diet: As Tolerated Discharge Activity: Bedrest Prescriptions: Lorazepam [Ativan] 1 mg SL Q2HP PRN #15 tablet PRN Reason: Morphine Sulfate 5 mg SL Q2HP PRN #10 ml PRN Reason: Home Medications: Lorazepam [Ativan] 1 mg SL Q2HP PRN #15 tablet 08/28/18 Morphine Sulfate 5 mg SL Q2HP PRN #10 ml 08/28/18 History of Present Illness Admission Date/PCP: 07/28/18 14:19 TANIA ESPARZA MD History of Present Illness: ANGIE CERRATO is a 83 year old male 83 year old male past medical history of Aaron. primo on apixaban, CHF, dyslipidemia, and COPD who is status post recent cervical fusion surgery at [place] complicated by cardiac arrest and severe anoxic brain injury, intubated for more than a week, transferred to [facility] last Tuesday who was brought to ED from [facility] after vomiting while being suctioned, chest x-ray was done which was suspicious for pneumonia and pt was brought to ED for further e valuation. In ED he was found to be tachycardic with T-max of 105, leukocytosis question was raised for possible aspiration pneumonia versus healthcare associated pneumonia. Source of history is and son who are accompanying him. Patient is nonverbal due to his anoxic brain injury caused by recent cardiac arrest at [place]. At baseline patient communicates by moving his head. Patient is awake follows minimal, does not communicate any symptoms. Does not seem to be in any acute distress. Physical Exam Vital Signs: Temp Pulse Resp BP Pulse Ox 97.4 F 63 30 H 120/64 94 08/28/18 12:08 08/28/18 12:08 08/28/18 12:08 08/28/18 12:08 08/28/18 12:08 Intake & Output 08/27/18 08/28/18 08/29/18 06:59 06:59 06:59 Intake Total 2350 2650 580 Output Total 1080 1475 500 Balance 1270 1175 80 Weight 68.2 kg 67.4 kg General appearance: PRESENT: mild distress, thin Head exam: PRESENT: atraumatic Eye exam: PRESENT: PERRLA Mouth exam: PRESENT: moist, tongue midline Teeth exam: PRESENT: poor dentation Neck exam: ABSENT: carotid bruit, JVD, lymphadenopathy, thyromegaly Respiratory exam: PRESENT: decreased breath sounds, tachypnea, wheezes Cardiovascular exam: PRESENT: systolic murmur, tachycardia GI/Abdominal exam: PRESENT: normal bowel sounds, soft, other - Patient has a PEG tube. ABSENT: distended, guarding, mass, organolmegaly, rebound, tenderness Rectal exam: PRESENT: deferred Extremities exam: PRESENT: full ROM. ABSENT: calf tenderness, clubbing, pedal edema Neurological exam: PRESENT: alert, awake, other - Not communicative Psychiatric exam: PRESENT: anxious Results Laboratory Results: 08/28/18 04:58 08/28/18 04:58 08/27/18 08/28/18 08/28/18 20:35 04:58 04:58 WBC 12.8 H 13.2 H RBC 3.95 L 3.59 L Hgb 11.6 L 10.6 L Hct 35.3 L 32.5 L MCV 90 91 MCH 29.5 29.4 MCHC 32.9 32.5 RDW 17.7 H 17.5 H Plt Count 350 292 Seg Neutrophils % Not Reportable Not Reportable Lymphocytes % Not Reportable Not Reportable Monocytes % Not Reportable Not Reportable Eosinophils % Not Reportable Not Reportable Basophils % Not Reportable Not Reportable Absolute Neutrophils Not Reportable Not Reportable Absolute Lymphocytes Not Reportable Not Reportable Absolute Monocytes Not Reportable Not Reportable Absolute Eosinophils Not Reportable Not Reportable Absolute Basophils Not Reportable Not Reportable Sodium 132.0 L Potassium 4.8 Chloride 100 Carbon Dioxide 23 Anion Gap 9 BUN 29 H Creatinine 0.58 Est GFR ( Amer) > 60 Est GFR (Non-Af Amer) > 60 Glucose 223 H Calcium 8.5 Impressions: KUB X-Ray 08/02/18 00:00 IMPRESSION: NO RADIOGRAPHIC EVIDENCE FOR ACUTE ABDOMINAL DISEASE. Head CT 08/08/18 00:00 IMPRESSION: Involutional changes of aging. Chronic microvascular ischemia. No acute findings. EVIDENCE OF ACUTE STROKE: NO. Cervical Spine X-Ray 08/14/18 00:00 IMPRESSION: Surgical changes. Minimal degenerative anterolisthesis of C3 on C4 and C4 on C5. Chest X-Ray 08/27/18 00:00 IMPRESSION: Linear opacities at the left lower lung may represent scar versus subsegmental atelectasis. Chest CT 08/28/18 00:00 IMPRESSION: Pulmonary emphysema. Right lower lobe airspace disease, pneumonia versus atelectasis. Masslike opacity in the lingula measuring 3 cm in largest diameter. Concerning for neoplasm. Consider PET-CT. Fracture of the sternum. Transfer Plan - Time Spent with Patient Time spent with patient: Greater than 30 Minutes Qualifiers - * PATIENT BEING DISCHARGED WITH ANY OF THE FOLLOWING DIAGNOSIS: No VTE patient discharged on overlapping Therapy?: No Acute Heart Failure Is this a Heart Failure Patient?: No
[2018-08-28 16:27] VITALS: BP 113/55
[2018-08-28] MEDS ORDERED: VANCOMYCIN HCL INJ 1000 MG VIAL IV SCH (18:00)
== END 2018-08-28 16:01 | DRG 178 ==
LOC: ER 12:49 → EH 14:19 → 3S 16:22
PROVIDERS: ADMIT Internal Medicine; ATTEND Internal Medicine
PROC: 3E0F73Z Introduction of Anti-inflammatory into Respiratory Tract, Via Natural or Artificial Opening (ICD-10-PCS; 2018-07-28)
PROC: 0D2DXUZ Change Feeding Device in Lower Intestinal Tract, External Approach (ICD-10-PCS; principal; 2018-08-02)
DX: J15.6 Pneumonia due to other Gram-negative bacteria (principal); G93.1 Anoxic brain damage, not elsewhere classified; J44.0 Chronic obstructive pulmonary disease with (acute) lower respiratory infection; E87.0 Hyperosmolality and hypernatremia; J69.0 Pneumonitis due to inhalation of food and vomit; J15.9 Unspecified bacterial pneumonia; R06.03 Acute respiratory distress; Z66 Do not resuscitate; R19.7 Diarrhea, unspecified; I48.2 Chronic atrial fibrillation; Z51.5 Encounter for palliative care; E78.5 Hyperlipidemia, unspecified; J43.9 Emphysema, unspecified; I10 Essential (primary) hypertension; R21 Rash and other nonspecific skin eruption; Z98.1 Arthrodesis status; Z93.1 Gastrostomy status; Z90.49 Acquired absence of other specified parts of digestive tract; Z79.899 Other long term (current) drug therapy; Z88.6 Allergy status to analgesic agent; Z88.1 Allergy status to other antibiotic agents; Z74.01 Bed confinement status; Z88.3 Allergy status to other anti-infective agents; Z88.2 Allergy status to sulfonamides; Z88.8 Allergy status to other drugs, medicaments and biological substances; Z87.891 Personal history of nicotine dependence; Z78.1 Physical restraint status; Z86.74 Personal history of sudden cardiac arrest
CPT/HCPCS: 36415; 70460; 71045; 71250; 72040; 74018; 80048; 80053; 80202; 81001; 82803; 82962; 83605; 83735; 85025; 85027; 85610; 87040; 87070; 87077; 87086; 87186; 87205; 87493; 93005; 93010; 99285; B4155; J1630; J1644; J1956; J2270; J2543; J3370; J3480; J3490; J7042; J7050; J7060; J7614; J7620; L0172